=== PATIENT | female | born 1965 | race Caucasian/White ===

== ENCOUNTER 2023-06-13 10:19 | Emergency (ER) | payer OTHER, SELFPAY ==
--- NOTE | ~2023-06-13 | XR_ITS ---
EXAMINATION: XR wrist RT min 3V, XR forearm RT 2V DATE: 06/13/2023 12:06 INDICATION: Right wrist and forearm pain post fall TECHNIQUE: 1. Posteroanterior, ulnar deviation, oblique, and lateral views of the affected wrist were obtained. 2. AP and lateral views of the right forearm were obtained. COMPARISON: none FINDINGS: Dorsally impacted comminuted intra-articular fracture of the distal right radius. There is up to 1 mm lucent fracture gap and 1.5 mm step-off along the articular cortex. 8 degree dorsal tilt of the dist al articular surface. There is an additional nondisplaced fracture extending across the ulnar styloid process. There is increased scapholunate angle which suggests possibility of scapholunate ligament t ear/insufficiency. Polyarticular osteoarthritis, moderate severity at the first and second metacarpop halangeal joints and mild at the elbow and many of the remaining joints at the right hand and wrist. Small enthesopathic ossicle along the distal humeral lateral epicondyle. Soft tissue swelling about t he distal forearm. No elbow joint effusion. IMPRESSION: 1. Dorsally impacted comminuted intra-articular fracture of the distal right radius. 2. Nondisplaced ulnar styloid avulsion fracture. 3. Increased scapholunate angle which suggests possibility of scapholunate ligament tear/insufficienc y. 4. Polyarticular osteoarthritis, moderate at the right first and second metacarpophalangeal joints an d mild at many of the remaining joints at the right elbow, wrist and hand. Reviewed, dictated and finalized at location A. ICAL SUPPLY ASSISTANT IMPRESSION: 1. Dorsally impacted comminuted intra-articular fracture of the distal right ra dius. 2. Nondisplaced ulnar styloid avulsion fracture. 3. Increased scapholunate angle which suggests possibility of scapholunate liga ment tear/insufficiency. 4. Polyarticular osteoarthritis, moderate at the right first and second metacar pophalangeal joints and mild at many of the remaining joints at the right elbow , wrist and hand.
[2023-06-13 11:00] VITALS: BP 156/84; PULSE 88; RESP 18; TEMP 37.1; O2SAT 95
--- NOTE | 2023-06-13 11:03 | ED.UPPEXIN ---
HPI - Extremity Injury (Upper) General Chief Complaint: Extremity Injury, Upper Stated Complaint: injury Time Seen by Provider: 06/13/23 10:22 Source: patient Mode of arrival: ambulatory Limitations: no limitations History of Present Illness HPI narrative: Brenda is a 57-year-old female patient presenting to the clinic today for complaints of falling on the ice yesterday and injuring her right wrist and forearm. States most pain is to the forearm but yesterday was unable to move the wrist as well. Has swelling to the volar aspect of the radial wrist and to the distal forearm. Related Data Allergies Allergy/AdvReac Type Severity Reaction Status Date / Time No Known Allergies Allergy Unverified 10/31/11 09:29 Review of Systems Review of Systems: Pertinent positives per HPI. Patient denies any fever, chills, rash, headache, visual changes, dizziness, cough, shortness of breath, chest pain, palpitations, nausea, vomiting, diarrhea, constipation, abdominal pain, or any urinary issues. PMFSH Comments At the time of my signature, I reviewed and agree with the nursing past medical, surgical, social, and family history. There is no relevant family history pertinent to the patient complaint. Exam Narrative: General: Well-developed, well nourished, in no apparent distress Head: Normocephalic, atraumatic. Cardio: Regular rate and rhythm, s1 and s2 normal, no murmur appreciated. Resp: Clear to auscultation bilaterally, no rhonchi, rales, wheezing or rubs. Musculoskeletal: No obvious deformity, swelling and redness noted to the right distal forearm and the volar aspect of the right radial wrist, tender to palpation over these areas, limited range of motion due to pain, pain with supination and pronation to the distal volar volar forearm, muscle strength strong and equal, peripheral pulse strong, cap refill less than 3 seconds, no cyanosis, normal gait and station Course Course Emergency Course: Portions of this record may have been created with voice recognition software. Level of Care: Express Care Visit Vital Signs Vital signs: Vital Signs Temperature 37.1 C 06/13/23 11:00 Pulse Rate 88 06/13/23 11:00 Respiratory Rate 18 06/13/23 11:00 Blood Pressure 156/84 H 06/13/23 11:00 Pulse Oximetry 95 06/13/23 11:00 Oxygen Delivery Room Air 06/13/23 11:00 Temperature 37.1 C 06/13/23 11:00 Pulse Rate 88 06/13/23 11:00 Respiratory Rate 18 06/13/23 11:00 Blood Pressure 156/84 H 06/13/23 11:00 Pulse Oximetry 95 06/13/23 11:00 Oxygen Delivery Room Air 06/13/23 11:00 Vital signs reviewed MDM - Extremity Injury (Upper) MDM Narrative Medical decision making narrative: At the time of visit patient is resting comfortably on the exam table. Patient appears to be nontoxic. Diagnostics: X-ray of the right forearm and wrist were performed-1. Dorsally impacted comminuted intra-articular fracture of the distal right radius. 2. Nondisplaced ulnar styloid avulsion fracture. 3. Increased scapholunate angle which suggests possibility of scapholunate ligament tear/insufficiency. 4. 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 Plan: Posterior short-arm OCL was applied and arm sling was given. Ortho referral to Dr. Ewing was given to the patient. CSM within normal limits prior to discharge with ortho glass splint. Work note was given to the patient. Supportive measures were discussed with the patient and they voiced understanding discharge instructions and agrees to treatment plan. Return precautions reviewed Differential Diagnosis Differential diagnosis: Likely sprain and strain of wrist, fracture of wrist and other (Radius, ulna fracture, contusion, soft tissue swelling) Imaging Data Radiologist's impression: ITS Impressions Forearm X-Ray 06/13/23 12:09 I
== END 2023-06-13 12:54 | disposition home or self-care (01) ==
PROVIDERS: Emergency Provider Nurse Practitioner Family
DX: S52.591A Other fractures of lower end of right radius, initial encounter for closed fracture (principal); S52.614A Nondisplaced fracture of right ulna styloid process, initial encounter for closed fracture; W00.9XXA Unspecified fall due to ice and snow, initial encounter
CPT/HCPCS: 29125; 73090; 73110; 99214; A4565; G0463

== ENCOUNTER 2023-11-06 13:56 | Outpatient (CLI) | payer OTHER, SELFPAY ==
--- NOTE | ~2023-11-06 | US_ITS ---
EXAMINATION: US arterial ankle brachial ind DATE: 11/06/2023 16:20 INDICATION: Right foot pain TECHNIQUE: Segmental pressures and plethysmographic and Doppler waveforms of the brachial and lower e xtremity arteries were obtained. COMPARISON: None. FINDINGS: Right and left brachial artery pressures of 197 mm Hg and 188 mm Hg, respectively, are concordant (no rmal difference <= 30 mmHg). The right ankle-brachial index (BAKARI) is 0.28 (normal >= 0.9-1.0). The right great toe-brachial index (TBI) is 0.09 (normal >= 0.65). Arterial Doppler waveforms demonstrate parvus and tardus waveforms wi th widened monophasic systolic peaks with delayed upstrokes. The left BAKARI is 0.58. The left TBI is 0.37. Arterial Doppler waveforms are monophasic but with brisk systolic upstrokes at both the left posterior tibial and dorsalis pedis arteries. IMPRESSION: 1. Bilateral arterial occlusive disease with severely decreased right BAKARI and TBI and moderately decr eased left BAKARI and TBI. Reviewed, dictated and finalized at location A. IMPRESSION: 1. Bilateral arterial occlusive disease with severely decreased right BAKARI and T BI and moderately decreased left BAKARI and TBI.
--- NOTE | ~2023-11-06 | US_ITS ---
EXAMINATION: US venous doppler LE RT DATE: 11/06/2023 16:20 INDICATION: RIGHT LEG PAIN AND SWELLING . TECHNIQUE: Grayscale images without and with compression and Doppler images of the right lower extrem ity veins were obtained. COMPARISON: None FINDINGS: The right common femoral vein, profunda (deep) femoral vein, femoral vein, popliteal vein, peroneal v ein, posterior tibial veins, gastrocnemius vein, and greater saphenous vein are patent. IMPRESSION: Patent right lower extremity veins. No evidence of deep venous thrombosis. Reviewed, dictated and finalized at location K.
== END 2023-11-06 13:57 | disposition home or self-care (01) ==
PROVIDERS: Visit Provider Podiatrist Foot & Ankle Surgery
DX: R60.0 Localized edema (principal); M79.89 Other specified soft tissue disorders
CPT/HCPCS: 93922; 93971

== ENCOUNTER 2025-04-17 20:49 | Inpatient (IN) | payer OTHER, SELFPAY ==
--- NOTE | ~2025-04-17 | CT_ITS ---
CT HEAD NON-CONTRAST Clinical History: If stable Comparison: None Technique: Unenhanced axial images skull base to vertex Coronal, sagittal reformats CT images acquired with automatic exposure control for dose reduction DLP: 681 mGy-cm Findings: Sulci, ventricles: Unremarkable. No intracerebral hemorrhage. No evidence acute territorial infarct. No mass effect, midline shift. Bony calvarium intact. Visualized paranasal sinuses: Clear. Mastoid air cells: Clear. IMPRESSION: 1. No acute intracranial findings. Reviewed, dictated and finalized at location R. MENTAL IRON WORKER HELPER
--- NOTE | ~2025-04-17 | XR_ITS ---
Examination: XR chest 1V portable Clinical History: Respiratory failure, CHF Comparison: 04/19/2025 Technique: Portable AP Findings: ET tube, NG tube, right neck central line. Heart size normal. Worsening diffuse interstitial markings. Small left effusion not excluded. No acute bony abnormality. IMPRESSION: 1. Worsening interstitial pulmonary edema and/or pneumonitis. 2. Suspect left effusion. Reviewed, dictated and finalized at location R. RVISING FLOORPERSON
--- NOTE | ~2025-04-17 | XR_ITS ---
Examination: XR chest 1V portable Clinical History: CP Comparison: None Technique: Portable AP Findings: Heart size upper limit of normal. Mildly increased interstitial markings. No acute bony abnormality. Right axillary femoral bypass graft. IMPRESSION: 1. Emphysema. Reviewed, dictated and finalized at location R. INE ROUGH ROUNDER IMPRESSION: 1. Emphysema.
--- NOTE | ~2025-04-17 | XR_ITS ---
EXAMINATION: XR chest 1V portable COMPARISON: No comparisons available. HISTORY: Resp Failure FINDINGS: Moderate pulmonary venous congestion. Small basilar infiltrates. No pneumothorax. Moderate cardiomegaly. Mediastinal and hilar contours are within normal limits. Post sternotomy. Miscellaneous: Right central line in the SVC. Impression: CHF. Superimposed probable pneumonia. The findings appear slightly progressed compared to the previous study Reviewed, dictated and finalized at location P. Y LEVEL AUTOMOTIVE TECHNICIAN Impression: CHF. Superimposed probable pneumonia. The findings appear slightly progressed c ompared to the previous study
--- NOTE | ~2025-04-17 | XR_ITS ---
XR abdomen gastric tube insert INDICATION: Evaluate OG tube position. TECHNIQUE: Limited KUB perform for evaluating OG tube . COMPARISON: No prior studies for comparison. FINDINGS: OG tube tip in the stomach. Visualized bowel gas pattern is unremarkable.Partially visualized central line tip in the SVC. Status post median sternotomy for CABG. There is residual contrast in nondilated renal collecting systems. IMPRESSION: 1: OG tube tip in the stomach. Reviewed, dictated and finalized at location I. L CLEANER HAND
--- NOTE | ~2025-04-17 | XR_ITS ---
Examination: XR chest 1V portable Clinical History: Acute respiratory failure Comparison: 1 day prior Technique: 1 day prior Findings: ET tube, NG tube, right neck central line. Heart size normal. Improving interstitial markings. Left basilar hazy opacity. No acute bony abnormality. IMPRESSION: 1. Improving interstitial pulmonary edema. 2. Persistent left basilar atelectasis and/or pleural effusion. Reviewed, dictated and finalized at location R. UREMENT SERVICES MANAGER
--- NOTE | ~2025-04-17 | CT_ITS ---
EXAMINATION: CTA abdomen pelvis, 04/17/2025 21:50 DISTRIBUTOR OPERATOR HISTORY: GIB COMPARISON: No comparisons available. TECHNIQUE: CTA with 3-D reconstructions of the abdomen and pelvis was performed with contrast. Isovue 300, 92cc injected IV. One or more of the following dose reduction techniques were used: automated exposure control, adjustment of the mA and/or kV according to patient size, use of iterative reconstruction technique. Unless otherwise stated, incidental findings do not require dedicated follow up imaging FINDINGS: CT abdomen: LUNG BASES: The lung bases are clear. The visualized portions of the heart and pericardium are unremarkable. LIVER: Unremarkable, liver contours intact, no lesions. SPLEEN: Unremarkable, no splenomegaly. KIDNEYS: Right Kidney: Unremarkable. No calculi. No hydronephrosis. Left Kidney: Unremarkable. No calculi. No hydronephrosis ADRENAL GLANDS: Unremarkable. PANCREAS: Unremarkable. GALLBLADDER/BILIARY: Unremarkable. No biliary dilatation. STOMACH AND ESOPHAGUS: Visualized stomach and esophagus within normal limits. BOWEL/MESENTERY: Moderate fecal content, no colitis or diverticulitis. Appendix normal. Mesentery normal. No thickened or dilated loops of small bowel. ADENOPATHY/RETROPERITONEUM: No lymphadenopathy. AORTA/VASCULATURE: Normal caliber aorta. There are atherosclerotic changes of the aorta without gross dissection or aneurysm, there are severe atherosclerotic changes of the aortic tributaries which remain however grossly patent. There are severe atherosclerotic changes of the common, external and internal iliac pelvic vessels with occlusion of the right common, external and internal iliac vessels with reconstitution noted in the right internal iliac vessels, there is a partially imaged right-sided probable axillary femoral bypass graft with femorofemoral graft which appears grossly patent, surrounding the aorta femoral graft there is a 2.7 x 2.4 x 8.3 cm fluid collection indeterminate possible se philipp,less likely hematoma or abscess. FREE FLUID OR FREE AIR: None. CT pelvis: SOLID ORGANS/REPRODUCTIVE: Unremarkable. BLADDER: Within normal limits. OSSEOUS STRUCTURES: No acute osseous abnormality.No suspicious lesions. OVERLYING SOFT TISSUES: Unremarkable. IMPRESSION: 1. No aneurysm or dissection identified. 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 There is a right-sided graft detailed above with probable seroma. Clinical correlation is required. Follow-up suggested to assess. Reviewed, dictated and finalized at location P. RIBUTOR OPERATOR IMPRESSION: 1. No aneurysm or dissection identified. Occlusion of the right external, inter nal and external iliac vessels with reconstitution of the internal iliac vessel s. There is a right-sided graft detailed above with probable seroma. Clinical c orrelation is required. Follow-up suggested to assess.
--- NOTE | ~2025-04-17 | XR_ITS ---
MODIFIED ESOPHAGRAM HISTORY: Dysphagia. TECHNIQUE: Modified barium esophagram was performed on 04/23/2025. I administered fluoroscopy and performed the exam with speech pathologist. Patient was seated for lateral fluoroscopic imaging for ingestion of thin liquids, pudding, solids and quantified amounts, followed by thin liquids in uncontrolled amounts. This was recorded on tape. A single fluoroscopic spot image was also recorded. The DAP for this procedure was 1.155 Gycm2. The amount of fluoroscopy time used during this procedure was 2.2 minutes. FINDINGS: Oral stage: Adequate function. Pharyngeal stage: Reduced tongue base retraction with vallecular residue with pudding and solid consistencies.. No laryngeal penetration or aspiration. Cervical/esophageal stage: Adequate function. IMPRESSION: Mild pharyngeal dysphagia without laryngeal penetration or aspiration. Please correlate with speech pathologist findings and specific feeding recommendations. Reviewed, dictated and finalized at location A. ARY AIDE IMPRESSION: Mild pharyngeal dysphagia without laryngeal penetration or aspirati on. Please correlate with speech pathologist findings and specific feeding rec ommendations.
--- NOTE | ~2025-04-17 | US_ITS ---
ULTRASOUND ABDOMEN LIMITED (RIGHT UPPER QUADRANT) Clinical History: Elevated LFTs Comparison: CTA abdomen and pelvis 04/17/2025 Technique: Right upper quadrant sonography Findings: Liver: Enlarged. Echogenic. No intrahepatic biliary ductal dilatation. Micronodular contour. Common Duct: Normal caliber. 5 mm. Gallbladder: No stones. Wall thickening. Small pericholecystic fluid. Sonographic Tracy's sign could not be assessed given premedication. Pancreas: Obscured by bowel gas. Right kidney: Unremarkable. Retrohepatic IVC: Unremarkable. IMPRESSION: 1. Nonspecific gallbladder wall thickening and pericholecystic fluid. If concern for acute cholecystitis, can consider HIDA scan. 2. Hepatomegaly, with steatosis and probable cirrhosis. Reviewed, dictated and finalized at location R. GENCY COMMUNICATIONS DISPATCHER IMPRESSION: 1. Nonspecific gallbladder wall thickening and pericholecystic fluid. If jorden rn for acute cholecystitis, can consider HIDA scan. 2. Hepatomegaly, with steatosis and probable cirrhosis.
--- NOTE | ~2025-04-17 | XR_ITS ---
MODIFIED ESOPHAGRAM HISTORY: Failed bedside swallow evaluation TECHNIQUE: Modified barium esophagram was performed on 04/21/2025. I administered fluoroscopy and performed the exam with speech pathologist. Patient was seated for lateral fluoroscopic imaging for ingestion of thin liquids, pudding, solids and quantified amounts, followed by thin liquids in uncontrolled amounts. This was recorded on tape. A single fluoroscopic spot image was also recorded. The DAP for this procedure was 1.2 Gycm2. The amount of fluoroscopy time used during this procedure was 1.8 minutes. FINDINGS: Oral stage: Adequate function. Pharyngeal stage: Reduced laryngeal elevation and adduction. Reduced tongue base retraction. Severe vallecular residue with all consistencies. Laryngeal penetration and aspiration with thin liquids from a cup. Cervical/esophageal stage: Adequate function. IMPRESSION: Pharyngeal dysphagia with laryngeal penetration and aspiration with thin liquids from a cup. Please correlate with speech pathologist findings and specific feeding recommendations. Reviewed, dictated and finalized at location A. TAIL SERVER IMPRESSION: Pharyngeal dysphagia with laryngeal penetration and aspiration with thin liquids from a cup. Please correlate with speech pathologist findings an d specific feeding recommendations.
--- NOTE | ~2025-04-17 | XR_ITS ---
XR chest ET placement 04/18/2025 07:45 Indication: Respiratory distress Procedure: AP portable chest Comparison: 04/17/2025 Findings: Status post median sternotomy for CABG. NG tube in the stomach. Endotracheal tube tip 3.7 cm above the lianet. Right IJ central line tip in the SVC. Diffuse bilateral airspace disease is developed, most likely edema. Pneumonia less favored. No significant effusion or pneumothorax. Impression: 1: Interval development of diffuse bilateral airspace disease, most likely edema. Pneumonia less favored. Reviewed, dictated and finalized at location I. LINE CREW MEMBER Impression: 1: Interval development of diffuse bilateral airspace disease, most likely mandy a. Pneumonia less favored.
--- NOTE | 2025-04-17 20:51 | ECG_ITS ---
Test Date: 2025-04-17 20:56:08 Measurements Intervals [place] Rate: 126 P: 269 WI: 209 QRS: 29 QRSD: 79 T: 260 QT: 215 QTc: 312 Interpretive Statements SINUS TACHYCARDIA ST AND T-WAVE ABNORMALITY COMPATIBLE WITH ISCHEMIA ABNORMAL ECG No previous ECG available for comparison Electronically Signed On 04-18-2025 13:12:26 QA LEAD by Yazan Voss M.D.
[2025-04-17 20:53] VITALS: BP 118/74; PULSE 128; RESP 16; TEMP 37.1; O2SAT 100
--- NOTE | 2025-04-17 21:09 | ED.CHESTPAIN ---
HPI - Chest Pain General Chief Complaint: Chest Pain Stated Complaint: WEAK, CP, HEART HISTORY Time Seen by Provider: 04/17/25 20:51 History of Present Illness HPI narrative: 59-year-old female with a history of coronary artery disease status post triple bypass over a year ago at outside hospital. Today patient presents via EMS for chest pressure that it started when she was exerting herself getting around the house. States the pain felt better when she started to rest and pain subsided. States it recurred when she got up and ambulance arrived. She was having some nausea with occasional shortness of breath. Describes the pain as a pressure in her chest. Does not radiate anywhere. No fever, chills, back pain, abdominal pain. No traumatic injuries. Was otherwise in her normal state of health. Is on Xarelto, aspirin, metoprolol. Related Data Home Medications ?Medication ?Instructions ?Recorded ?Confirmed ?Last Taken ?Type No Home Medications 06/14/23 07/26/23 Unknown History Allergies Allergy/AdvReac Type Severity Reaction Status Date / Time No Known Allergies Allergy Unverified 07/26/23 09:27 Review of Systems Review of Systems: As reviewed above in HPI All systems reviewed & are unremarkable except as noted in HPI and below PMFSH Social History Social History Social History: caffeine use Smoking status: Former smoker Alcohol intake: current Drinks per week: 15 Substance use: never Occupation/Education: occupation Additional occupation/education comments: technical aide- [employer] Exam Narrative: GENERAL: Ill-appearing, tachycardic, dyspneic appearing but conversing HEAD: Normocephalic, atraumatic EYES: PERRLA, extraocular movements are intact ENT: Nares clear, no rhinorrhea or epistaxis. Mucous membranes moist. NECK: Supple. CHEST: Clear to auscultation, tachypneic. Appearing dyspneic HEART: Tachycardic rate, regular rhythm, warm extremities, symmetric pulses ABDOMEN: Soft, nontender, nondistended EXTREMITIES: Normal range of motion. No extremity edema SKIN: Warm, dry, no rash. NEURO: [No focal deficits]. Alert and oriented [x3.] PSYCH: [Normal mood and affect.] Course Vital Signs Vital signs: Vital Signs Temperature 37.1 C 04/17/25 20:53 Pulse Rate 128 H 04/17/25 20:53 Respiratory Rate 16 04/17/25 20:53 Blood Pressure 118/74 04/17/25 20:53 Pulse Oximetry 100 04/17/25 20:53 Oxygen Delivery Nasal Cannula 04/17/25 20:53 Oxygen Flow Rate 5 04/17/25 20:53 Temperature 36.7 C 04/18/25 01:06 Pulse Rate 91 04/18/25 04:00 Respiratory Rate 16 04/18/25 04:00 Blood Pressure 124/62 04/18/25 02:02 Pulse Oximetry 100 04/18/25 04:00 Oxygen Delivery Nasal Cannula 04/17/25 20:53 Oxygen Flow Rate 5 04/17/25 20:53 MDM - Chest Pain MDM Narrative Medical decision making narrative: 59-year-old female with a history of coronary artery disease status post triple bypass over a year ago at outside hospital. Today patient presents via EMS for chest pressure that it started when she was exerting herself getting around the house. States the pain felt better when she started to rest and pain subsided. States it recurred when she got up and ambulance arrived. She was having some nausea with occasional shortness of breath. Describes the pain as a pressure in her chest. Does not radiate anywhere. No fever, chills, back pain, abdominal pain. No traumatic injuries. Was otherwise in her normal state of health. Is on Xarelto, aspirin, metoprolol. Patient is ill-appearing, tachycardic and tachypneic. She is on supplemental oxygen for comfort at this time. Pressure resolved with rest but she still appears dyspneic and uncomfortable. EKG obtained shows inferior lateral ST depressions with slight elevation in AVR. Sinus tachycardia. Normal QTC. Given concerns for ACS at this time called and spoke to Interventional Cardiology Dr. Martin who recommended empiric heparinization and heparin drip and monitoring for any symptom worsening. Recommended metoprolol for heart rate and repeat evaluations. No emergent need for catheterization but will plan for cardiac catheterization tomorrow unless worsening or deterioration in symptoms/clinical status. Laboratory studies and workup pending Patient received a heparin bolus and a dose of metoprolol after discussion with Cardiology. Heart rate did come down and symptoms improved. Her hemoglobin came back critically low at 3.4. Heparin was put on hold at this time and we re-interviewed the patient who denied any dark tarry stools, any vomiting blood, any belly pain or back pain. She states she has had occasional nosebleeds but not that severe. She is on Xarelto and aspirin so does have higher propensity for GI bleeding and will have to evaluate this as her profound anemia could be causing demand ischemia on her underlying CAD. Cardiology was updated and anticoagulation on hold until we can further elucidate GI bleed. Patient was ordered 3 units of packed red blood cells for her anemia and tachycardia. CT angiography of the abdomen and pelvis ordered for further evaluation. Patient is holding normal blood pressure at this time and symptom controlled. Family and patient updated on plan. Patient CT scan independently reviewed and she has severe aortoiliac and occlusive disease. I would back in the room and reviewed her vascular surgery notes from her previous encounters in 2023. She was at [facility] under the care of Dr. Sparks and at that time performed a right axillary to bifemoral aortoiliac bypass graft with good success. The month prior she underwent coronary artery bypass grafting triple-vessel to ensure success of this new procedure that she was getting for claudication and peripheral vascular disease. States she has been stable from this and has follow-up visits every 6 months with an upcoming vascular ultrasound next week. Patient's vital signs improved with fluid resuscitation and blood products. Currently heart rate 90, blood pressure stable. 100% on room air. Her symptoms are improving. I looked at the CT angiography and there appears to be some aneurysmal dilation around the bypass grafting site but I do not appreciate any active bleeding. Awaiting radiology read and will discuss options with Vascular at [facility]. Spoke to patient's personal vascular surgeon Dr. Sparks through the access line for [facility]. We went over patient's imaging together and the graft/aneurysmal dilation is unrelated to her presentation today and not actively bleeding. Recommends further investigation for GI bleeding and catheterization is warranted for her ACS symptoms but no indications for vascular interventions at this time or need for transfer and will see her in clinic outpatient to discuss the graft next week after hospitalization for this acute process. CTA finally read by overnight radiology. No aortic aneurysm or dissection, chronic vascular disease with patent bypass graft, bypass graft with a small fluid collection overlying correlating to the discussion I had with vascular surgery earlier shown to be seroma less likely hematoma or abscess. No bowel obstruction. Normal appendix. Questionable pulmonary edema and underlying emphysema. Patient's vital signs have all normalized after blood product resuscitation and her hemoglobin improved 8 after 3 units of blood. Her tachycardia resolved. Her EKGs have improved without any further strain pattern or ischemia pattern. Her troponins keep rising however likely secondary to demand ischemia. I did update Interventional Cardiology as well as spoke to Gastroenterology Dr. Mann informing them of patient's presentation and GI bleed and NSTEMI. Patient will be admitted to the hospital for further intervention with both consulting groups. She is currently hemodynamically stable and symptoms resolved. Will likely undergo catheterization versus endoscopy versus both. Woke to the hospitalist who accepted the patient to the IMU at this time. After our discussiosn will hold off on anticoagulation given more suspicion to GI bleed being the primary courtesy driver of symptoms. Medical Records Data Attestation: I reviewed the patient's medical records. Lab Data Attestation: I reviewed the patient's lab results. 04/18/25 03:48 04/17/25 21:15 Labs: Lab Results 04/17/25 04/17/25 04/18/25 Range/Units 21:15 21:46 00:20 WBC 9.2 (4.5-10.0) K/mm3 RBC 2.09 L (4.2-5.4) M/mm3 Hgb 3.4 L* 6.8 L* D (12.0-15.0) g/dL Hct 14.0 L* 24.0 L (37.0-47.0) % MCV 67.0 L (80-100) fl MCH 16.3 L (26-34) pg MCHC 24.3 L (32-36) g/dl RDW 21.3 H (11.5-14.5) % Plt Count 333 (150-375) k/mm3 MPV 11.6 H (7.4-10.4) fl Immature Gran % (Auto) 0.5 (0-0.5) % Neut % (Auto) 69.0 (45.5-73.1) % Lymph % (Auto) 17.5 L (18.3-44.2) % [place] % (Auto) 11.0 H (2.6-8.5) % Eos % (Auto) 1.2 (0-4.4) % Baso % (Auto) 0.8 (0.2-1.2) % Lymph # (Auto) 1.61 (0.9-3.2) K/mm3 [place] # (Auto) 1.0 H (0.1-0.6) K/mm3 Eos # (Auto) 0.1 (0-0.3) K/mm3 Baso # (Auto) 0.1 (0.0-0.1) K/mm3 Abs Immat Gran (auto) 0.05 H (0.00-0.031) K/mm3 Absolute Neuts (auto) 6.3 (1.3-6.7) K/mm3 Absolute Nucleated RBC 0.030 H (0.0-0.012) K/mm3 Band Neutrophils % Not Reportable Nucleated RBC % 0.3 H (0.0-0.2) % Platelet Estimate Adequate (Adequate) % Immature Plt Fraction 6.9 (0.9-11.2) % Hypochromasia 3+ Anisocytosis 2+ Microcytosis 2+ (NORMAL) Target Cells Occasional Schistocytes Rare PT 17.7 H (11.1-14.7) Seconds INR 1.5 APTT 34.0 (22.3-36.8) Seconds Sodium 137 (137-145) mmol/L Potassium 2.5 L* (3.4-5.0) mmol/L Chloride 110 H (98-107) mmol/L Carbon Dioxide 19 L (22-30) mmol/L Anion Gap 8 (4-12) mmol/L BUN 6 L (7-17) mg/dL Creatinine 0.40 L (0.7-1.0) mg/dL Estim Creat Clear Calc 107 ml/min Estimated GFR > 60 (59 - ) Glucose 127 H (65-110) mg/dL Calcium 6.8 L (8.4-10.2) mg/dL Total Bilirubin 0.9 (0.2-1.3) mg/dL AST 91 H (14-36) U/L ALT 135 H (6-35) U/L Alkaline Phosphatase 79 (38-126) U/L Troponin I 0.026 0.240 H* D (0.000-0.034) ng/mL Total Protein 5.2 L (6.3-8.2) g/dL Albumin 2.8 L (3.5-5.1) g/dL Lipase 130 (23-300) U/L Blood Type O Negative Antibody Screen Negative Crossmatch See Detail 04/18/25 04/18/25 Range/Units 02:46 03:48 WBC (4.5-10.0) K/mm3 RBC (4.2-5.4) M/mm3 Hgb 8.0 L (12.0-15.0) g/dL Hct 27.0 L (37.0-47.0) % MCV (80-100) fl MCH (26-34) pg MCHC (32-36) g/dl RDW (11.5-14.5) % Plt Count (150-375) k/mm3 MPV (7.4-10.4) fl Immature Gran % (Auto) (0-0.5) % Neut % (Auto) (45.5-73.1) % Lymph % (Auto) (18.3-44.2) % [place] % (Auto) (2.6-8.5) % Eos % (Auto) (0-4.4) % Baso % (Auto) (0.2-1.2) % Lymph # (Auto) (0.9-3.2) K/mm3 [place] # (Auto) (0.1-0.6) K/mm3 Eos # (Auto) (0-0.3) K/mm3 Baso # (Auto) (0.0-0.1) K/mm3 Abs Immat Gran (auto) (0.00-0.031) K/mm3 Absolute Neuts (auto) (1.3-6.7) K/mm3 Absolute Nucleated RBC (0.0-0.012) K/mm3 Band Neutrophils % Nucleated RBC % (0.0-0.2) % Platelet Estimate (Adequate) % Immature Plt Fraction (0.9-11.2) % Hypochromasia Anisocytosis Microcytosis (NORMAL) Target Cells Schistocytes PT (11.1-14.7) Seconds INR APTT (22.3-36.8) Seconds Sodium (137-145) mmol/L Potassium (3.4-5.0) mmol/L Chloride (98-107) mmol/L Carbon Dioxide (22-30) mmol/L Anion Gap (4-12) mmol/L BUN (7-17) mg/dL Creatinine (0.7-1.0) mg/dL Estim Creat Clear Calc ml/min Estimated GFR (59 - ) Glucose (65-110) mg/dL Calcium (8.4-10.2) mg/dL Total Bilirubin (0.2-1.3) mg/dL AST (14-36) U/L ALT (6-35) U/L Alkaline Phosphatase (38-126) U/L Troponin I 0.469 H* D (0.000-0.034) ng/mL Total Protein (6.3-8.2) g/dL Albumin (3.5-5.1) g/dL Lipase (23-300) U/L Blood Type Antibody Screen Crossmatch Imaging Data Attestation: I personally reviewed and interpreted this imaging study as follows: My impression: Patent aortofemoral bypass, seroma without any active bleeding no dissection or aneurysm, chronic peripheral vascular disease with bypass graft in place. Critical Care Time Critical Care Time Critical Care Time: Yes Total Critical Care Time: 105 Discharge Plan Discharge Clinical Impression: Non-ST elevation SC (NSTEMI), Chest pain, GI (gastrointestinal bleed), Demand ischemia, Severe anemia, Anemia requiring transfusions Patient Disposition: Still a Patient Condition: Guarded Prognosis Patient Language: Chinese Prescriptions: No Action No Home Medications Follow-up/Referrals: PHYSICIAN,NATIONAL SALES EXECUTIVE [Primary Care Provider, Internal Medicine] Time of Disposition: 04:22
[2025-04-17 21:20] VITALS: PULSE 129
[2025-04-17] MEDS: METOPROLOL TARTRATE INJ 5 MG/5 ML VIAL IV PUSH (21:20)
--- OUTSIDE RECORDS SUMMARY | 2025-04-17 21:21 | XMS_ITS | Patient Health Record ---
Author Organization [facility] Address [address] [place], [place] [id number] Care Team Providers Care Industrial Coffee Grinder Name Role Phone RAF PINTO Unavailable [phone] Answer, Declined Unavailable Unavailable Allergies No Known Allergies Reason For Referral No Information Medications Medication SIG (Take, Route, Frequency, Duration) Notes Start Date End Date Status Lidocaine 4 % Patch 1 patch as needed Externally Once a day; Duration: 30 days 11/02/2023 Active Medrol 4 MG Tablet Therapy Pack as directed Orally 10/13/2023 Active Social History Tobacco Use: Social History Observation Description Date Details (start date - stop date) Current Smoker NA - NA Social History Tobacco Use: Social Info Question Answer Notes Tobacco Use/Smoking Tobacco use: current smoker Additional Details Category Social Info Options Details Drugs/Alcohol: Do you drink alcohol? Yes Plan Of Treatment No Information Insurance Providers Payer Name Payer Address Payer Phone Subscriber Number Group Number Insured Name Patient Relationship to Insured Coverage Start Date Coverage End Date [employer] PPO [address] [place], [place] [id number] Brenda Villa nd Self - patient is the insured
--- OUTSIDE RECORDS SUMMARY | 2025-04-17 21:21 | XMS_ITS | Clinical Summary ---
Author Organization [facility] Address [address] [place] [id number] Care Team Providers Care Sheet Manufacturing Supervisor Name Role Phone Kapil Sparks MD Unavailable Ephraim Huntley MD Unavailable Anna Shannon NP Primary Care Provider [phone] Allergies No known active allergies Medications acetaminophen (TYLENOL) 500 mg tabletIndicat ions:Fever,Pa in Take 1 tablet (500 mg total) by mouth every 6 (six) hours as needed for pain Active aspirin 81 mg enteric coated tabletIndicat ions:heart attack/stroke prevention Take 1 tablet (81 mg total) by mouth daily 90 tablet 01/10/20 24 Active oxygenIndicat ions:Dyspnea Inhale 2 L/min continuously wear 4L BNC continuous for SOB (portable tank at 4L continuous will last 2 hours) Active metoprolol tartrate (LOPRESSOR) 25 mg immediate release tablet TAKE 1 TABLET(25 MG) BY MOUTH TWICE DAILY 180 tablet 1 10/10/19 25 Active albuterol HFA (PROVENTIL HFA,VENTOLIN HFA,PROAIR HFA) 90 mcg/actuation inhaler INHALE 2 PUFFS BY MOUTH EVERY 6 HOURS NEEDED FOR WHEEZING OR SHORTNESS OF BREATH 8.5 g 3 01/07/20 25 Active Xarelto 20 mg tablet TAKE 1 TABLET(20 MG) BY MOUTH DAILY WITH BREAKFAST 30 tablet 2 01/17/20 25 Active escitalopram (LEXAPRO) 10 mg tabletIndicat ions:Recurren t major depressive disorder, in full remission TAKE 1 TABLET(10 MG) BY MOUTH DAILY 90 tablet 1 01/17/20 25 Active losartan (COZAAR) 25 mg tablet Take 1 tablet (25 mg total) by mouth daily 90 tablet 2 03/20/20 25 025 Active clopidogreL (PLAVIX) 75 mg tabletIndicat ions:heart Take 1 tablet (75 mg total) by mouth daily 90 tablet 2 03/20/20 25 026 Active fluticasone-u meclidin-mumtaz nter (Trelegy Ellipta) 100-62.5-25 mcg inhaler INHALE 1 PUFF BY MOUTH DAILY 60 each 1 03/31/20 25 Active atorvastatin (LIPITOR) 80 mg tablet TAKE 1 TABLET(80 MG) BY MOUTH EVERY NIGHT 90 tablet 1 04/14/20 25 Active atorvastatin (LIPITOR) 80 mg tablet TAKE 1 TABLET(80 MG) BY MOUTH EVERY NIGHT 90 tablet 1 10/10/19 25 025 Discontinued Trelegy Ellipta 100-62.5-25 mcg inhaler INHALE 1 PUFF BY MOUTH DAILY 60 each 3 11/21/19 25 025 Discontinued clopidogreL (PLAVIX) 75 mg tabletIndicat ions:heart Take 1 tablet (75 mg total) by mouth daily 30 tablet 02/19/20 25 025 Discontinued(R eorder) losartan (COZAAR) 25 mg tablet Take 1 tablet (25 mg total) by mouth daily 30 tablet 02/19/20 25 025 Discontinued(R eorder) Active Problems Problem Noted Date Diagnosed Date Annual physical exam 07/01/2024 Assessment & Plan (07/01/2024 9:53 AM RN ENDOCRINOLOGY): -Recommended: Healthy diet. Avoiding junk food/fast food. -30 minutes of exercise most days of the week. Increase to 45 minutes for weight loss. Health Maintenance reviewed - recommend pneumococcal vaccine Colonoscopy refused today Will consider pap at future visit. -Influenza vaccine every year Recommend: - Topic Date Due Pneumococcal vaccine <65 (1 of 2 - PCV) Never done DTaP/Tdap/Td Vaccine (1 - Tdap) Never done -F/u in 1 year for Annual PE or sooner if needed Colonoscopy refused 07/01/2024 Refused Streptococcus pneumoniae vaccination 02/2025 Thrombosis 05/03/2024 Assessment & Plan (05/03/2024 9:48 PM RN ENDOCRINOLOGY): Nonocclusive left lower extremity- continue Xarelto Recurrent major depression 04/30/2024 Assessment & Plan (07/01/2024 8:15 AM RN ENDOCRINOLOGY): Mood stable. Continue lexapro Assessment & Plan (05/03/2024 9:42 PM RN ENDOCRINOLOGY): Discussed starting a medication and pt is agreeable. Will start Lexapro . Discussed starting dose and titration to full dose, possible SE and time frame for expected results. Call if any suicidal thoughts or questions concerning SE. Do not abruptly stop medication without calling office. Follow up in 3-4 weeks for recheck and continuation of medications. Aortoiliac occlusive disease 04/04/2024 Assessment & Plan (11/01/2024 11:15 AM CDT): Status post right ax bifem 03/19/2024. Continues to do well denying any symptoms of claudication or rest pain. Per current duplex the axillary bifemoral bypass is patent. Chronic right groin fluid collection noted as well Continue aspirin Plavix statin therapy follow-up in 6 months for routine surveillance with aortoiliac duplex and right upper extremity duplex. Assessment & Plan (04/04/2024 3:00 PM RN ENDOCRINOLOGY): Impression: Patient is status post right axillary to bifemoral bypass graft with bilateral common femoral profunda femoral and superficial femoral artery endarterectomy. She continues to recover well. Patient does report numbness to her right lower extremity however this has been present since her surgical procedure. Bypass graft is patent with audible signals. Bilateral lower extremities are warm, well perfused with audible signals throughout bilateral lower extremities. Ulceration to the right lateral 5th toe is healing, small in size. No concern for infection. Plan: Continue ongoing risk factor modifications. -Naa removed at bedside. -Patient to follow-up in 4 weeks with new baseline lower extremity arterial duplex. Chronic respiratory failure with hypoxia and hyp ercapnia 03/19/2024 Assessment & Plan (03/11/2025 3:31 PM CDT): Assessment & Plan (07/01/2024 9:47 AM RN ENDOCRINOLOGY): On 2 liters continuous oxygen per N/C. Stable. COPD (chronic obstructive pulmonary disease) Assessment & Plan (07/01/2024 9:18 AM RN ENDOCRINOLOGY): COPD well controlled on 2L of O2. Continue albuterol HFA, trelegy ellipta, Managed by pulmonology Leukocytosis 03/19/2024 Atherosclerotic PVD with intermittent claudicati on 03/08/2024 Assessment & Plan (03/11/2025 3:31 PM CDT): S/P CABG (coronary artery bypass graft) 01/02/20 Assessment & Plan (03/11/2025 3:31 PM CDT): Status post bypass surgery with a OTERO to the LAD, BRONSON to the distal right, vein graft to the marginal branch, 01/02/2024 Quit smoking within past year 01/01/2024 Assessment & Plan (03/11/2025 3:31 PM CDT): Heavy tobacco use with severe COPD, O2 dependent 12/12 Coronary artery disease 12/21/2023 Assessment & Plan (03/11/2025 3:31 PM CDT): Orders: ECG 12 lead Assessment & Plan (07/01/2024 8:19 AM RN ENDOCRINOLOGY): Followed by cardiology. Echo from 01/12: Ventricles: Left ventricle: Cavity size: normal Global function: normal LVEF%: 50-60 Right ventricle: Cavity size: normal Global function: normal RVEF%: 50-60 Valves: Aortic Valve: Annulus: normal Regurgitation: none Mitral valve: Annulus: normal Regurgitation: mild Aortic atherosclerosis 12/07/2023 Mixed hyperlipidemia 12/07/2023 Assessment & Plan (03/11/2025 3:31 PM CDT): Atorvastatin 80 mg daily with recent cholesterol 148, triglycerides 49, HDL 88, LDL 49 Orders: ECG 12 lead Assessment & Plan (07/01/2024 8:13 AM RN ENDOCRINOLOGY): Last LDL 49 at goal. Continue atorvastatin Assessment & Plan (05/03/2024 9:41 PM RN ENDOCRINOLOGY): Lipid abnormalities are stable, reviewed previous lipid levels in [facility]. Continue statin therapy. Lipitor (atorvastatin) Order for lipid panel was given today to be obtained. Pt voiced understanding of lab drawn and continuation of current medication regimen. Assessment & Plan (03/06/2024 9:42 AM CDT): Still continue Lipitor Assessment & Plan (02/02/2024 9:15 AM CDT): Stable continue Lipitor Assessment & Plan (12/07/2023 12:19 PM CDT): Stable continue Lipitor Hypertension 11/17/2023 Assessment & Plan (03/11/2025 3:31 PM CDT): 120/70 Orders: ECG 12 lead Assessment & Plan (07/01/2024 8:12 AM RN ENDOCRINOLOGY): BP stable today. Continue losartan, metoprolol tartrate Assessment & Plan (05/03/2024 9:41 PM RN ENDOCRINOLOGY): Stable/ Improved. Blood pressure is adequately controlled on Losartan . We will not make any medication changes today. Will have her follow-up in 6 months for continued monitoring and management Assessment & Plan (03/06/2024 9:41 AM CDT): Stable continue losartan Assessment & Plan (02/02/2024 9:15 AM CDT): Stable continue metoprolol Assessment & Plan (12/07/2023 12:19 PM CDT): Stable continue Zestoretic Assessment & Plan (11/17/2023 12:21 PM CDT): Stable continue Zestoretic Resolved Problems Problem Noted Date Diagnosed Date Resolved Date Cigarette nicotine dependence in remission 06/11/2024 07/01/2024 PVD (peripheral vascular disease) 03/19/2024 04/04/2024 Alcohol abuse, daily use 03/19/202402/2024 Hypoxemia 02/19/2024 07/01/2024 Assessment & Plan (05/03/2024 9:43 PM RN ENDOCRINOLOGY): Continues on home O2. She is trying to wean herself off of it. Managed by pulmonology. Currently on 2 L by nasal cannula. With pulse ox 99% Pulmonary air trapping 01/01/202407/01 Mucopurulent chronic bronchitis 01/01/2024 05/03/2024 Pre-op evaluation 01/01/2024 05/03/2024 Abnormal nuclear stress test 12/19/2023 07/01/2024 Preop cardiovascular exam 12/07/2023 Abnormal EKG 12/07/2023 07/01/2024 PVD (peripheral vascular dis ease) with claudication 11/15/2023 04/04/2024 Assessment & Plan (03/06/2024 9:41 AM CDT): Severe aortoiliac occlusive disease with the need for revascularization, she is still recovering from her CABG and still requiring 2-4 L of oxygen, has seen pulmonology and has severe COPD stage III, I had a long discussion with the patient and her spouse, originally we were discussing an aortobifemoral artery bypass, given her risk for postop pulmonary complications I have now recommended a right axillary artery to bifemoral artery bypass, risks benefits and alternatives were discussed, risks including bleeding, infection, nerve injury, and need for further surgery. She wished proceed. We did discuss overall the long-term patency rate of an axillary bifemoral bypass is much less then an aortobifemoral bypass however given her underlying pulmonary status currently I think the ax bifem bypass is more appropriate. Assessment & Plan (02/02/2024 9:15 AM CDT): Stable right lower extremity wound with ischemic rest pain. In her cardiac workup for an aortobifemoral bypass she required a three-vessel CABG, she is recovering from that now however is still on supplemental oxygen. Discussed continuing cardiac rehab as well as pulmonary evaluation prior to proceeding with aortobifemoral artery bypass later this fall, ideally I would like to delay this another 6-8 weeks to give her time to heal. We will plan for repeat evaluation later in February or early March unless her wound worsens. Assessment & Plan (12/07/2023 12:19 PM CDT): Severe multilevel occlusive disease in particular aortic and iliac disease with ischemic ulceration of the right foot. Risks benefits alternatives to aorto bifemoral artery bypass discussed, risks including bleeding, infection, mesenteric ischemia, renal failure requiring dialysis, ischemia to the pelvis or lower extremities, limb loss, injury to intra-abdominal organs CO stroke and . She wished proceed. Continue a 81 mg ASA and statin therapy. I strongly encouraged her to quit smoking. Assessment & Plan (11/17/2023 12:23 PM CDT): Severe multilevel occlusive disease with life-limiting claudication and cyanosis to the toe. Risks benefits alternatives to lower extremity angiography with possible intervention discussed, risks including bleeding, infection, perforation, contrast induced nephropathy, dissection, thrombosis, distal embolization need for further surgery. She wished proceed. I strongly encouraged her to quit smoking. Continue ASA. Recommend statin therapy Arthralgia of wrist 12/02/2010 07/01/19 25 Encounters Date Type Department Care Team Description 03/20/2025 Telephone [facility] Medical [facility] Cardiology [address] [place] [address] Juan Cuevas MD PhD Med Refill 03/11/2025 3:00 PM CDT Office Visit [facility] Cardiology [address] [place] [address] Juan Cuevas MD PhD Primary hypertension (Primary Dx); S/P CABG x 3; PVD (peripheral vascular disease) with claudication; Coronary artery disease involving [place] coronary artery of [place] heart without angina pectoris; Mixed hyperlipidemia; Quit smoking within past year; S/P CABG (coronary artery bypass graft); Atherosclerotic PVD with intermittent claudication; Chronic respiratory failure with hypoxia and hypercapnia (HCC); Bilateral carotid bruits from Last 3 Months Immunizations Immunization Administration Dates Next Due Influenza, Trivalent, IM (MDV) 03/06/2017,2013,03/06/2013 Influenza, Trivalent, Preser vative Free, Intramuscular 03/21/2024,02/23/2016,02/26/2015 Surgical History Surgery Date Site/Laterality Comments ARM SURGERY 05/22/2010 - 05/21/2011 Left R/T Juvenile Osteochondrosis TUBAL LIGATION 05/22/1993 - 05/21/1994 CORONARY ARTERY BYPASS GRAFT 12/21/2023 - 01/20/2024 AXILLARY ARTERY - FEMORAL ARTERY BYPASS GRAFT 03/19/2024 CARDIAC SURGERY 01/02/2024 Open Heart Surgery Medical History Medical History Date Comments Hypertension PVD (peripheral vascular disease) Claudication COPD (chronic obstructive pu lmonary disease) uses inhaler, on supplementa l oxygen Last menstrual period (LMP) > 10 days ago 2013 History of TIA (transient is chemic attack) 2008 No residuals. Juvenile osteochondrosis of bone of forearm, left Mixed hyperlipidemia CAD (coronary artery disease) Wears glasses Wears dentures full Post-operative complication 01/09 24 pt went into Vfib needed defibrillation after CABG Dependence on continuous sup plemental oxygen SOB (shortness of breath) on exertion 02/2024 On supplemental oxygen by nasal cannula Family History Medical History Relation Name Comments Heart disease Mother Breast cancer Mother's Sister Relation Name Status Comments Mother Mother's Sister Social History Tobacco Use Types Packs/Day Years Used Date Smoking Tobacco: Every Day Cigarettes 1 40 Last attempted to quit: 01/02/2024 Tobacco Cessation:Ready to Q uit: Not Asked; Counseling Given: Not Answered Comments:Last smoked 12/31 OASIS D0700: Social Isolation Answer Da te Recorded Frequency of experiencing loneliness or isolatio n Never 01/12/2024 [facility] Utilities Answer Date Recorded In the past 12 months has th e [employer], gas, oil, or water company threatened to shut off services in your home? No 03/20/2024 Social Connection and Isolation Panel Answer Date Recorded In a typical week, how many times do you talk on the phone with family, friends, or neighbors? More than three times a week 03/20/2024 How often do you get togethe r with friends or relatives? More than three times a week 03/20/2024 How often do you attend chur ch or hindu services? Never 03/20/2024 Do you belong to any clubs o r organizations such as roman catholic groups, unions, fraternal or athletic groups, or school groups? No 03/20/2024 How often do you attend meet ings of the clubs or organizations you belong to? Never 03/20/2024 Are you , , di vorced, , never , or living with a partner? 03/20/2024 AUDIT-C Answer Date Recorded Q1: How often do you have a drink containing alc ohol? Monthly or less 03/19/2024 Q2: How many drinks containi ng alcohol do you have on a typical day when you are drinking? 1 or 2 03/19/2024 Q3: How often do you have si x or more drinks on one occasion? Never 03/19/2024 Overall Financial Resource Strain (CARDIA) Answe r Date Recorded How hard is it for you to pa y for the very basics like food, housing, medical care, and heating? Not very hard 03/20/2024 PHQ-2 Answer Date Recorded PHQ-2 Total Score (If total score is 3 or more points, staff should administer the PHQ-9) 4 04/30/2024 Hunger Vital Sign Answer Date Recorded Within the past 12 months, y ou worried that your food would run out before you got the money to buy more. Never true 03/20/20 24 Within the past 12 months, t he food you bought just didn't last and you didn't have money to get more. Never true 03/20/2024 PRAPARE - Transportation Answer Date Re corded In the past 12 months, has l ack of transportation kept you from medical appointments or from getting medications? No 02/21 In the past 12 months, has l ack of transportation kept you from meetings, work, or from getting things needed for daily living? No 03/20/2024 PHQ-9 Answer Date Recorded PHQ-9 Total Score 8 04/30/2024 Housing Stability Vital Sign Answer Brian e Recorded In the last 12 months, was t here a time when you were not able to pay the mortgage or rent on time? No 03/20/2024 In the past 12 months, how m any times have you moved where you were living? 0 03/20/2024 At any time in the past [facility], were you homeless or living in a [place] [facility] care facility (including now)? No 03/20/2024 Personal Safety Answer Date Recorded Have you ever been in or are you currently in a harmful physical or emotional relationship or is someone making you feel afraid or unsafe? Denies 03/19/2024 Comments No Sex and Gender Information Value Date Recorded Sex Assigned at Not on file Legal Sex Female 3:24 AM RN ENDOCRINOLOGY Gender Identity Not on file Sexual Orientation Not on file Obstetrics History Para Term AB IAB SAB Ectopic Multiple Livin g Live Births 3 2 2 Date Outcome GA Total Labor Labor/2nd/3rd Weight Sex Type Anes PTL Shirley A1 A5 Name Clin Term Term Last Filed Vital Signs Vital Sign Reading Time Taken Comments Blood Pressure 120/70 03/11/2025 2:50 PM CDT Pulse 72 03/11/2025 2:50 PM CDT Temperature 36.4 C (97.6 F) 07/01/2024 9:02 AM RN ENDOCRINOLOGY Respiratory Rate 16 03/11/2025 2:50 PM CDT Oxygen Saturation 99% 03/11/2025 2:50 PM CDT Inhaled Oxygen Concentration - - Weight 66.7 kg (147 lb) 03/11/2025 2:50 PM CDT Height 162.6 cm (5' 4) 03/11/2025 2:50 PM CDT Body Mass Index 25.23 03/11/2025 2:50 PM CDT Plan of Treatment Health Maintenance Due Date Last Done Comments Cervical Cancer Screening 1966 Colon Cancer Screening-Colonoscopy 1966 DTaP/Tdap/Td Vaccine (1 - Tdap) 1977 Pneumococcal vaccine <65 (1 of 2 - PCV) 1985 Lung Cancer Screening 2016 Zoster Vaccine (1 of 2) 2016 Covid-19 Vaccine (4 - 2024-2 6 season) 2025 07/13/2021, 07/12/2020, 06/21/2020 Influenza Vaccine (#1) 2025 4, 03/06/2017, 02/23/2016, Additional history exists Depression Screening 04/30/2025 04/30/2024, 04/30/20 Breast Cancer Screening-Mammogram 06/25/2025 025 Regular Well Visit/Exam 18-64 07/01/2025 07/01/2024 Hepatitis B Screening Completed 04/30/2024 Hepatitis C Screening Completed 04/30/2024 Medical Devices Implanted Type Area Manager Of Purchasing Device Identifier Shelf Expiration Date Model / Serial / Lot [employer] Graft Vascular Heparin Coated Standard [id number] Propaten [id number] - [id number] - [id number] Implanted:Qty: 1 on 03/19/2024 by Kapil Sparks MD at [facility] Graft N/A: Femoral [employer] [id number] 08/05/2026 [id number] / [id number] / Description:Ax-fem-fem bypas s Wire Wire Sternum [employer] Device Closure Fibertape Sternal Cerclage Cutting Needle [id number] - [id number] Implanted:Qty: 3 on 01/02/2024 by Dontrell Jha MD at [facility] N/A: Sternum [employer] [id number] 10/19/2028 [id number] / / [id number] [place] Implanted:Qty: 1 on 01/02/2024 by Dontrell Jha MD at [facility] N/A: Heart [place] [employer] 06/22/2026 AMD / / [id number] Procedures Procedure Name Priority Date/Time Associated Diagnosis Comments ECG 12-LEAD Routine 03/11/2025 2:53 PM CDT Primary hypertension S/P CABG x 3 PVD (peripheral vascular disease) with claudication Coronary artery disease involving [place] coronary artery of [place] heart without angina pectoris Mixed hyperlipidemia SCREENING MAMMOGRAM BILATERAL W KAYLEE Schedule Routine, Read Routine (OP Routine) 06/25/2024 9:26 AM RN ENDOCRINOLOGY Visit for screening mammogram HEPATITIS C ANTIBODY Routine 04/30/2024 2:00 PM RN ENDOCRINOLOGY Need for hepatitis C screening test Encounter for hepatitis C screening test for low risk patient from Last 3 Months or Most Recently Relevant to Health Maintenance Results * ECG 12 lead (03/11/2025 2:53 PM CDT) Juan Cuevas MD PhD ECG ORDERABLES Final Result * Screening Mammogram Bilateral W Kaylee (06/25/2024 9:26 AM RN ENDOCRINOLOGY) Anatomical Region Laterality Modality Breast Bilateral Mammography Impressions 06/25/2024 9:35 AM RN ENDOCRINOLOGY BI-RADS ATLAS category (overall): 2 - Benign There is no mammographic evidence of malignancy. A 1 year screening mammogram is recommended. The patient has been or will be contacted. We recommend annual screening mammography for women at average risk of breast cancer beginning at age 40, based on guidelines of the [employer] (ACR Practice Parameter for the Performance of Screening and Diagnostic Mammography) and [employer]. For women with and elevated risk of breast cancer, please refer to the ACR Practice Parameter for specific screening recommendations. The patient will be entered into a reminder system with a target due date of 1 year for her next screening exam. Narrative 06/25/2024 9:35 AM RN ENDOCRINOLOGY Screening Mammogram Bilateral W Kaylee: 06/25/24 The study was acquired using full field digital technology and interpreted from soft copy. 2D digital mammographic views, as well as 3D digital tomosynthesis were performed in the CC and MLO projections. This study was resulted using Computer-Aided Detection (CAD). CLINICAL: Visit for screening mammogram. No relevant medical history has been documented for this patient. History of breast cancer in Mother's Sister. No comparisons were made when reading this study. BREAST TISSUE: The breasts are heterogeneously dense, which may obscure small masses. FINDINGS: There are benign calcifications in both breasts.No suspicious masses, suspicious calcifications, or other suspicious findings are seen within either breast. There has been no suspicious change. Anna Shannon PRESCHOOL TEACHER IMG MAMMO PROCEDURES Final Re sult * Hepatitis C antibody Blood (04/30/2024 2:00 PM RN ENDOCRINOLOGY) Hep C Ab Nonreactive Nonreactive Comment: Interpretive Data Nonreactive: Antibodies to HCV not detected. Does NOT exclude the possibility of recent exposure to HCV. Equivocal: Equivocal for HCV antibodies. Supplemental molecular testing will be automatically performed to determine infection status in accordance with current CDC screening recommendations. Reactive: Positive for HCV antibodies. This may represent current or past HCV infection. Supplemental molecular testing will be automatically performed to determine current infection status in accordance with current CDC screening recommendations. Interpretive data was last revised on 2019. Blood 04/30/2024 2:00 PM RN ENDOCRINOLOGY 04/30/2024 8:17 PM RN ENDOCRINOLOGY Anna Shannon NP LAB MICROBIOLOGY - GENERAL OR DERABLES Final Result [id number] Department of Laboratories [place], [place] [id number] from Last 3 Months or Most Recently Relevant to Health Maintenance Insurance Who@ [email or web address] Directives For more information, please contact: [phone] * Full Code (Latest Code Status on File) Date Activated Date Inactivated Comments 03/19/2024 12:17 PM 03/21/2024 6:57 PM * Full Code Date Activated Date Inactivated Comments 01/02/2024 5:19 PM 01/09/2024 8:37 PM Care Teams Sheet Manufacturing Supervisor Relationship Specialty Start Date End Date Anna Shannon NP [address] [place] [address] PCP - General Family Medicine 10/31/24 Kapil Sparks MD [address] [place] [id number] Consulting Physician Vascular Surgery 12/21/23 Ephraim Huntley MD [address] [place] [id number] Consulting Physician Cardiology 12/21/23
[2025-04-17 21:23] LABS: Immature Granulocyte Percent A 0.5 % (0-0.5); Immature Platelet Fraction Pct 6.9 % (0.9-11.2); Lymphocytes Absolute Auto 1.61 K/mm3 (0.9-3.2); Mean Corpuscular HGB Conc 24.3 g/dl (32-36); Mean Corpuscular Hemoglobin 16.3 pg (26-34); Mean Corpuscular Volume 67.0 fl (80-100); Nucleated Red Blood Cells Absolute Auto 0.030 K/mm3 (0.0-0.012); Nucleated Red Blood Cells Perc 0.3 % (0.0-0.2); Platelet Count Result 333 k/mm3 (150-375); Red Blood Count 2.09 M/mm3 (4.2-5.4); White Blood Count 9.2 K/mm3 (4.5-10.0)
[2025-04-17] MEDS: HEPARIN SOD/D5W 100 UNITS/ML 25,000 UNITS/250 ML BAG 7 UNITS IV CONT (21:28)
[2025-04-17 21:30] LABS: Hemoglobin 3.4 g/dL (12.0-15.0)
[2025-04-17 21:32] LABS: Hematocrit 14.0 % (37.0-47.0)
[2025-04-17 21:35] LABS: Alanine Aminotransferase 135 U/L (6-35); Albumin Level 2.8 g/dL (3.5-5.1); Alkaline Phosphatase 79 U/L (38-126); Anion Gap 8 mmol/L (4-12); Aspartate Amino Transferase 91 U/L (14-36); Bilirubin,Total 0.9 mg/dL (0.2-1.3); Blood Urea Nitrogen 6 mg/dL (7-17); Calcium 6.8 mg/dL (8.4-10.2); Carbon Dioxide 19 mmol/L (22-30); Chloride 110 mmol/L (98-107); Estimated CRCL calculation 107 ml/min; Estimated Glomerular Filt Rate > 60; Glucose 127 mg/dL (65-110); Lipase 130 U/L (23-300); Potassium 2.5 mmol/L (3.4-5.0); Sodium 137 mmol/L (137-145); Total Protein 5.2 g/dL (6.3-8.2)
[2025-04-17 21:40] LABS: INR 1.5; Partial Thromboplastin Time 34.0 Seconds (22.3-36.8); Prothrombin Time 17.7 Seconds (11.1-14.7)
[2025-04-17 21:44] LABS: Troponin I 0.026 ng/mL (0.000-0.034)
[2025-04-17 21:55] LABS: Anisocytosis 2+; Hypochromasia 3+; Microcytosis 2+ (NORMAL); Target Cells Occasional
[2025-04-17 21:57] LABS: Schistocytes Rare
[2025-04-17] MEDS: POTASSIUM CHLORIDE INJ 40 MEQ in SODIUM CHLORIDE 0.9% IV 500 ML 130 MEQ IVPB (22:28)
[2025-04-17] MEDS: SODIUM CHLORIDE 0.9% IV 1,000 ML 999 ML IV CONT (22:28)
[2025-04-17 23:00] VITALS: BP 120/61; PULSE 85; RESP 17; TEMP 36.7; O2SAT 100
[2025-04-17 23:17] VITALS: BP 123/62; PULSE 86; RESP 17; TEMP 36.8; O2SAT 97
--- NOTE | 2025-04-17 23:27 | ECG_ITS ---
Test Date: 2025-04-18 05:06:23 Measurements Intervals [place] Rate: 109 P: 79 [place]: 179 QRS: 49 QRSD: 78 T: 109 QT: 299 QTc: 404 Interpretive Statements SINUS TACHYCARDIA POSSIBLE LEFT ATRIAL ENLARGEMENT [-0.1mV P-WAVE IN V1/V2] ST DEVIATION AND MODERATE T-WAVE ABNORMALITY, CONSIDER LATERAL ISCHEMIA [-0.1+ mV T-WAVE IN I/aVL/V5/V6] ABNORMAL ECG Compared to ECG 04/18/2025 02:48:59 NO SIGNIFICANT CHANGE Electronically Signed On 04-18-2025 13:19:40 SECURITY CONTROL CENTER OPERATOR by Yazan Voss M.D.
[2025-04-17 23:52] VITALS: BP 124/65; PULSE 85; RESP 19; TEMP 36.6; O2SAT 100
[2025-04-18] VITALS (70 sets, daily range): BP systolic 72–151; BP diastolic 55–92; PULSE 79–126; RESP 10–24; TEMP 36.5–37.5; O2SAT 80–100; BMI 25.1
--- NOTE | 2025-04-18 | ECHO_ITS ---
Patient Info Name: Brenda Ibarra Age: 59 years : 1965 Gender: Female Ht: 64 in Wt: 146 lbs BSA: 1.74 m2 HR: 94 bpm BP: 151 / 92 mmHg Technical Quality: Good Exam Date: 04/18/2025 10:05 AM Patient Status: I Admit Date: 04/18/2025 Exam Type: CA echo dop color flow w con Complete two-dimensional, color flow and Doppler transthoracic echocardiogram is performed with contrast to opacify the left ventricle and to improve the deliniation of the left ventricle endocardial borders. Staff Referring Physician: Marilee Bashir NP Survey Technician: Katya Torres Attending Provider: aMrk Romo Contrast/Agitated Saline Contrast/Ag. Saline: Definity Amount: 2.00 ml Summary 1. Definity contrast administered improved wall motion interpretation. 2. Left ventricular chamber dimension is severely enlarged. 3. Left ventricular systolic function is severely globally reduced, estimated at 20-25. 4. The very basal segments have normal contractility suggestive of Takotsubo cardiomyopathy. 5. The left ventricular diastolic function is grade I diastolic dysfunction. 6. E/e' 9 is minimally elevated. 7. Right ventricular chamber dimension is severely enlarged. 8. Right ventricular systolic function is severely reduced and with abnormal TAPSE 1.3 cm. 9. Left atrial chamber dimension is moderately enlarged. 10. Right atrial chamber dimension is moderately enlarged. 11. There is mild aortic valve sclerosis. 12. There is moderate to severe mitral valve regurgitation. 13. There is severe tricuspid valve regurgitation. 14. Mild pulmonary hypertension, estimated pulmonary arterial systolic pressure is 49 mmHg. 15. There is mild pulmonic regurgitation. Left Ventricle E/e' 9 is minimally elevated. Left ventricular chamber dimension is severely enlarged. Left ventricular systolic function is severely globally reduced, estimated at 20-25. The left ventricular diastolic function is grade I diastolic dysfunction. The very basal segments have normal contractility suggestive of Takotsubo cardiomyopathy. Definity contrast administered improved wall motion interpretation. Right Ventricle Right ventricular chamber dimension is severely enlarged. Right ventricular systolic function is severely reduced and with abnormal TAPSE 1.3 cm. Left Atria Left atrial chamber dimension is moderately enlarged. Right Atria Right atrial chamber dimension is moderately enlarged. Aortic Valve The aortic valve is trileaflet. There is mild aortic valve sclerosis. There is no aortic valve stenosis. There is no aortic valve regurgitation. Pulmonic Valve There is mild pulmonic regurgitation. Mitral Valve There is no mitral valve stenosis. There is moderate to severe mitral valve regurgitation. Tricuspid Valve There is severe tricuspid valve regurgitation. Mild pulmonary hypertension, estimated pulmonary arterial systolic pressure is 49 mmHg. Pericardium/Pleural There is no pericardial effusion. Inferior Vena Cava Normal inferior vena cava with >50% collapse upon inspiration consistent with normal right atrial pressure, 5 mmHg. Aorta The aortic root size at the sinus of Valsalva is normal. Left Ventricular Outflow Tract Name Value Normal LVOT 2D LVOT Diameter 2.0 cm LVOT Doppler LVOT Peak Velocity 107 cm/s LVOT Peak Gradient 5 mmHg LVOT Mean Gradient 2 mmHg LVOT VTI 14 cm LVOT Stroke Volume 44 ml LVOT CO 4.1 l/min LVOT CI 2.4 l/min/m2 Pulmonic Valve Name Value Normal RVOT Doppler RVOT Peak Velocity 66 cm/s RVOT Peak Gradient 2 mmHg PV Doppler PV Peak Velocity 88 cm/s PV Peak Gradient 3 mmHg Mitral Valve Name Value Normal MV Diastolic Function MV E Peak Velocity 64 cm/s MV A Peak Velocity 83 cm/s MV E/A 0.8 MV Decel Time (PW) 190 ms MV Annular TDI MV E/e' (Septal) 10.2 MV E/e' (Lateral) 8.1 MV E/e' (Average) 9.1 Tricuspid Valve Name Value Normal TV Regurgitation Doppler TR Peak Velocity 331 cm/s TR Peak Gradient 44 mmHg Estimated PAP/RSVP RA Pressure 5 mmHg <=5 PA Systolic Pressure 49 mmHg <36 RV Systolic Pressure 49 mmHg <36 Aortic Valve Name Value Normal AV Doppler AV Peak Velocity 118 cm/s AV Peak Gradient 6 mmHg AV Area (Cont Eq Chkaa) 2.8 cm2 AV DI (Chaka) 0.90 AV Regurgitation 2D LVOT Area 3.1 cm2 Ventricles Name Value Normal LV Dimensions 2D/MM IVS Diastolic Thickness (2D) 0.7 cm 0.6-1.0 LVID Diastole (2D) 5.1 cm 3.8-5.2 LVIW Diastolic Thickness (2D) 0.7 cm 0.6-0.9 LVID Systole (2D) 4.5 cm 2.2-3.5 LVOT Diameter 2.0 cm LV Mass (2D Cubed) 116.76 g 67.00-162.00 LV Mass Index (2D Cubed) 67 g/m2 43-95 Relative Wall Thickness (2D) 0.26 <=0.42 LV Fractional Shortening/Ejection Fraction 2D/MM LV Fractional Shortening (2D) 11 % 27-45 LV EF (2D Teichholz) 23 % LV Diastolic Volume (4C MOD) 145 ml LV EF (4C MOD) 26 % LV Diastolic Volume (2C MOD) 155 ml LV EF (2C MOD) 19 % LV Diastolic Volume (BP MOD) 151 ml 46-106 LV Diastolic Volume Index (BP MOD) 87 ml/m2 29-61 LV Systolic Volume (BP MOD) 118 ml 14-42 LV Systolic Volume Index (BP MOD) 68 ml/m2 8-24 LV EF (BP MOD) 22 % 54-74 LV Diastolic Length (4C) 8.4 cm LV Systolic Length (4C) 7.4 cm LV Stroke Volume (4C MOD) 38 ml Atria Name Value Normal LA Dimensions LA Volume (4C A-L) 35 ml LA Volume (BP A-L) 50 ml RA Dimensions RA Systolic Major [place] Length (4C) 5.4 cm 2.2-2.8 RA Area (4C) 19.3 cm2 <=18.0 Report Signatures Amended by Jacinto Villanueva DO on 04/18/2025 08:07 PM
[2025-04-18 00:24] LABS: Hematocrit 24.0 % (37.0-47.0)
[2025-04-18 00:25] LABS: Hemoglobin 6.8 g/dL (12.0-15.0)
[2025-04-18] MEDS: PANTOPRAZOLE SODIUM IV 40 MG VIAL IV PUSH ×3 (00:30→20:10)
[2025-04-18] MEDS: TUBING, BLOOD SET 1 EACH XX ×3 (00:34→00:52)
[2025-04-18 00:49] LABS: Troponin I 0.240 ng/mL (0.000-0.034)
--- NOTE | 2025-04-18 02:40 | ECG_ITS ---
Test Date: 2025-04-18 00:19:21 Measurements Intervals [place] Rate: 84 P: 69 [place]: 201 QRS: 68 QRSD: 76 T: 96 QT: 341 QTc: 405 Interpretive Statements SINUS RHYTHM ST AND T-WAVE ABNORMALITY BE COMPATIBLE WITH ISCHEMIA ABNORMAL ECG Compared to ECG 04/17/2025 20:56:08 ST SEGMENT DEPRESSION MILDLY IMPROVED Electronically Signed On 04-18-2025 13:16:37 BLOCK MASON by Yazan Voss M.D.
[2025-04-18 03:17] LABS: Troponin I 0.469 ng/mL (0.000-0.034)
[2025-04-18] MEDS: ACETAMINOPHEN 500 MG TABLET 1000 MG PO (03:52)
[2025-04-18 03:53] LABS: Hematocrit 27.0 % (37.0-47.0); Hemoglobin 8.0 g/dL (12.0-15.0)
--- NOTE | 2025-04-18 04:21 | PM.IMHP ---
H&P: HPI History of Present Illness Date/Time: 04/18/25 04:21 Chief Complaint: Chest pain Narrative: This is a 59-year-old female patient who has a history of coronary artery disease status post 3 vessel CAB H ovary year ago at another hospital. The patient activated EMS tonight as she was having chest pressure that started after she was exerting herself around the house. She also has a history of COPD and is chronically on oxygen at 2.5 L. she felt better when she rested but with any activity she would have chest pressure again. She was also having some nausea with this as well. She was ill appearing, tachycardic, and tachypneic in the emergency room. Her EKG did show some inferior lateral ST depressions and slight elevation in AVR. The ER physician did talk to Interventional Cardiology who recommend that the patient be heparinized and heparin drip was started. Metoprolol was also recommended for the heart rate. However her hemoglobin came back critically low at 3.4. She is chronically on Xarelto an aspirin and was found to be guaiac-positive in the emergency room. Patient was ordered 3 units of packed red blood cells. She also has history of severe aortoiliac occlusive disease. She is under the care of Dr. Sparks at [facility]. Therefore the ER physician notify Dr. Sparks at [facility]. It was noted that her CT scan reveals chronic changes. Cardiology and GI have both been consulted. Patient's EKGs did improve with the blood transfusion. Repeat H&H was 8.0 in 27.0. CTA abdomen pelvis preliminary report was read as mild interseptal thickening is question pulmonary edema. There is underlying emphysema. Her heparin drip was then stopped. The patient was given IV Protonix. Her potassium was noted to be 2.5 which was replaced with 40 mEq potassium chloride IV. The patient is being placed in observation status and IMU on the date of service of 04/18/2025.. Review of Systems Constitutional: Constitutional: Reports as per HPI and Reports no additional constitutional complaints Eyes: Eyes: Reports as per HPI and Reports no additional eye complaints ENT: Reports no additional ear, nose, mouth, and throat complaints and Reports Normal hearing present Cardiovascular: Cardiovascular: Reports no additional cardiovascular complaints Respiratory: Respiratory: Reports as per HPI and Reports no additional respiratory complaints Gastrointestinal: Gastrointestinal: Reports as per HPI and Reports no additional gastrointestinal complaints Genitourinary: Genitourinary: Reports no additional female genitourinary complaints Musculoskeletal: Musculoskeletal: Reports no additional musculoskeletal complaints Integumentary/Breasts: Skin/Breast: Reports system reviewed and no additional complaints, except as docu Neurologic: Reports no additional neurologic complaints and Reports Normal hearing present Psychiatric: Psychiatric: Reports no additional psychiatric complaints and Reports as per HPI Hematologic/Lymphatic: Hematologic/Lymphatic: Reports no additional hematologic/lymphatic complaints Allergic/Immunologic: Allergic/Immunologic: Reports no additional allergic/immunologic complaints [facility] Past Medical History Medical History (Updated 04/18/25 @ 11:38 by Gloria Ochoa MD) PVD (peripheral vascular disease) Aortic atherosclerosis Depression with anxiety Hypertension Hyperlipemia, mixed FH: chronic lung disease requiring oxygen COPD (chronic obstructive pulmonary disease) CAD (coronary artery disease) Surgical History Surgical History (Updated 04/18/25 @ 04:29 by Marilee Bashir APRN) H/O hand surgery H/O hglxa-wpmtm-mrmyxus bypass S/P CABG x 3 Family History Family History Mother Heart disease Social History Social History (Updated 04/18/25 @ 06:21 by Marilee Bashir APRN) Social History: caffeine use. She lives with her . She has 2 children . She is disabled Code status: Full code Smoking packs per day: 2 Smoking cigarettes per day: 40.0 Years smoked: 30 Smoking pack-years: 60.00 Smoking status: Former smoker Tobacco type: cigarettes Second hand tobacco smoke exposure: No Alcohol intake: current Drinks per week: 15 Substance use: never Substance use type: does not use Occupation/Education: occupation Additional occupation/education comments: [employer] concerns: No Meds Home Medications and Allergies Home Medications ?Medication ?Instructions ?Recorded ?Confirmed ?Type albuterol sulfate 90 mcg/actuation 2 puff inhalation Q6H PRN 04/18/25 04/18/25 History aerosol inhaler shortness of breath or wheezing atorvastatin 80 mg tablet 80 mg PO QPM 04/18/25 04/18/25 History clopidogrel 75 mg tablet 75 mg PO DAILY 04/18/25 04/18/25 History escitalopram oxalate 10 mg tablet 10 mg PO DAILY 04/18/25 04/18/25 History fluticasone fur. 100 mcg-umeclid 1 inh inhalation DAILY 04/18/25 04/18/25 History 62.5 mcg-vilant 25 mcg inhalat.powder (Trelegy Ellipta) losartan 25 mg tablet 25 mg PO DAILY 04/18/25 04/18/25 History metoprolol tartrate 25 mg tablet 25 mg PO Q12H 04/18/25 04/18/25 History rivaroxaban 20 mg tablet (Xarelto) 20 mg PO QPM 04/18/25 04/18/25 History Allergies Allergy/AdvReac Type Severity Reaction Status Date / Time No Known Allergies Allergy Verified 04/18/25 05:35 Vital Signs Vital Signs - 24 hr 04/17/25 20:53 04/17/25 20:53 04/17/25 21:20 Temperature 98.7 F Pulse Rate 128 H 129 H Respiratory Rate 16 Blood Pressure 118/74 Pulse Oximetry 100 100 Oxygen Delivery Nasal Cannula Nasal Cannula Oxygen Flow Rate 5 5 04/17/25 23:00 04/17/25 23:17 04/17/25 23:52 Temperature 98.1 F 98.2 F 98 F Pulse Rate 85 86 85 Respiratory Rate 17 17 19 Blood Pressure 120/61 123/62 124/65 Pulse Oximetry 100 97 100 Oxygen Delivery Oxygen Flow Rate 04/18/25 00:07 04/18/25 00:34 04/18/25 00:45 Temperature 98.2 F Pulse Rate 85 82 84 Respiratory Rate 15 14 15 Blood Pressure 121/67 Pulse Oximetry 100 100 100 Oxygen Delivery Oxygen Flow Rate 04/18/25 00:46 04/18/25 00:50 04/18/25 01:00 Temperature 98.2 F Pulse Rate 83 83 81 Respiratory Rate 14 14 15 Blood Pressure 125/67 125/67 Pulse Oximetry 100 Oxygen Delivery Oxygen Flow Rate 04/18/25 01:01 04/18/25 01:06 04/18/25 01:15 Temperature 98.1 F Pulse Rate 83 84 82 Respiratory Rate 14 13 16 Blood Pressure 123/73 123/73 Pulse Oximetry 100 Oxygen Delivery Oxygen Flow Rate 04/18/25 01:16 04/18/25 01:30 04/18/25 01:32 Temperature Pulse Rate 82 83 80 Respiratory Rate 16 15 15 Blood Pressure 150/78 H 142/76 H Pulse Oximetry 100 100 Oxygen Delivery Oxygen Flow Rate 04/18/25 01:50 04/18/25 01:51 04/18/25 02:00 Temperature Pulse Rate 103 H 101 H 83 Respiratory Rate 18 20 19 Blood Pressure 143/57 H Pulse Oximetry 100 Oxygen Delivery Oxygen Flow Rate 04/18/25 02:02 04/18/25 02:25 04/18/25 02:43 Temperature Pulse Rate 84 83 89 Respiratory Rate 19 15 17 Blood Pressure 124/62 Pulse Oximetry 100 100 Oxygen Delivery Oxygen Flow Rate 04/18/25 02:45 04/18/25 03:00 04/18/25 03:32 Temperature Pulse Rate 88 91 90 Respiratory Rate 19 17 15 Blood Pressure Pulse Oximetry 100 100 Oxygen Delivery Oxygen Flow Rate 04/18/25 03:56 04/18/25 04:00 Temperature Pulse Rate 95 91 Respiratory Rate 18 16 Blood Pressure Pulse Oximetry 100 100 Oxygen Delivery Oxygen Flow Rate Exam Const: General: comfortable, no acute distress, well developed, awake, Physically active, ill appearing, average body habitus and well nourished Nutritional Appearance: average body habitus and well nourished Orientation/consciousness: oriented to person, oriented to place, oriented to time and patient oriented x3 HENMT: Head: normal to inspection and No palpable skull fracture present Eyes: General: appearance normal, both eyes and all related structures Alignment and Position: alignment normal Periorbital: periorbital findings normal Eyelids: eyelids normal Conjunctivae: conjunctivae normal Sclera: sclerae normal Cornea: corneas normal Pupils: Equal, round and reactive pupils present and Pupil accommodation reflex normal EOM: EOMs intact bilaterally Other: Pupils are sluggish reactive. Neck: Neck: normal visual inspection, full ROM, no lymphadenopathy, trachea midline and supple Chest: Chest palpation & inspection: normal inspection of the chest Resp: Effort & Inspection: normal respiratory effort Auscultation: clear to auscultation bilaterally Percussion: percussion normal Cardio: Palpation: normal PMI Rate: regular rate Rhythm: regular rhythm Heart sounds: S1 normal heart sound present and S2 normal heart sound present Peripheral pulses: Peripheral pulses 2+ throughout GI: Inspection: normal to inspection Percussion: Yes normal to percussion Auscultation: normal bowel sounds Rectal Exam: deferred : General: Yes no CVA tenderness Skin: General skin exam: normal color Lesions: no lesions Rashes: no rashes Trauma: no lacerations or abrasions Wounds: no wounds Hair: normal Nails: normal Other: Cool and clammy Neuro: General: oriented to person, oriented to place, oriented to time and patient oriented x3 Cranial nerves: Yes Equal, round and reactive pupils present and Yes Normal hearing present Cognition (Neuro): normal cognition Speech: normal speech Motor exam (neuro): 5/5 motor strength present throughout Sensory Exam: normal sensation Other: Initially the patient was alert orientated x3. A rapid response was called and then she was unresponsive. Extrem: General: normal to inspection Right upper extremity: normal to inspection and shoulder/upper arm Left upper extremity: normal to inspection and shoulder/upper arm Right lower extremity: normal to inspection Left lower extremity: normal to inspection Psych: Appearance: grossly normal Mental Status: mental status grossly normal Speech and movement: Normal speech and movement present Affect: normal affect Attitude: cooperative Thought process: Normal thought process present Thought content: Yes Normal thought content present H&P: Results Labs Labs: Short CBC 04/17/25 04/18/25 04/18/25 Range/Units 21:15 00:20 03:48 WBC 9.2 (4.5-10.0) K/mm3 Hgb 3.4 L* 6.8 L* D 8.0 L (12.0-15.0) g/dL Hct 14.0 L* 24.0 L 27.0 L (37.0-47.0) % Plt Count 333 (150-375) k/mm3 BMP 04/17/25 21:15 Sodium 137 Potassium 2.5 L* Chloride 110 H Carbon Dioxide 19 L BUN 6 L Creatinine 0.40 L Glucose 127 H Calcium 6.8 L Cardiac Enzymes 04/17/25 04/18/25 04/18/25 Range/Units 21:15 00:20 02:46 Troponin I 0.026 0.240 H* D 0.469 H* D (0.000-0.034) ng/mL Liver Function 04/17/25 Range/Units 21:15 Total Bilirubin 0.9 (0.2-1.3) mg/dL AST 91 H (14-36) U/L ALT 135 H (6-35) U/L Alkaline Phosphatase 79 (38-126) U/L Albumin 2.8 L (3.5-5.1) g/dL ECG Interpretation: SINUS RHYTHM POSSIBLE LEFT ATRIAL ENLARGEMENT [-0.1mV P-WAVE IN V1/V2] NONSPECIFIC ST & T-WAVE ABNORMALITY Compared to ECG 04/18/2025 00:19:21 No significant changes Imaging CT scan - chest: Radiologist's impression: Impressions Chest X-Ray 04/18/25 06:20 IMPRESSION: 1. Emphysema. Assessment and Plan Assessment and plan (1) Respiratory distress: Code(s): R06.03 - Acute respiratory distress Status: Acute Assessment and Plan: -the patient has a history of COPD -the patient chronically wears oxygen at 2 nap L. -once the patient was brought to IMU she went into respiratory distress and a rapid response was initiated. -the electronic repair troubleshooter came to ICU to intubate the patient. -chest x-ray shows emphysema. (2) Severe anemia: Code(s): D64.9 - Anemia, unspecified Status: Acute Assessment and Plan: -H&H 3.4 and 14.0, 6.8 and 24.0. Respectively. After 3 units of blood her H&H came up to 8.0 in 27.0. -anemia panel has been ordered. -GI consult was placed. -may consider Hematology consult. (3) COPD (chronic obstructive pulmonary disease): Code(s): J44.9 - Chronic obstructive pulmonary disease, unspecified Status: Acute Assessment and Plan: -patient is chronically on oxygen at 2.5 L per nasal cannula continuously at home. -patient became to tachypneic and had agonal breathing. The electronic repair troubleshooter was notified for possible intubation. (4) Non-ST elevation SD (NSTEMI): Code(s): I21.4 - Non-ST elevation (NSTEMI) myocardial infarction Status: Acute Assessment and Plan: -the patient has a history of a three-vessel CABG. -the ED provider did consult her slip maker at [facility]. -the patient may possibly have demand ischemia due to her severe anemia. -serial troponins. troponin 0.026, 0.240, 0.469. (5) Hypertension: Code(s): I10 - Essential (primary) hypertension Status: Acute Assessment and Plan: -blood pressure 151/92. Rate did drop down to 80/50. -the patient may need to be supported with a central line and vasopressors. (6) Depression with anxiety: Code(s): F41.8 - Other specified anxiety disorders Status: Acute Assessment and Plan: -the patient is now NPO Once the rapid response was called. Quality VTE Prophylaxis VTE prophylaxis: mechanical ordered
--- NOTE | 2025-04-18 04:55 | WPCEDHO ---
ED Hand Off Checklist All vitals saved:yes IV Site documented:yes All med administrations documented:yes Triage Note Triage Note Pt to the Ed with C/O chest 04/17/25 20:53 pressure that started early today and pain gets worse with exertion. Pt states if she sits still the pain subsides. Pt states also some nausea and vomiting with the pain and shortness of breath. Pt has a Hx of a triple bypass. Allergies No Known Allergies Allergy (Unverified 07/26/23 09:27) Family History (Last Updated 04/18/25 @ 04:29 by Marilee Bashir, POSSUM TRAPPER) Mother Heart disease Active Medications including assessments/comments Heparin Sodium/Dextrose (Heparin Sodium/D5w 100 Units/Ml) 25,000 units in 250 mls @ 0 mls/hr IV CONT .Q0M JUAN C; Protocol Last Titration: 04/17/25 21:35 Dose: 0 units/hr, 0 mls/hr Documented By: MIMI Infusion/Titration Document 04/17/25 21:35 LLG (Rec: 04/17/25 21:35 LLG [id number]) Intake Intake 0.8 Cumulative Intake ( 0.8 bag) Cumulative Intake ( 0.8 Rx) Container Volume 249.2 Waste Amount 0 Dosing Dose Rate 0 Infusion Rate 0 Cumulative Dose 80 Increase/Decrease Paused Elapsed Time Elapsed Time ( 7m minutes) Heparin Infusion Assessment Document 04/17/25 21:35 LLG (Rec: 04/17/25 21:35 LLG [id number]) Heparin Infusion Assessment Heparin Infusion On Hold Action Admin: 04/17/25 21:28 Dose: 700 units/hr, 7 mls/hr Documented By: MIMI Co-signed By: ACS Infusion/Titration Document 04/17/25 21:28 LLG (Rec: 04/17/25 21:29 LLG [id number]) Co-signed By Natty Chris RN Intake IV Site Peripheral Access Left Antecubital Container Volume 250 Waste Amount 0 Dosing Dose Rate 700 Infusion Rate 7 Increase/Decrease Started Elapsed Time Elapsed Time ( 0m minutes) Heparin Infusion Assessment Document 04/17/25 21:28 GERALDINEG (Rec: 04/17/25 21:29 LLG [id number]) Co-signed By Natty Chris RN Heparin Infusion Assessment Heparin Infusion Initiated Action Sodium Chloride (Normal Saline Iv) 250 mls @ 30 mls/hr IV CONT .Q8H20M STA Stop: 04/18/25 05:51 Last Admin: 04/18/25 00:51 Dose: Not Given Documented By: MIMI Non-Admin Reason: Flushed blood tubing Administered/Completed Medications Discontinued Medications Acetaminophen (Acetaminophen 500 Mg Tablet) 1,000 mg PO ONCE STA Stop: 04/18/25 03:44 Last Admin: 04/18/25 03:52 Dose: 1,000 mg Documented By: MIMI Heparin Sodium (Porcine) (Heparin Sodium 5,000 Units/Ml Vial) 3,500 units IV PUSH ONCE ONE Stop: 04/17/25 21:11 Last Admin: 04/17/25 21:28 Dose: 3,500 units Documented By: MIMI Co-signed By: SUDHIR Lactated Ringer's (Lr - Lactated Ringers Iv) 1,000 mls @ 999 mls/hr IV CONT .Q1H1M STA Stop: 04/17/25 22:45 Last Admin: 04/17/25 22:17 Dose: Not Given Documented By: MIMI Non-Admin Reason: Change in fluid Potassium Chloride 40 meq/ (Sodium Chloride) 520 mls @ 130 mls/hr IVPB ONCE STA Stop: 04/18/25 01:44 Last Infusion: 04/18/25 02:33 Dose: Infused Documented By: Admin: 04/17/25 22:28 Dose: 130 mls/hr Documented By: MIMI Sodium Chloride (Normal Saline Iv) 1,000 mls @ 999 mls/hr IV CONT .Q1H1M STA Stop: 04/17/25 23:17 Last Infusion: 04/18/25 00:51 Dose: Infused Documented By: Admin: 04/17/25 22:28 Dose: 999 mls/hr Documented By: MIMI IV Miscellaneous Supplies (Tubing, Blood Set) Confirm Administered Dose 1 each XX .STK-MED ONE Stop: 04/17/25 22:58 Last Admin: 04/18/25 00:34 Dose: 1 each Documented By: MERCEDES IV Miscellaneous Supplies (Tubing, Blood Set) Confirm Administered Dose 1 each XX .STK-MED ONE Stop: 04/17/25 23:47 Last Admin: 04/18/25 00:34 Dose: 1 each Documented By: MERCEDES IV Miscellaneous Supplies (Tubing, Blood Set) Confirm Administered Dose 1 each XX .STK-MED ONE Stop: 04/18/25 00:47 Last Admin: 04/18/25 00:52 Dose: 1 each Documented By: MERCEDES Metoprolol Tartrate (Metoprolol Tartrate Inj 5 Mg/5 Ml Vial) 5 mg IV PUSH ONCE STA Stop: 04/17/25 21:06 Last Admin: 04/17/25 21:20 Dose: 5 mg Documented By: MIMI Pantoprazole Sodium (Pantoprazole Sodium Iv 40 Mg Vial) 40 mg IV PUSH ONCE STA Stop: 04/17/25 23:28 Last Admin: 04/18/25 00:30 Dose: 40 mg Documented By: MERCEDES Interventions/Assessments IV / Saline Lock, Insert Start: 04/17/25 20:51 Freq: STAT Status: Active Protocol: Document 04/17/25 22:14 LLG (Rec: 04/17/25 22:14 LLG [id number]) IV Assessment Peripheral Access Right Antecubital IV Catheter Access Initiated IV Insertion Date 04/17/25 IV Insertion Time 22:14 Catheter Gauge 20 IV Insertion 1 Attempts IV Site Assessment WNL IV Care and WNL Maintenance PA: Cardiovascular Assessment Start: 04/17/25 20:44 Freq: Status: Active Protocol: Document 04/17/25 20:53 LLG (Rec: 04/17/25 21:07 LLG [id number]) Cardiovascular Assessment Cardiovascular Chest Pressure,Nausea,Vomiting Symptoms Skin Description Normal Color Heart Sounds Normal Jugular Vein None Distention PA: Respiratory Assessment Start: 04/17/25 20:44 Freq: Status: Active Protocol: Document 04/17/25 20:53 LLG (Rec: 04/17/25 21:07 LLG [id number]) Respiratory Assessment Symptoms Shortness of Breath With Exertion Effort Normal Pattern Regular Depth Normal Chest Expansion Symmetrical Cough Description None Sputum Amount None Oxygen Delivery Oxygen Delivery Nasal Cannula Oxygen Flow Rate 5 Pulse Oximetry (90- 100 100) Last Vital Signs Temperature 98.1 F 04/18/25 01:06 Pulse Rate 102 H 04/18/25 04:45 Respiratory Rate 18 04/18/25 04:45 Pulse Oximetry 100 04/18/25 04:45 Blood Pressure 124/62 04/18/25 02:02 Blood Pressure Mean 80 04/18/25 02:02 Oxygen Delivery Nasal Cannula 11/27/25 20:53 Oxygen Flow Rate 5 04/17/25 20:53 Weight 66.4 kg 04/17/25 20:53 Last Result - Abnormals Only RBC 2.09 M/mm3 (4.2-5.4) L 04/17/25 21:15 Hgb 8.0 g/dL (12.0-15.0) L 04/18/25 03:48 Hct 27.0 % (37.0-47.0) L 04/18/25 03:48 MCV 67.0 fl (80-100) L 04/17/25 21:15 MCH 16.3 pg (26-34) L 04/17/25 21:15 MCHC 24.3 g/dl (32-36) L 04/17/25 21:15 RDW 21.3 % (11.5-14.5) H 04/17/25 21:15 MPV 11.6 fl (7.4-10.4) H 04/17/25 21:15 Lymph % (Auto) 17.5 % (18.3-44.2) L 04/17/25 21:15 Steele % (Auto) 11.0 % (2.6-8.5) H 04/17/25 21:15 Steele # (Auto) 1.0 K/mm3 (0.1-0.6) H 04/17/25 21:15 Abs Immat Gran (auto) 0.05 K/mm3 (0.00-0.031) H 04/17/25 21:15 Absolute Nucleated RBC 0.030 K/mm3 (0.0-0.012) H 04/17/25 21:15 Nucleated RBC % 0.3 % (0.0-0.2) H 04/17/25 21:15 PT 17.7 Seconds (11.1-14.7) H 04/17/25 21:15 Potassium 2.5 mmol/L (3.4-5.0) L* 04/17/25 21:15 Chloride 110 mmol/L (98-107) H 04/17/25 21:15 Carbon Dioxide 19 mmol/L (22-30) L 04/17/25 21:15 BUN 6 mg/dL (7-17) L 04/17/25 21:15 Creatinine 0.40 mg/dL (0.7-1.0) L 04/17/25 21:15 Glucose 127 mg/dL (65-110) H 04/17/25 21:15 Calcium 6.8 mg/dL (8.4-10.2) L 04/17/25 21:15 AST 91 U/L (14-36) H 04/17/25 21:15 ALT 135 U/L (6-35) H 04/17/25 21:15 Troponin I 0.469 ng/mL (0.000-0.034) H* D 04/18/25 02:46 Total Protein 5.2 g/dL (6.3-8.2) L 04/17/25 21:15 Albumin 2.8 g/dL (3.5-5.1) L 04/17/25 21:15 Crossmatch See Detail 04/17/25 21:46 Most Recent Suicide Severity Rating Suicide Severity Rating NO RISK INDICATED 04/17/25 20:53
--- NOTE | 2025-04-18 05:01 | ECG_ITS ---
Test Date: 2025-04-18 02:48:59 Measurements Intervals Tye Rate: 86 P: 83 OH: 203 QRS: 18 QRSD: 82 T: 113 QT: 355 QTc: 427 Interpretive Statements SINUS RHYTHM WITH PVC POSSIBLE LEFT ATRIAL ENLARGEMENT [-0.1mV P-WAVE IN V1/V2] NONSPECIFIC ST SEGMENT ABNORMALITY ABNORMAL ECG Compared to ECG 04/18/2025 00:19:21 ST SEGMENT ABNORMALITY CONTINUES TO IMPROVE Electronically Signed On 04-18-2025 13:18:14 [employer] by Yazan Voss M.D.
--- NOTE | 2025-04-18 05:27 | ADMGEN ---
This patient, Brenda Ibarra, was admitted to IMU Room 203-01. Patient/family oriented to hospital policies and general routines including ID bracelet, bed and alarms, visiting hours, pain management, procedures, bathroom and other care routines, personal items, smoking policy, room service/diet, and visiting hours. Information on how to activate the Rapid Response Team has been discussed. Patient/Family are encouraged to report perceived risks to care and to ask questions if they do not understand what they are told or what they should do.
[2025-04-18 06:36] LABS: Hematocrit 34.8 % (37.0-47.0); Hemoglobin 9.7 g/dL (12.0-15.0); Immature Granulocyte Percent A 1.1 % (0-0.5); Lymphocytes Absolute Auto 5.51 K/mm3 (0.9-3.2); Mean Corpuscular HGB Conc 27.9 g/dl (32-36); Mean Corpuscular Hemoglobin 22.9 pg (26-34); Mean Corpuscular Volume 82.1 fl (80-100); Nucleated Red Blood Cells Absolute Auto 0.360 K/mm3 (0.0-0.012); Nucleated Red Blood Cells Perc 1.9 % (0.0-0.2); Platelet Count Result 413 k/mm3 (150-375); Red Blood Count 4.24 M/mm3 (4.2-5.4); White Blood Count 18.5 K/mm3 (4.5-10.0)
[2025-04-18] MEDS: PHENYLEPHRINE 1,000 MCG/10 ML SYRINGE 100 MCG IV PUSH (07:05)
[2025-04-18 07:06] LABS: Band Neutrophils Percent 1 % (0-6); Lymphocytes Absolute Manual 4.62 K/mm3 (1.1-4.5); Lymphocytes Percent Manual 25 % (18-44); Neutrophils Absolute Manual 13.32 K/mm3 (1.3-6.7); Neutrophils Percent Manual 71 % (46-73); Total Cells Counted 100
[2025-04-18] MEDS: ETOMIDATE 20 MG/10 ML AMPUL IV PUSH (07:06)
[2025-04-18] MEDS: ROCURONIUM BROMIDE 50 MG/5 ML VIAL 40 MG IV PUSH (07:06)
[2025-04-18 07:07] LABS: Metamyelocytes Percent 1 %; Monocytes Absolute Manual 0.37 K/mm3 (0.1-0.90); Monocytes Percent Manual 2 % (3-9)
[2025-04-18 07:08] LABS: Anisocytosis 1+; Hypochromasia 1+; Polychromasia 2+
--- NOTE | 2025-04-18 07:08 | PM.CCN ---
Critical Care Event Note Summary Code activated: No Narrative: This case had a high probability of a clinically significant, sudden, or life threatening deterioration of this patient's condition which required my full and direct attention, intervention and personal management. A rapid response was called at 6:22 a.m. this morning due to agonal breathing. Her pupils were equal but very sluggish to react. Patient was unresponsive. Patient's upper extremities were contracted and stiff. Patient would not respond to a sternal rub. ABGs and labs were ordered. The patient was taken to ICU for intubation. I discussed the case with her . (The patient was awake in orientated x4 in the emergency room). The patient suddenly declined when she was admitted to IMU. The patient is a full code. Patient was agonal breathing and was assisted with Ambu bag. She continue to have a heart rate in the 100s. Her blood pressure was 80/60. IV fluid bolus was ordered. Initially a BiPAP was placed on the patient in IMU but she was too lethargic be able to maintain her airway. The womens health nurse practitioner came to the ICU at change of shift and intubated the patient and place a central line. Critical care time: less than 30 mins
[2025-04-18 07:09] LABS: Acanthocytes 1+; Burr Cells 2+; Schistocytes 1+
[2025-04-18] MEDS: MIDAZOLAM 100MG/NS 100ML(*CRX) 100 MG/100 ML BAG IV CONT (08:00)
[2025-04-18] MEDS: FENTANYL 2,500MCG/NS250ML(*CRX 2,500 MCG/250 ML BAG IV CONT (08:00)
[2025-04-18] MEDS: IPRATROPIUM 0.5 MG/ALBUTEROL SULFATE 2.5 MG (BASE) AMPUL.NEB 3 ML INHALATION ×3 (08:03→21:01)
[2025-04-18 08:26] LABS: Alveolar/Arterial O2 Gradient 326.5 mmHg; Carboxyhemoglobin 0.9 % THb (0-2.0); Fractional Inspired Oxygen 100 %; HCO3 ABG 21.1 mEq/l (22.0-26.0); Methemoglobin ABG 0.2 %THb (0-1.5); Oxygen Content ABG 15.0 %vol (16.0-22.0); Oxygen Saturation ABG 99.5 % (95.0-100.0); PO2 ABG 317.3 mmHg (80.0-100.0); PO2 FiO2 Ratio Arterial Blood 3.17 %; Reduced Hemoglobin 0.4 %THb (0-5.0)
[2025-04-18 08:36] LABS: PCO2 ABG 69.2 mmHg (35.0-45.0)
[2025-04-18 08:37] LABS: Arterial Blood Gas Ventilator rate 20 /MIN; Modified Allen's Test Pass; Site Drawn RIGHT RADIAL
[2025-04-18 08:38] LABS: Arterial Blood Gas Tidal Volume 350 ml
[2025-04-18 08:46] LABS: Hematocrit 30.1 % (37.0-47.0); Hemoglobin 8.9 g/dL (12.0-15.0); Mean Corpuscular HGB Conc 29.6 g/dl (32-36); Mean Corpuscular Hemoglobin 22.9 pg (26-34); Mean Corpuscular Volume 77.6 fl (80-100); Platelet Count Result 411 k/mm3 (150-375); Red Blood Count 3.88 M/mm3 (4.2-5.4); White Blood Count 25.2 K/mm3 (4.5-10.0)
[2025-04-18 08:48] LABS: Immature Reticulocyte Fraction 6.0 % (3.0-15.9); Reticulocyte Hemoglobin Conten 15.9 pg (28.2-36.6); Reticulocytes Absolute 0.09 10^6/uL (0.02-0.10)
[2025-04-18 08:54] LABS: Ammonia 26 umol/L (9-30)
[2025-04-18 08:56] LABS: INR 1.4; Prothrombin Time 17.2 Seconds (11.1-14.7)
[2025-04-18 08:57] LABS: Partial Thromboplastin Time 27.9 Seconds (22.3-36.8)
[2025-04-18 09:04] LABS: Alanine Aminotransferase 182 U/L (6-35); Albumin Level 3.9 g/dL (3.5-5.1); Alkaline Phosphatase 93 U/L (38-126); Anion Gap 9 mmol/L (4-12); Aspartate Amino Transferase 135 U/L (14-36); Bilirubin,Total 3.8 mg/dL (0.2-1.3); Blood Urea Nitrogen 13 mg/dL (7-17); CRP 2.7 mg/dL (<1.0); Calcium 8.5 mg/dL (8.4-10.2); Carbon Dioxide 22 mmol/L (22-30); Chloride 106 mmol/L (98-107); Creatine Kinase 144 U/L (30-135); Estimated CRCL calculation 49 ml/min; Estimated Glomerular Filt Rate 60; Glucose 196 mg/dL (65-110); Magnesium 2.1 mg/dL (1.6-2.3); Potassium 4.2 mmol/L (3.4-5.0); Sodium 137 mmol/L (137-145); Total Protein 6.7 g/dL (6.3-8.2)
[2025-04-18 09:09] LABS: Bilirubin,Total 3.8 mg/dL (0.2-1.3)
[2025-04-18] MEDS: NOREPINEPHRINE 8 MG/D5W 250 ML 8 MG/250 ML BAG 9.38 MG IV CONT (09:10)
[2025-04-18 09:12] LABS: Band Neutrophils Percent 4 % (0-6); Lymphocytes Absolute Manual 2.01 K/mm3 (1.1-4.5); Lymphocytes Percent Manual 8 % (18-44); Monocytes Absolute Manual 1.26 K/mm3 (0.1-0.90); Monocytes Percent Manual 5 % (3-9); Neutrophils Absolute Manual 21.92 K/mm3 (1.3-6.7); Neutrophils Percent Manual 83 % (46-73); Total Cells Counted 100
[2025-04-18 09:12] LABS: Troponin I 1.620 ng/mL (0.000-0.034)
[2025-04-18 09:13] LABS: Anisocytosis 2+; Hypochromasia 1+; Ovalocytes 1+; Polychromasia 1+; Target Cells Occasional
[2025-04-18 09:14] LABS: Schistocytes 1+
--- NOTE | 2025-04-18 09:32 | WPDPROCEDUR ---
Procedures Intubation Intubation Date: 04/18/25 Intubation Time: 07:08 Consent: Consent was obtained from by hospitalist ROBERTH Ledesma pre-procedural Time-Out was completed immediately before starting the procedure and confirmed: Patient Identification, Site, Procedure, Patient Position and the Availability of Requisite Equipment: Yes Sedative: etomidate Paralytic: rocuronium Laryngoscope: fiber optic video scope Assist device used: fiber optic device ET tube size: 7.5 Tube secured depth (cm): 23 Tube secured location: lips Tube placement confirmation: visualized tube passing through cords, equal breath sounds bilaterally, no breath sounds over epigastrium and confirmation by capnometry Patient tolerated procedure: well and no complications Intubation complications: none
--- NOTE | 2025-04-18 09:33 | P.PCNBED_ITS ---
Procedures Central Line Placement Right IJ: Central Line Date: 04/18/25 Central Line Time: 07:15 Discussed w/ the patient/family/POA,the placement of a central venous catheter, including its clinical necessity/indication & associated potential risks, benifits and alternatives.: Yes The patient/family/POA understand(s) and acknowledge(s) the need to proceed with central venous catheter insertion as an important element of the patient's clinical management.: Yes Consent: I have discussed with the patient and/or surrogate, the non-emergent placement of a central venous catheter, including its clinical necessity/indication and associated potential risks and complications. The patient and/or surrogate understand(s) and acknowledge(s) the need to proceed with central venous catheter insertion as an important element of the patient's clinical management. Time Out Performed: Yes Patient Position: supine Patient placed on monitor/pulse ox: Yes Provider Prep: mask, sterile gown, sterile gloves, Max. sterile barrier precautions, cap and hand hygiene with conventional soap/water or alcohol based hand rub Central line prep: 2% Chlorhexidine scrub Local anesthesia used: lidocaine 1% Amount of anesthesia used (ml): 3 Sterile US Technique with sterile gel/sterile probe covers: Yes Central line lumen inserted: triple Upper Sorbian: 7 Length (cm): 16 Depth of Insertion (cm): 16 Post Procedure: sutured in place, good blood return, all ports aspirated, flushed, capped, transparent dressing, hemostatic product, antimicrobial product, securement product and aseptic technique maintained throughout procedure Post procedure x-ray: tip of catheter in good position and no pneumothorax seen Patient tolerated procedure: well and no complications Complications: none
--- NOTE | 2025-04-18 09:35 | WPDCNINT ---
Assessment and Plan Assessment and plan (1) Acute respiratory failure: Code(s): J96.00 - Acute respiratory failure, unspecified whether with hypoxia or hypercapnia Status: Acute Assessment and Plan: 04/18: Patient was transferred from intermediate Unit with agonal breathing, unresponsiveness 04/18: Intubated in the ICU, respiratory failure could be related to TRALI as patient has pulmonary vascular congestion, NSTEMI, CHF, aspiration -remains on CMV mode of ventilation, peep of 5, 50% FiO2 -ABGs and chest x-ray reviewed, ventilator adjusted -continue bronchodilators -sedated with fentanyl and Versed infusion, maintain RASS of 0 to -2 -daily sedation vacation and SBT (2) Shock: Code(s): R57.9 - Shock, unspecified Status: Acute Assessment and Plan: Shock could be related to sepsis, cardiogenic given patient with NSTEMI, TRALI -leukocytosis, lactic acidosis with initial lactic of 3.6, post intubation with adequate oxygen her lactate is down to 2.4 -patient received adequate IV fluids and 3 units of packed RBCs -chest x-ray showed pulmonary vascular congestion, -will be cautious with IV fluids -patient started on Levophed, maintain MAP > 65 mmHg or SBP > 100 mmHg -started patient on vancomycin and cefepime (04/18) -04/18: Blood cultures obtained -04/18: Urine cultures obtained -continue to trend lactic acid (3) Non-ST elevation VA (NSTEMI): Code(s): I21.4 - Non-ST elevation (NSTEMI) myocardial infarction Status: Acute Assessment and Plan: Patient presented with chest pressure/pain, EKG showed inferior lateral ST depression the slight elevation in AVR, sinus tachycardia, normal QTC - Given concerns for ACS, interventional Cardiology was called by the ED physician, recommendations were to start heparin infusion and metoprolol. Heparin bolus was given, but her hemoglobin came back at 3.4 in the ER so heparin was discontinued. -cardiology has been consulted -unable to give heparin infusion are aspirin due to severe anemia, no beta-blockers due to septic shock and hypotension (4) Anemia requiring transfusions: Code(s): D64.9 - Anemia, unspecified Status: Acute Assessment and Plan: 04/18: Severe anemia, hemoglobin 3.4 on admission, received 3 units of packed RBC, -hemoglobin this morning is 8.9 -will continue to trend q.6 hours for now -appreciate GI evaluation and recommendation, likely upper and lower endoscopy once patient is stable and extubated -given NSTEMI, will maintain hemoglobin > 8.0 -Protonix IV q.12 hours -iron panel pending (5) COPD (chronic obstructive pulmonary disease): Code(s): J44.9 - Chronic obstructive pulmonary disease, unspecified Status: Acute Assessment and Plan: History of COPD, on 2 L nasal cannula at home -continue bronchodilators -will start home Trelegy (6) PVD (peripheral vascular disease): Code(s): I73.9 - Peripheral vascular disease, unspecified Status: Acute Assessment and Plan: History of peripheral vascular disease with previous Aorto-ilio- femoral bypass -patient on clopidogrel, and Xarelto at home, currently on hold due to severe anemia (7) Hypertension: Code(s): I10 - Essential (primary) hypertension Status: Acute Assessment and Plan: Will hold all antihypertensives as patient is hypotensive/shock on pressors (8) Hyperlipemia, mixed: Code(s): E78.2 - Mixed hyperlipidemia Status: Acute Assessment and Plan: On atorvastatin at home, will continue continue Plan DVT prophylaxis: SCDs Stress ulcer prophylaxis: Protonix IV q.12 hours Nutrition: NPO for now Code Status: Full code Critical Care Time Spent: 79 minutes Discussed with son and daughter in rounds updated them with patient's condition and plan of care. They are aware that patient had severe anemia requiring blood transfusion, NSTEMI, Cardiology PE following the patient, unable to give any blood thinners. Patient in was intubated due to pulmonary vascular congestion which could be related to transfusion reaction. I answered all the questions Due to a high probability of clinically significant, life threatening deterioration, the patient required my highest level of preparedness to intervene emergently and I personally spent this critical care time directly and personally managing the patient. This critical care time included obtaining a history; examining the patient; pulse oximetry; ordering and review of studies; arranging urgent treatment with development of a management plan; evaluation of patient's response to treatment; frequent reassessment; and discussions with other providers. It was exclusive of separately billable procedures and treating other patients and teaching time. Please see Assessment and Plan section and the rest of the note for further information on patient assessment and treatment This dictation may have been done utilizing a voice recognition system. Attempts have been made to correct errors. However, there may be uncorrected grammatical, spelling, and recognitions errors present. Fishing Vessel Operator Consult Note Consult date: 04/18/25 Reason for consult: Acute respiratory failure, shock, severe anemia, NSTEMI, possible GI bleed HPI: Brenda Ibarra is a 59 year old female with past medical history of COPD on 2 L nasal cannula at home, peripheral vascular disease status post Kkngv-byxuf-rpijtvz bypass, CAD, status post CABG x3 in 2023, hyperlipidemia, essential hypertension, depression and anxiety presented the ED on 04/17/2025 with complains of chest pain/pressure with started on the same day while she was exerting herself getting around the house. The pain subsides with rest but we occurred which she moved. She also had some nausea and vomiting, EMS was called, patient continued to have chest pain when the ambulance arrived. Chest pain was described as a pressure, nonradiating. Denies any fevers, chills, back pain or abdominal pain. Patient does take Xarelto, aspirin and metoprolol at home. EKG in the ER showed inferior lateral ST depression the slight elevation in AVR, sinus tachycardia, normal QTC. Given concerns for ACS, interventional Cardiology was called by the ED physician, recommendations were to start heparin infusion and metoprolol Heparin bolus was given, but her hemoglobin came back at 3.4 in the ER so heparin was discontinued. Patient denies any dark tardy stools, any hematemesis, abdominal pain or back pain. 04/17: CTA abdomen and pelvis: showed no aneurysm or dissection, occlusion of the right external, internal and external iliac vessels with reconstitution of the internal iliac with cells. There is a right-sided graft detailed above with probable seroma. The ER physician spoke to the vascular surgeon at [facility], Dr. Sparks start that the graft seroma is not related to her NSTEMI and GI bleed/anemia, recommended for the investigation for GI bleeding, possible catheterization for ACS symptoms. Does not need to be transferred for to the facility. Patient received 3 units of packed RBCs. Blood pressures improved, GI notified, intervention Cardiology was notified by the ER physician regarding the changes. Patient was transferred to the intermediate unit 03/18/2025: Upon arrival to the ICU at 6:50 a.m. patient was in ICU room 9 high, getting ready to be intubated as there was a rapid response and patient was found to have agonal breathing with sluggish pupils and unresponsiveness. Intubation was uneventful, central line was placed as patient dropped her blood pressure and was given a push of IV phenylephrine and started on Levophed in few was central line was inserted. Chest x-ray showed pulmonary vascular congestion. Once patient was on the ventilator, she opened her eyes, follows simple commands and nodding to questions appropriately Review of Systems Review of Systems: ROS unobtainable: Yes unobtainable due to endotracheal tube, unobtainable due to medical condition and unobtainable due to mental status PMFSH Past Medical History Medical History (Updated 04/18/25 @ 11:38 by Gloria Ochoa MD) PVD (peripheral vascular disease) Aortic atherosclerosis Depression with anxiety Hypertension Hyperlipemia, mixed FH: chronic lung disease requiring oxygen COPD (chronic obstructive pulmonary disease) CAD (coronary artery disease) Surgical History Surgical History (Updated 04/18/25 @ 04:29 by Marilee Bashir APRN) H/O hand surgery H/O rinmq-yfroy-clxvciy bypass S/P CABG x 3 Family History Family History Mother Heart disease Social History Social History (Updated 04/18/25 @ 06:21 by Marilee Bashir APRN) Social History: caffeine use. She lives with her . She has 2 children . She is disabled Code status: Full code Smoking packs per day: 2 Smoking cigarettes per day: 40.0 Years smoked: 30 Smoking pack-years: 60.00 Smoking status: Former smoker Tobacco type: cigarettes Second hand tobacco smoke exposure: No Alcohol intake: current Drinks per week: 15 Substance use: never Substance use type: does not use Occupation/Education: occupation Additional occupation/education comments: food preparation [employer] care concerns: No Meds Home Medications and Allergies Home Medications ?Medication ?Instructions ?Recorded ?Confirmed ?Type albuterol sulfate 90 mcg/actuation 2 puff inhalation Q6H PRN 04/18/25 04/18/25 History aerosol inhaler shortness of breath or wheezing atorvastatin 80 mg tablet 80 mg PO QPM 04/18/25 04/18/25 History clopidogrel 75 mg tablet 75 mg PO DAILY 04/18/25 04/18/25 History escitalopram oxalate 10 mg tablet 10 mg PO DAILY 04/18/25 04/18/25 History fluticasone fur. 100 mcg-umeclid 1 inh inhalation DAILY 04/18/25 04/18/25 History 62.5 mcg-vilant 25 mcg inhalat.powder (Trelegy Ellipta) losartan 25 mg tablet 25 mg PO DAILY 04/18/25 04/18/25 History metoprolol tartrate 25 mg tablet 25 mg PO Q12H 04/18/25 04/18/25 History rivaroxaban 20 mg tablet (Xarelto) 20 mg PO QPM 04/18/25 04/18/25 History Allergies Allergy/AdvReac Type Severity Reaction Status Date / Time No Known Allergies Allergy Verified 04/18/25 05:35 Vital Signs Vital Signs - 24 hr 04/17/25 20:53 04/17/25 20:53 04/17/25 21:20 Temperature 98.7 F Pulse Rate 128 H 129 H Respiratory Rate 16 Blood Pressure 118/74 Pulse Oximetry 100 100 Oxygen Delivery Nasal Cannula Nasal Cannula Oxygen Flow Rate 5 5 Fraction of Inspired Oxygen 04/17/25 23:00 04/17/25 23:17 04/17/25 23:52 Temperature 98.1 F 98.2 F 98 F Pulse Rate 85 86 85 Respiratory Rate 17 17 19 Blood Pressure 120/61 123/62 124/65 Pulse Oximetry 100 97 100 Oxygen Delivery Oxygen Flow Rate Fraction of Inspired Oxygen 04/18/25 00:07 04/18/25 00:34 04/18/25 00:45 Temperature 98.2 F Pulse Rate 85 82 84 Respiratory Rate 15 14 15 Blood Pressure 121/67 Pulse Oximetry 100 100 100 Oxygen Delivery Oxygen Flow Rate Fraction of Inspired Oxygen 04/18/25 00:46 04/18/25 00:50 04/18/25 01:00 Temperature 98.2 F Pulse Rate 83 83 81 Respiratory Rate 14 14 15 Blood Pressure 125/67 125/67 Pulse Oximetry 100 Oxygen Delivery Oxygen Flow Rate Fraction of Inspired Oxygen 04/18/25 01:01 04/18/25 01:06 04/18/25 01:15 Temperature 98.1 F Pulse Rate 83 84 82 Respiratory Rate 14 13 16 Blood Pressure 123/73 123/73 Pulse Oximetry 100 Oxygen Delivery Oxygen Flow Rate Fraction of Inspired Oxygen 04/18/25 01:16 04/18/25 01:30 04/18/25 01:32 Temperature Pulse Rate 82 83 80 Respiratory Rate 16 15 15 Blood Pressure 150/78 H 142/76 H Pulse Oximetry 100 100 Oxygen Delivery Oxygen Flow Rate Fraction of Inspired Oxygen 04/18/25 01:50 04/18/25 01:51 04/18/25 02:00 Temperature Pulse Rate 103 H 101 H 83 Respiratory Rate 18 20 19 Blood Pressure 143/57 H Pulse Oximetry 100 Oxygen Delivery Oxygen Flow Rate Fraction of Inspired Oxygen 04/18/25 02:02 04/18/25 02:25 04/18/25 02:43 Temperature Pulse Rate 84 83 89 Respiratory Rate 19 15 17 Blood Pressure 124/62 Pulse Oximetry 100 100 Oxygen Delivery Oxygen Flow Rate Fraction of Inspired Oxygen 04/18/25 02:45 04/18/25 03:00 04/18/25 03:32 Temperature Pulse Rate 88 91 90 Respiratory Rate 19 17 15 Blood Pressure Pulse Oximetry 100 100 Oxygen Delivery Oxygen Flow Rate Fraction of Inspired Oxygen 04/18/25 03:56 04/18/25 04:00 04/18/25 04:20 Temperature Pulse Rate 95 91 94 Respiratory Rate 18 16 19 Blood Pressure Pulse Oximetry 100 100 Oxygen Delivery Oxygen Flow Rate Fraction of Inspired Oxygen 04/18/25 04:30 04/18/25 04:45 04/18/25 05:29 Temperature 98.7 F Pulse Rate 104 H 102 H 92 Respiratory Rate 19 18 18 Blood Pressure 151/92 H Pulse Oximetry 100 100 100 Oxygen Delivery Oxygen Flow Rate Fraction of Inspired Oxygen 04/18/25 06:22 04/18/25 07:00 04/18/25 07:00 Temperature Pulse Rate 102 H 115 H 115 H Respiratory Rate 10 L 20 Blood Pressure 97/78 L Pulse Oximetry 80 L 100 100 Oxygen Delivery Nasal Cannula Mechanical Ventilation Mechanical Ventilation Oxygen Flow Rate 5 Fraction of Inspired Oxygen 100 100 04/18/25 08:00 04/18/25 08:00 04/18/25 08:00 Temperature Pulse Rate 122 H 122 H 126 H Respiratory Rate 22 H 22 H 20 Blood Pressure 124/83 Pulse Oximetry 100 Oxygen Delivery Oxygen Flow Rate Fraction of Inspired Oxygen 04/18/25 08:12 04/18/25 08:12 04/18/25 09:00 Temperature Pulse Rate 122 H 122 H 120 H Respiratory Rate 22 H 22 H 22 H Blood Pressure Pulse Oximetry Oxygen Delivery Oxygen Flow Rate Fraction of Inspired Oxygen 04/18/25 09:00 04/18/25 09:10 Temperature Pulse Rate 122 H 100 Respiratory Rate 22 H Blood Pressure 72/57 L Pulse Oximetry Oxygen Delivery Oxygen Flow Rate Fraction of Inspired Oxygen Exam Narrative: General: Intubated and sedated, in no acute distress HEENT:? Pupils equal and reactive, sclera is clear, ETT in place Neck:? Supple, right IJ central line in place Respiratory:? Coarse breath sounds bilaterally, occasional wheezing, decreased air entry at bases Cardiac:? S1-S2 normal, regular rate and rhythm Abdomen:? Soft, nontender, nondistended, hypoactive bowel sounds Extremities:? Bilateral trace edema in her lower extremities Neuro:? Patient intubated, sedated, opens her eyes, follows simple commands and nods to questions Skin:? Warm and dry Psych:? Unable to assess Results Labs 04/18/25 08:28 04/18/25 08:27 Labs: Short CBC 04/17/25 04/18/25 04/18/25 Range/Units 21:15 00:20 03:48 WBC 9.2 (4.5-10.0) K/mm3 Hgb 3.4 L* 6.8 L* D 8.0 L (12.0-15.0) g/dL Hct 14.0 L* 24.0 L 27.0 L (37.0-47.0) % Plt Count 333 (150-375) k/mm3 04/18/25 04/18/25 Range/Units 06:18 08:28 WBC 18.5 H 25.2 H (4.5-10.0) K/mm3 Hgb 9.7 L 8.9 L (12.0-15.0) g/dL Hct 34.8 L 30.1 L (37.0-47.0) % Plt Count 413 H 411 H (150-375) k/mm3 BMP 04/17/25 04/18/25 21:15 08:27 Sodium 137 137 Potassium 2.5 L* 4.2 Chloride 110 H 106 Carbon Dioxide 19 L 22 BUN 6 L 13 D Creatinine 0.40 L 0.96 Glucose 127 H 196 H Calcium 6.8 L 8.5 Cardiac Enzymes 11/04/18/25 04/18/25 Range/Units 21:15 00:20 02:46 Total Creatine Kinase (30-135) U/L Troponin I 0.026 0.240 H* D 0.469 H* D (0.000-0.034) ng/mL 04/18/25 04/18/25 Range/Units 08:27 08:27 Total Creatine Kinase 144 H (30-135) U/L Troponin I Cancelled 1.620 H* D (0.000-0.034) ng/mL Liver Function 04/17/25 04/18/25 04/18/25 Range/Units 21:15 08:27 08:27 Total Bilirubin 0.9 3.8 H 3.8 H (0.2-1.3) mg/dL Direct Bilirubin 0.0 (0-0.3) mg/dL AST 91 H 135 H (14-36) U/L ALT 135 H 182 H (6-35) U/L Alkaline Phosphatase 79 93 (38-126) U/L Albumin 2.8 L 3.9 (3.5-5.1) g/dL Quality VTE Prophylaxis VTE prophylaxis: mechanical ordered If No VTE Prophylaxis Answer both mechanical and pharmacologic: Reason no pharmacologic proph: medical contraindication (Severe anemia on admission) Hospitalist MIPS Advance Care Plan I have confirmed that the patient's Advanced Care Plan is present, code status is documented, or surrogate decision maker is listed in patient medical record.: Yes Medication Reconciliation I have utilized all available resources to obtain, update and review the patients current medications (includes all prescriptions, OTC, herbals, cannabis, and nutritional supplements).: Yes
[2025-04-18 09:41] LABS: Hepatitis B Surface Antigen Negative (Negative)
[2025-04-18 09:43] LABS: Thyroid Stimulating Hormone Reflex 3.280 uIU/mL (0.465-4.68)
[2025-04-18] MEDS: FUROSEMIDE INJ 40 MG/4 ML VIAL IV PUSH (09:43)
[2025-04-18] MEDS: MINERAL OIL/WHITE PETROLATUM OINTMENT 1 APPLIC EACH EYE ×2 (09:43→20:10)
[2025-04-18 09:47] LABS: HAV RESULT Negative (Negative); Hepatitis B Core IgM Result Negative (Negative)
[2025-04-18 09:54] LABS: MRSA (PCR) NOT DETECTED (NOT DETECTE)
--- NOTE | 2025-04-18 10:41 | P.PNIM_ITS ---
Progress Note: A&P Assessment and Plan (1) Respiratory distress: Code(s): R06.03 - Acute respiratory distress Status: Acute Assessment and Plan: -the patient has a history of COPD -the patient chronically wears oxygen at 2 nap L. -once the patient was brought to IMU she went into respiratory distress and a rapid response was called patient was intubated. Plan is to continue with intubation and mechanical ventilation. (2) Severe anemia: Code(s): D64.9 - Anemia, unspecified Status: Acute Assessment and Plan: -H&H 3.4 and 14.0, 6.8 and 24.0. Respectively. After 3 units of blood her H&H came up to 8.0 in 27.0. -anemia panel has been ordered. -GI consult was placed. (3) COPD (chronic obstructive pulmonary disease): Code(s): J44.9 - Chronic obstructive pulmonary disease, unspecified Status: Acute Assessment and Plan: -patient is chronically on oxygen at 2.5 L per nasal cannula continuously at toney e. Will continue with antibiotics and ventilation support (4) Non-ST elevation [place] (NSTEMI): Code(s): I21.4 - Non-ST elevation (NSTEMI) myocardial infarction Status: Acute Assessment and Plan: -the patient has a history of a three-vessel CABG. -the ED provider did consult her automotive sales professional at [facility]. -the patient may possibly have demand ischemia due to her severe anemia. -serial troponins. troponin 0.026, 0.240, 0.469. (5) Hypertension: Code(s): I10 - Essential (primary) hypertension Status: Acute Assessment and Plan: Blood pressure is stable now. Continue current treatment monitor closely. (6) Depression with anxiety: Code(s): F41.8 - Other specified anxiety disorders Status: Acute Assessment and Plan: -the patient is now NPO Will start medication, once patient is stable. Plan Plan is to continue with ventilation support and current treatment. Broad-spectrum antibiotic. Cultures pending. Monitor hemoglobin. Consult is ordered. Patient is full code. DVT prophylaxis mechanical order. Subjective Date/time seen: 04/18/25 10:41 Interval history: Patient was seen during the morning rounds today. Patient is intubated. Respond to verbal commands. Review of Systems Review of Systems: ROS unobtainable: Yes unobtainable due to endotracheal tube, unobtainable due to medical condition and unobtainable due to mental status Constitutional: Constitutional: Reports as per HPI and Reports no additional constitutional complaints Eyes: Eyes: Reports as per HPI and Reports no additional eye complaints ENT: Reports system reviewed and no additional complaints, except as documented and Reports Normal hearing present Cardiovascular: Cardiovascular: Reports no additional cardiovascular complaints Respiratory: Respiratory: Reports as per HPI and Reports no additional respiratory complaints Gastrointestinal: Gastrointestinal: Reports as per HPI and Reports no additional gastrointestinal complaints Genitourinary: Genitourinary: Reports no additional female genitourinary complaints Musculoskeletal: Musculoskeletal: Reports no additional musculoskeletal complaints Integumentary/Breasts: Skin/Breast: Reports system reviewed and no additional complaints, except as docu Neurologic: Reports system reviewed and no additional complaints, except as documented and Reports Normal hearing present Psychiatric: Psychiatric: Reports no additional psychiatric complaints and Reports as per HPI Hematologic/Lymphatic: Hematologic/Lymphatic: Reports no additional hematologic/lymphatic complaints Allergic/Immunologic: Allergic/Immunologic: Reports no additional allergic/immunologic complaints Exam Narrative: General: Intubated and sedated, in no acute distress HEENT:? Pupils equal and reactive, sclera is clear, ETT in place Neck:? Supple, right IJ central line in place Respiratory:? Coarse breath sounds bilaterally, occasional wheezing, decreased air entry at bases Cardiac:? S1-S2 normal, regular rate and rhythm Abdomen:? Soft, nontender, nondistended, hypoactive bowel sounds Extremities:? Bilateral trace edema in her lower extremities Neuro:? Patient intubated, sedated, opens her eyes, follows simple commands and nods to questions Skin:? Warm and dry Psych:? Unable to assess Const: General: comfortable, no acute distress, well developed, awake, Physically active, ill appearing, average body habitus and well nourished Nutritional Appearance: average body habitus and well nourished Esau entation/consciousness: oriented to person, oriented to place, oriented to time and patient oriented x3 HENMT: Head: normal to inspection and No palpable skull fracture present Eyes: General: appearance normal, both eyes and all related structures Alignment and Position: alignment normal Periorbital: periorbital findings normal Eyelids: eyelids normal Conjunctivae: conjunctivae normal Sclera: sclerae normal Cornea: corneas normal Pupils: Equal, round and reactive pupils present and Pupil accommodation reflex normal EOM: EOMs intact bilaterally Other: Pupils are sluggish reactive. Neck: Neck: normal visual inspection, full ROM, no lymphadenopathy, trachea midline and supple Chest: Chest palpation & inspection: normal inspection of the chest Resp: Effort & Inspection: normal respiratory effort Auscultation: clear to auscultation bilaterally Percussion: percussion normal Cardio: Palpation: normal PMI Rate: regular rate Rhythm: regular rhythm Heart sounds: S1 normal heart sound present and S2 normal heart sound present Peripheral pulses: Peripheral pulses 2+ throughout GI: Inspection: normal to inspection Auscultation: normal bowel sounds Rectal Exam: deferred : General: Yes no CVA tenderness Back/Spine/Pelvis: Back: no CVA tenderness Skin: General skin exam: normal color Lesions: no lesions Rashes: no rashes Trauma: no lacerations or abrasions Wounds: no wounds Hair: normal Nails: normal Other: Cool and clammy Neuro: General: oriented to person, oriented to place, oriented to time and patient oriented x3 Cranial nerves: Yes Equal, round and reactive pupils present and Yes Normal hearing present Cognition (Neuro): normal cognition Speech: normal speech Motor exam (neuro): 5/5 motor strength present throughout Sensory Exam: normal sensation Other: Initially the patient was alert orientated x3. A rapid response was called and then she was unresponsive. Extrem: General: normal to inspection Right upper extremity: normal to inspection and shoulder/upper arm Left upper extremity: normal to inspection and shoulder/upper arm Right lower extremity: normal to inspection Left lower extremity: normal to inspection Psych: Appearance: grossly normal Mental Status: mental status grossly normal Speech and movement: Normal speech and movement present Affect: normal affect Attitude: cooperative Thought process: Normal thought process present Objective Data Vital Signs Vital Signs: Vital Signs - 24 hr 04/17/25 20:53 04/17/25 20:53 04/17/25 21:20 Temperature 37.1 C Pulse Rate 128 H 129 H Respiratory Rate 16 Blood Pressure 118/74 Pulse Oximetry 100 100 Oxygen Delivery Nasal Cannula Nasal Cannula Oxygen Flow Rate 5 5 Fraction of Inspired Oxygen 04/17/25 23:00 04/17/25 23:17 04/17/25 23:52 Temperature 36.7 C 36.8 C 36.6 C Pulse Rate 85 86 85 Respiratory Rate 17 17 19 Blood Pressure 120/61 123/62 124/65 Pulse Oximetry 100 97 100 Oxygen Delivery Oxygen Flow Rate Fraction of Inspired Oxygen 04/18/25 00:07 04/18/25 00:34 04/18/25 00:45 Temperature 36.8 C Pulse Rate 85 82 84 Respiratory Rate 15 14 15 Blood Pressure 121/67 Pulse Oximetry 100 100 100 Oxygen Delivery Oxygen Flow Rate Fraction of Inspired Oxygen 04/18/25 00:46 04/18/25 00:50 04/18/25 01:00 Temperature 36.8 C Pulse Rate 83 83 81 Respiratory Rate 14 14 15 Blood Pressure 125/67 125/67 Pulse Oximetry 100 Oxygen Delivery Oxygen Flow Rate Fraction of Inspired Oxygen 04/18/25 01:01 04/18/25 01:06 04/18/25 01:15 Temperature 36.7 C Pulse Rate 83 84 82 Respiratory Rate 14 13 16 Blood Pressure 123/73 123/73 Pulse Oximetry 100 Oxygen Delivery Oxygen Flow Rate Fraction of Inspired Oxygen 04/18/25 01:16 04/18/25 01:30 04/18/25 01:32 Temperature Pulse Rate 82 83 80 Respiratory Rate 16 15 15 Blood Pressure 150/78 H 142/76 H Pulse Oximetry 100 100 Oxygen Delivery Oxygen Flow Rate Fraction of Inspired Oxygen 04/18/25 01:50 04/18/25 01:51 04/18/25 02:00 Temperature Pulse Rate 103 H 101 H 83 Respiratory Rate 18 20 19 Blood Pressure 143/57 H Pulse Oximetry 100 Oxygen Delivery Oxygen Flow Rate Fraction of Inspired Oxygen 04/18/25 02:02 04/18/25 02:25 04/18/25 02:43 Temperature Pulse Rate 84 83 89 Respiratory Rate 19 15 17 Blood Pressure 124/62 Pulse Oximetry 100 100 Oxygen Delivery Oxygen Flow Rate Fraction of Inspired Oxygen 04/18/25 02:45 04/18/25 03:00 04/18/25 03:32 Temperature Pulse Rate 88 91 90 Respiratory Rate 19 17 15 Blood Pressure Pulse Oximetry 100 100 Oxygen Delivery Oxygen Flow Rate Fraction of Inspired Oxygen 04/18/25 03:56 04/18/25 04:00 04/18/25 04:20 Temperature Pulse Rate 95 91 94 Respiratory Rate 18 16 19 Blood Pressure Pulse Oximetry 100 100 Oxygen Delivery Oxygen Flow Rate Fraction of Inspired Oxygen 04/18/25 04:30 04/18/25 04:45 04/18/25 05:29 Temperature 37.1 C Pulse Rate 104 H 102 H 92 Respiratory Rate 19 18 18 Blood Pressure 151/92 H Pulse Oximetry 100 100 100 Oxygen Delivery Oxygen Flow Rate Fraction of Inspired Oxygen 04/18/25 06:22 04/18/25 06:45 04/18/25 07:00 Temperature Pulse Rate 102 H 102 H 115 H Respiratory Rate 10 L Blood Pressure 97/78 L Pulse Oximetry 80 L 100 100 Oxygen Delivery Nasal Cannula BiPAP Mechanical Ventilation Oxygen Flow Rate 5 Fraction of Inspired Oxygen 100 100 04/18/25 07:00 04/18/25 07:10 04/18/25 07:10 Temperature Pulse Rate 115 H Respiratory Rate 20 Blood Pressure Pulse Oximetry 100 100 Oxygen Delivery Mechanical Ventilation Mechanical Ventilation Oxygen Flow Rate Fraction of Inspired Oxygen 100 100 100 04/18/25 08:00 04/18/25 08:00 04/18/25 08:00 Temperature Pulse Rate 122 H 122 H 126 H Respiratory Rate 22 H 22 H 20 Blood Pressure 124/83 Pulse Oximetry 100 Oxygen Delivery Oxygen Flow Rate Fraction of Inspired Oxygen 04/18/25 08:12 04/18/25 08:12 04/18/25 09:00 Temperature Pulse Rate 122 H 122 H 120 H Respiratory Rate 22 H 22 H 22 H Blood Pressure Pulse Oximetry Oxygen Delivery Oxygen Flow Rate Fraction of Inspired Oxygen 04/18/25 09:00 04/18/25 09:00 04/18/25 09:10 Temperature 36.7 C Pulse Rate 122 H 98 100 Respiratory Rate 22 H 21 H Blood Pressure 93/69 L 72/57 L Pulse Oximetry 95 Oxygen Delivery Oxygen Flow Rate Fraction of Inspired Oxygen 04/18/25 09:48 04/18/25 10:00 Temperature 36.6 C Pulse Rate 96 95 Respiratory Rate 15 Blood Pressure 93/69 L 94/70 L Pulse Oximetry 95 Oxygen Delivery Oxygen Flow Rate Fraction of Inspired Oxygen Intake/Output Intake/Output: Intake & Output 04/15/25 04/16/25 04/17/25 04/18/25 23:59 23:59 23:59 23:59 Intake Total 700.8 2232.2 Balance 700.8 2232.2 Meds/Results Medications: Active Medications Generic Name Dose Route Start Last Admin Trade Name Freq PRN Reason Stop Dose Admin Acetaminophen 650 mg 04/18/25 04:12 Acetaminophen 325 Mg Tablet PO Q4H PRN Mild Pain (1-3) or Fever Albuterol/Ipratropium 3 ml 04/18/25 08:00 04/18/25 08:03 Ipratropium 0.5 Mg/Albuterol Sulfate 2.5 Mg (Base) Ampul.Neb 3 Ml INHALATION 3 ml Q6HRT JUAN C Administration Norepinephrine Bitartrate 8 mg in 250 mls @ 13.125 mls/hr 04/18/25 07:15 04/18/25 09:48 Levophed 8 Mg/D5w 250 Ml IV CONT 7 mcg/min .[id number] JUAN C 13.13 mls/hr Protocol Titration 7 MCG/MIN Fentanyl Citrate 2,500 mcg in 250 mls @ 7.5 mls/hr 04/18/25 07:55 04/18/25 09:00 Fentanyl 2,500 Mcg/Ns 250 Ml IV CONT 75 mcg/hr .[id number] JUAN C 7.5 mls/hr Protocol Titration 75 MCG/HR Midazolam HCl 100 mg in 100 mls @ 3 mls/hr 04/18/25 07:55 04/18/25 09:00 Versed 100 Mg/Ns 100 Ml IV CONT 3 mg/hr .[id number] JUAN C 3 mls/hr Protocol Titration 3 MG/HR Cefepime HCl 2 gm/ Sodium 50 mls @ 100 mls/hr 04/18/25 09:50 Chloride IVPB Q8H JUAN C Cefepime HCl 2 gm/ Sodium 50 mls @ 100 mls/hr 04/18/25 10:20 Chloride IVPB 04/18/25 10:49 ONCE ONE Vancomycin HCl 1,750 mg in 500 mls @ 250 mls/hr 04/18/25 11:00 Vancomycin 1,750 Mg/Ns 500 Ml IVPB 04/18/25 12:59 ONCE ONE Miscellaneous Information 1 each 04/18/25 00:01 May Pharmacy Renally Dose Cefepime To 2gm Q12hr For Ecrcl Of 48.6? XX 05/18/25 00:00 CLARIFY JUAN C Multi-Ingred Cream/Lotion/Oil/Oint 1 applic 04/18/25 09:00 04/18/25 09:43 Mineral Oil/White Petrolatum Ointment EACH EYE 1 applic Q12HR JUAN C Administration Ondansetron HCl 4 mg 04/18/25 04:12 Ondansetron Inj 4 Mg/2 Ml Vial IV PUSH Q4H PRN Nausea Pantoprazole Sodium 40 mg 04/18/25 09:00 04/18/25 09:43 Pantoprazole Sodium Iv 40 Mg Vial IV PUSH 40 mg Q12HR JUAN C Administration Perflutren Lipid Microsphere 0 ml 04/18/25 08:12 Perflutren Lipid Microspheres 1.5 Ml Vial Diluted To 10 Ml Total Volume IV PUSH 04/21/25 08:12 ONCE PRN adequate visualization Protocol Sodium Chloride 10 ml 04/18/25 14:00 Central Line Flush IV PUSH Q8HR [facility] Sodium Chloride 20 ml 04/18/25 08:31 Central Line Flush IV PUSH PRN PRN after blood draws Vancomycin HCl 1 each 04/18/25 09:50 1st Dose Sent To Icu IVPB PER PROTOCOL [facility] Radiology Results: ITS Impressions Abdomen X-Ray 04/18/25 07:47 IMPRESSION: 1: OG tube tip in the stomach. Chest X-Ray 04/18/25 07:48 Impression: 1: Interval development of diffuse bilateral airspace disease, most likely edema. Pneumonia less favored. Abdomen/Pelvis CTA 04/18/25 09:20 IMPRESSION: 1. No aneurysm or dissection identified. 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 There is a right-sided graft detailed above with probable seroma. Clinical correlation is required. Follow-up suggested to assess. Labs Labs: Laboratory Results - last 24 hr 04/17/25 04/17/25 04/18/25 21:15 21:46 00:20 WBC 9.2 RBC 2.09 L Hgb 3.4 L* 6.8 L* D Hct 14.0 L* 24.0 L MCV 67.0 L MCH 16.3 L MCHC 24.3 L RDW 21.3 H Plt Count 333 MPV 11.6 H Immature Gran % (Auto) 0.5 Neut % (Auto) 69.0 Lymph % (Auto) 17.5 L [place] % (Auto) 11.0 H Eos % (Auto) 1.2 Baso % (Auto) 0.8 Lymph # (Auto) 1.61 [place] # (Auto) 1.0 H Eos # (Auto) 0.1 Baso # (Auto) 0.1 Abs Immat Gran (auto) 0.05 H Absolute Neuts (auto) 6.3 Absolute Nucleated RBC 0.030 H Total Counted Neutrophils % (Manual) Band Neutrophils % Not Reportable Lymphocytes % (Manual) Monocytes % (Manual) Metamyelocytes % Nucleated RBC % 0.3 H Abs Neuts (Manual) Abs Lymphs (Manual) Abs Monocytes (Manual) Nucleated RBCs Platelet Estimate Adequate Large Platelets % Immature Plt Fraction 6.9 Polychromasia Hypochromasia 3+ Anisocytosis 2+ Microcytosis 2+ Target Cells Occasional Ovalocytes [place] Cells Acanthocytes (Spur) Schistocytes Rare Absolute Retic Percent Retic Immature Retic Fraction Retic Hgb Content PT 17.7 H INR 1.5 APTT 34.0 Puncture Site ABG pH ABG pCO2 ABG pO2 ABG PO2/FiO2 Ratio ABG HCO3 ABG O2 Saturation ABG O2 Content ABG Base Excess A-a Gradient Oxyhemoglobin Carboxyhemoglobin Methemoglobin Reduced Hemoglobin Total Hemoglobin O2 Delivery Device O2 Liters/Min Minute Volume Vent Rate Vent Mode FiO2 Tidal Volume PEEP Peak Inspir Pressure Pressure Support Sodium 137 Potassium 2.5 L* Chloride 110 H Carbon Dioxide 19 L Anion Gap 8 BUN 6 L Creatinine 0.40 L Estim Creat Clear Calc 107 Estimated GFR > 60 Glucose 127 H POC Capillary Glucose Lactic Acid Calcium 6.8 L Phosphorus Magnesium Total Bilirubin 0.9 Direct Bilirubin AST 91 H ALT 135 H Alkaline Phosphatase 79 Ammonia Total Creatine Kinase Troponin I 0.026 0.240 H* D C-Reactive Protein Total Protein 5.2 L Albumin 2.8 L Lipase 130 TSH (Reflex) Ur Random Creatinine U Random Total Protein Protein/Creatinin Ratio Urine Albumin U Vmzxf-9-[place]jkut[place] U Izjiq-8-Glaagwiu U Beta Globulin U Gamma Globulin U Abnormal Prot Band 1 U Abnormal Prot Band 2 U Abnormal Prot Band 3 Urine PEP Interpret Nasal MRSA (PCR) Hepatitis A IgM Ab Hep Bs Antigen Hep B Core IgM Ab Hepatitis C Ab Screen Blood Type O Negative Antibody Screen Negative JULIO, IgG Interpret JULIO, Poly Interpret JULIO, Complement Interp Indirect Antiglob Test Crossmatch See Detail 04/18/25 04/18/25 04/18/25 02:46 03:48 06:06 WBC RBC Hgb 8.0 L Hct 27.0 L MCV MCH MCHC RDW Plt Count MPV Immature Gran % (Auto) Neut % (Auto) Lymph % (Auto) [place] % (Auto) Eos % (Auto) Baso % (Auto) Lymph # (Auto) [place] # (Auto) Eos # (Auto) Baso # (Auto) Abs Immat Gran (auto) Absolute Neuts (auto) Absolute Nucleated RBC Total Counted Neutrophils % (Manual) Band Neutrophils % Lymphocytes % (Manual) Monocytes % (Manual) Metamyelocytes % Nucleated RBC % Abs Neuts (Manual) Abs Lymphs (Manual) Abs Monocytes (Manual) Nucleated RBCs Platelet Estimate Large Platelets % Immature Plt Fraction Polychromasia Hypochromasia Anisocytosis Microcytosis Target Cells Ovalocytes [place] Cells Acanthocytes (Spur) Schistocytes Absolute Retic Percent Retic Immature Retic Fraction Retic Hgb Content PT INR APTT Puncture Site ABG pH ABG pCO2 ABG pO2 ABG PO2/FiO2 Ratio ABG HCO3 ABG O2 Saturation ABG O2 Content ABG Base Excess A-a Gradient Oxyhemoglobin Carboxyhemoglobin Methemoglobin Reduced Hemoglobin Total Hemoglobin O2 Delivery Device O2 Liters/Min Minute Volume Vent Rate Vent Mode FiO2 Tidal Volume PEEP Peak Inspir Pressure Pressure Support Sodium Potassium Chloride Carbon Dioxide Anion Gap BUN Creatinine Estim Creat Clear Calc Estimated GFR Glucose POC Capillary Glucose Lactic Acid Calcium Phosphorus Magnesium Total Bilirubin Direct Bilirubin AST ALT Alkaline Phosphatase Ammonia Total Creatine Kinase Troponin I 0.469 H* D C-Reactive Protein Total Protein Albumin Lipase TSH (Reflex) Ur Random Creatinine U Random Total Protein Protein/Creatinin Ratio Urine Albumin U Ggdyq-2-Rkvkiqss U Cfzyf-0-Jycjkyuu U Beta Globulin U Gamma Globulin U Abnormal Prot Band 1 U Abnormal Prot Band 2 U Abnormal Prot Band 3 Urine PEP Interpret Nasal MRSA (PCR) Hepatitis A IgM Ab Hep Bs Antigen Hep B Core IgM Ab Hepatitis C Ab Screen Blood Type Antibody Screen JULIO, IgG Interpret Not Performed JULIO, Poly Interpret Negative JULIO, Complement Interp Not Performed Indirect Antiglob Test Negative Crossmatch 04/18/25 04/18/25 04/18/25 06:18 06:24 08:15 WBC 18.5 H RBC 4.24 Hgb 9.7 L Hct 34.8 L MCV 82.1 D MCH 22.9 L D MCHC 27.9 L RDW 22.2 H Plt Count 413 H MPV 11.1 H Immature Gran % (Auto) 1.1 H Neut % (Auto) 59.4 Lymph % (Auto) 29.8 [place] % (Auto) 7.9 Eos % (Auto) 0.7 Baso % (Auto) 1.1 Lymph # (Auto) 5.51 H [place] # (Auto) 1.5 H Eos # (Auto) 0.1 Baso # (Auto) 0.2 H Abs Immat Gran (auto) 0.20 H Absolute Neuts (auto) 11.0 H Absolute Nucleated RBC 0.360 H Total Counted 100 Neutrophils % (Manual) 71 Band Neutrophils % 1 Lymphocytes % (Manual) 25 Monocytes % (Manual) 2 L Metamyelocytes % 1 Nucleated RBC % 1.9 H Abs Neuts (Manual) 13.32 H Abs Lymphs (Manual) 4.62 H Abs Monocytes (Manual) 0.37 Nucleated RBCs 5 Platelet Estimate Increased Large Platelets % Immature Plt Fraction Polychromasia 2+ Hypochromasia 1+ Anisocytosis 1+ Microcytosis Target Cells Ovalocytes [place] Cells 2+ Acanthocytes (Spur) 1+ Schistocytes 1+ Absolute Retic Percent Retic Immature Retic Fraction Retic Hgb Content PT INR APTT Puncture Site Right radial ABG pH 7.103 L* ABG pCO2 69.2 H* ABG pO2 317.3 H ABG PO2/FiO2 Ratio 3.17 ABG HCO3 21.1 L ABG O2 Saturation 99.5 ABG O2 Content 15.0 L ABG Base Excess -8.8 A-a Gradient 326.5 Oxyhemoglobin 98.5 Carboxyhemoglobin 0.9 Methemoglobin 0.2 Reduced Hemoglobin 0.4 Total Hemoglobin 10.2 L O2 Delivery Device Ventilator O2 Liters/Min Not Reportable Minute Volume Not Reportable Vent Rate 20 Vent Mode Assist control FiO2 100 Tidal Volume 350 PEEP 5 Peak Inspir Pressure Not Reportable Pressure Support Not Reportable Sodium Potassium Chloride Carbon Dioxide Anion Gap BUN Creatinine Estim Creat Clear Calc Estimated GFR Glucose POC Capillary Glucose 222 H Lactic Acid Calcium Phosphorus Magnesium Total Bilirubin Direct Bilirubin AST ALT Alkaline Phosphatase Ammonia Total Creatine Kinase Troponin I C-Reactive Protein Total Protein Albumin Lipase TSH (Reflex) Ur Random Creatinine U Random Total Protein Protein/Creatinin Ratio Urine Albumin U Sdyvs-2-Rxovsqsu U Ugeqh-6-Obzjdsdh U Beta Globulin U Gamma Globulin U Abnormal Prot Band 1 U Abnormal Prot Band 2 U Abnormal Prot Band 3 Urine PEP Interpret Nasal MRSA (PCR) Hepatitis A IgM Ab Hep Bs Antigen Hep B Core IgM Ab Hepatitis C Ab Screen Blood Type Antibody Screen JULIO, IgG Interpret JULIO, Poly Interpret JULIO, Complement Interp Indirect Antiglob Test Crossmatch 04/18/25 04/18/25 04/18/25 08:27 08:27 08:27 WBC RBC Hgb Hct MCV MCH MCHC RDW Plt Count MPV Immature Gran % (Auto) Neut % (Auto) Lymph % (Auto) [place] % (Auto) Eos % (Auto) Baso % (Auto) Lymph # (Auto) [place] # (Auto) Eos # (Auto) Baso # (Auto) Abs Immat Gran (auto) Absolute Neuts (auto) Absolute Nucleated RBC Total Counted Neutrophils % (Manual) Band Neutrophils % Lymphocytes % (Manual) Monocytes % (Manual) Metamyelocytes % Nucleated RBC % Abs Neuts (Manual) Abs Lymphs (Manual) Abs Monocytes (Manual) Nucleated RBCs Platelet Estimate Large Platelets % Immature Plt Fraction Polychromasia Hypochromasia Anisocytosis Microcytosis Target Cells Ovalocytes [place] Cells Acanthocytes (Spur) Schistocytes Absolute Retic Percent Retic Immature Retic Fraction Retic Hgb Content PT 17.2 H INR 1.4 APTT 27.9 Puncture Site ABG pH ABG pCO2 ABG pO2 ABG PO2/FiO2 Ratio ABG HCO3 ABG O2 Saturation ABG O2 Content ABG Base Excess A-a Gradient Oxyhemoglobin Carboxyhemoglobin Methemoglobin Reduced Hemoglobin Total Hemoglobin O2 Delivery Device O2 Liters/Min Minute Volume Vent Rate Vent Mode FiO2 Tidal Volume PEEP Peak Inspir Pressure Pressure Support Sodium 137 Potassium 4.2 Chloride 106 Carbon Dioxide 22 Anion Gap 9 BUN 13 D Creatinine 0.96 Estim Creat Clear Calc 49 Estimated GFR 60 Glucose 196 H POC Capillary Glucose Lactic Acid Calcium 8.5 Phosphorus 5.4 H Magnesium 2.1 Total Bilirubin 3.8 H 3.8 H Direct Bilirubin 0.0 AST 135 H ALT 182 H Alkaline Phosphatase 93 Ammonia Total Creatine Kinase 144 H Troponin I Cancelled 1.620 H* D C-Reactive Protein 2.7 H Total Protein 6.7 Albumin 3.9 Lipase TSH (Reflex) Ur Random Creatinine U Random Total Protein Protein/Creatinin Ratio Urine Albumin U Oobhv-3-Bhuystnu U Imgsk-0-Vftnagyc U Beta Globulin U Gamma Globulin U Abnormal Prot Band 1 U Abnormal Prot Band 2 U Abnormal Prot Band 3 Urine PEP Interpret Nasal MRSA (PCR) Hepatitis A IgM Ab Hep Bs Antigen Hep B Core IgM Ab Hepatitis C Ab Screen Blood Type Antibody Screen JULIO, IgG Interpret JULIO, Poly Interpret JULIO, Complement Interp Indirect Antiglob Test Crossmatch 04/18/25 04/18/25 04/18/25 08:28 08:29 08:55 WBC 25.2 H RBC 3.88 L Hgb 8.9 L Hct 30.1 L MCV 77.6 L D MCH 22.9 L MCHC 29.6 L RDW 21.6 H Plt Count 411 H MPV 10.9 H Immature Gran % (Auto) Not Reportable Neut % (Auto) Not Reportable Lymph % (Auto) Not Reportable [place] % (Auto) Not Reportable Eos % (Auto) Not Reportable Baso % (Auto) Not Reportable Lymph # (Auto) Not Reportable [place] # (Auto) Not Reportable Eos # (Auto) Not Reportable Baso # (Auto) Not Reportable Abs Immat Gran (auto) Not Reportable Absolute Neuts (auto) Not Reportable Absolute Nucleated RBC Not Reportable Total Counted 100 Neutrophils % (Manual) 83 H Band Neutrophils % 4 Lymphocytes % (Manual) 8 L Monocytes % (Manual) 5 Metamyelocytes % Nucleated RBC % Not Reportable Abs Neuts (Manual) 21.92 H Abs Lymphs (Manual) 2.01 Abs Monocytes (Manual) 1.26 H Nucleated RBCs 2 Platelet Estimate Increased Large Platelets Present % Immature Plt Fraction Polychromasia 1+ Hypochromasia 1+ Anisocytosis 2+ Microcytosis Target Cells Occasional Ovalocytes 1+ [place] Cells Acanthocytes (Spur) Schistocytes 1+ Absolute Retic 0.09 Percent Retic 2.44 Immature Retic Fraction 6.0 Retic Hgb Content 15.9 L PT INR APTT Puncture Site ABG pH ABG pCO2 ABG pO2 ABG PO2/FiO2 Ratio ABG HCO3 ABG O2 Saturation ABG O2 Content ABG Base Excess A-a Gradient Oxyhemoglobin Carboxyhemoglobin Methemoglobin Reduced Hemoglobin Total Hemoglobin O2 Delivery Device O2 Liters/Min Minute Volume Vent Rate Vent Mode FiO2 Tidal Volume PEEP Peak Inspir Pressure Pressure Support Sodium Potassium Chloride Carbon Dioxide Anion Gap BUN Creatinine Estim Creat Clear Calc Estimated GFR Glucose POC Capillary Glucose Lactic Acid 3.6 H Calcium Phosphorus Magnesium Total Bilirubin Direct Bilirubin AST ALT Alkaline Phosphatase Ammonia 26 Total Creatine Kinase Troponin I C-Reactive Protein Total Protein Albumin Lipase TSH (Reflex) 3.280 Ur Random Creatinine Cancelled U Random Total Protein Cancelled Protein/Creatinin Ratio Cancelled Urine Albumin Cancelled U [id number] Cancelled U [id number] Cancelled U Beta Globulin Cancelled U Gamma Globulin Cancelled U Abnormal Prot Band 1 Cancelled U Abnormal Prot Band 2 Cancelled U Abnormal Prot Band 3 Cancelled Urine PEP Interpret Cancelled Nasal MRSA (PCR) Not detected Hepatitis A IgM Ab Negative Hep Bs Antigen Negative Hep B Core IgM Ab Negative Hepatitis C Ab Screen Negative Blood Type Antibody Screen JULIO, IgG Interpret JULIO, Poly Interpret JULIO, Complement Interp Indirect Antiglob Test Crossmatch Quality VTE Prophylaxis VTE prophylaxis: mechanical ordered
--- NOTE | 2025-04-18 11:24 | WPDGICN ---
Assessment and Plan Assessment and plan (1) Severe anemia: Code(s): D64.9 - Anemia, unspecified Status: Acute Assessment and Plan: The patient has severe, chronic microcytic hypochromic anemia, which is highly suggestive of iron deficiency. Although iron studies are not currently available and would be unreliable after recent transfusions, it remains critical to investigate potential sources of chronic GI blood loss to fully explain this severe iron deficiency, despite the reported history of almost daily epistaxis. Given that the patient is not currently having acute hemorrhage, urgent EGD is not indicated. Instead, the plan is to stabilize the patient's cardiovascular and hemodynamic status, after which EGD and colonoscopy will be scheduled for early next week to complete the diagnostic workup. IV PPI now indicated for Gi prophylaxis while intubated, but it can be discontinued after extubation since there is no evidence of acute upper GI bleeding. GI Consult Note Consult date/time: 04/18/25 11:24 Reason for consult: Severe anemia HPI: Brenda Ibarra is a 59 year old female with a history of CAD, status post CABG approximately one year ago, who was admitted for exertional chest pain and shortness of breath following several months of chronic fatigue and somnolence. The patient presented with acute ST changes on EKG and was initially started on a heparin drip, which was immediately discontinued when her hemoglobin was found to be 3.4. She subsequently received 3 units of packed red blood cells. During her ICU course, she developed sudden respiratory failure requiring immediate intubation, though she responded well to diuresis and vasopressor support. Her hemoglobin is now 8.9 following transfusion, but notable hematologic findings include microcytic indices with an MCV of 67, MCH of 16.3, and a platelet count of 411. The patient is currently on Xarelto, aspirin, and metoprolol, and while her denies any history of melena or hematemesis, she has been complaining of almost daily episodes of epistaxis since her surgery one year ago, with no prior EGD or colonoscopy. When asked about her prior lab values, the and children do not have any information. Review of Systems Review of Systems: All systems reviewed & are unremarkable except as noted in HPI and below PMFSH Past Medical History Medical History (Updated 04/18/25 @ 11:35 by Gloria Ochoa MD) PVD (peripheral vascular disease) Aortic atherosclerosis Depression with anxiety Hypertension Hyperlipemia, mixed FH: chronic lung disease requiring oxygen COPD (chronic obstructive pulmonary disease) CAD (coronary artery disease) Surgical History Surgical History (Updated 04/18/25 @ 04:29 by Marilee Bashir APRN) H/O hand surgery H/O [id number] bypass S/P CABG x 3 Family History Family History Mother Heart disease Social History Social History (Updated 04/18/25 @ 06:21 by Marilee Bashir APRN) Social History: caffeine use. She lives with her . She has 2 children . She is disabled Code status: Full code Smoking packs per day: 2 Smoking cigarettes per day: 40.0 Years smoked: 30 Smoking pack-years: 60.00 Smoking status: Former smoker Tobacco type: cigarettes Second hand tobacco smoke exposure: No Alcohol intake: current Drinks per week: 15 Substance use: never Substance use type: does not use Occupation/Education: occupation Additional occupation/education comments: [employer] concerns: No Meds Home Medications and Allergies Home Medications ?Medication ?Instructions ?Recorded ?Confirmed ?Type albuterol sulfate 90 mcg/actuation 2 puff inhalation Q6H PRN 04/18/25 04/18/25 History aerosol inhaler shortness of breath or wheezing atorvastatin 80 mg tablet 80 mg PO QPM 04/18/25 04/18/25 History clopidogrel 75 mg tablet 75 mg PO DAILY 04/18/25 04/18/25 History escitalopram oxalate 10 mg tablet 10 mg PO DAILY 04/18/25 04/18/25 History fluticasone fur. 100 mcg-umeclid 1 inh inhalation DAILY 04/18/25 04/18/25 History 62.5 mcg-vilant 25 mcg inhalat.powder (Trelegy Ellipta) losartan 25 mg tablet 25 mg PO DAILY 04/18/25 04/18/25 History metoprolol tartrate 25 mg tablet 25 mg PO Q12H 04/18/25 04/18/25 History rivaroxaban 20 mg tablet (Xarelto) 20 mg PO QPM 04/18/25 04/18/25 History Allergies Allergy/AdvReac Type Severity Reaction Status Date / Time No Known Allergies Allergy Verified 04/18/25 05:35 Vital Signs Vital Signs - 24 hr 04/17/25 20:53 04/17/25 20:53 04/17/25 21:20 Temperature 98.7 F Pulse Rate 128 H 129 H Respiratory Rate 16 Blood Pressure 118/74 Pulse Oximetry 100 100 Oxygen Delivery Nasal Cannula Nasal Cannula Oxygen Flow Rate 5 5 Fraction of Inspired Oxygen 04/17/25 23:00 04/17/25 23:17 04/17/25 23:52 Temperature 98.1 F 98.2 F 98 F Pulse Rate 85 86 85 Respiratory Rate 17 17 19 Blood Pressure 120/61 123/62 124/65 Pulse Oximetry 100 97 100 Oxygen Delivery Oxygen Flow Rate Fraction of Inspired Oxygen 04/18/25 00:07 04/18/25 00:34 04/18/25 00:45 Temperature 98.2 F Pulse Rate 85 82 84 Respiratory Rate 15 14 15 Blood Pressure 121/67 Pulse Oximetry 100 100 100 Oxygen Delivery Oxygen Flow Rate Fraction of Inspired Oxygen 04/18/25 00:46 04/18/25 00:50 04/18/25 01:00 Temperature 98.2 F Pulse Rate 83 83 81 Respiratory Rate 14 14 15 Blood Pressure 125/67 125/67 Pulse Oximetry 100 Oxygen Delivery Oxygen Flow Rate Fraction of Inspired Oxygen 04/18/25 01:01 04/18/25 01:06 04/18/25 01:15 Temperature 98.1 F Pulse Rate 83 84 82 Respiratory Rate 14 13 16 Blood Pressure 123/73 123/73 Pulse Oximetry 100 Oxygen Delivery Oxygen Flow Rate Fraction of Inspired Oxygen 04/18/25 01:16 04/18/25 01:30 04/18/25 01:32 Temperature Pulse Rate 82 83 80 Respiratory Rate 16 15 15 Blood Pressure 150/78 H 142/76 H Pulse Oximetry 100 100 Oxygen Delivery Oxygen Flow Rate Fraction of Inspired Oxygen 04/18/25 01:50 04/18/25 01:51 04/18/25 02:00 Temperature Pulse Rate 103 H 101 H 83 Respiratory Rate 18 20 19 Blood Pressure 143/57 H Pulse Oximetry 100 Oxygen Delivery Oxygen Flow Rate Fraction of Inspired Oxygen 04/18/25 02:02 04/18/25 02:25 04/18/25 02:43 Temperature Pulse Rate 84 83 89 Respiratory Rate 19 15 17 Blood Pressure 124/62 Pulse Oximetry 100 100 Oxygen Delivery Oxygen Flow Rate Fraction of Inspired Oxygen 04/18/25 02:45 04/18/25 03:00 04/18/25 03:32 Temperature Pulse Rate 88 91 90 Respiratory Rate 19 17 15 Blood Pressure Pulse Oximetry 100 100 Oxygen Delivery Oxygen Flow Rate Fraction of Inspired Oxygen 04/18/25 03:56 04/18/25 04:00 04/18/25 04:20 Temperature Pulse Rate 95 91 94 Respiratory Rate 18 16 19 Blood Pressure Pulse Oximetry 100 100 Oxygen Delivery Oxygen Flow Rate Fraction of Inspired Oxygen 04/18/25 04:30 04/18/25 04:45 04/18/25 05:29 Temperature 98.7 F Pulse Rate 104 H 102 H 92 Respiratory Rate 19 18 18 Blood Pressure 151/92 H Pulse Oximetry 100 100 100 Oxygen Delivery Oxygen Flow Rate Fraction of Inspired Oxygen 04/18/25 06:22 04/18/25 06:45 04/18/25 07:00 Temperature Pulse Rate 102 H 102 H 115 H Respiratory Rate 10 L Blood Pressure 97/78 L Pulse Oximetry 80 L 100 100 Oxygen Delivery Nasal Cannula BiPAP Mechanical Ventilation Oxygen Flow Rate 5 Fraction of Inspired Oxygen 100 100 04/18/25 07:00 04/18/25 07:10 04/18/25 07:10 Temperature Pulse Rate 115 H Respiratory Rate 20 Blood Pressure Pulse Oximetry 100 100 Oxygen Delivery Mechanical Ventilation Mechanical Ventilation Oxygen Flow Rate Fraction of Inspired Oxygen 100 100 100 04/18/25 08:00 04/18/25 08:00 04/18/25 08:00 Temperature Pulse Rate 122 H 122 H 126 H Respiratory Rate 22 H 22 H 20 Blood Pressure 124/83 Pulse Oximetry 100 Oxygen Delivery Oxygen Flow Rate Fraction of Inspired Oxygen 04/18/25 08:00 04/18/25 08:12 04/18/25 08:12 Temperature Pulse Rate 125 H 122 H 122 H Respiratory Rate 22 H 22 H Blood Pressure Pulse Oximetry Oxygen Delivery Oxygen Flow Rate Fraction of Inspired Oxygen 04/18/25 08:30 04/18/25 09:00 04/18/25 09:00 Temperature Pulse Rate 120 H 122 H Respiratory Rate 22 H 22 H Blood Pressure Pulse Oximetry Oxygen Delivery Oxygen Flow Rate Fraction of Inspired Oxygen 50 04/18/25 09:00 04/18/25 09:10 04/18/25 09:48 Temperature 98.1 F Pulse Rate 98 100 96 Respiratory Rate 21 H Blood Pressure 93/69 L 72/57 L 93/69 L Pulse Oximetry 95 Oxygen Delivery Oxygen Flow Rate Fraction of Inspired Oxygen 04/18/25 10:00 04/18/25 10:00 04/18/25 10:00 Temperature 97.8 F Pulse Rate 95 95 95 Respiratory Rate 15 24 H 24 H Blood Pressure 94/70 L Pulse Oximetry 95 Oxygen Delivery Oxygen Flow Rate Fraction of Inspired Oxygen 04/18/25 10:00 04/18/25 10:00 04/18/25 11:00 Temperature 97.7 F Pulse Rate 95 95 94 Respiratory Rate 21 H Blood Pressure 98/73 L 91/71 L Pulse Oximetry 99 Oxygen Delivery Oxygen Flow Rate Fraction of Inspired Oxygen Exam Narrative: General: Intubated and sedated, in no acute distress HEENT:? Pupils equal and reactive, sclera is clear, ETT in place Neck:? Supple, right IJ central line in place Respiratory:? Coarse breath sounds bilaterally, occasional wheezing, decreased air entry at bases Cardiac:? S1-S2 normal, regular rate and rhythm Abdomen:? Soft, nontender, nondistended, hypoactive bowel sounds Extremities:? Bilateral trace edema in her lower extremities Neuro:? Patient intubated, sedated, opens her eyes, follows simple commands and nods to questions Skin:? Warm and dry Psych:? Unable to assess Const: General: comfortable, no acute distress, well developed, awake, Physically active, ill appearing, average body habitus and well nourished Nutritional Appearance: average body habitus and well nourished Orientation/consciousness: oriented to person, oriented to place, oriented to time and patient oriented x3 HENMT: Head: normal to inspection and No palpable skull fracture present Eyes: General: appearance normal, both eyes and all related structures Alignment and Position: alignment normal Periorbital: periorbital findings normal Eyelids: eyelids normal Conjunctivae: conjunctivae normal Sclera: sclerae normal Cornea: corneas normal Pupils: Equal, round and reactive pupils present and Pupil accommodation reflex normal EOM: EOMs intact bilaterally Other: Pupils are sluggish reactive. Neck: Neck: normal visual inspection, full ROM, no lymphadenopathy, trachea midline and supple Chest: Chest palpation & inspection: normal inspection of the chest Resp: Effort & Inspection: normal respiratory effort Auscultation: clear to auscultation bilaterally Percussion: percussion normal Cardio: Palpation: normal PMI Rate: regular rate Rhythm: regular rhythm Heart sounds: S1 normal heart sound present and S2 normal heart sound present Peripheral pulses: Peripheral pulses 2+ throughout GI: Inspection: normal to inspection Auscultation: normal bowel sounds Rectal Exam: deferred : General: Yes no CVA tenderness Back/Spine/Pelvis: Back: no CVA tenderness Skin: General skin exam: normal color Lesions: no lesions Rashes: no rashes Trauma: no lacerations or abrasions Wounds: no wounds Hair: normal Nails: normal Other: Cool and clammy Neuro: General: oriented to person, oriented to place, oriented to time and patient oriented x3 Cranial nerves: Yes Equal, round and reactive pupils present and Yes Normal hearing present Cognition (Neuro): normal cognition Speech: normal speech Motor exam (neuro): 5/5 motor strength present throughout Sensory Exam: normal sensation Other: Initially the patient was alert orientated x3. A rapid response was called and then she was unresponsive. Extrem: General: normal to inspection Right upper extremity: normal to inspection and shoulder/upper arm Left upper extremity: normal to inspection and shoulder/upper arm Right lower extremity: normal to inspection Left lower extremity: normal to inspection Psych: Appearance: grossly normal Mental Status: mental status grossly normal Speech and movement: Normal speech and movement present Affect: normal affect Attitude: cooperative Thought process: Normal thought process present Results Labs 04/18/25 08:28 04/18/25 08:27 Labs: Short CBC 04/17/25 04/18/25 04/18/25 Range/Units 21:15 00:20 03:48 WBC 9.2 (4.5-10.0) K/mm3 Hgb 3.4 L* 6.8 L* D 8.0 L (12.0-15.0) g/dL Hct 14.0 L* 24.0 L 27.0 L (37.0-47.0) % Plt Count 333 (150-375) k/mm3 04/18/25 04/18/25 Range/Units 06:18 08:28 WBC 18.5 H 25.2 H (4.5-10.0) K/mm3 Hgb 9.7 L 8.9 L (12.0-15.0) g/dL Hct 34.8 L 30.1 L (37.0-47.0) % Plt Count 413 H 411 H (150-375) k/mm3 BMP 04/17/25 04/18/25 21:15 08:27 Sodium 137 137 Potassium 2.5 L* 4.2 Chloride 110 H 106 Carbon Dioxide 19 L 22 BUN 6 L 13 D Creatinine 0.40 L 0.96 Glucose 127 H 196 H Calcium 6.8 L 8.5 Cardiac Enzymes 04/17/25 04/18/25 04/18/25 Range/Units 21:15 00:20 02:46 Total Creatine Kinase (30-135) U/L Troponin I 0.026 0.240 H* D 0.469 H* D (0.000-0.034) ng/mL 04/18/25 04/18/25 Range/Units 08:27 08:27 Total Creatine Kinase 144 H (30-135) U/L Troponin I Cancelled 1.620 H* D (0.000-0.034) ng/mL Liver Function 04/17/25 04/18/25 04/18/25 Range/Units 21:15 08:27 08:27 Total Bilirubin 0.9 3.8 H 3.8 H (0.2-1.3) mg/dL Direct Bilirubin 0.0 (0-0.3) mg/dL AST 91 H 135 H (14-36) U/L ALT 135 H 182 H (6-35) U/L Alkaline Phosphatase 79 93 (38-126) U/L Albumin 2.8 L 3.9 (3.5-5.1) g/dL
[2025-04-18 11:57] LABS: Iron 91 ug/dL (37-170)
[2025-04-18] MEDS: PERFLUTREN LIPID MICROSPHERES 1.5 ML VIAL DILUTED TO 10 ML TOTAL VOLUME IV PUSH (12:09)
--- NOTE | 2025-04-18 12:09 | IVDEFINITY ---
Prior to administration of IV Definity the patient was educated on the risks and benefits of the imaging enhancing agent including potential adverse side effects. The patient verbalized understanding. Allergies were verified. No exclusion criteria were identified and at least one of the following inclusion criteria were met: 1) physician request, 2) patient technically difficult to image (per the [place] [employer] guidelines of two or more segments not discernable within the apical view), or 3) questionable left ventricular function. ?
[2025-04-18 12:14] LABS: Hematocrit 28.4 % (37.0-47.0); Hemoglobin 8.5 g/dL (12.0-15.0)
[2025-04-18 12:17] LABS: Add Urine Microscopic? NO; Appearance Urine Clear (Clear); Glucose Urine UA Negative (Negative); Leukocyte Esterase Ur Negative LEU/UL (Negative); Nitrate Urine Negative (Negative); Specific Grav Ur 1.012 (1.001-1.035)
[2025-04-18 12:17] LABS: Alveolar/Arterial O2 Gradient 213.4 mmHg; Fractional Inspired Oxygen 50 %; HCO3 ABG 21.0 mEq/l (22.0-26.0); Oxygen Content ABG 12.8 %vol (16.0-22.0); Oxygen Saturation ABG 97.8 % (95.0-100.0); PCO2 ABG 34.7 mmHg (35.0-45.0); PO2 ABG 104.1 mmHg (80.0-100.0); PO2 FiO2 Ratio Arterial Blood 2.08 %
[2025-04-18] MEDS: CEFEPIME 2 GM in SODIUM CHLORIDE 0.9% IV 50 ML 100 ML IVPB ×2 (12:21→23:40)
[2025-04-18 12:40] LABS: Ferritin 7.67 ng/mL (11.1-264)
[2025-04-18 12:46] LABS: Percent Iron Saturation 22 % (20-50)
[2025-04-18 12:47] LABS: Modified Allen's Test Pass; Site Drawn LEFT RADIAL
[2025-04-18 12:48] LABS: Arterial Blood Gas Ventilator rate 24 /MIN
[2025-04-18 12:49] LABS: Arterial Blood Gas Tidal Volume 400 ml
--- NOTE | 2025-04-18 12:49 | PCRCNOTE ---
ABG was scheduled for 11:00am, attempt 6 different times this therapist and another therapist was not able to obtain specimen. Dr. Ochoa assisted with using ultrasound and obtained the specimen.
[2025-04-18 13:17] LABS: Transferrin 311 mg/dL (206-381)
[2025-04-18 13:38] LABS: Vitamin B12 827.0 pg/mL (239-931)
[2025-04-18] MEDS: VANCOMYCIN 1,750 MG/NS 500 ML 1,750 MG/500 ML BAG 250 MG IVPB (13:38)
[2025-04-18] MEDS: CENTRAL LINE FLUSH 10 ML IV PUSH ×2 (13:39→20:10)
[2025-04-18] MEDS: ESCITALOPRAM OXALATE 10 MG TABLET PO (13:39)
[2025-04-18] MEDS: BUDESONIDE RESPULE NEB 0.5 MG/2 ML AMP INHALATION ×2 (14:55→21:01)
[2025-04-18 19:08] LABS: Hematocrit 26.1 % (37.0-47.0); Hemoglobin 7.9 g/dL (12.0-15.0)
[2025-04-18] MEDS: ATORVASTATIN 40 MG TABLET 80 MG PO (20:10)
[2025-04-18] MEDS: NOREPINEPHRINE 8 MG/D5W 250 ML 8 MG/250 ML BAG 18.75 MG IV CONT (22:45)
[2025-04-18 23:53] LABS: Hematocrit 25.4 % (37.0-47.0); Hemoglobin 7.7 g/dL (12.0-15.0)
[2025-04-19] VITALS (55 sets, daily range): BP systolic 93–124; BP diastolic 51–67; PULSE 73–103; RESP 2–20; TEMP 37.4–38.1; O2SAT 91–96
[2025-04-19] MEDS: ACETAMINOPHEN ELIXIR 325 MG/10.15 ML UDC 650 MG FEED TUBE (02:24)
[2025-04-19] MEDS: IPRATROPIUM 0.5 MG/ALBUTEROL SULFATE 2.5 MG (BASE) AMPUL.NEB 3 ML INHALATION ×4 (02:42→20:02)
[2025-04-19 05:15] LABS: HCO3 ABG 26.0 mEq/l (22.0-26.0); Oxygen Saturation ABG 93.4 % (95.0-100.0); PCO2 ABG 43.2 mmHg (35.0-45.0); PO2 ABG 67.6 mmHg (80.0-100.0)
[2025-04-19 05:17] LABS: Oxygen Content ABG 10.7 %vol (16.0-22.0)
[2025-04-19 05:18] LABS: Alveolar/Arterial O2 Gradient 1.9 mmHg; Carboxyhemoglobin 1.9 % THb (0-2.0)
[2025-04-19 05:19] LABS: Methemoglobin ABG 0.3 %THb (0-1.5); Reduced Hemoglobin 6.9 %THb (0-5.0)
[2025-04-19 05:20] LABS: Modified Allen's Test Pass; Site Drawn RIGHT BRACHIAL
[2025-04-19 05:21] LABS: Arterial Blood Gas Tidal Volume 400 ml; Arterial Blood Gas Ventilator rate 20 /MIN
[2025-04-19 05:35] LABS: Hematocrit 24.2 % (37.0-47.0); Hemoglobin 7.4 g/dL (12.0-15.0); Immature Granulocyte Percent A 0.8 % (0-0.5); Lymphocytes Absolute Auto 0.66 K/mm3 (0.9-3.2); Mean Corpuscular HGB Conc 30.6 g/dl (32-36); Mean Corpuscular Hemoglobin 23.0 pg (26-34); Mean Corpuscular Volume 75.2 fl (80-100); Nucleated Red Blood Cells Absolute Auto 0.050 K/mm3 (0.0-0.012); Nucleated Red Blood Cells Perc 0.3 % (0.0-0.2); Platelet Count Result 282 k/mm3 (150-375); Red Blood Count 3.22 M/mm3 (4.2-5.4); White Blood Count 15.1 K/mm3 (4.5-10.0)
[2025-04-19 05:49] LABS: INR 1.5; Prothrombin Time 17.4 Seconds (11.1-14.7)
[2025-04-19 05:51] LABS: Partial Thromboplastin Time 33.2 Seconds (22.3-36.8)
[2025-04-19 05:54] LABS: Anisocytosis 2+; Hypochromasia 1+; Ovalocytes 1+; Schistocytes Occasional
[2025-04-19 05:56] LABS: Alanine Aminotransferase 286 U/L (6-35); Albumin Level 3.1 g/dL (3.5-5.1); Alkaline Phosphatase 96 U/L (38-126); Anion Gap 5 mmol/L (4-12); Aspartate Amino Transferase 212 U/L (14-36); Bilirubin,Total 4.5 mg/dL (0.2-1.3); Blood Urea Nitrogen 13 mg/dL (7-17); Calcium 8.3 mg/dL (8.4-10.2); Carbon Dioxide 27 mmol/L (22-30); Chloride 103 mmol/L (98-107); Estimated CRCL calculation 66 ml/min; Estimated Glomerular Filt Rate > 60; Glucose 134 mg/dL (65-110); Magnesium 1.7 mg/dL (1.6-2.3); Potassium 3.3 mmol/L (3.4-5.0); Sodium 135 mmol/L (137-145); Total Protein 5.7 g/dL (6.3-8.2)
[2025-04-19] MEDS: CENTRAL LINE FLUSH 10 ML IV PUSH ×3 (06:03→20:46)
[2025-04-19] MEDS: BUDESONIDE RESPULE NEB 0.5 MG/2 ML AMP INHALATION ×2 (07:34→20:02)
[2025-04-19] MEDS: VANCOMYCIN 1,250 MG/NS 250 ML 1,250 MG/250 ML BAG 166.67 MG IVPB (07:45)
--- NOTE | 2025-04-19 08:57 | PM.CNCAR ---
Assessment and Plan Assessment and plan (1) Demand ischemia: Code(s): I24.89 - Other forms of acute ischemic heart disease Status: Acute (2) S/P CABG x 3: Code(s): Z95.1 - Presence of aortocoronary bypass graft Status: Acute Plan This is a 59-year-old lady with severe coronary and peripheral vascular disease admitted to the hospital with some chest pain in the emergency room she was given 1 dose of heparin before it was noted that she was profoundly anemic. In this setting she required urgent intubation and mechanical ventilator support. In this setting troponin levels were drawn and they are slightly elevated which of course is not surprising in in my opinion is NOT indicative of acute coronary syndrome. She has received aggressive supportive care and red cell transfusion. She was on both anti-platelet and anticoagulation therapy as an outpatient in the form of clopidogrel and Xarelto. We do not have the specific indication for anticoagulation at this time. In any event there are no plans to conduct an ischemia evaluation at this time. Her echocardiogram almost certainly his indicative of takotsubo stress cardiomyopathy since the echocardiographic pattern is typical of that and this is atypical setting for this. When she is off I inotropic support we will need to cautiously [place] guideline directed medical therapy for her low ejection fraction. Yazan Voss MD [facility] History of Present Illness History of Present Illness Consult date/time: 04/19/25 08:57 Reason For Visit: NSTEMI, GI Bleeding, severe anemia Narrative: This is a 59-year-old lady unknown to me prior to this consult I am seeing her today at the request of the hospitalist. The stated reason for consultation is acute coronary syndrome. She is currently intubated on the ventilator in the ICU and obviously incapable of providing any direct history. I attempted to see her yesterday but she was leaving the unit for a and x-ray at that time. Apparently she came to the hospital the evening before reporting symptoms of chest pain. She was felt to be having an acute coronary event at that time and she was given a heparin bolus as part of the admission orders. The laboratory data was not back at that time. Shortly thereafter labs came back demonstrating heme her hemoglobin to be 3.4 g. Obviously there was no additional heparin administered and she was admitted to the hospital. She was in significant respiratory extremis and was intubated and brought to the ICU. She was given multiple units of packed red cells I believe 4 units have been transfused at this time. There was apparently no overt GI bleeding in the way of hematemesis with coffee-ground emesis and melanotic stool or hematochezia. In this setting her troponin levels are slightly out of normal range. She had an echocardiogram done yesterday which was interpreted by Dr. Villanueva as showing evidence of severe left ventricular systolic dysfunction in a pattern typical 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. She has a history of coronary artery disease and underwent surgical revascularization at [facility] in November of 2023. She received a bilateral CASPER procedure according to the records was found to have occlusion of her circumflex with high-grade lesions in the LAD and mid right coronary arteries. The records do indicate by echo she had preserved left ventricular systolic function at that time. Several months after surgery she underwent lower extremity surgical revascularization also in [facility] receiving a right axillary bi femoral bypass graft. This was done due to severe occlusive aortoiliac disease and rest ischemic pain. According to the records she is a long-standing cigarette smoker also with significant oxygen-dependent COPD. Review of Systems Review of Systems: ROS unobtainable: Yes unobtainable due to endotracheal tube PMFSH Past Medical History Medical History (Updated 04/18/25 @ 11:38 by Gloria Ochoa MD) PVD (peripheral vascular disease) Aortic atherosclerosis Depression with anxiety Hypertension Hyperlipemia, mixed FH: chronic lung disease requiring oxygen COPD (chronic obstructive pulmonary disease) CAD (coronary artery disease) Surgical History Surgical History (Updated 04/18/25 @ 04:29 by Marilee Bashir APRN) H/O hand surgery H/O [id number] bypass S/P CABG x 3 Family History Family History Mother Heart disease Social History Social History (Updated 04/18/25 @ 06:21 by Marilee Bashir APRN) Social History: caffeine use. She lives with her . She has 2 children . She is disabled Code status: Full code Smoking packs per day: 2 Smoking cigarettes per day: 40.0 Years smoked: 30 Smoking pack-years: 60.00 Smoking status: Former smoker Tobacco type: cigarettes Second hand tobacco smoke exposure: No Alcohol intake: current Drinks per week: 15 Substance use: never Substance use type: does not use Occupation/Education: occupation Additional occupation/education comments: [employer] concerns: No Meds Home Medications and Allergies Home Medications ?Medication ?Instructions ?Recorded ?Confirmed ?Type albuterol sulfate 90 mcg/actuation 2 puff inhalation Q6H PRN 04/18/25 04/18/25 History aerosol inhaler shortness of breath or wheezing atorvastatin 80 mg tablet 80 mg PO QPM 04/18/25 04/18/25 History clopidogrel 75 mg tablet 75 mg PO DAILY 04/18/25 04/18/25 History escitalopram oxalate 10 mg tablet 10 mg PO DAILY 04/18/25 04/18/25 History fluticasone fur. 100 mcg-umeclid 1 inh inhalation DAILY 04/18/25 04/18/25 History 62.5 mcg-vilant 25 mcg inhalat.powder (Trelegy Ellipta) losartan 25 mg tablet 25 mg PO DAILY 04/18/25 04/18/25 History metoprolol tartrate 25 mg tablet 25 mg PO Q12H 04/18/25 04/18/25 History rivaroxaban 20 mg tablet (Xarelto) 20 mg PO QPM 04/18/25 04/18/25 History Allergies Allergy/AdvReac Type Severity Reaction Status Date / Time No Known Allergies Allergy Verified 04/18/25 05:35 Vital Signs Vital Signs - 24 hr 04/18/25 09:00 04/18/25 09:00 04/18/25 09:00 Temperature 36.7 C Pulse Rate 120 H 122 H 98 Respiratory Rate 22 H 22 H 21 H Blood Pressure 93/69 L Pulse Oximetry 95 Oxygen Delivery Fraction of Inspired Oxygen 04/18/25 09:10 04/18/25 09:48 04/18/25 10:00 Temperature 36.6 C Pulse Rate 100 96 95 Respiratory Rate 15 Blood Pressure 72/57 L 93/69 L 94/70 L Pulse Oximetry 95 Oxygen Delivery Fraction of Inspired Oxygen 04/18/25 10:00 04/18/25 10:00 04/18/25 10:00 Temperature Pulse Rate 95 95 95 Respiratory Rate 24 H 24 H Blood Pressure 98/73 L Pulse Oximetry Oxygen Delivery Fraction of Inspired Oxygen 04/18/25 10:00 04/18/25 11:00 04/18/25 12:00 Temperature 36.5 C 36.7 C Pulse Rate 95 94 90 Respiratory Rate 21 H Blood Pressure 91/71 L Pulse Oximetry 99 99 Oxygen Delivery Fraction of Inspired Oxygen 04/18/25 12:00 04/18/25 12:00 04/18/25 12:00 Temperature Pulse Rate 91 91 91 Respiratory Rate 24 H 24 H Blood Pressure 99/66 L Pulse Oximetry Oxygen Delivery Fraction of Inspired Oxygen 04/18/25 12:00 04/18/25 12:00 04/18/25 12:00 Temperature Pulse Rate 90 Respiratory Rate Blood Pressure Pulse Oximetry 99 Oxygen Delivery Mechanical Ventilation Fraction of Inspired Oxygen 50 50 04/18/25 12:18 04/18/25 13:00 04/18/25 13:46 Temperature 36.6 C Pulse Rate 88 91 86 Respiratory Rate Blood Pressure 90/65 L 90/65 L Pulse Oximetry 100 90 Oxygen Delivery Mechanical Ventilation Fraction of Inspired Oxygen 45 04/18/25 14:00 04/18/25 14:00 04/18/25 14:00 Temperature 36.8 C Pulse Rate 82 84 84 Respiratory Rate 16 Blood Pressure 95/67 L 95/68 L Pulse Oximetry 100 Oxygen Delivery Fraction of Inspired Oxygen 04/18/25 14:00 04/18/25 14:00 04/18/25 14:56 Temperature Pulse Rate 84 84 89 Respiratory Rate 20 20 Blood Pressure Pulse Oximetry 100 Oxygen Delivery Mechanical Ventilation Fraction of Inspired Oxygen 40 04/18/25 14:56 04/18/25 15:00 04/18/25 16:00 Temperature 36.7 C Pulse Rate 79 81 79 Respiratory Rate 20 20 Blood Pressure 94/69 L 94/68 L Pulse Oximetry 99 Oxygen Delivery Fraction of Inspired Oxygen 04/18/25 16:00 04/18/25 16:00 04/18/25 16:00 Temperature 36.8 C Pulse Rate 79 79 79 Respiratory Rate 20 20 20 Blood Pressure 94/68 L Pulse Oximetry 100 Oxygen Delivery Fraction of Inspired Oxygen 04/18/25 16:00 04/18/25 16:00 04/18/25 16:00 Temperature Pulse Rate 81 Respiratory Rate Blood Pressure Pulse Oximetry 99 Oxygen Delivery Mechanical Ventilation Fraction of Inspired Oxygen 40 40 04/18/25 16:33 04/18/25 17:00 04/18/25 17:45 Temperature 37.0 C Pulse Rate 81 81 82 Respiratory Rate 20 Blood Pressure 89/65 L 97/64 L Pulse Oximetry 99 99 Oxygen Delivery Mechanical Ventilation Fraction of Inspired Oxygen 40 04/18/25 18:00 04/18/25 18:00 04/18/25 18:00 Temperature 37.1 C Pulse Rate 81 81 81 Respiratory Rate 20 Blood Pressure 96/59 L 96/59 L Pulse Oximetry 98 Oxygen Delivery Fraction of Inspired Oxygen 04/18/25 18:00 04/18/25 18:00 04/18/25 18:59 Temperature Pulse Rate 81 81 82 Respiratory Rate 20 20 Blood Pressure 88/55 L Pulse Oximetry Oxygen Delivery Fraction of Inspired Oxygen 04/18/25 19:00 04/18/25 19:20 04/18/25 19:31 Temperature 37.2 C Pulse Rate 82 87 82 Respiratory Rate 20 Blood Pressure 94/60 L 105/65 102/66 Pulse Oximetry 97 Oxygen Delivery Fraction of Inspired Oxygen 04/18/25 19:50 04/18/25 19:54 04/18/25 20:00 Temperature Pulse Rate 83 84 Respiratory Rate 20 Blood Pressure 96/62 L Pulse Oximetry 98 Oxygen Delivery Mechanical Ventilation Fraction of Inspired Oxygen 40 35 04/18/25 20:00 04/18/25 20:00 04/18/25 20:00 Temperature Pulse Rate 83 83 83 Respiratory Rate 20 20 Blood Pressure Pulse Oximetry Oxygen Delivery Fraction of Inspired Oxygen 04/18/25 20:00 04/18/25 20:30 04/18/25 21:00 Temperature 37.3 C Pulse Rate 83 83 83 Respiratory Rate 20 Blood Pressure 96/62 L 102/65 Pulse Oximetry 98 98 Oxygen Delivery Mechanical Ventilation Fraction of Inspired Oxygen 40 04/18/25 21:00 04/18/25 21:03 04/18/25 21:11 Temperature 37.4 C Pulse Rate 83 83 Respiratory Rate 20 20 Blood Pressure 95/64 L Pulse Oximetry 97 98 Oxygen Delivery Mechanical Ventilation Fraction of Inspired Oxygen 40 04/18/25 21:22 04/18/25 22:00 04/18/25 22:00 Temperature 37.4 C Pulse Rate 88 79 98 Respiratory Rate 20 20 Blood Pressure 97/67 L Pulse Oximetry 95 Oxygen Delivery Fraction of Inspired Oxygen 04/18/25 22:00 04/18/25 22:00 04/18/25 22:00 Temperature Pulse Rate 98 98 98 Respiratory Rate 20 20 Blood Pressure 97/67 L Pulse Oximetry Oxygen Delivery Fraction of Inspired Oxygen 04/18/25 22:45 04/18/25 22:45 04/18/25 22:45 Temperature Pulse Rate 98 98 98 Respiratory Rate Blood Pressure 92/62 L 92/62 L 92/62 L Pulse Oximetry Oxygen Delivery Fraction of Inspired Oxygen 04/18/25 23:00 04/18/25 23:17 04/18/25 23:20 Temperature 37.5 C Pulse Rate 97 97 Respiratory Rate 20 20 Blood Pressure 94/62 L Pulse Oximetry 96 96 Oxygen Delivery Mechanical Ventilation Fraction of Inspired Oxygen 40 40 04/18/25 23:30 04/19/25 00:00 04/19/25 00:00 Temperature 37.6 C H Pulse Rate 96 98 98 Respiratory Rate 20 Blood Pressure 104/67 Pulse Oximetry 96 94 Oxygen Delivery Mechanical Ventilation Fraction of Inspired Oxygen 40 04/19/25 00:01 04/19/25 00:01 04/19/25 00:01 Temperature Pulse Rate 99 98 98 Respiratory Rate 20 20 Blood Pressure 104/67 Pulse Oximetry Oxygen Delivery Fraction of Inspired Oxygen 04/19/25 00:30 04/19/25 01:00 04/19/25 01:36 Temperature 37.7 C H Pulse Rate 97 98 103 H Respiratory Rate 20 Blood Pressure 98/64 L 95/59 L 123/64 Pulse Oximetry 93 Oxygen Delivery Fraction of Inspired Oxygen 04/19/25 02:00 04/19/25 02:00 04/19/25 02:00 Temperature Pulse Rate 98 98 98 Respiratory Rate 20 Blood Pressure 116/58 L 116/58 L Pulse Oximetry 94 Oxygen Delivery Fraction of Inspired Oxygen 04/19/25 02:00 04/19/25 02:00 04/19/25 02:24 Temperature 38.0 C H Pulse Rate 98 97 Respiratory Rate 20 20 Blood Pressure Pulse Oximetry Oxygen Delivery Fraction of Inspired Oxygen 04/19/25 02:43 04/19/25 02:46 04/19/25 03:00 Temperature Pulse Rate 98 98 100 Respiratory Rate 20 20 Blood Pressure 96/56 L Pulse Oximetry 94 94 Oxygen Delivery Mechanical Ventilation Fraction of Inspired Oxygen 40 04/19/25 03:00 04/19/25 03:22 04/19/25 03:23 Temperature Pulse Rate 100 100 Respiratory Rate 20 Blood Pressure 96/56 L Pulse Oximetry 94 Oxygen Delivery Mechanical Ventilation Fraction of Inspired Oxygen 40 40 04/19/25 03:24 04/19/25 04:00 04/19/25 04:00 Temperature 37.8 C H 37.8 C H Pulse Rate 98 98 Respiratory Rate 20 Blood Pressure 94/52 L Pulse Oximetry 94 Oxygen Delivery Fraction of Inspired Oxygen 04/19/25 04:00 04/19/25 04:00 04/19/25 04:00 Temperature Pulse Rate 73 98 98 Respiratory Rate 20 20 Blood Pressure 94/52 L Pulse Oximetry Oxygen Delivery Fraction of Inspired Oxygen 04/19/25 05:00 04/19/25 05:02 04/19/25 05:30 Temperature 37.8 C H Pulse Rate 98 98 97 Respiratory Rate 20 20 Blood Pressure 93/54 L Pulse Oximetry 94 95 Oxygen Delivery Mechanical Ventilation Fraction of Inspired Oxygen 40 04/19/25 05:40 04/19/25 06:00 04/19/25 06:00 Temperature Pulse Rate 98 97 97 Respiratory Rate 20 20 Blood Pressure 95/55 L Pulse Oximetry Oxygen Delivery Fraction of Inspired Oxygen 04/19/25 06:00 04/19/25 06:00 04/19/25 06:00 Temperature 37.7 C H Pulse Rate 98 96 98 Respiratory Rate 20 20 Blood Pressure 95/55 L Pulse Oximetry 95 Oxygen Delivery Fraction of Inspired Oxygen 04/19/25 07:00 04/19/25 07:35 04/19/25 07:35 Temperature 37.6 C H Pulse Rate 96 96 96 Respiratory Rate 20 20 Blood Pressure 96/59 L Pulse Oximetry 96 95 Oxygen Delivery Mechanical Ventilation Fraction of Inspired Oxygen 35 04/19/25 07:42 04/19/25 08:00 04/19/25 08:00 Temperature Pulse Rate 95 95 95 Respiratory Rate 20 20 Blood Pressure Pulse Oximetry 95 Oxygen Delivery Mechanical Ventilation Fraction of Inspired Oxygen 35 04/19/25 08:00 04/19/25 08:00 04/19/25 08:00 Temperature 37.6 C Pulse Rate 97 97 Respiratory Rate 20 Blood Pressure 103/54 L 103/54 L Pulse Oximetry 92 Oxygen Delivery Fraction of Inspired Oxygen 35 04/19/25 08:00 04/19/25 08:00 Temperature Pulse Rate 97 97 Respiratory Rate 20 20 Blood Pressure Pulse Oximetry Oxygen Delivery Fraction of Inspired Oxygen Exam Const: Other: Well-developed well-nourished female appearing her stated age she is awake alert intubated and remarkably comfortable HENMT: Mouth: Yes moist mucous membranes Eyes: Sclera: sclerae normal Neck: Neck: supple Resp: Other: Breath sounds are relatively clear to at anterior auscultation at this time Cardio: Rate: regular rate Rhythm: regular rhythm Other: PMI is not displaced, soft apical holosystolic murmur is audible GI: GI Palp: Yes Soft to palpation Auscultation: normal bowel sounds Urinary Catheter: Urinary Catheter: patent and draining Skin: General skin exam: normal color Neuro: Other: Appears to be alert and responsive on the vent Extrem: Other: Warm and well perfused, distal lower extremity pulses are not palpable Results Labs and Meds 04/19/25 05:26 04/19/25 05:26 Lab results: Cardiac Enzymes 04/18/25 04/19/25 Range/Units 08:27 05:26 AST 135 H 212 H (14-36) U/L Lactate Dehydrogenase 465 H (120-246) U/L Troponin I 1.620 H* D (0.000-0.034) ng/mL Coagulation 04/18/25 04/19/25 Range/Units 08:27 05:26 PT 17.2 H 17.4 H (11.1-14.7) Seconds APTT 27.9 33.2 (22.3-36.8) Seconds CBC 04/18/25 04/18/25 04/18/25 Range/Units 08:28 12:05 19:01 WBC 25.2 H (4.5-10.0) K/mm3 RBC 3.88 L (4.2-5.4) M/mm3 Hgb 8.9 L 8.5 L 7.9 L (12.0-15.0) g/dL Hct 30.1 L 28.4 L 26.1 L (37.0-47.0) % Plt Count 411 H (150-375) k/mm3 Lymph # (Auto) Not Reportable Cassia # (Auto) Not Reportable Eos # (Auto) Not Reportable Baso # (Auto) Not Reportable 04/18/25 04/19/25 Range/Units 23:39 05:26 WBC 15.1 H (4.5-10.0) K/mm3 RBC 3.22 L (4.2-5.4) M/mm3 Hgb 7.7 L 7.4 L (12.0-15.0) g/dL Hct 25.4 L 24.2 L (37.0-47.0) % Plt Count 282 (150-375) k/mm3 Lymph # (Auto) 0.66 L Cassia # (Auto) 0.9 H Eos # (Auto) 0.2 Baso # (Auto) 0.1 Comprehensive Metabolic Panel 04/18/25 04/19/25 Range/Units 08:27 05:26 Sodium 137 135 L (137-145) mmol/L Potassium 4.2 3.3 L (3.4-5.0) mmol/L Chloride 106 103 (98-107) mmol/L Carbon Dioxide 22 27 (22-30) mmol/L BUN 13 D 13 (7-17) mg/dL Creatinine 0.96 0.69 L (0.7-1.0) mg/dL Glucose 196 H 134 H (65-110) mg/dL Calcium 8.5 8.3 L (8.4-10.2) mg/dL Direct Bilirubin 0.0 (0-0.3) mg/dL AST 135 H 212 H (14-36) U/L ALT 182 H 286 H (6-35) U/L Alkaline Phosphatase 93 96 (38-126) U/L Total Protein 6.7 5.7 L (6.3-8.2) g/dL Albumin 3.9 3.1 L (3.5-5.1) g/dL Intake and Output 04/18/25 04/19/25 04/19/25 23:59 07:59 15:59 Intake Total 263.7 218.9 25.8 Output Total 700 425 Balance -436.3 -206.1 25.8 Intake: IV 263.7 218.9 25.8 Fentanyl 2,500Mcg/Se763po(*Crx 60 54.1 5 2,500 mcg In 250 ml @ 25 MCG/HR 2.5 mls/hr IV CONT .Q72H [facility] Rx#:[id number] Midazolam 100Mg/Ns 100Ml(*Crx) 24 21.5 2 100 mg In 100 ml @ 1 MG/HR 1 mls/hr IV CONT .Q72H [facility]UAN C Rx#: [id number] Norepinephrine 8 mg/D5w 250 ml 179.7 93.3 18.8 8 mg In 250 ml @ 5 MCG/MIN 9. 375 mls/hr IV CONT .Q24H [facility] C Rx #:[id number] Cefepime 2 gm In Sodium 50 Chloride 0.9% IV 50 ml @ 100 mls/hr IVPB Q12H [facility] Rx#: [id number] Oral 0 Tube Feeding 0 Output: Catheter Urine 700 425 Urethral Catheter 700 425 Other: Number of Bowel Movements Today 0 Patient Weight 04/19/25 23:59 Weight 70.4 kg
[2025-04-19] MEDS: KCL 40 MEQ/WATER 100 ML 100 ML 25 ML IVPB (09:18)
[2025-04-19] MEDS: ESCITALOPRAM OXALATE 10 MG TABLET PO (09:18)
[2025-04-19] MEDS: PANTOPRAZOLE SODIUM IV 40 MG VIAL IV PUSH ×2 (09:18→20:45)
[2025-04-19] MEDS: MINERAL OIL/WHITE PETROLATUM OINTMENT 1 APPLIC EACH EYE ×2 (09:19→20:45)
--- NOTE | 2025-04-19 10:16 | WPDGIPROGNO ---
Progress Note: A&P Assessment and Plan (1) Anemia: Code(s): D64.9 - Anemia, unspecified Status: Acute Assessment and Plan: - The patient was admitted with profound anemia and severe compromise of her cardiovascular and circulatory function, which was echocardiographically diagnosed as Takotsubo syndrome, with a very low ejection fraction of around 20-25%. She currently requires both ventilatory and vasoactive agents. The etiology of the anemia remains unclear; however, its microcytic hypochromic morphology and low ferritin levels strongly suggest an iron deficiency component. - The persistent elevation of bilirubin warrants a hemolysis workup, which should include fractionated bilirubin, haptoglobin, LDH, and peripheral smear evaluation. - The elevated transaminases are likely attributable to her severe hemodynamic compromise, translating into an ischemic liver injury. Sonographic findings of the liver are suggestive of cirrhosis, which will need definitive investigation once the patient is stabilized. - Finally, upon achieving hemodynamic stability and successful extubation, we plan to proceed with endoscopic studies to investigate the underlying cause of the anemia. No indication for urgent EGD unless she develops overt GI bleeding. Subjective Date/time seen: 04/19/25 10:16 Interval history: The patient continues intubated. Slow drop in hemoglobin in the absence of obvious GI bleeding. NG tube content remains clear. No melena or hematochezia. Continues hemodynamically relatively unstable, on low-dose Levophed. Labs today: Hemoglobin 7.4, AST 212, ALT 286, bilirubin 4.5, albumin 3.1, INR 1.5, creatinine 0.69. Abdominal ultrasound suggested a micronodular aspect of the liver with no focal lesions or intrahepatic biliary dilatation. Exam Narrative: No changes from yesterday. Objective Data Vital Signs Vital Signs: Vital Signs - 24 hr 04/18/25 11:04/18/25 12:00 04/18/25 12:00 Temperature 97.7 F 98.1 F Pulse Rate 94 90 91 Respiratory Rate 21 H Blood Pressure 91/71 L 99/66 L Pulse Oximetry 99 99 Oxygen Delivery Fraction of Inspired Oxygen 04/18/25 12:00 04/18/25 12:00 04/18/25 12:00 Temperature Pulse Rate 91 91 Respiratory Rate 24 H 24 H Blood Pressure Pulse Oximetry 99 Oxygen Delivery Mechanical Ventilation Fraction of Inspired Oxygen 50 04/18/25 12:00 04/18/25 12:00 04/18/25 12:18 Temperature Pulse Rate 90 88 Respiratory Rate Blood Pressure Pulse Oximetry 100 Oxygen Delivery Mechanical Ventilation Fraction of Inspired Oxygen 50 45 04/18/25 13:00 04/18/25 13:46 04/18/25 14:00 Temperature 97.8 F 98.2 F Pulse Rate 91 86 82 Respiratory Rate 16 Blood Pressure 90/65 L 90/65 L 95/67 L Pulse Oximetry 90 100 Oxygen Delivery Fraction of Inspired Oxygen 04/18/25 14:00 04/18/25 14:00 04/18/25 14:00 Temperature Pulse Rate 84 84 84 Respiratory Rate 20 Blood Pressure 95/68 L Pulse Oximetry Oxygen Delivery Fraction of Inspired Oxygen 04/18/25 14:00 04/18/25 14:56 04/18/25 14:56 Temperature Pulse Rate 84 89 79 Respiratory Rate 20 20 Blood Pressure Pulse Oximetry 100 Oxygen Delivery Mechanical Ventilation Fraction of Inspired Oxygen 40 04/18/25 15:00 04/18/25 16:00 04/18/25 16:00 Temperature 98.1 F 98.2 F Pulse Rate 81 79 79 Respiratory Rate 20 20 Blood Pressure 94/69 L 94/68 L 94/68 L Pulse Oximetry 99 100 Oxygen Delivery Fraction of Inspired Oxygen 04/18/25 16:00 04/18/25 16:00 04/18/25 16:00 Temperature Pulse Rate 79 79 Respiratory Rate 20 20 Blood Pressure Pulse Oximetry 99 Oxygen Delivery Mechanical Ventilation Fraction of Inspired Oxygen 40 04/18/25 16:00 04/18/25 16:00 04/18/25 16:33 Temperature Pulse Rate 81 81 Respiratory Rate Blood Pressure 89/65 L Pulse Oximetry Oxygen Delivery Fraction of Inspired Oxygen 40 04/18/25 17:00 04/18/25 17:45 04/18/25 18:00 Temperature 98.6 F 98.7 F Pulse Rate 81 82 81 Respiratory Rate 20 20 Blood Pressure 97/64 L 96/59 L Pulse Oximetry 99 99 98 Oxygen Delivery Mechanical Ventilation Fraction of Inspired Oxygen 40 04/18/25 18:00 04/18/25 18:00 04/18/25 18:00 Temperature Pulse Rate 81 81 81 Respiratory Rate 20 Blood Pressure 96/59 L Pulse Oximetry Oxygen Delivery Fraction of Inspired Oxygen 04/18/25 18:00 04/18/25 18:59 04/18/25 19:00 Temperature 98.9 F Pulse Rate 81 82 82 Respiratory Rate 20 20 Blood Pressure 88/55 L 94/60 L Pulse Oximetry 97 Oxygen Delivery Fraction of Inspired Oxygen 04/18/25 19:20 04/18/25 19:31 04/18/25 19:50 Temperature Pulse Rate 87 82 Respiratory Rate Blood Pressure 105/65 102/66 Pulse Oximetry Oxygen Delivery Fraction of Inspired Oxygen 40 04/18/25 19:54 04/18/25 20:00 04/18/25 20:00 Temperature Pulse Rate 83 84 83 Respiratory Rate 20 20 Blood Pressure 96/62 L Pulse Oximetry 98 Oxygen Delivery Mechanical Ventilation Fraction of Inspired Oxygen 35 04/18/25 20:00 04/18/25 20:00 04/18/25 20:00 Temperature 99.2 F Pulse Rate 83 83 83 Respiratory Rate 20 20 Blood Pressure 96/62 L Pulse Oximetry 98 Oxygen Delivery Fraction of Inspired Oxygen 04/18/25 20:30 04/18/25 21:00 04/18/25 21:00 Temperature 99.3 F Pulse Rate 83 83 83 Respiratory Rate 20 Blood Pressure 102/65 95/64 L Pulse Oximetry 98 97 Oxygen Delivery Mechanical Ventilation Fraction of Inspired Oxygen 40 04/18/25 21:03 04/18/25 21:11 04/18/25 21:22 Temperature Pulse Rate 83 88 Respiratory Rate 20 20 Blood Pressure Pulse Oximetry 98 Oxygen Delivery Mechanical Ventilation Fraction of Inspired Oxygen 40 04/18/25 22:00 04/18/25 22:00 04/18/25 22:00 Temperature 99.4 F Pulse Rate 79 98 98 Respiratory Rate 20 Blood Pressure 97/67 L 97/67 L Pulse Oximetry 95 Oxygen Delivery Fraction of Inspired Oxygen 04/18/25 22:00 04/18/25 22:00 04/18/25 22:45 Temperature Pulse Rate 98 98 98 Respiratory Rate 20 20 Blood Pressure 92/62 L Pulse Oximetry Oxygen Delivery Fraction of Inspired Oxygen 04/18/25 22:45 04/18/25 22:45 04/18/25 23:00 Temperature 99.5 F Pulse Rate 98 98 97 Respiratory Rate 20 Blood Pressure 92/62 L 92/62 L 94/62 L Pulse Oximetry 96 Oxygen Delivery Fraction of Inspired Oxygen 04/18/25 23:17 04/18/25 23:20 04/18/25 23:30 Temperature Pulse Rate 97 96 Respiratory Rate 20 Blood Pressure Pulse Oximetry 96 96 Oxygen Delivery Mechanical Ventilation Mechanical Ventilation Fraction of Inspired Oxygen 40 40 40 04/19/25 00:00 04/19/25 00:00 04/19/25 00:01 Temperature 99.7 F H Pulse Rate 98 98 99 Respiratory Rate 20 Blood Pressure 104/67 104/67 Pulse Oximetry 94 Oxygen Delivery Fraction of Inspired Oxygen 04/19/25 00:01 04/19/25 00:01 04/19/25 00:30 Temperature Pulse Rate 98 98 97 Respiratory Rate 20 20 Blood Pressure 98/64 L Pulse Oximetry Oxygen Delivery Fraction of Inspired Oxygen 04/19/25 01:00 04/19/25 01:36 04/19/25 02:00 Temperature 99.9 F H Pulse Rate 98 103 H 98 Respiratory Rate 20 Blood Pressure 95/59 L 123/64 Pulse Oximetry 93 Oxygen Delivery Fraction of Inspired Oxygen 04/19/25 02:00 04/19/25 02:00 04/19/25 02:00 Temperature Pulse Rate 98 98 98 Respiratory Rate 20 20 Blood Pressure 116/58 L 116/58 L Pulse Oximetry 94 Oxygen Delivery Fraction of Inspired Oxygen 04/19/25 02:00 04/19/25 02:24 04/19/25 02:43 Temperature 100.4 F H Pulse Rate 97 98 Respiratory Rate 20 Blood Pressure Pulse Oximetry 94 Oxygen Delivery Mechanical Ventilation Fraction of Inspired Oxygen 40 04/19/25 02:46 04/19/25 03:00 04/19/25 03:00 Temperature Pulse Rate 98 100 100 Respiratory Rate 20 20 Blood Pressure 96/56 L 96/56 L Pulse Oximetry 94 Oxygen Delivery Fraction of Inspired Oxygen 04/19/25 03:22 04/19/25 03:23 04/19/25 03:24 Temperature 100.1 F H Pulse Rate 100 Respiratory Rate 20 Blood Pressure Pulse Oximetry 94 Oxygen Delivery Mechanical Ventilation Fraction of Inspired Oxygen 40 40 04/19/25 04:00 04/19/25 04:00 04/19/25 04:00 Temperature 100.0 F H Pulse Rate 98 98 73 Respiratory Rate 20 Blood Pressure 94/52 L 94/52 L Pulse Oximetry 94 Oxygen Delivery Fraction of Inspired Oxygen 04/19/25 04:00 04/19/25 04:00 04/19/25 05:00 Temperature 100.0 F H Pulse Rate 98 98 98 Respiratory Rate 20 20 20 Blood Pressure 93/54 L Pulse Oximetry 94 Oxygen Delivery Fraction of Inspired Oxygen 04/19/25 05:02 04/19/25 05:30 04/19/25 05:40 Temperature Pulse Rate 98 97 98 Respiratory Rate 20 20 Blood Pressure Pulse Oximetry 95 Oxygen Delivery Mechanical Ventilation Fraction of Inspired Oxygen 40 04/19/25 06:00 04/19/25 06:00 04/19/25 06:00 Temperature Pulse Rate 97 97 98 Respiratory Rate 20 20 Blood Pressure 95/55 L Pulse Oximetry Oxygen Delivery Fraction of Inspired Oxygen 04/19/25 06:00 04/19/25 06:00 04/19/25 07:00 Temperature 99.9 F H 99.7 F H Pulse Rate 96 98 96 Respiratory Rate 20 20 Blood Pressure 95/55 L 96/59 L Pulse Oximetry 95 96 Oxygen Delivery Fraction of Inspired Oxygen 04/19/25 07:35 04/19/25 07:35 04/19/25 07:42 Temperature Pulse Rate 96 96 95 Respiratory Rate 20 20 Blood Pressure Pulse Oximetry 95 Oxygen Delivery Mechanical Ventilation Fraction of Inspired Oxygen 35 04/19/25 08:00 04/19/25 08:00 04/19/25 08:00 Temperature Pulse Rate 95 95 Respiratory Rate 20 Blood Pressure Pulse Oximetry 95 Oxygen Delivery Mechanical Ventilation Fraction of Inspired Oxygen 35 35 04/19/25 08:00 04/19/25 08:00 04/19/25 08:00 Temperature 99.6 F Pulse Rate 97 97 97 Respiratory Rate 20 20 Blood Pressure 103/54 L 103/54 L Pulse Oximetry 92 Oxygen Delivery Fraction of Inspired Oxygen 04/19/25 08:00 04/19/25 09:00 Temperature 99.4 F Pulse Rate 97 98 Respiratory Rate 20 20 Blood Pressure 106/58 L Pulse Oximetry 93 Oxygen Delivery Fraction of Inspired Oxygen Intake/Output Intake/Output: Intake & Output 04/16/25 04/17/25 04/18/25 04/19/25 23:59 23:59 23:59 23:59 Intake Total 700.8 3154.4 244.7 Output Total 700 425 Balance 700.8 2454.4 -180.3 Meds/Results Medications: Active Medications Generic Name Dose Route Start Last Admin Trade Name Freq PRN Reason Stop Dose Admin Acetaminophen 650 mg 04/18/25 04:12 Acetaminophen 325 Mg Tablet PO Q4H PRN Mild Pain (1-3) or Fever Albuterol/Ipratropium 3 ml 04/18/25 08:00 04/19/25 07:34 Ipratropium 0.5 Mg/Albuterol Sulfate 2.5 Mg (Base) Ampul.Neb 3 Ml INHALATION 3 ml Q6HRT JUAN C Administration Atorvastatin Calcium 80 mg 04/18/25 21:00 04/18/25 20:10 Atorvastatin 40 Mg Tablet PO 80 mg HS JUAN C Administration Budesonide 0.5 mg 04/18/25 12:50 04/19/25 07:34 Budesonide Respule Neb 0.5 Mg/2 Ml Amp INHALATION 0.5 mg Q12HRT JUAN C Administration Escitalopram Oxalate 10 mg 04/18/25 12:00 04/19/25 09:18 Escitalopram Oxalate 10 Mg Tablet PO 10 mg DAILY JUAN C Administration Norepinephrine Bitartrate 8 mg in 250 mls @ 9.375 mls/hr 04/18/25 07:15 04/19/25 08:00 Levophed 8 Mg/D5w 250 Ml IV CONT 5 mcg/min .Q24H JUAN C 9.38 mls/hr Protocol Titration 5 MCG/MIN Fentanyl Citrate 2,500 mcg in 250 mls @ 2.5 mls/hr 04/18/25 07:55 04/19/25 08:00 Fentanyl 2,500 Mcg/Ns 250 Ml IV CONT 25 mcg/hr .Q72H JUAN C 2.5 mls/hr Protocol Titration 25 MCG/HR Midazolam HCl 100 mg in 100 mls @ 1 mls/hr 04/18/25 07:55 04/19/25 08:00 Versed 100 Mg/Ns 100 Ml IV CONT 1 mg/hr .Q72H JUAN C 1 mls/hr Protocol Titration 1 MG/HR Cefepime HCl 2 gm/ Sodium 50 mls @ 100 mls/hr 04/19/25 00:00 04/19/25 00:10 Chloride IVPB Infused Q12H JUAN C Infusion Vancomycin HCl 1,250 mg in 250 mls @ 166.667 mls/hr 04/19/25 08:00 04/19/25 07:45 Vancomycin 1,250 Mg/Ns 250 Ml IVPB 166.67 mls/hr Q18H JUAN C Administration Potassium Chloride 100 mls @ 25 mls/hr 04/19/25 08:45 04/19/25 09:18 Kcl 40 Meq/Water 100 Ml IVPB 04/19/25 12:44 25 mls/hr ONCE ONE Administration Multi-Ingred Cream/Lotion/Oil/Oint 1 applic 04/18/25 09:00 04/19/25 09:19 Mineral Oil/White Petrolatum Ointment EACH EYE 1 applic Q12HR JUAN C Administration Ondansetron HCl 4 mg 04/18/25 04:12 Ondansetron Inj 4 Mg/2 Ml Vial IV PUSH Q4H PRN Nausea Pantoprazole Sodium 40 mg 04/18/25 09:00 04/19/25 09:18 Pantoprazole Sodium Iv 40 Mg Vial IV PUSH 40 mg Q12HR JUAN C Administration Sodium Chloride 10 ml 04/18/25 14:00 04/19/25 06:03 Central Line Flush IV PUSH 10 ml Q8HR JUAN C Administration Sodium Chloride 20 ml 04/18/25 08:31 Central Line Flush IV PUSH PRN PRN after blood draws Radiology Results: ITS Impressions Abdomen X-Ray 04/18/25 07:47 IMPRESSION: 1: OG tube tip in the stomach. Abdomen/Pelvis CTA 04/18/25 09:20 IMPRESSION: 1. No aneurysm or dissection identified. 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 There is a right-sided graft detailed above with probable seroma. Clinical correlation is required. Follow-up suggested to assess. Head CT 04/18/25 13:34 IMPRESSION: 1. No acute intracranial findings. Abdomen Ultrasound 04/19/25 09:39 IMPRESSION: 1. Nonspecific gallbladder wall thickening and pericholecystic fluid. If concern for acute cholecystitis, can consider HIDA scan. 2. Hepatomegaly, with steatosis and probable cirrhosis. Labs Labs: Laboratory Results - last 24 hr 04/18/25 04/18/25 04/18/25 08:27 08:29 11:18 WBC RBC Hgb Hct MCV MCH MCHC RDW Plt Count MPV Immature Gran % (Auto) Neut % (Auto) Lymph % (Auto) [place] % (Auto) Eos % (Auto) Baso % (Auto) Lymph # (Auto) [place] # (Auto) Eos # (Auto) Baso # (Auto) Abs Immat Gran (auto) Absolute Neuts (auto) Absolute Nucleated RBC Band Neutrophils % Nucleated RBC % Platelet Estimate Hypochromasia Anisocytosis Ovalocytes Schistocytes Haptoglobin 153 PT INR APTT Puncture Site ABG pH ABG pCO2 ABG pO2 ABG PO2/FiO2 Ratio ABG HCO3 ABG O2 Saturation ABG O2 Content ABG Base Excess A-a Gradient Oxyhemoglobin Carboxyhemoglobin Methemoglobin Reduced Hemoglobin Total Hemoglobin O2 Delivery Device O2 Liters/Min Minute Volume Vent Rate Vent Mode FiO2 Tidal Volume PEEP Peak Inspir Pressure Pressure Support Sodium Potassium Chloride Carbon Dioxide Anion Gap BUN Creatinine Estim Creat Clear Calc Estimated GFR Glucose POC Capillary Glucose Lactic Acid 2.4 H Calcium Phosphorus Magnesium Iron 91 TIBC 419 % Saturation 22 Transferrin 311 Ferritin 7.67 L Total Bilirubin AST ALT Alkaline Phosphatase Lactate Dehydrogenase 465 H Total Protein Albumin Vitamin B12 827.0 Folate 13.8 Urine Color Urine Appearance Urine pH Ur Specific Bypro Urine Protein Urine Glucose (UA) Urine Ketones Ur Blood (Man) Urine Nitrate Urine Bilirubin Urine Urobilinogen Leukocyte Esterase Rfl 04/18/25 04/18/25 04/18/25 11:19 12:05 12:10 WBC RBC Hgb 8.5 L Hct 28.4 L MCV MCH MCHC RDW Plt Count MPV Immature Gran % (Auto) Neut % (Auto) Lymph % (Auto) [place] % (Auto) Eos % (Auto) Baso % (Auto) Lymph # (Auto) [place] # (Auto) Eos # (Auto) Baso # (Auto) Abs Immat Gran (auto) Absolute Neuts (auto) Absolute Nucleated RBC Band Neutrophils % Nucleated RBC % Platelet Estimate Hypochromasia Anisocytosis Ovalocytes Schistocytes Haptoglobin PT INR APTT Puncture Site Left radial ABG pH 7.400 ABG pCO2 34.7 L ABG pO2 104.1 H ABG PO2/FiO2 Ratio 2.08 ABG HCO3 21.0 L ABG O2 Saturation 97.8 ABG O2 Content 12.8 L ABG Base Excess -3.3 A-a Gradient 213.4 Oxyhemoglobin 96.7 Carboxyhemoglobin Methemoglobin Reduced Hemoglobin Total Hemoglobin 9.3 L O2 Delivery Device Ventilator O2 Liters/Min Not Reportable Minute Volume Not Reportable Vent Rate 24 Vent Mode Assist control FiO2 50 Tidal Volume 400 PEEP 5 Peak Inspir Pressure Not Reportable Pressure Support Not Reportable Sodium Potassium Chloride Carbon Dioxide Anion Gap BUN Creatinine Estim Creat Clear Calc Estimated GFR Glucose POC Capillary Glucose 174 H Lactic Acid Calcium Phosphorus Magnesium Iron TIBC % Saturation Transferrin Ferritin Total Bilirubin AST ALT Alkaline Phosphatase Lactate Dehydrogenase Total Protein Albumin Vitamin B12 Folate Urine Color Yellow Urine Appearance Clear Urine pH 5.0 Ur Specific Bypro 1.012 Urine Protein Negative Urine Glucose (UA) Negative Urine Ketones Negative Ur Blood (Man) Negative Urine Nitrate Negative Urine Bilirubin Negative Urine Urobilinogen 0.2 Leukocyte Esterase Rfl Negative 04/18/25 04/18/25 04/18/25 16:01 17:43 19:01 WBC RBC Hgb 7.9 L Hct 26.1 L MCV MCH MCHC RDW Plt Count MPV Immature Gran % (Auto) Neut % (Auto) Lymph % (Auto) [place] % (Auto) Eos % (Auto) Baso % (Auto) Lymph # (Auto) [place] # (Auto) Eos # (Auto) Baso # (Auto) Abs Immat Gran (auto) Absolute Neuts (auto) Absolute Nucleated RBC Band Neutrophils % Nucleated RBC % Platelet Estimate Hypochromasia Anisocytosis Ovalocytes Schistocytes Haptoglobin PT INR APTT Puncture Site ABG pH ABG pCO2 ABG pO2 ABG PO2/FiO2 Ratio ABG HCO3 ABG O2 Saturation ABG O2 Content ABG Base Excess A-a Gradient Oxyhemoglobin Carboxyhemoglobin Methemoglobin Reduced Hemoglobin Total Hemoglobin O2 Delivery Device O2 Liters/Min Minute Volume Vent Rate Vent Mode FiO2 Tidal Volume PEEP Peak Inspir Pressure Pressure Support Sodium Potassium Chloride Carbon Dioxide Anion Gap BUN Creatinine Estim Creat Clear Calc Estimated GFR Glucose POC Capillary Glucose 146 H Lactic Acid 1.2 Calcium Phosphorus Magnesium Iron TIBC % Saturation Transferrin Ferritin Total Bilirubin AST ALT Alkaline Phosphatase Lactate Dehydrogenase Total Protein Albumin Vitamin B12 Folate Urine Color Urine Appearance Urine pH Ur Specific Bypro Urine Protein Urine Glucose (UA) Urine Ketones Ur Blood (Man) Urine Nitrate Urine Bilirubin Urine Urobilinogen Leukocyte Esterase Rfl 04/18/25 04/19/25 04/19/25 23:39 04:54 05:26 WBC 15.1 H RBC 3.22 L Hgb 7.7 L 7.4 L Hct 25.4 L 24.2 L MCV 75.2 L MCH 23.0 L MCHC 30.6 L RDW 22.9 H Plt Count 282 MPV 10.4 Immature Gran % (Auto) 0.8 H Neut % (Auto) 87.4 H Lymph % (Auto) 4.4 L [place] % (Auto) 5.7 Eos % (Auto) 1.0 Baso % (Auto) 0.7 Lymph # (Auto) 0.66 L [place] # (Auto) 0.9 H Eos # (Auto) 0.2 Baso # (Auto) 0.1 Abs Immat Gran (auto) 0.12 H Absolute Neuts (auto) 13.2 H Absolute Nucleated RBC 0.050 H Band Neutrophils % Not Reportable Nucleated RBC % 0.3 H Platelet Estimate Adequate Hypochromasia 1+ Anisocytosis 2+ Ovalocytes 1+ Schistocytes Occasional Haptoglobin PT 17.4 H INR 1.5 APTT 33.2 Puncture Site Right brachial ABG pH 7.397 ABG pCO2 43.2 ABG pO2 67.6 L ABG PO2/FiO2 Ratio Not Reportable ABG HCO3 26.0 ABG O2 Saturation 93.4 L ABG O2 Content 10.7 L ABG Base Excess 1.0 A-a Gradient 1.9 Oxyhemoglobin 90.9 Carboxyhemoglobin 1.9 Methemoglobin 0.3 Reduced Hemoglobin 6.9 H Total Hemoglobin 8.3 L O2 Delivery Device Ventilator O2 Liters/Min Not Reportable Minute Volume Not Reportable Vent Rate 20 Vent Mode Cmv FiO2 Tidal Volume 400 PEEP 5 Peak Inspir Pressure Not Reportable Pressure Support Not Reportable Sodium 135 L Potassium 3.3 L Chloride 103 Carbon Dioxide 27 Anion Gap 5 BUN 13 Creatinine 0.69 L Estim Creat Clear Calc 66 Estimated GFR > 60 Glucose 134 H POC Capillary Glucose Lactic Acid 0.9 Calcium 8.3 L Phosphorus 3.1 Magnesium 1.7 Iron TIBC % Saturation Transferrin Ferritin Total Bilirubin 4.5 H AST 212 H ALT 286 H Alkaline Phosphatase 96 Lactate Dehydrogenase Total Protein 5.7 L Albumin 3.1 L Vitamin B12 Folate Urine Color Urine Appearance Urine pH Ur Specific Bypro Urine Protein Urine Glucose (UA) Urine Ketones Ur Blood (Man) Urine Nitrate Urine Bilirubin Urine Urobilinogen Leukocyte Esterase Rfl
[2025-04-19] MEDS: CEFEPIME 2 GM in SODIUM CHLORIDE 0.9% IV 50 ML 100 ML IVPB ×2 (12:04→23:47)
[2025-04-19 12:22] LABS: Hepatitis B Surface Antigen Negative (Negative)
[2025-04-19 12:27] LABS: HAV RESULT Negative (Negative); Hepatitis B Core IgM Result Negative (Negative)
--- NOTE | 2025-04-19 13:00 | P.PNINT_ITS ---
Progress Note: A&P Assessment and Plan (1) Acute respiratory failure: Code(s): J96.00 - Acute respiratory failure, unspecified whether with hypoxia or hypercapnia Status: Acute Assessment and Plan: 04/18: Patient was transferred from intermediate Unit with agonal breathing, unresponsiveness. 04/18: Intubated in the ICU, respiratory failure could be related to TRALI as patient has pulmonary vascular congestion, NSTEMI, CHF, aspiration -remains on CMV mode of ventilation, peep of 5, 35 % FiO2 -ABGs and chest x-ray reviewed, ventilator adjusted -continue bronchodilators -sedated with fentanyl and Versed infusion, maintain RASS of 0 to -2 -daily sedation vacation and SBT (2) Shock: Code(s): R57.9 - Shock, unspecified Status: Acute Assessment and Plan: Shock could be related to sepsis, cardiogenic given patient with NSTEMI, TRALI -leukocytosis, lactic acidosis with initial lactic of 3.6, post intubation with adequate oxygen her lactate is down to 2.4 -patient received adequate IV fluids and 3 units of packed RBCs -chest x-ray showed pulmonary vascular congestion -off on IV fluid -remains on Levophed, maintain MAP > 65 mmHg or SBP > 100 mmHg -continue on vancomycin and cefepime (04/18) -04/18: Blood cultures obtained -04/18: Urine cultures obtained -lactic acid has normalized -leukocytosis improving, T-max of 100.4. (3) Non-ST elevation GA (NSTEMI): Code(s): I21.4 - Non-ST elevation (NSTEMI) myocardial infarction Status: Acute Assessment and Plan: Patient presented with chest pressure/pain, EKG showed inferior lateral ST depression the slight elevation in AVR, sinus tachycardia, normal QTC - Given concerns for ACS, interventional Cardiology was called by the ED physician, recommendations were to start heparin infusion and metoprolol. Heparin bolus was given, but her hemoglobin came back at 3.4 in the ER so heparin was discontinued. -unable to give heparin infusion or aspirin due to severe anemia, no beta- blockers due to septic shock and hypotension -appreciate cardiology recommended, no plans to conduct ischemic evaluation at this time -stress-induced/takotsubo cardiomyopathy on echocardiogram likely due to severe anemia. When she is off pressors will require GDMT 04/18/2025: Echocardiogram Summary 1. Definity contrast administered improved wall motion interpretation. 2. Left ventricular chamber dimension is severely enlarged. 3. Left ventricular systolic function is severely globally reduced, estimated at 20-25. 4. The very basal segments have normal contractility suggestive of Takotsubo cardiomyopathy. 5. The left ventricular diastolic function is grade I diastolic dysfunction. 6. E/e' 9 is minimally elevated. 7. Right ventricular chamber dimension is severely enlarged. 8. Right ventricular systolic function is severely reduced and with abnormal TAPSE 1.3 cm. 9. Left atrial chamber dimension is moderately enlarged. 10. Right atrial chamber dimension is moderately enlarged. 11. There is mild aortic valve sclerosis. 12. There is moderate to severe mitral valve regurgitation. 13. There is severe tricuspid valve regurgitation. 14. Mild pulmonary hypertension, estimated pulmonary arterial systolic pressure is 49 mmHg. 15. There is mild pulmonic regurgitation. (4) Anemia requiring transfusions: Code(s): D64.9 - Anemia, unspecified Status: Acute Assessment and Plan: 04/18: Severe anemia, hemoglobin 3.4 on admission, received 3 units of packed RBC, -hemoglobin this morning is 8.9 -will continue to trend q.6 hours for now -appreciate GI evaluation and recommendation, likely upper and lower endoscopy once patient is stable and extubated -given NSTEMI, will maintain hemoglobin > 8.0 -Protonix IV q.12 hours -iron panel is normal -vitamin B12 and folic acid are normal -LDH slightly elevated, haptoglobin normal, Roshni test has been ordered to rule out hemolytic anemia -OG drainage is clear (5) COPD (chronic obstructive pulmonary disease): Code(s): J44.9 - Chronic obstructive pulmonary disease, unspecified Status: Acute Assessment and Plan: History of COPD, on 2 L nasal cannula at home -continue bronchodilators -patient is on Trelegy at home, will start budesonide nebs was she is in the hospital (6) PVD (peripheral vascular disease): Code(s): I73.9 - Peripheral vascular disease, unspecified Status: Acute Assessment and Plan: History of peripheral vascular disease with previous Aorto-ilio- femoral bypass -patient on clopidogrel, and Xarelto at home, currently on hold due to severe anemia (7) Hypertension: Code(s): I10 - Essential (primary) hypertension Status: Acute Assessment and Plan: Will hold all antihypertensives as patient is hypotensive/shock on pressors (8) Hyperlipemia, mixed: Code(s): E78.2 - Mixed hyperlipidemia Status: Acute Assessment and Plan: On atorvastatin at home, will continue continue Plan DVT prophylaxis: SCDs Stress ulcer prophylaxis: Protonix IV q.12 hours Nutrition: Will start tube feeds, OG drainage is clear Code Status: Full code Critical Care Time Spent: 33 minutes 04/18: Discussed with son and daughter in rounds updated them with patient's condition and plan of care. They are aware that patient had severe anemia requiring blood transfusion, NSTEMI, Cardiology PE following the patient, unable to give any blood thinners. Patient in was intubated due to pulmonary vascular congestion which could be related to transfusion reaction. I answered all the questions Due to a high probability of clinically significant, life threatening deterioration, the patient required my highest level of preparedness to intervene emergently and I personally spent this critical care time directly and personally managing the patient. This critical care time included obtaining a history; examining the patient; pulse oximetry; ordering and review of studies; arranging urgent treatment with development of a management plan; evaluation of patient's response to treatment; frequent reassessment; and discussions with other providers. It was exclusive of separately billable procedures and treating other patients and teaching time. Please see Assessment and Plan section and the rest of the note for further information on patient assessment and treatment This dictation may have been done utilizing a voice recognition system. Attempts have been made to correct errors. However, there may be uncorrected grammatical, spelling, and recognitions errors present. Subjective Date/time seen: 04/19/25 13:00 Interval history: Reason for consult: Acute respiratory failure, shock, severe anemia, NSTEMI, possible GI bleed 04/19/2025: Patient seen and examined the ICU, remains intubated high on peep of 5 and 35% FiO2. Sedated with fentanyl and Versed infusion, opens her eyes, nods to questions and follows simple commands. Hemoglobin is 7.4 this morning and trending down. Urine output has been adequate, T-max of 100.4?, leukocytosis improving. Review of Systems Review of Systems: ROS unobtainable: Yes unobtainable due to endotracheal tube, unobtainable due to medical condition and unobtainable due to mental status Exam Narrative: General: Intubated and sedated, in no acute distress HEENT:? Pupils equal and reactive, sclera is clear, ETT in place Neck:? Supple, right IJ central line in place Respiratory:? Coarse breath sounds bilaterally, adequate air entry, no wheezing Cardiac:? S1-S2 normal, regular rate and rhythm Abdomen:? Soft, nontender, nondistended, hypoactive bowel sounds Extremities:? Bilateral trace edema in her lower extremities Neuro:? Patient intubated, sedated, opens her eyes, follows simple commands and nods to questions Skin:? Warm and dry Psych:? Unable to assess Objective Data Vital Signs Vital Signs: Vital Signs - 24 hr 04/18/25 13:46 04/18/25 14:00 04/18/25 14:00 Temperature 98.2 F Pulse Rate 86 82 84 Respiratory Rate 16 Blood Pressure 90/65 L 95/67 L Pulse Oximetry 100 Oxygen Delivery Fraction of Inspired Oxygen 04/18/25 14:00 04/18/25 14:00 04/18/25 14:00 Temperature Pulse Rate 84 84 84 Respiratory Rate 20 20 Blood Pressure 95/68 L Pulse Oximetry Oxygen Delivery Fraction of Inspired Oxygen 04/18/25 14:56 04/18/25 14:56 04/18/25 15:00 Temperature 98.1 F Pulse Rate 89 79 81 Respiratory Rate 20 20 Blood Pressure 94/69 L Pulse Oximetry 100 99 Oxygen Delivery Mechanical Ventilation Fraction of Inspired Oxygen 40 04/18/25 16:00 04/18/25 16:00 04/18/25 16:00 Temperature 98.2 F Pulse Rate 79 79 79 Respiratory Rate 20 20 Blood Pressure 94/68 L 94/68 L Pulse Oximetry 100 Oxygen Delivery Fraction of Inspired Oxygen 04/18/25 16:00 04/18/25 16:00 04/18/25 16:00 Temperature Pulse Rate 79 Respiratory Rate 20 Blood Pressure Pulse Oximetry 99 Oxygen Delivery Mechanical Ventilation Fraction of Inspired Oxygen 40 40 04/18/25 16:00 04/18/25 16:33 04/18/25 17:00 Temperature 98.6 F Pulse Rate 81 81 81 Respiratory Rate 20 Blood Pressure 89/65 L 97/64 L Pulse Oximetry 99 Oxygen Delivery Fraction of Inspired Oxygen 04/18/25 17:45 04/18/25 18:00 04/18/25 18:00 Temperature 98.7 F Pulse Rate 82 81 81 Respiratory Rate 20 Blood Pressure 96/59 L Pulse Oximetry 99 98 Oxygen Delivery Mechanical Ventilation Fraction of Inspired Oxygen 40 04/18/25 18:00 04/18/25 18:00 04/18/25 18:00 Temperature Pulse Rate 81 81 81 Respiratory Rate 20 20 Blood Pressure 96/59 L Pulse Oximetry Oxygen Delivery Fraction of Inspired Oxygen 04/18/25 18:59 04/18/25 19:00 04/18/25 19:20 Temperature 98.9 F Pulse Rate 82 82 87 Respiratory Rate 20 Blood Pressure 88/55 L 94/60 L 105/65 Pulse Oximetry 97 Oxygen Delivery Fraction of Inspired Oxygen 04/18/25 19:31 04/18/25 19:50 04/18/25 19:54 Temperature Pulse Rate 82 83 Respiratory Rate 20 Blood Pressure 102/66 Pulse Oximetry 98 Oxygen Delivery Mechanical Ventilation Fraction of Inspired Oxygen 40 35 04/18/25 20:00 04/18/25 20:00 04/18/25 20:00 Temperature Pulse Rate 84 83 83 Respiratory Rate 20 20 Blood Pressure 96/62 L Pulse Oximetry Oxygen Delivery Fraction of Inspired Oxygen 04/18/25 20:00 04/18/25 20:00 04/18/25 20:30 Temperature 99.2 F Pulse Rate 83 83 83 Respiratory Rate 20 Blood Pressure 96/62 L 102/65 Pulse Oximetry 98 Oxygen Delivery Fraction of Inspired Oxygen 04/18/25 21:00 04/18/25 21:00 04/18/25 21:03 Temperature 99.3 F Pulse Rate 83 83 83 Respiratory Rate 20 20 Blood Pressure 95/64 L Pulse Oximetry 98 97 Oxygen Delivery Mechanical Ventilation Fraction of Inspired Oxygen 40 04/18/25 21:11 04/18/25 21:22 04/18/25 22:00 Temperature Pulse Rate 88 79 Respiratory Rate 20 Blood Pressure Pulse Oximetry 98 Oxygen Delivery Mechanical Ventilation Fraction of Inspired Oxygen 40 04/18/25 22:00 04/18/25 22:00 04/18/25 22:00 Temperature 99.4 F Pulse Rate 98 98 98 Respiratory Rate 20 20 Blood Pressure 97/67 L 97/67 L Pulse Oximetry 95 Oxygen Delivery Fraction of Inspired Oxygen 04/18/25 22:00 04/18/25 22:45 04/18/25 22:45 Temperature Pulse Rate 98 98 98 Respiratory Rate 20 Blood Pressure 92/62 L 92/62 L Pulse Oximetry Oxygen Delivery Fraction of Inspired Oxygen 04/18/25 22:45 04/18/25 23:00 04/18/25 23:17 Temperature 99.5 F Pulse Rate 98 97 Respiratory Rate 20 Blood Pressure 92/62 L 94/62 L Pulse Oximetry 96 Oxygen Delivery Fraction of Inspired Oxygen 40 04/18/25 23:20 04/18/25 23:30 04/19/25 00:00 Temperature Pulse Rate 97 96 98 Respiratory Rate 20 Blood Pressure Pulse Oximetry 96 96 Oxygen Delivery Mechanical Ventilation Mechanical Ventilation Fraction of Inspired Oxygen 40 40 04/19/25 00:00 04/19/25 00:01 04/19/25 00:01 Temperature 99.7 F H Pulse Rate 98 99 98 Respiratory Rate 20 20 Blood Pressure 104/67 104/67 Pulse Oximetry 94 Oxygen Delivery Fraction of Inspired Oxygen 04/19/25 00:01 04/19/25 00:30 04/19/25 01:00 Temperature 99.9 F H Pulse Rate 98 97 98 Respiratory Rate 20 20 Blood Pressure 98/64 L 95/59 L Pulse Oximetry 93 Oxygen Delivery Fraction of Inspired Oxygen 04/19/25 01:36 04/19/25 02:00 04/19/25 02:00 Temperature Pulse Rate 103 H 98 98 Respiratory Rate 20 Blood Pressure 123/64 116/58 L Pulse Oximetry 94 Oxygen Delivery Fraction of Inspired Oxygen 04/19/25 02:00 04/19/25 02:00 04/19/25 02:00 Temperature Pulse Rate 98 98 97 Respiratory Rate 20 20 Blood Pressure 116/58 L Pulse Oximetry Oxygen Delivery Fraction of Inspired Oxygen 04/19/25 02:24 04/19/25 02:43 04/19/25 02:46 Temperature 100.4 F H Pulse Rate 98 98 Respiratory Rate 20 Blood Pressure Pulse Oximetry 94 Oxygen Delivery Mechanical Ventilation Fraction of Inspired Oxygen 40 04/19/25 03:00 04/19/25 03:00 04/19/25 03:22 Temperature Pulse Rate 100 100 Respiratory Rate 20 Blood Pressure 96/56 L 96/56 L Pulse Oximetry 94 Oxygen Delivery Fraction of Inspired Oxygen 40 04/19/25 03:23 04/19/25 03:24 04/19/25 04:00 Temperature 100.1 F H Pulse Rate 100 98 Respiratory Rate 20 Blood Pressure Pulse Oximetry 94 Oxygen Delivery Mechanical Ventilation Fraction of Inspired Oxygen 40 04/19/25 04:00 04/19/25 04:00 04/19/25 04:00 Temperature 100.0 F H Pulse Rate 98 73 98 Respiratory Rate 20 20 Blood Pressure 94/52 L 94/52 L Pulse Oximetry 94 Oxygen Delivery Fraction of Inspired Oxygen 04/19/25 04:00 04/19/25 05:00 04/19/25 05:02 Temperature 100.0 F H Pulse Rate 98 98 98 Respiratory Rate 20 20 Blood Pressure 93/54 L Pulse Oximetry 94 95 Oxygen Delivery Mechanical Ventilation Fraction of Inspired Oxygen 40 04/19/25 05:30 04/19/25 05:40 04/19/25 06:00 Temperature Pulse Rate 97 98 97 Respiratory Rate 20 20 Blood Pressure 95/55 L Pulse Oximetry Oxygen Delivery Fraction of Inspired Oxygen 04/19/25 06:00 04/19/25 06:00 04/19/25 06:00 Temperature Pulse Rate 97 98 96 Respiratory Rate 20 20 Blood Pressure Pulse Oximetry Oxygen Delivery Fraction of Inspired Oxygen 04/19/25 06:00 04/19/25 07:00 04/19/25 07:35 Temperature 99.9 F H 99.7 F H Pulse Rate 98 96 96 Respiratory Rate 20 20 Blood Pressure 95/55 L 96/59 L Pulse Oximetry 95 96 95 Oxygen Delivery Mechanical Ventilation Fraction of Inspired Oxygen 35 04/19/25 07:35 04/19/25 07:42 04/19/25 08:00 Temperature Pulse Rate 96 95 95 Respiratory Rate 20 20 20 Blood Pressure Pulse Oximetry 95 Oxygen Delivery Mechanical Ventilation Fraction of Inspired Oxygen 35 04/19/25 08:00 04/19/25 08:00 04/19/25 08:00 Temperature 99.6 F Pulse Rate 95 97 Respiratory Rate 20 Blood Pressure 103/54 L Pulse Oximetry 92 Oxygen Delivery Fraction of Inspired Oxygen 35 04/19/25 08:00 04/19/25 08:00 04/19/25 08:00 Temperature Pulse Rate 97 97 97 Respiratory Rate 20 20 Blood Pressure 103/54 L Pulse Oximetry Oxygen Delivery Fraction of Inspired Oxygen 04/19/25 09:00 04/19/25 10:00 04/19/25 10:00 Temperature 99.4 F 99.3 F Pulse Rate 98 98 98 Respiratory Rate 20 20 Blood Pressure 106/58 L 101/57 L Pulse Oximetry 93 93 Oxygen Delivery Fraction of Inspired Oxygen 04/19/25 10:00 04/19/25 10:00 04/19/25 10:00 Temperature Pulse Rate 98 98 98 Respiratory Rate 20 20 Blood Pressure 101/58 L Pulse Oximetry Oxygen Delivery Fraction of Inspired Oxygen 04/19/25 10:25 04/19/25 11:00 04/19/25 12:00 Temperature 99.4 F Pulse Rate 97 93 93 Respiratory Rate 20 20 Blood Pressure 108/59 L Pulse Oximetry 93 95 95 Oxygen Delivery Mechanical Ventilation Mechanical Ventilation Fraction of Inspired Oxygen 35 35 04/19/25 12:00 04/19/25 12:00 04/19/25 12:00 Temperature 99.5 F Pulse Rate 93 96 Respiratory Rate 20 Blood Pressure 122/60 Pulse Oximetry 93 Oxygen Delivery Fraction of Inspired Oxygen 35 04/19/25 12:00 04/19/25 12:00 04/19/25 12:00 Temperature Pulse Rate 96 96 96 Respiratory Rate 20 20 Blood Pressure 122/60 Pulse Oximetry Oxygen Delivery Fraction of Inspired Oxygen 04/19/25 12:15 04/19/25 12:30 Temperature Pulse Rate 98 96 Respiratory Rate Blood Pressure 124/62 120/59 L Pulse Oximetry Oxygen Delivery Fraction of Inspired Oxygen Intake/Output Intake/Output: Intake & Output 04/16/25 04/17/25 04/18/25 04/19/25 23:59 23:59 23:59 23:59 Intake Total 700.8 3154.4 299.6 Output Total 700 425 Balance 700.8 2454.4 -125.4 Meds/Results Medications: Active Medications Generic Name Dose Route Start Last Admin Trade Name Freq PRN Reason Stop Dose Admin Acetaminophen 650 mg 04/18/25 04:12 Acetaminophen 325 Mg Tablet PO Q4H PRN Mild Pain (1-3) or Fever Albuterol/Ipratropium 3 ml 04/18/25 08:00 04/19/25 07:34 Ipratropium 0.5 Mg/Albuterol Sulfate 2.5 Mg (Base) Ampul.Neb 3 Ml INHALATION 3 ml Q6HRT JUAN C Administration Atorvastatin Calcium 80 mg 04/18/25 21:00 04/18/25 20:10 Atorvastatin 40 Mg Tablet PO 80 mg HS JUAN C Administration Budesonide 0.5 mg 04/18/25 12:50 04/19/25 07:34 Budesonide Respule Neb 0.5 Mg/2 Ml Amp INHALATION 0.5 mg Q12HRT JUAN C Administration Escitalopram Oxalate 10 mg 04/18/25 12:00 04/19/25 09:18 Escitalopram Oxalate 10 Mg Tablet PO 10 mg DAILY JUAN C Administration Norepinephrine Bitartrate 8 mg in 250 mls @ 5.625 mls/hr 04/18/25 07:15 04/19/25 12:30 Levophed 8 Mg/D5w 250 Ml IV CONT 3 mcg/min .Q24H JUAN C 5.63 mls/hr Protocol Titration 3 MCG/MIN Fentanyl Citrate 2,500 mcg in 250 mls @ 2.5 mls/hr 04/18/25 07:55 04/19/25 12:00 Fentanyl 2,500 Mcg/Ns 250 Ml IV CONT 25 mcg/hr .Q72H JUAN C 2.5 mls/hr Protocol Titration 25 MCG/HR Midazolam HCl 100 mg in 100 mls @ 1 mls/hr 04/18/25 07:55 04/19/25 12:00 Versed 100 Mg/Ns 100 Ml IV CONT 1 mg/hr .Q72H JUAN C 1 mls/hr Protocol Titration 1 MG/HR Cefepime HCl 2 gm/ Sodium 50 mls @ 100 mls/hr 04/19/25 00:00 04/19/25 12:04 Chloride IVPB 100 mls/hr Q12H JUAN C Administration Vancomycin HCl 1,250 mg in 250 mls @ 166.667 mls/hr 04/19/25 08:00 04/19/25 07:45 Vancomycin 1,250 Mg/Ns 250 Ml IVPB 166.67 mls/hr Q18H JUAN C Administration Multi-Ingred Cream/Lotion/Oil/Oint 1 applic 04/18/25 09:00 04/19/25 09:19 Mineral Oil/White Petrolatum Ointment EACH EYE 1 applic Q12HR JUAN C Administration Ondansetron HCl 4 mg 04/18/25 04:12 Ondansetron Inj 4 Mg/2 Ml Vial IV PUSH Q4H PRN Nausea Pantoprazole Sodium 40 mg 04/18/25 09:00 04/19/25 09:18 Pantoprazole Sodium Iv 40 Mg Vial IV PUSH 40 mg Q12HR JUAN C Administration Sodium Chloride 10 ml 04/18/25 14:00 04/19/25 06:03 Central Line Flush IV PUSH 10 ml Q8HR JUAN C Administration Sodium Chloride 20 ml 04/18/25 08:31 Central Line Flush IV PUSH PRN PRN after blood draws Radiology Results: ITS Impressions Abdomen X-Ray 04/18/25 07:47 IMPRESSION: 1: OG tube tip in the stomach. Abdomen/Pelvis CTA 04/18/25 09:20 IMPRESSION: 1. No aneurysm or dissection identified. 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 There is a right-sided graft detailed above with probable seroma. Clinical correlation is required. Follow-up suggested to assess. Head CT 04/18/25 13:34 IMPRESSION: 1. No acute intracranial findings. Abdomen Ultrasound 04/19/25 09:39 IMPRESSION: 1. Nonspecific gallbladder wall thickening and pericholecystic fluid. If concern for acute cholecystitis, can consider HIDA scan. 2. Hepatomegaly, with steatosis and probable cirrhosis. Chest X-Ray 04/19/25 10:40 IMPRESSION: 1. Improving interstitial pulmonary edema. 2. Persistent left basilar atelectasis and/or pleural effusion. Labs Labs: Laboratory Results - last 24 hr 04/18/25 04/18/25 04/18/25 08:27 08:29 16:01 WBC RBC Hgb Hct MCV MCH MCHC RDW Plt Count MPV Immature Gran % (Auto) Neut % (Auto) Lymph % (Auto) Sutter % (Auto) Eos % (Auto) Baso % (Auto) Lymph # (Auto) Sutter # (Auto) Eos # (Auto) Baso # (Auto) Abs Immat Gran (auto) Absolute Neuts (auto) Absolute Nucleated RBC Band Neutrophils % Nucleated RBC % Platelet Estimate Hypochromasia Anisocytosis Ovalocytes Schistocytes Haptoglobin 153 PT INR APTT Puncture Site ABG pH ABG pCO2 ABG pO2 ABG PO2/FiO2 Ratio ABG HCO3 ABG O2 Saturation ABG O2 Content ABG Base Excess A-a Gradient Oxyhemoglobin Carboxyhemoglobin Methemoglobin Reduced Hemoglobin Total Hemoglobin O2 Delivery Device O2 Liters/Min Minute Volume Vent Rate Vent Mode Tidal Volume PEEP Peak Inspir Pressure Pressure Support Sodium Potassium Chloride Carbon Dioxide Anion Gap BUN Creatinine Estim Creat Clear Calc Estimated GFR Glucose POC Capillary Glucose Lactic Acid 1.2 Calcium Phosphorus Magnesium Transferrin 311 Total Bilirubin AST ALT Alkaline Phosphatase Lactate Dehydrogenase Total Protein Albumin Vitamin B12 827.0 Folate 13.8 Hepatitis A IgM Ab Hep Bs Antigen Hep B Core IgM Ab Hepatitis C Ab Screen JULIO, Poly Interpret JULIO, Complement Interp 04/18/25 04/18/25 04/18/25 17:43 19:01 23:39 WBC RBC Hgb 7.9 L 7.7 L Hct 26.1 L 25.4 L MCV MCH MCHC RDW Plt Count MPV Immature Gran % (Auto) Neut % (Auto) Lymph % (Auto) Sutter % (Auto) Eos % (Auto) Baso % (Auto) Lymph # (Auto) Sutter # (Auto) Eos # (Auto) Baso # (Auto) Abs Immat Gran (auto) Absolute Neuts (auto) Absolute Nucleated RBC Band Neutrophils % Nucleated RBC % Platelet Estimate Hypochromasia Anisocytosis Ovalocytes Schistocytes Haptoglobin PT INR APTT Puncture Site ABG pH ABG pCO2 ABG pO2 ABG PO2/FiO2 Ratio ABG HCO3 ABG O2 Saturation ABG O2 Content ABG Base Excess A-a Gradient Oxyhemoglobin Carboxyhemoglobin Methemoglobin Reduced Hemoglobin Total Hemoglobin O2 Delivery Device O2 Liters/Min Minute Volume Vent Rate Vent Mode Tidal Volume PEEP Peak Inspir Pressure Pressure Support Sodium Potassium Chloride Carbon Dioxide Anion Gap BUN Creatinine Estim Creat Clear Calc Estimated GFR Glucose POC Capillary Glucose 146 H Lactic Acid Calcium Phosphorus Magnesium Transferrin Total Bilirubin AST ALT Alkaline Phosphatase Lactate Dehydrogenase Total Protein Albumin Vitamin B12 Folate Hepatitis A IgM Ab Hep Bs Antigen Hep B Core IgM Ab Hepatitis C Ab Screen JULIO, Poly Interpret JULIO, Complement Interp 04/19/25 04/19/25 04/19/25 04:54 05:26 09:26 WBC 15.1 H RBC 3.22 L Hgb 7.4 L Hct 24.2 L MCV 75.2 L MCH 23.0 L MCHC 30.6 L RDW 22.9 H Plt Count 282 MPV 10.4 Immature Gran % (Auto) 0.8 H Neut % (Auto) 87.4 H Lymph % (Auto) 4.4 L Sutter % (Auto) 5.7 Eos % (Auto) 1.0 Baso % (Auto) 0.7 Lymph # (Auto) 0.66 L Sutter # (Auto) 0.9 H Eos # (Auto) 0.2 Baso # (Auto) 0.1 Abs Immat Gran (auto) 0.12 H Absolute Neuts (auto) 13.2 H Absolute Nucleated RBC 0.050 H Band Neutrophils % Not Reportable Nucleated RBC % 0.3 H Platelet Estimate Adequate Hypochromasia 1+ Anisocytosis 2+ Ovalocytes 1+ Schistocytes Occasional Haptoglobin PT 17.4 H INR 1.5 APTT 33.2 Puncture Site Right brachial ABG pH 7.397 ABG pCO2 43.2 ABG pO2 67.6 L ABG PO2/FiO2 Ratio Not Reportable ABG HCO3 26.0 ABG O2 Saturation 93.4 L ABG O2 Content 10.7 L ABG Base Excess 1.0 A-a Gradient 1.9 Oxyhemoglobin 90.9 Carboxyhemoglobin 1.9 Methemoglobin 0.3 Reduced Hemoglobin 6.9 H Total Hemoglobin 8.3 L O2 Delivery Device Ventilator O2 Liters/Min Not Reportable Minute Volume Not Reportable Vent Rate 20 Vent Mode Cmv Tidal Volume 400 PEEP 5 Peak Inspir Pressure Not Reportable Pressure Support Not Reportable Sodium 135 L Potassium 3.3 L Chloride 103 Carbon Dioxide 27 Anion Gap 5 BUN 13 Creatinine 0.69 L Estim Creat Clear Calc 66 Estimated GFR > 60 Glucose 134 H POC Capillary Glucose Lactic Acid 0.9 Calcium 8.3 L Phosphorus 3.1 Magnesium 1.7 Transferrin Total Bilirubin 4.5 H AST 212 H ALT 286 H Alkaline Phosphatase 96 Lactate Dehydrogenase 342 H Total Protein 5.7 L Albumin 3.1 L Vitamin B12 Folate Hepatitis A IgM Ab Negative Hep Bs Antigen Negative Hep B Core IgM Ab Negative Hepatitis C Ab Screen Negative JULIO, Poly Interpret Negative JULIO, Complement Interp Not Performed Quality VTE Prophylaxis VTE prophylaxis: mechanical ordered
[2025-04-19] MEDS: ACETAMINOPHEN 325 MG TABLET 650 MG PO (14:26)
--- NOTE | 2025-04-19 17:45 | P.PNIM_ITS ---
Progress Note: A&P Assessment and Plan (1) Acute respiratory failure: Code(s): J96.00 - Acute respiratory failure, unspecified whether with hypoxia or hypercapnia Status: Acute Assessment and Plan: 04/18: Patient was transferred from intermediate Unit with agonal breathing, unresponsiveness. 04/18: Intubated in the ICU, respiratory failure could be related to TRALI as patient has pulmonary vascular congestion, NSTEMI, CHF, aspiration -remains on CMV mode of ventilation, peep of 5, 35 % FiO2 -ABGs and chest x-ray reviewed, ventilator adjusted -continue bronchodilators -sedated with fentanyl and Versed infusion, maintain RASS of 0 to -2 -daily sedation vacation and SBT (2) Shock: Code(s): R57.9 - Shock, unspecified Status: Acute Assessment and Plan: Shock could be related to sepsis, cardiogenic given patient with NSTEMI, TRALI -leukocytosis, lactic acidosis with initial lactic of 3.6, post intubation with adequate oxygen her lactate is down to 2.4 -patient received adequate IV fluids and 3 units of packed RBCs -chest x-ray showed pulmonary vascular congestion -off on IV fluid -remains on Levophed, maintain MAP > 65 mmHg or SBP > 100 mmHg -continue on vancomycin and cefepime (04/18) -04/18: Blood cultures obtained -04/18: Urine cultures obtained -lactic acid has normalized -leukocytosis improving, T-max of 100.4. (3) Non-ST elevation [place] (NSTEMI): Code(s): I21.4 - Non-ST elevation (NSTEMI) myocardial infarction Status: Acute Assessment and Plan: Patient presented with chest pressure/pain, EKG showed inferior lateral ST depression the slight elevation in AVR, sinus tachycardia, normal QTC - Given concerns for ACS, interventional Cardiology was called by the ED physician, recommendations were to start heparin infusion and metoprolol. Heparin bolus was given, but her hemoglobin came back at 3.4 in the ER so heparin was discontinued. -unable to give heparin infusion or aspirin due to severe anemia, no beta- blockers due to septic shock and hypotension -appreciate cardiology recommended, no plans to conduct ischemic evaluation at this time -stress-induced/takotsubo cardiomyopathy on echocardiogram likely due to severe anemia. When she is off pressors will require GDMT 04/18/2025: Echocardiogram Summary 1. Definity contrast administered improved wall motion interpretation. 2. Left ventricular chamber dimension is severely enlarged. 3. Left ventricular systolic function is severely globally reduced, estimated at 20-25. 4. The very basal segments have normal contractility suggestive of Takotsubo cardiomyopathy. 5. The left ventricular diastolic function is grade I diastolic dysfunction. 6. E/e' 9 is minimally elevated. 7. Right ventricular chamber dimension is severely enlarged. 8. Right ventricular systolic function is severely reduced and with abnormal TAPSE 1.3 cm. 9. Left atrial chamber dimension is moderately enlarged. 10. Right atrial chamber dimension is moderately enlarged. 11. There is mild aortic valve sclerosis. 12. There is moderate to severe mitral valve regurgitation. 13. There is severe tricuspid valve regurgitation. 14. Mild pulmonary hypertension, estimated pulmonary arterial systolic pressure is 49 mmHg. 15. There is mild pulmonic regurgitation. (4) Anemia requiring transfusions: Code(s): D64.9 - Anemia, unspecified Status: Acute Assessment and Plan: 04/18: Severe anemia, hemoglobin 3.4 on admission, received 3 units of packed RBC, -hemoglobin this morning is 8.9 -will continue to trend q.6 hours for now -appreciate GI evaluation and recommendation, likely upper and lower endoscopy once patient is stable and extubated -given NSTEMI, will maintain hemoglobin > 8.0 -Protonix IV q.12 hours -iron panel is normal -vitamin B12 and folic acid are normal -LDH slightly elevated, haptoglobin normal, Roshni test has been ordered to rule out hemolytic anemia -OG drainage is clear (5) COPD (chronic obstructive pulmonary disease): Code(s): J44.9 - Chronic obstructive pulmonary disease, unspecified Status: Acute Assessment and Plan: History of COPD, on 2 L nasal cannula at home -continue bronchodilators -patient is on Trelegy at home, will start budesonide nebs was she is in the hospital (6) PVD (peripheral vascular disease): Code(s): I73.9 - Peripheral vascular disease, unspecified Status: Acute Assessment and Plan: History of peripheral vascular disease with previous Aorto-ilio- femoral bypass -patient on clopidogrel, and Xarelto at home, currently on hold due to severe anemia (7) Hypertension: Code(s): I10 - Essential (primary) hypertension Status: Acute Assessment and Plan: Will hold all antihypertensives as patient is hypotensive/shock on pressors (8) Hyperlipemia, mixed: Code(s): E78.2 - Mixed hyperlipidemia Status: Acute Assessment and Plan: On atorvastatin at home, will continue continue Plan DVT prophylaxis: SCDs Stress ulcer prophylaxis: Protonix IV q.12 hours Nutrition: Will start tube feeds, OG drainage is clear Code Status: Full code Subjective Date/time seen: 04/19/25 17:45 Interval history: Acute respiratory failure, shock, severe anemia, NSTEMI, possible GI bleed 04/19/2025: Patient seen and examined the ICU, remains intubated high on peep of 5 and 35% FiO2. Sedated with fentanyl and Versed infusion, opens her eyes, nods to questions and follows simple commands. Hemoglobin is 7.4 this morning and trending down. Urine output has been adequate, T-max of 100.4?, leukocytosis improving. Review of Systems Review of Systems: ROS unobtainable: Yes unobtainable due to endotracheal tube, unobtainable due to medical condition and unobtainable due to mental status Exam Narrative: General: Intubated and sedated, in no acute distress HEENT:? Pupils equal and reactive, sclera is clear, ETT in place Neck:? Supple, right IJ central line in place Respiratory:? Coarse breath sounds bilaterally, adequate air entry, no wheezing Cardiac:? S1-S2 normal, regular rate and rhythm Abdomen:? Soft, nontender, nondistended, hypoactive bowel sounds Extremities:? Bilateral trace edema in her lower extremities Neuro:? Patient intubated, sedated, opens her eyes, follows simple commands and nods to questions Skin:? Warm and dry Psych:? Unable to assess Objective Data Vital Signs Vital Signs: Vital Signs - 24 hr 04/18/25 18:00 04/18/25 18:00 04/18/25 18:00 Temperature 98.7 F Pulse Rate 81 81 81 Respiratory Rate 20 Blood Pressure 96/59 L 96/59 L Pulse Oximetry 98 Oxygen Delivery Fraction of Inspired Oxygen 04/18/25 18:00 04/18/25 18:00 04/18/25 18:59 Temperature Pulse Rate 81 81 82 Respiratory Rate 20 20 Blood Pressure 88/55 L Pulse Oximetry Oxygen Delivery Fraction of Inspired Oxygen 04/18/25 19:00 04/18/25 19:20 04/18/25 19:31 Temperature 98.9 F Pulse Rate 82 87 82 Respiratory Rate 20 Blood Pressure 94/60 L 105/65 102/66 Pulse Oximetry 97 Oxygen Delivery Fraction of Inspired Oxygen 04/18/25 19:50 04/18/25 19:54 04/18/25 20:00 Temperature Pulse Rate 83 84 Respiratory Rate 20 Blood Pressure 96/62 L Pulse Oximetry 98 Oxygen Delivery Mechanical Ventilation Fraction of Inspired Oxygen 40 35 04/18/25 20:00 04/18/25 20:00 04/18/25 20:00 Temperature Pulse Rate 83 83 83 Respiratory Rate 20 20 Blood Pressure Pulse Oximetry Oxygen Delivery Fraction of Inspired Oxygen 04/18/25 20:00 04/18/25 20:30 04/18/25 21:00 Temperature 99.2 F Pulse Rate 83 83 83 Respiratory Rate 20 Blood Pressure 96/62 L 102/65 Pulse Oximetry 98 98 Oxygen Delivery Mechanical Ventilation Fraction of Inspired Oxygen 40 04/18/25 21:00 04/18/25 21:03 04/18/25 21:11 Temperature 99.3 F Pulse Rate 83 83 Respiratory Rate 20 20 Blood Pressure 95/64 L Pulse Oximetry 97 98 Oxygen Delivery Mechanical Ventilation Fraction of Inspired Oxygen 40 04/18/25 21:22 04/18/25 22:00 04/18/25 22:00 Temperature 99.4 F Pulse Rate 88 79 98 Respiratory Rate 20 20 Blood Pressure 97/67 L Pulse Oximetry 95 Oxygen Delivery Fraction of Inspired Oxygen 04/18/25 22:00 04/18/25 22:00 04/18/25 22:00 Temperature Pulse Rate 98 98 98 Respiratory Rate 20 20 Blood Pressure 97/67 L Pulse Oximetry Oxygen Delivery Fraction of Inspired Oxygen 04/18/25 22:45 04/18/25 22:45 04/18/25 22:45 Temperature Pulse Rate 98 98 98 Respiratory Rate Blood Pressure 92/62 L 92/62 L 92/62 L Pulse Oximetry Oxygen Delivery Fraction of Inspired Oxygen 04/18/25 23:00 04/18/25 23:17 04/18/25 23:20 Temperature 99.5 F Pulse Rate 97 97 Respiratory Rate 20 20 Blood Pressure 94/62 L Pulse Oximetry 96 96 Oxygen Delivery Mechanical Ventilation Fraction of Inspired Oxygen 40 40 04/18/25 23:30 04/19/25 00:00 04/19/25 00:00 Temperature 99.7 F H Pulse Rate 96 98 98 Respiratory Rate 20 Blood Pressure 104/67 Pulse Oximetry 96 94 Oxygen Delivery Mechanical Ventilation Fraction of Inspired Oxygen 40 04/19/25 00:01 04/19/25 00:01 04/19/25 00:01 Temperature Pulse Rate 99 98 98 Respiratory Rate 20 20 Blood Pressure 104/67 Pulse Oximetry Oxygen Delivery Fraction of Inspired Oxygen 04/19/25 00:30 04/19/25 01:00 04/19/25 01:36 Temperature 99.9 F H Pulse Rate 97 98 103 H Respiratory Rate 20 Blood Pressure 98/64 L 95/59 L 123/64 Pulse Oximetry 93 Oxygen Delivery Fraction of Inspired Oxygen 04/19/25 02:00 04/19/25 02:00 04/19/25 02:00 Temperature Pulse Rate 98 98 98 Respiratory Rate 20 Blood Pressure 116/58 L 116/58 L Pulse Oximetry 94 Oxygen Delivery Fraction of Inspired Oxygen 04/19/25 02:00 04/19/25 02:00 04/19/25 02:24 Temperature 100.4 F H Pulse Rate 98 97 Respiratory Rate 20 20 Blood Pressure Pulse Oximetry Oxygen Delivery Fraction of Inspired Oxygen 04/19/25 02:43 04/19/25 02:46 04/19/25 03:00 Temperature Pulse Rate 98 98 100 Respiratory Rate 20 20 Blood Pressure 96/56 L Pulse Oximetry 94 94 Oxygen Delivery Mechanical Ventilation Fraction of Inspired Oxygen 40 04/19/25 03:00 04/19/25 03:22 04/19/25 03:23 Temperature Pulse Rate 100 100 Respiratory Rate 20 Blood Pressure 96/56 L Pulse Oximetry 94 Oxygen Delivery Mechanical Ventilation Fraction of Inspired Oxygen 40 40 04/19/25 03:24 04/19/25 04:00 04/19/25 04:00 Temperature 100.1 F H 100.0 F H Pulse Rate 98 98 Respiratory Rate 20 Blood Pressure 94/52 L Pulse Oximetry 94 Oxygen Delivery Fraction of Inspired Oxygen 04/19/25 04:00 04/19/25 04:00 04/19/25 04:00 Temperature Pulse Rate 73 98 98 Respiratory Rate 20 20 Blood Pressure 94/52 L Pulse Oximetry Oxygen Delivery Fraction of Inspired Oxygen 04/19/25 05:00 04/19/25 05:02 04/19/25 05:30 Temperature 100.0 F H Pulse Rate 98 98 97 Respiratory Rate 20 20 Blood Pressure 93/54 L Pulse Oximetry 94 95 Oxygen Delivery Mechanical Ventilation Fraction of Inspired Oxygen 40 04/19/25 05:40 04/19/25 06:00 04/19/25 06:00 Temperature Pulse Rate 98 97 97 Respiratory Rate 20 20 Blood Pressure 95/55 L Pulse Oximetry Oxygen Delivery Fraction of Inspired Oxygen 04/19/25 06:00 04/19/25 06:00 04/19/25 06:00 Temperature 99.9 F H Pulse Rate 98 96 98 Respiratory Rate 20 20 Blood Pressure 95/55 L Pulse Oximetry 95 Oxygen Delivery Fraction of Inspired Oxygen 04/19/25 07:00 04/19/25 07:35 04/19/25 07:35 Temperature 99.7 F H Pulse Rate 96 96 96 Respiratory Rate 20 20 Blood Pressure 96/59 L Pulse Oximetry 96 95 Oxygen Delivery Mechanical Ventilation Fraction of Inspired Oxygen 35 04/19/25 07:42 04/19/25 08:00 04/19/25 08:00 Temperature Pulse Rate 95 95 95 Respiratory Rate 20 20 Blood Pressure Pulse Oximetry 95 Oxygen Delivery Mechanical Ventilation Fraction of Inspired Oxygen 35 04/19/25 08:00 04/19/25 08:00 04/19/25 08:00 Temperature 99.6 F Pulse Rate 97 97 Respiratory Rate 20 Blood Pressure 103/54 L 103/54 L Pulse Oximetry 92 Oxygen Delivery Fraction of Inspired Oxygen 35 04/19/25 08:00 04/19/25 08:00 04/19/25 09:00 Temperature 99.4 F Pulse Rate 97 97 98 Respiratory Rate 20 20 20 Blood Pressure 106/58 L Pulse Oximetry 93 Oxygen Delivery Fraction of Inspired Oxygen 04/19/25 10:00 04/19/25 10:00 04/19/25 10:00 Temperature 99.3 F Pulse Rate 98 98 98 Respiratory Rate 20 Blood Pressure 101/57 L 101/58 L Pulse Oximetry 93 Oxygen Delivery Fraction of Inspired Oxygen 04/19/25 10:00 04/19/25 10:00 04/19/25 10:25 Temperature Pulse Rate 98 98 97 Respiratory Rate 20 20 Blood Pressure Pulse Oximetry 93 Oxygen Delivery Mechanical Ventilation Fraction of Inspired Oxygen 35 04/19/25 11:00 04/19/25 12:00 04/19/25 12:00 Temperature 99.4 F Pulse Rate 93 93 93 Respiratory Rate 20 20 Blood Pressure 108/59 L Pulse Oximetry 95 95 Oxygen Delivery Mechanical Ventilation Fraction of Inspired Oxygen 35 04/19/25 12:00 04/19/25 12:00 04/19/25 12:00 Temperature 99.5 F Pulse Rate 96 96 Respiratory Rate 20 Blood Pressure 122/60 122/60 Pulse Oximetry 93 Oxygen Delivery Fraction of Inspired Oxygen 35 04/19/25 12:00 04/19/25 12:00 04/19/25 12:15 Temperature Pulse Rate 96 96 98 Respiratory Rate 20 20 Blood Pressure 124/62 Pulse Oximetry Oxygen Delivery Fraction of Inspired Oxygen 04/19/25 12:30 04/19/25 12:45 04/19/25 13:00 Temperature 99.8 F H Pulse Rate 96 95 93 Respiratory Rate 20 Blood Pressure 120/59 L 109/52 L 114/59 L Pulse Oximetry 93 Oxygen Delivery Fraction of Inspired Oxygen 04/19/25 13:15 04/19/25 13:30 04/19/25 13:48 Temperature Pulse Rate 94 95 98 Respiratory Rate Blood Pressure 112/61 113/56 L Pulse Oximetry 92 Oxygen Delivery Mechanical Ventilation Fraction of Inspired Oxygen 35 04/19/25 13:48 04/19/25 13:55 04/19/25 14:00 Temperature Pulse Rate 98 98 99 Respiratory Rate 20 20 Blood Pressure Pulse Oximetry Oxygen Delivery Fraction of Inspired Oxygen 04/19/25 14:00 04/19/25 14:00 04/19/25 14:00 Temperature 100.1 F H Pulse Rate 99 99 99 Respiratory Rate 20 20 Blood Pressure 117/55 L 117/55 L Pulse Oximetry 92 Oxygen Delivery Fraction of Inspired Oxygen 04/19/25 14:00 04/19/25 14:15 04/19/25 14:26 Temperature 100.1 F H Pulse Rate 99 100 Respiratory Rate 20 Blood Pressure 108/59 L Pulse Oximetry Oxygen Delivery Fraction of Inspired Oxygen 04/19/25 14:30 04/19/25 15:00 04/19/25 15:26 Temperature 100.2 F H 100.3 F H Pulse Rate 102 H 100 Respiratory Rate 20 Blood Pressure 114/57 L 104/54 L Pulse Oximetry 92 Oxygen Delivery Fraction of Inspired Oxygen 04/19/25 16:00 04/19/25 16:00 04/19/25 16:00 Temperature Pulse Rate 96 96 Respiratory Rate 2 L Blood Pressure Pulse Oximetry 92 Oxygen Delivery Mechanical Ventilation Fraction of Inspired Oxygen 35 35 04/19/25 16:00 04/19/25 16:00 04/19/25 16:00 Temperature 100.2 F H Pulse Rate 96 96 96 Respiratory Rate 20 20 Blood Pressure 94/55 L 94/55 L Pulse Oximetry 92 Oxygen Delivery Fraction of Inspired Oxygen 04/19/25 16:00 04/19/25 17:00 04/19/25 17:00 Temperature 100.1 F H Pulse Rate 96 96 96 Respiratory Rate 20 20 Blood Pressure 113/56 L 113/56 L Pulse Oximetry 93 Oxygen Delivery Fraction of Inspired Oxygen 04/19/25 17:28 04/19/25 17:30 Temperature Pulse Rate 96 97 Respiratory Rate Blood Pressure 102/53 L Pulse Oximetry 93 Oxygen Delivery Mechanical Ventilation Fraction of Inspired Oxygen 35 Intake/Output Intake/Output: Intake & Output 04/16/25 04/17/25 04/18/25 04/19/25 23:59 23:59 23:59 23:59 Intake Total 700.8 3154.4 852.3 Output Total 700 825 Balance 700.8 2454.4 27.3 Meds/Results Medications: Active Medications Generic Name Dose Route Start Last Admin Trade Name Freq PRN Reason Stop Dose Admin Acetaminophen 650 mg 04/18/25 04:12 04/19/25 14:26 Acetaminophen 325 Mg Tablet PO 650 mg Q4H PRN Administration Mild Pain (1-3) or Fever Albuterol/Ipratropium 3 ml 04/18/25 08:00 04/19/25 13:47 Ipratropium 0.5 Mg/Albuterol Sulfate 2.5 Mg (Base) Ampul.Neb 3 Ml INHALATION 3 ml Q6HRT JUAN C Administration Atorvastatin Calcium 80 mg 04/18/25 21:00 04/18/25 20:10 Atorvastatin 40 Mg Tablet PO 80 mg HS JUAN C Administration Budesonide 0.5 mg 04/18/25 12:50 04/19/25 07:34 Budesonide Respule Neb 0.5 Mg/2 Ml Amp INHALATION 0.5 mg Q12HRT JUAN C Administration Escitalopram Oxalate 10 mg 04/18/25 12:00 04/19/25 09:18 Escitalopram Oxalate 10 Mg Tablet PO 10 mg DAILY JUAN C Administration Norepinephrine Bitartrate 8 mg in 250 mls @ 0 mls/hr 04/18/25 07:15 04/19/25 17:30 Levophed 8 Mg/D5w 250 Ml IV CONT 0 mcg/min .Q0M JUAN C 0 mls/hr Protocol Titration Fentanyl Citrate 2,500 mcg in 250 mls @ 2.5 mls/hr 04/18/25 07:55 04/19/25 16:00 Fentanyl 2,500 Mcg/Ns 250 Ml IV CONT 25 mcg/hr .Q72H JUAN C 2.5 mls/hr Protocol Titration 25 MCG/HR Midazolam HCl 100 mg in 100 mls @ 1 mls/hr 04/18/25 07:55 04/19/25 16:00 Versed 100 Mg/Ns 100 Ml IV CONT 1 mg/hr .Q72H JUAN C 1 mls/hr Protocol Titration 1 MG/HR Cefepime HCl 2 gm/ Sodium 50 mls @ 100 mls/hr 04/19/25 00:00 04/19/25 12:34 Chloride IVPB Infused Q12H JUAN C Infusion Vancomycin HCl 1,250 mg in 250 mls @ 166.667 mls/hr 04/19/25 08:00 04/19/25 09:15 Vancomycin 1,250 Mg/Ns 250 Ml IVPB Infused Q18H JUAN C Infusion Multi-Ingred Cream/Lotion/Oil/Oint 1 applic 04/18/25 09:00 04/19/25 09:19 Mineral Oil/White Petrolatum Ointment EACH EYE 1 applic Q12HR JUAN C Administration Ondansetron HCl 4 mg 04/18/25 04:12 Ondansetron Inj 4 Mg/2 Ml Vial IV PUSH Q4H PRN Nausea Pantoprazole Sodium 40 mg 04/18/25 09:00 04/19/25 09:18 Pantoprazole Sodium Iv 40 Mg Vial IV PUSH 40 mg Q12HR JUAN C Administration Sodium Chloride 10 ml 04/18/25 14:00 04/19/25 15:22 Central Line Flush IV PUSH 10 ml Q8HR JUAN C Administration Sodium Chloride 20 ml 04/18/25 08:31 Central Line Flush IV PUSH PRN PRN after blood draws Radiology Results: ITS Impressions Abdomen X-Ray 04/18/25 07:47 IMPRESSION: 1: OG tube tip in the stomach. Abdomen/Pelvis CTA 04/18/25 09:20 IMPRESSION: 1. No aneurysm or dissection identified. 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 There is a right-sided graft detailed above with probable seroma. Clinical correlation is required. Follow-up suggested to assess. Head CT 04/18/25 13:34 IMPRESSION: 1. No acute intracranial findings. Abdomen Ultrasound 04/19/25 09:39 IMPRESSION: 1. Nonspecific gallbladder wall thickening and pericholecystic fluid. If concern for acute cholecystitis, can consider HIDA scan. 2. Hepatomegaly, with steatosis and probable cirrhosis. Chest X-Ray 04/19/25 10:40 IMPRESSION: 1. Improving interstitial pulmonary edema. 2. Persistent left basilar atelectasis and/or pleural effusion. Labs Labs: Laboratory Results - last 24 hr 04/18/25 04/18/25 04/18/25 08:29 17:43 19:01 WBC RBC Hgb 7.9 L Hct 26.1 L MCV MCH MCHC RDW Plt Count MPV Immature Gran % (Auto) Neut % (Auto) Lymph % (Auto) [place] % (Auto) Eos % (Auto) Baso % (Auto) Lymph # (Auto) [place] # (Auto) Eos # (Auto) Baso # (Auto) Abs Immat Gran (auto) Absolute Neuts (auto) Absolute Nucleated RBC Band Neutrophils % Nucleated RBC % Platelet Estimate Hypochromasia Anisocytosis Ovalocytes Schistocytes Haptoglobin 153 PT INR APTT Puncture Site ABG pH ABG pCO2 ABG pO2 ABG PO2/FiO2 Ratio ABG HCO3 ABG O2 Saturation ABG O2 Content ABG Base Excess A-a Gradient Oxyhemoglobin Carboxyhemoglobin Methemoglobin Reduced Hemoglobin Total Hemoglobin O2 Delivery Device O2 Liters/Min Minute Volume Vent Rate Vent Mode Tidal Volume PEEP Peak Inspir Pressure Pressure Support Sodium Potassium Chloride Carbon Dioxide Anion Gap BUN Creatinine Estim Creat Clear Calc Estimated GFR Glucose POC Capillary Glucose 146 H Lactic Acid Calcium Phosphorus Magnesium Total Bilirubin AST ALT Alkaline Phosphatase Lactate Dehydrogenase Total Protein Albumin Hepatitis A IgM Ab Hep Bs Antigen Hep B Core IgM Ab Hepatitis C Ab Screen JULIO, Poly Interpret JULIO, Complement Interp 04/18/25 04/19/25 04/19/25 23:39 04:54 05:26 WBC 15.1 H RBC 3.22 L Hgb 7.7 L 7.4 L Hct 25.4 L 24.2 L MCV 75.2 L MCH 23.0 L MCHC 30.6 L RDW 22.9 H Plt Count 282 MPV 10.4 Immature Gran % (Auto) 0.8 H Neut % (Auto) 87.4 H Lymph % (Auto) 4.4 L [place] % (Auto) 5.7 Eos % (Auto) 1.0 Baso % (Auto) 0.7 Lymph # (Auto) 0.66 L [place] # (Auto) 0.9 H Eos # (Auto) 0.2 Baso # (Auto) 0.1 Abs Immat Gran (auto) 0.12 H Absolute Neuts (auto) 13.2 H Absolute Nucleated RBC 0.050 H Band Neutrophils % Not Reportable Nucleated RBC % 0.3 H Platelet Estimate Adequate Hypochromasia 1+ Anisocytosis 2+ Ovalocytes 1+ Schistocytes Occasional Haptoglobin PT 17.4 H INR 1.5 APTT 33.2 Puncture Site Right brachial ABG pH 7.397 ABG pCO2 43.2 ABG pO2 67.6 L ABG PO2/FiO2 Ratio Not Reportable ABG HCO3 26.0 ABG O2 Saturation 93.4 L ABG O2 Content 10.7 L ABG Base Excess 1.0 A-a Gradient 1.9 Oxyhemoglobin 90.9 Carboxyhemoglobin 1.9 Methemoglobin 0.3 Reduced Hemoglobin 6.9 H Total Hemoglobin 8.3 L O2 Delivery Device Ventilator O2 Liters/Min Not Reportable Minute Volume Not Reportable Vent Rate 20 Vent Mode Cmv Tidal Volume 400 PEEP 5 Peak Inspir Pressure Not Reportable Pressure Support Not Reportable Sodium 135 L Potassium 3.3 L Chloride 103 Carbon Dioxide 27 Anion Gap 5 BUN 13 Creatinine 0.69 L Estim Creat Clear Calc 66 Estimated GFR > 60 Glucose 134 H POC Capillary Glucose Lactic Acid 0.9 Calcium 8.3 L Phosphorus 3.1 Magnesium 1.7 Total Bilirubin 4.5 H AST 212 H ALT 286 H Alkaline Phosphatase 96 Lactate Dehydrogenase 342 H Total Protein 5.7 L Albumin 3.1 L Hepatitis A IgM Ab Hep Bs Antigen Hep B Core IgM Ab Hepatitis C Ab Screen JULIO, Poly Interpret Negative JULIO, Complement Interp Not Performed 04/19/25 09:26 WBC RBC Hgb Hct MCV MCH MCHC RDW Plt Count MPV Immature Gran % (Auto) Neut % (Auto) Lymph % (Auto) [place] % (Auto) Eos % (Auto) Baso % (Auto) Lymph # (Auto) [place] # (Auto) Eos # (Auto) Baso # (Auto) Abs Immat Gran (auto) Absolute Neuts (auto) Absolute Nucleated RBC Band Neutrophils % Nucleated RBC % Platelet Estimate Hypochromasia Anisocytosis Ovalocytes Schistocytes Haptoglobin PT INR APTT Puncture Site ABG pH ABG pCO2 ABG pO2 ABG PO2/FiO2 Ratio ABG HCO3 ABG O2 Saturation ABG O2 Content ABG Base Excess A-a Gradient Oxyhemoglobin Carboxyhemoglobin Methemoglobin Reduced Hemoglobin Total Hemoglobin O2 Delivery Device O2 Liters/Min Minute Volume Vent Rate Vent Mode Tidal Volume PEEP Peak Inspir Pressure Pressure Support Sodium Potassium Chloride Carbon Dioxide Anion Gap BUN Creatinine Estim Creat Clear Calc Estimated GFR Glucose POC Capillary Glucose Lactic Acid Calcium Phosphorus Magnesium Total Bilirubin AST ALT Alkaline Phosphatase Lactate Dehydrogenase Total Protein Albumin Hepatitis A IgM Ab Negative Hep Bs Antigen Negative Hep B Core IgM Ab Negative Hepatitis C Ab Screen Negative JULIO, Poly Interpret JULIO, Complement Interp Hospitalist MIPS Advance Care Plan I have confirmed that the patient's Advanced Care Plan is present, code status is documented, or surrogate decision maker is listed in patient medical record.: Yes Medication Reconciliation I have utilized all available resources to obtain, update and review the patients current medications (includes all prescriptions, OTC, herbals, cannabis, and nutritional supplements).: Yes
[2025-04-19] MEDS: ATORVASTATIN 40 MG TABLET 80 MG PO (20:45)
[2025-04-20] VITALS (59 sets, daily range): BP systolic 82–142; BP diastolic 50–73; PULSE 80–121; RESP 14–25; TEMP 37.1–38.4; O2SAT 87–97
[2025-04-20] MEDS: ACETAMINOPHEN 325 MG TABLET 650 MG PO (01:08)
[2025-04-20] MEDS: IPRATROPIUM 0.5 MG/ALBUTEROL SULFATE 2.5 MG (BASE) AMPUL.NEB 3 ML INHALATION ×4 (01:53→20:16)
[2025-04-20] MEDS: VANCOMYCIN 1,500 MG/NS 500 ML 1,500 MG/500 ML BAG 250 MG IVPB (03:28)
[2025-04-20 05:01] LABS: Alveolar/Arterial O2 Gradient 178.7 mmHg; Carboxyhemoglobin 1.6 % THb (0-2.0); Fractional Inspired Oxygen 40 %; HCO3 ABG 22.2 mEq/l (22.0-26.0); Methemoglobin ABG 0.2 %THb (0-1.5); Oxygen Content ABG 10.1 %vol (16.0-22.0); Oxygen Saturation ABG 94.1 % (95.0-100.0); PCO2 ABG 34.0 mmHg (35.0-45.0); PO2 ABG 67.4 mmHg (80.0-100.0); PO2 FiO2 Ratio Arterial Blood 1.69 %; Reduced Hemoglobin 7.1 %THb (0-5.0)
[2025-04-20 05:04] LABS: Arterial Blood Gas Tidal Volume 400 ml; Arterial Blood Gas Ventilator rate 20 /MIN; Modified Allen's Test Pass; Site Drawn LEFT RADIAL
[2025-04-20] MEDS: CENTRAL LINE FLUSH 10 ML IV PUSH ×3 (05:37→21:10)
[2025-04-20 05:48] LABS: Hematocrit 23.4 % (37.0-47.0); Immature Granulocyte Percent A 0.7 % (0-0.5); Lymphocytes Absolute Auto 0.94 K/mm3 (0.9-3.2); Mean Corpuscular HGB Conc 29.1 g/dl (32-36); Mean Corpuscular Hemoglobin 22.5 pg (26-34); Mean Corpuscular Volume 77.5 fl (80-100); Nucleated Red Blood Cells Absolute Auto 0.020 K/mm3 (0.0-0.012); Nucleated Red Blood Cells Perc 0.1 % (0.0-0.2); Platelet Count Result 272 k/mm3 (150-375); Red Blood Count 3.02 M/mm3 (4.2-5.4); White Blood Count 16.1 K/mm3 (4.5-10.0)
[2025-04-20 05:59] LABS: Alanine Aminotransferase 202 U/L (6-35); Albumin Level 2.8 g/dL (3.5-5.1); Alkaline Phosphatase 102 U/L (38-126); Anion Gap 0 mmol/L (4-12); Aspartate Amino Transferase 90 U/L (14-36); Bilirubin,Total 4.9 mg/dL (0.2-1.3); Blood Urea Nitrogen 10 mg/dL (7-17); Calcium 8.0 mg/dL (8.4-10.2); Carbon Dioxide 28 mmol/L (22-30); Chloride 108 mmol/L (98-107); Estimated CRCL calculation 75 ml/min; Estimated Glomerular Filt Rate > 60; Glucose 130 mg/dL (65-110); Magnesium 2.0 mg/dL (1.6-2.3); Potassium 3.4 mmol/L (3.4-5.0); Sodium 136 mmol/L (137-145); Total Protein 5.7 g/dL (6.3-8.2)
[2025-04-20 06:00] LABS: INR 1.4; Prothrombin Time 16.9 Seconds (11.1-14.7)
[2025-04-20 06:01] LABS: Partial Thromboplastin Time 35.2 Seconds (22.3-36.8)
[2025-04-20 06:23] LABS: Hemoglobin 6.8 g/dL (12.0-15.0)
[2025-04-20 06:24] LABS: Anisocytosis 1+; Hypochromasia 2+
[2025-04-20 06:25] LABS: Burr Cells 1+
[2025-04-20 06:26] LABS: Schistocytes Rare
[2025-04-20 06:29] LABS: Poikilocytosis 1+
[2025-04-20] MEDS: BUDESONIDE RESPULE NEB 0.5 MG/2 ML AMP INHALATION ×2 (07:39→20:16)
[2025-04-20] MEDS: CALCIUM GLUC 2,000 MG/NS 100ML 2,000 MG/100 ML BAG 100 MG IVPB (07:58)
[2025-04-20] MEDS: POTASSIUM BICARBONATE 25 MEQ TABEF 50 MEQ FEED TUBE (07:58)
[2025-04-20] MEDS: PANTOPRAZOLE SODIUM IV 40 MG VIAL IV PUSH ×2 (08:01→21:10)
[2025-04-20] MEDS: MINERAL OIL/WHITE PETROLATUM OINTMENT 1 APPLIC EACH EYE (08:01)
[2025-04-20] MEDS: ESCITALOPRAM OXALATE 10 MG TABLET PO (08:01)
[2025-04-20 08:31] LABS: Alveolar/Arterial O2 Gradient 177.5 mmHg; Fractional Inspired Oxygen 40 %; HCO3 ABG 25.6 mEq/l (22.0-26.0); Oxygen Content ABG 9.9 %vol (16.0-22.0); Oxygen Saturation ABG 91.6 % (95.0-100.0); PCO2 ABG 41.0 mmHg (35.0-45.0); PO2 ABG 60.6 mmHg (80.0-100.0); PO2 FiO2 Ratio Arterial Blood 1.51 %
[2025-04-20 08:32] LABS: Modified Allen's Test Pass; Site Drawn RIGHT RADIAL
[2025-04-20 08:33] LABS: Arterial Blood Gas Pressure Support 5 cmH2O
--- NOTE | 2025-04-20 08:41 | WPDINTPN ---
Progress Note: A&P Assessment and Plan (1) Acute respiratory failure: Code(s): J96.00 - Acute respiratory failure, unspecified whether with hypoxia or hypercapnia Status: Acute Assessment and Plan: 04/18: Patient was transferred from intermediate Unit with agonal breathing, unresponsiveness. 04/18: Intubated in the ICU, respiratory failure could be related to TRALI as patient has pulmonary vascular congestion, NSTEMI, CHF, aspiration -remains on CMV mode of ventilation, peep of 5, 45 % FiO2 04/20 5/5 PSV SBT done for more than 30 minutes. RSBI, ABGI and Vitals acceptable. Pt awake and following commands. Will extubate and monitor. NPO for now. Bipap PRN Continue bronchodilators Lasix after PRBC transfusion today (2) Shock: Code(s): R57.9 - Shock, unspecified Status: Acute Assessment and Plan: patient received adequate IV fluids and 3 units of packed RBCs Chest x-ray showed pulmonary vascular congestion and was given Lasix Now off of fluids and vasopressors have been weaned off Continue on vancomycin and cefepime (04/18) -04/18: Blood cultures obtained and negative with -04/18: Urine cultures obtained and negative till now (3) Non-ST elevation CT (NSTEMI): Code(s): I21.4 - Non-ST elevation (NSTEMI) myocardial infarction Status: Acute Assessment and Plan: Patient presented with chest pressure/pain, EKG showed inferior lateral ST depression the slight elevation in AVR, sinus tachycardia, normal QTC - Given concerns for ACS, interventional Cardiology was called by the ED physician, recommendations were to start heparin infusion and metoprolol. Heparin bolus was given, but her hemoglobin came back at 3.4 in the ER so heparin was discontinued. -unable to give heparin infusion or aspirin due to severe anemia, no beta-blockers due to septic shock and hypotension -appreciate cardiology recommended, no plans to conduct ischemic evaluation at this time -stress-induced/takotsubo cardiomyopathy on echocardiogram likely due to severe anemia. When she is off pressors will require GDMT 04/18/2025: Echocardiogram Summary 1. Definity contrast administered improved wall motion interpretation. 2. Left ventricular chamber dimension is severely enlarged. 3. Left ventricular systolic function is severely globally reduced,estimated at 20-25. 4. The very basal segments have normal contractility suggestive of Takotsubocardiomyopathy. 5. The left ventricular diastolic function is grade I diastolic dysfunction. 6. E/e' 9 is minimally elevated. 7. Right ventricular chamber dimension is severely enlarged. 8. Right ventricular systolic function is severely reduced and with abnormalTAPSE 1.3 cm. 9. Left atrial chamber dimension is moderately enlarged. 10. Right atrial chamber dimension is moderately enlarged. 11. There is mild aortic valve sclerosis. 12. There is moderate to severe mitral valve regurgitation. 13. There is severe tricuspid valve regurgitation. 14. Mild pulmonary hypertension, estimated pulmonary arterial systolicpressure is 49 mmHg. 15. There is mild pulmonic regurgitation. (4) Anemia requiring transfusions: Code(s): D64.9 - Anemia, unspecified Status: Acute Assessment and Plan: 04/18: Severe anemia, hemoglobin 3.4 on admission, received 3 units of packed RBC, 04/20 hemoglobin 6.8. Will transfuse 1 more unit of PRBC followed by Lasix. Continue to trend q.6 hours for now -appreciate GI evaluation and recommendation, likely upper and lower endoscopy once patient is stable and extubated -Protonix IV q.12 hours -iron panel is normal -vitamin B12 and folic acid are normal -LDH slightly elevated, haptoglobin normal, Roshni test has been ordered to rule out hemolytic anemia -OG drainage is clear (5) COPD (chronic obstructive pulmonary disease): Code(s): J44.9 - Chronic obstructive pulmonary disease, unspecified Status: Acute Assessment and Plan: History of COPD, on 2 L nasal cannula at home -continue bronchodilators -patient is on Trelegy at home, will start budesonide nebs was she is in the hospital (6) PVD (peripheral vascular disease): Code(s): I73.9 - Peripheral vascular disease, unspecified Status: Acute Assessment and Plan: History of peripheral vascular disease with previous Aorto-ilio- femoral bypass -patient on clopidogrel, and Xarelto at home, currently on hold due to severe anemia and possible GI blood loss (7) Hypertension: Code(s): I10 - Essential (primary) hypertension Status: Acute Assessment and Plan: Will hold all antihypertensives as patient is hypotensive/shock on pressors (8) Hyperlipemia, mixed: Code(s): E78.2 - Mixed hyperlipidemia Status: Acute Assessment and Plan: On atorvastatin at home, will continue continue Plan DVT prophylaxis: SCDs Stress ulcer prophylaxis: Protonix IV q.12 hours Nutrition: She was on tube feeds they were held for the weaning trial Code Status: Full code Critical Care Time Spent: 30 minutes Due to a high probability of clinically significant, life threatening deterioration, the patient required my highest level of preparedness to intervene emergently and I personally spent this critical care time directly and personally managing the patient. This critical care time included obtaining a history; examining the patient; pulse oximetry; ordering and review of studies; arranging urgent treatment with development of a management plan; evaluation of patient's response to treatment; frequent reassessment; and discussions with other providers. It was exclusive of separately billable procedures and treating other patients and teaching time. Please see Assessment and Plan section and the rest of the note for further information on patient assessment and treatment This dictation may have been done utilizing a voice recognition system. Attempts have been made to correct errors. However, there may be uncorrected grammatical, spelling, and recognitions errors present. Subjective Date/time seen: 04/20/25 Overnight events reviewed. febrile Continues to be on mechanical ventilation 5 of PEEP and 40% FiO2 Awake despite low sedation follows command Other Vitals acceptable Interval history: Reason for consult: Acute respiratory failure, shock, severe anemia, NSTEMI, possible GI bleed Review of Systems Review of Systems: ROS unobtainable: Yes unobtainable due to endotracheal tube, unobtainable due to medical condition and unobtainable due to mental status Exam Narrative: General: Intubated and sedated, in no acute distress HEENT:? Pupils equal and reactive, sclera is clear, ETT in place Neck:? Supple, right IJ central line in place Respiratory:? Coarse breath sounds bilaterally, adequate air entry, no wheezing Cardiac:? S1-S2 normal, regular rate and rhythm Abdomen:? Soft, nontender, nondistended, hypoactive bowel sounds Extremities:? Bilateral trace edema in her lower extremities Neuro:? Patient intubated, sedated, opens her eyes, follows simple commands and nods to questions Skin:? Warm and dry Psych:? Unable to assess Objective Data Vital Signs Vital Signs: Vital Signs - 24 hr 04/19/25 09:00 04/19/25 10:00 04/19/25 10:00 Temperature 37.4 C 37.4 C Pulse Rate 98 98 98 Respiratory Rate 20 20 Blood Pressure 106/58 L 101/57 L Pulse Oximetry 93 93 Oxygen Delivery Fraction of Inspired Oxygen 04/19/25 10:00 04/19/25 10:00 04/19/25 10:00 Temperature Pulse Rate 98 98 98 Respiratory Rate 20 20 Blood Pressure 101/58 L Pulse Oximetry Oxygen Delivery Fraction of Inspired Oxygen 04/19/25 10:25 04/19/25 11:00 04/19/25 12:00 Temperature 37.4 C Pulse Rate 97 93 93 Respiratory Rate 20 20 Blood Pressure 108/59 L Pulse Oximetry 93 95 95 Oxygen Delivery Mechanical Ventilation Mechanical Ventilation Fraction of Inspired Oxygen 35 35 04/19/25 12:00 04/19/25 12:00 04/19/25 12:00 Temperature 37.5 C Pulse Rate 93 96 Respiratory Rate 20 Blood Pressure 122/60 Pulse Oximetry 93 Oxygen Delivery Fraction of Inspired Oxygen 35 04/19/25 12:00 04/19/25 12:00 04/19/25 12:00 Temperature Pulse Rate 96 96 96 Respiratory Rate 20 20 Blood Pressure 122/60 Pulse Oximetry Oxygen Delivery Fraction of Inspired Oxygen 04/19/25 12:15 04/19/25 12:30 04/19/25 12:45 Temperature Pulse Rate 98 96 95 Respiratory Rate Blood Pressure 124/62 120/59 L 109/52 L Pulse Oximetry Oxygen Delivery Fraction of Inspired Oxygen 04/19/25 13:00 04/19/25 13:15 04/19/25 13:30 Temperature 37.7 C H Pulse Rate 93 94 95 Respiratory Rate 20 Blood Pressure 114/59 L 112/61 113/56 L Pulse Oximetry 93 Oxygen Delivery Fraction of Inspired Oxygen 04/19/25 13:48 04/19/25 13:48 04/19/25 13:55 Temperature Pulse Rate 98 98 98 Respiratory Rate 20 20 Blood Pressure Pulse Oximetry 92 Oxygen Delivery Mechanical Ventilation Fraction of Inspired Oxygen 35 04/19/25 14:00 04/19/25 14:00 04/19/25 14:00 Temperature 37.8 C H Pulse Rate 99 99 99 Respiratory Rate 20 Blood Pressure 117/55 L 117/55 L Pulse Oximetry 92 Oxygen Delivery Fraction of Inspired Oxygen 04/19/25 14:00 04/19/25 14:00 04/19/25 14:15 Temperature Pulse Rate 99 99 100 Respiratory Rate 20 20 Blood Pressure 108/59 L Pulse Oximetry Oxygen Delivery Fraction of Inspired Oxygen 04/19/25 14:26 04/19/25 14:30 04/19/25 15:00 Temperature 37.8 C H 37.9 C H Pulse Rate 102 H 100 Respiratory Rate 20 Blood Pressure 114/57 L 104/54 L Pulse Oximetry 92 Oxygen Delivery Fraction of Inspired Oxygen 04/19/25 15:26 04/19/25 16:00 04/19/25 16:00 Temperature 37.9 C H Pulse Rate 96 96 Respiratory Rate 2 L Blood Pressure Pulse Oximetry 92 Oxygen Delivery Mechanical Ventilation Fraction of Inspired Oxygen 35 04/19/25 16:00 04/19/25 16:00 04/19/25 16:00 Temperature 37.9 C H Pulse Rate 96 96 Respiratory Rate 20 Blood Pressure 94/55 L 94/55 L Pulse Oximetry 92 Oxygen Delivery Fraction of Inspired Oxygen 35 04/19/25 16:00 04/19/25 16:00 04/19/25 17:00 Temperature Pulse Rate 96 96 96 Respiratory Rate 20 20 Blood Pressure 113/56 L Pulse Oximetry Oxygen Delivery Fraction of Inspired Oxygen 04/19/25 17:00 04/19/25 17:28 04/19/25 17:30 Temperature 37.8 C H Pulse Rate 96 96 97 Respiratory Rate 20 Blood Pressure 113/56 L 102/53 L Pulse Oximetry 93 93 Oxygen Delivery Mechanical Ventilation Fraction of Inspired Oxygen 35 04/19/25 18:00 04/19/25 18:00 04/19/25 18:00 Temperature Pulse Rate 91 91 91 Respiratory Rate 20 20 Blood Pressure 108/51 L Pulse Oximetry Oxygen Delivery Fraction of Inspired Oxygen 04/19/25 18:00 04/19/25 18:00 04/19/25 19:00 Temperature 37.8 C H 37.9 C H Pulse Rate 91 91 93 Respiratory Rate 20 20 Blood Pressure 108/51 L 103/52 L Pulse Oximetry 92 92 Oxygen Delivery Fraction of Inspired Oxygen 04/19/25 20:00 04/19/25 20:00 04/19/25 20:00 Temperature 37.9 C H Pulse Rate 101 H 95 Respiratory Rate 20 Blood Pressure 112/58 L Pulse Oximetry 91 Oxygen Delivery Fraction of Inspired Oxygen 35 04/19/25 20:00 04/19/25 20:00 04/19/25 20:00 Temperature Pulse Rate 101 H 101 H Respiratory Rate 20 20 Blood Pressure Pulse Oximetry Oxygen Delivery Mechanical Ventilation Fraction of Inspired Oxygen 35 04/19/25 20:00 04/19/25 20:02 04/19/25 20:06 Temperature Pulse Rate 101 H 96 96 Respiratory Rate 20 Blood Pressure 112/58 L Pulse Oximetry 92 Oxygen Delivery Mechanical Ventilation Fraction of Inspired Oxygen 35 04/19/25 20:19 04/19/25 21:00 04/19/25 22:00 Temperature 38.1 C H Pulse Rate 96 100 98 Respiratory Rate 20 20 20 Blood Pressure 116/56 L Pulse Oximetry 91 Oxygen Delivery Fraction of Inspired Oxygen 04/19/25 22:00 04/19/25 22:00 04/19/25 22:00 Temperature Pulse Rate 98 98 98 Respiratory Rate 20 Blood Pressure 104/53 L Pulse Oximetry Oxygen Delivery Fraction of Inspired Oxygen 04/19/25 22:00 04/19/25 23:00 04/19/25 23:14 Temperature 38.1 C H 38.0 C H Pulse Rate 98 98 99 Respiratory Rate 20 20 Blood Pressure 104/53 L 99/55 L Pulse Oximetry 91 93 93 Oxygen Delivery Mechanical Ventilation Fraction of Inspired Oxygen 35 04/20/25 00:00 04/20/25 00:00 04/20/25 00:00 Temperature 38.3 C H Pulse Rate 105 H Respiratory Rate 23 H Blood Pressure 126/61 Pulse Oximetry 97 Oxygen Delivery Mechanical Ventilation Fraction of Inspired Oxygen 35 35 04/20/25 00:00 04/20/25 00:00 04/20/25 00:00 Temperature Pulse Rate 105 H 105 H 109 H Respiratory Rate 23 H 23 H Blood Pressure Pulse Oximetry Oxygen Delivery Fraction of Inspired Oxygen 04/20/25 00:00 04/20/25 01:00 04/20/25 01:05 Temperature 38.4 C H Pulse Rate 105 H 104 H Respiratory Rate 22 H Blood Pressure 126/61 91/59 L Pulse Oximetry 87 L Oxygen Delivery Fraction of Inspired Oxygen 40 04/20/25 01:08 04/20/25 01:53 04/20/25 01:56 Temperature 38.4 C H Pulse Rate 97 97 Respiratory Rate 20 Blood Pressure Pulse Oximetry 95 Oxygen Delivery Mechanical Ventilation Fraction of Inspired Oxygen 40 04/20/25 02:00 04/20/25 02:00 04/20/25 02:00 Temperature 38.2 C H Pulse Rate 98 98 98 Respiratory Rate 20 20 20 Blood Pressure 92/56 L Pulse Oximetry 90 Oxygen Delivery Fraction of Inspired Oxygen 04/20/25 02:00 04/20/25 02:00 04/20/25 02:08 Temperature 38.2 C H Pulse Rate 98 98 Respiratory Rate Blood Pressure 92/56 L Pulse Oximetry Oxygen Delivery Fraction of Inspired Oxygen 04/20/25 02:16 04/20/25 03:00 04/20/25 03:31 Temperature 38.0 C H Pulse Rate 99 103 H 101 H Respiratory Rate 20 20 Blood Pressure 82/56 L 84/51 L Pulse Oximetry 90 Oxygen Delivery Fraction of Inspired Oxygen 04/20/25 03:40 04/20/25 03:52 04/20/25 04:00 Temperature 38.0 C H Pulse Rate 99 92 92 Respiratory Rate 20 Blood Pressure 95/59 L 94/63 L 84/51 L Pulse Oximetry 92 Oxygen Delivery Fraction of Inspired Oxygen 04/20/25 04:00 04/20/25 04:00 04/20/25 04:00 Temperature Pulse Rate 92 92 92 Respiratory Rate 20 20 Blood Pressure 84/51 L Pulse Oximetry Oxygen Delivery Fraction of Inspired Oxygen 04/20/25 04:00 04/20/25 04:00 04/20/25 04:00 Temperature Pulse Rate 89 Respiratory Rate Blood Pressure Pulse Oximetry Oxygen Delivery Mechanical Ventilation Fraction of Inspired Oxygen 40 40 04/20/25 04:15 04/20/25 04:31 04/20/25 04:45 Temperature Pulse Rate 89 84 95 Respiratory Rate Blood Pressure 88/50 L 88/53 L 95/55 L Pulse Oximetry Oxygen Delivery Fraction of Inspired Oxygen 04/20/25 05:00 04/20/25 05:06 04/20/25 05:42 Temperature 37.8 C H Pulse Rate 87 87 90 Respiratory Rate 20 Blood Pressure 106/59 L 110/58 L Pulse Oximetry 96 96 Oxygen Delivery Mechanical Ventilation Fraction of Inspired Oxygen 40 04/20/25 06:00 04/20/25 06:00 04/20/25 06:00 Temperature 37.8 C H Pulse Rate 84 84 84 Respiratory Rate 20 20 Blood Pressure 91/54 L 91/54 L Pulse Oximetry 95 Oxygen Delivery Fraction of Inspired Oxygen 04/20/25 06:00 04/20/25 06:00 04/20/25 06:16 Temperature Pulse Rate 84 84 82 Respiratory Rate 20 Blood Pressure 87/52 L Pulse Oximetry Oxygen Delivery Fraction of Inspired Oxygen 04/20/25 06:30 04/20/25 07:00 04/20/25 07:34 Temperature 37.7 C H Pulse Rate 81 80 86 Respiratory Rate 20 Blood Pressure 94/58 L 95/54 L 101/64 Pulse Oximetry 97 Oxygen Delivery Fraction of Inspired Oxygen 04/20/25 07:34 04/20/25 07:35 04/20/25 07:40 Temperature Pulse Rate 88 88 90 Respiratory Rate 20 20 Blood Pressure Pulse Oximetry 92 Oxygen Delivery Mechanical Ventilation Fraction of Inspired Oxygen 40 04/20/25 07:40 04/20/25 07:59 04/20/25 08:00 Temperature Pulse Rate 90 100 99 Respiratory Rate 18 18 Blood Pressure 111/58 L Pulse Oximetry Oxygen Delivery Fraction of Inspired Oxygen 04/20/25 08:00 04/20/25 08:20 Temperature 37.8 C H Pulse Rate 100 104 H Respiratory Rate 18 Blood Pressure 113/67 115/58 L Pulse Oximetry 93 Oxygen Delivery Fraction of Inspired Oxygen Intake/Output Intake/Output: Intake & Output 04/17/25 04/18/25 04/19/25 04/20/25 23:59 23:59 23:59 23:59 Intake Total 700.8 3154.4 873.3 1183.3 Output Total 700 825 325 Balance 700.8 2454.4 48.3 858.3 Meds/Results Medications: Active Medications Generic Name Dose Route Start Last Admin Trade Name Freq PRN Reason Stop Dose Admin Acetaminophen 650 mg 04/18/25 04:12 04/20/25 01:08 Acetaminophen 325 Mg Tablet PO 650 mg Q4H PRN Administration Mild Pain (1-3) or Fever Albuterol/Ipratropium 3 ml 04/18/25 08:00 04/20/25 07:39 Ipratropium 0.5 Mg/Albuterol Sulfate 2.5 Mg (Base) Ampul.Neb 3 Ml INHALATION 3 ml Q6HRT JUAN C Administration Atorvastatin Calcium 80 mg 04/18/25 21:00 04/19/25 20:45 Atorvastatin 40 Mg Tablet PO 80 mg HS JAUN C Administration Budesonide 0.5 mg 04/18/25 12:50 04/20/25 07:39 Budesonide Respule Neb 0.5 Mg/2 Ml Amp INHALATION 0.5 mg Q12HRT JUAN C Administration Escitalopram Oxalate 10 mg 04/18/25 12:00 04/20/25 08:01 Escitalopram Oxalate 10 Mg Tablet PO 10 mg DAILY JUAN C Administration Furosemide 40 mg 04/20/25 07:39 Furosemide Inj 40 Mg/4 Ml Vial IV PUSH ONCE PRN After PRBC Transfusion Norepinephrine Bitartrate 8 mg in 250 mls @ 7.5 mls/hr 04/18/25 07:15 04/20/25 08:20 Levophed 8 Mg/D5w 250 Ml IV CONT 4 mcg/min .Q24H JUAN C 7.5 mls/hr Protocol Titration 4 MCG/MIN Fentanyl Citrate 2,500 mcg in 250 mls @ 0 mls/hr 04/18/25 07:55 04/20/25 07:35 Fentanyl 2,500 Mcg/Ns 250 Ml IV CONT 0 mcg/hr .Q0M JUAN C 0 mls/hr Protocol Titration Midazolam HCl 100 mg in 100 mls @ 0 mls/hr 04/18/25 07:55 04/20/25 07:34 Versed 100 Mg/Ns 100 Ml IV CONT 0 mg/hr .Q0M JUAN C 0 mls/hr Protocol Titration Cefepime HCl 2 gm/ Sodium 50 mls @ 100 mls/hr 04/19/25 00:00 04/20/25 00:17 Chloride IVPB Infused Q12H JUAN C Infusion Vancomycin HCl 1,500 mg in 500 mls @ 250 mls/hr 04/20/25 03:00 04/20/25 05:28 Vancomycin 1,500 Mg/Ns 500 Ml IVPB 04/20/25 12:00 Infused Q12H JUAN C Infusion Sodium Chloride 250 mls @ 30 mls/hr 04/20/25 07:26 Normal Saline Iv IV CONT 04/20/25 15:45 .Q8H20M STA Multi-Ingred Cream/Lotion/Oil/Oint 1 applic 04/18/25 09:00 04/20/25 08:01 Mineral Oil/White Petrolatum Ointment EACH EYE 1 applic Q12HR JUAN C Administration Ondansetron HCl 4 mg 04/18/25 04:12 Ondansetron Inj 4 Mg/2 Ml Vial IV PUSH Q4H PRN Nausea Pantoprazole Sodium 40 mg 04/18/25 09:00 04/20/25 08:01 Pantoprazole Sodium Iv 40 Mg Vial IV PUSH 40 mg Q12HR JUAN C Administration Sodium Chloride 10 ml 04/18/25 14:00 04/20/25 05:37 Central Line Flush IV PUSH 10 ml Q8HR JUAN C Administration Sodium Chloride 20 ml 04/18/25 08:31 Central Line Flush IV PUSH PRN PRN after blood draws Radiology Results: ITS Impressions Abdomen X-Ray 04/18/25 07:47 IMPRESSION: 1: OG tube tip in the stomach. Abdomen/Pelvis CTA 04/18/25 09:20 IMPRESSION: 1. No aneurysm or dissection identified. 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 There is a right-sided graft detailed above with probable seroma. Clinical correlation is required. Follow-up suggested to assess. Head CT 04/18/25 13:34 IMPRESSION: 1. No acute intracranial findings. Abdomen Ultrasound 04/19/25 09:39 IMPRESSION: 1. Nonspecific gallbladder wall thickening and pericholecystic fluid. If concern for acute cholecystitis, can consider HIDA scan. 2. Hepatomegaly, with steatosis and probable cirrhosis. Labs Labs: Laboratory Results - last 24 hr 04/19/25 04/19/25 04/20/25 05:26 09:26 01:04 WBC RBC Hgb Hct MCV MCH MCHC RDW Plt Count MPV Immature Gran % (Auto) Neut % (Auto) Lymph % (Auto) [place] % (Auto) Eos % (Auto) Baso % (Auto) Lymph # (Auto) [place] # (Auto) Eos # (Auto) Baso # (Auto) Abs Immat Gran (auto) Absolute Neuts (auto) Absolute Nucleated RBC Band Neutrophils % Nucleated RBC % Platelet Estimate Hypochromasia Poikilocytosis Anisocytosis [place] Cells Schistocytes Haptoglobin 144 PT INR APTT Puncture Site ABG pH ABG pCO2 ABG pO2 ABG PO2/FiO2 Ratio ABG HCO3 ABG O2 Saturation ABG O2 Content ABG Base Excess A-a Gradient Oxyhemoglobin Carboxyhemoglobin Methemoglobin Reduced Hemoglobin Total Hemoglobin O2 Delivery Device O2 Liters/Min Minute Volume Vent Rate Vent Mode FiO2 Tidal Volume PEEP Peak Inspir Pressure Pressure Support Sodium Potassium Chloride Carbon Dioxide Anion Gap BUN Creatinine Estim Creat Clear Calc Estimated GFR Glucose Lactic Acid Calcium Phosphorus Magnesium Total Bilirubin AST ALT Alkaline Phosphatase Lactate Dehydrogenase 342 H Total Protein Albumin Vancomycin Trough 6.4 L Hepatitis A IgM Ab Negative Hep Bs Antigen Negative Hep B Core IgM Ab Negative Hepatitis C Ab Screen Negative JULIO, Poly Interpret Negative JULIO, Complement Interp Not Performed 04/20/25 04/20/25 04/20/25 04:49 05:41 08:29 WBC 16.1 H RBC 3.02 L Hgb 6.8 L* Hct 23.4 L MCV 77.5 L MCH 22.5 L MCHC 29.1 L RDW 24.8 H Plt Count 272 MPV 10.4 Immature Gran % (Auto) 0.7 H Neut % (Auto) 84.7 H Lymph % (Auto) 5.8 L [place] % (Auto) 6.6 Eos % (Auto) 1.6 Baso % (Auto) 0.6 Lymph # (Auto) 0.94 [place] # (Auto) 1.1 H Eos # (Auto) 0.3 Baso # (Auto) 0.1 Abs Immat Gran (auto) 0.12 H Absolute Neuts (auto) 13.6 H Absolute Nucleated RBC 0.020 H Band Neutrophils % Not Reportable Nucleated RBC % 0.1 Platelet Estimate Adequate Hypochromasia 2+ Poikilocytosis 1+ Anisocytosis 1+ [place] Cells 1+ Schistocytes Rare Haptoglobin PT 16.9 H INR 1.4 APTT 35.2 Puncture Site Left radial Right radial ABG pH 7.432 7.413 ABG pCO2 34.0 L 41.0 ABG pO2 67.4 L 60.6 L ABG PO2/FiO2 Ratio 1.69 1.51 ABG HCO3 22.2 25.6 ABG O2 Saturation 94.1 L 91.6 L ABG O2 Content 10.1 L 9.9 L ABG Base Excess -1.8 0.9 A-a Gradient 178.7 177.5 Oxyhemoglobin 91.1 89.3 L Carboxyhemoglobin 1.6 Methemoglobin 0.2 Reduced Hemoglobin 7.1 H Total Hemoglobin 7.8 L* 7.8 L* O2 Delivery Device Ventilator Ventilator O2 Liters/Min Not Reportable Not Reportable Minute Volume Not Reportable Not Reportable Vent Rate 20 Not Reportable Vent Mode Cmv Spontaneous FiO2 40 40 Tidal Volume 400 Not Reportable PEEP 5 5 Peak Inspir Pressure Not Reportable Not Reportable Pressure Support Not Reportable 5 Sodium 136 L Potassium 3.4 Chloride 108 H Carbon Dioxide 28 Anion Gap 0 L BUN 10 Creatinine 0.60 L Estim Creat Clear Calc 75 Estimated GFR > 60 Glucose 130 H Lactic Acid 0.6 L Calcium 8.0 L Phosphorus 2.9 Magnesium 2.0 Total Bilirubin 4.9 H AST 90 H ALT 202 H Alkaline Phosphatase 102 Lactate Dehydrogenase Total Protein 5.7 L Albumin 2.8 L Vancomycin Trough Hepatitis A IgM Ab Hep Bs Antigen Hep B Core IgM Ab Hepatitis C Ab Screen JULIO, Poly Interpret JULIO, Complement Interp Quality VTE Prophylaxis VTE prophylaxis: mechanical ordered
--- NOTE | 2025-04-20 09:43 | P.PNCA_ITS ---
Progress Note: A&P Assessment and Plan (1) CAD (coronary artery disease): Code(s): I25.10 - Atherosclerotic heart disease of [place] coronary artery without angina pectoris Status: Acute (2) S/P CABG x 3: Code(s): Z95.1 - Presence of aortocoronary bypass graft Status: Acute Plan Continue to provide aggressive supportive care as we are doing. When she is more hemodynamically stable we will gradually introduce medical therapy for left ventricular systolic dysfunction. Appearance of her echo is very consistent with [place]ub[place] cardiomyopathy. She is still on pressure support and for this reason we will not initiate GDMT today Yazan Voss MD LOCATED WITHIN [facility] Subjective Date/time seen: Date of service: 04/20/25 09:43 Interval history: Follow-up visit in this 59-year-old lady with: Coronary and severe peripheral vascular disease status post recent coronary bypass grafting and recent revascularization of the lower extremities with a right axillo bifem graft. She enters the hospital here with an episode of chest pain after which she was found to be profoundly anemic. Patient has been transfused expecting additional unit of red cells today. She was fortunately extubated this morning. Lethargic but basically feels okay no further chest pain Exam Const: General: comfortable and no acute distress Other: Well-developed white female lethargic but comfortable just extubated a short time ago HENMT: Mouth: Yes moist mucous membranes Eyes: Sclera: sclerae normal Neck: Neck: supple Resp: Effort & Inspection: normal respiratory effort Auscultation: clear to auscultation bilaterally Cardio: Rate: regular rate Rhythm: regular rhythm GI: GI Palp: Yes Soft to palpation Auscultation: normal bowel sounds Skin: General skin exam: normal color Neuro: Other: Alert and response Extrem: Other: Well perfused Objective Data Vital Signs Vital Signs: Vital Signs - 24 hr 04/19/25 10:00 04/19/25 10:00 04/19/25 10:00 Temperature 37.4 C Pulse Rate 98 98 98 Respiratory Rate 20 Blood Pressure 101/57 L 101/58 L Pulse Oximetry 93 Oxygen Delivery Oxygen Flow Rate Fraction of Inspired Oxygen 04/19/25 10:00 04/19/25 10:00 04/19/25 10:25 Temperature Pulse Rate 98 98 97 Respiratory Rate 20 20 Blood Pressure Pulse Oximetry 93 Oxygen Delivery Mechanical Ventilation Oxygen Flow Rate Fraction of Inspired Oxygen 35 11/29/25 11:00 04/19/25 12:00 04/19/25 12:00 Temperature 37.4 C Pulse Rate 93 93 93 Respiratory Rate 20 20 Blood Pressure 108/59 L Pulse Oximetry 95 95 Oxygen Delivery Mechanical Ventilation Oxygen Flow Rate Fraction of Inspired Oxygen 35 04/19/25 12:00 04/19/25 12:00 04/19/25 12:00 Temperature 37.5 C Pulse Rate 96 96 Respiratory Rate 20 Blood Pressure 122/60 122/60 Pulse Oximetry 93 Oxygen Delivery Oxygen Flow Rate Fraction of Inspired Oxygen 35 04/19/25 12:00 04/19/25 12:00 04/19/25 12:15 Temperature Pulse Rate 96 96 98 Respiratory Rate 20 20 Blood Pressure 124/62 Pulse Oximetry Oxygen Delivery Oxygen Flow Rate Fraction of Inspired Oxygen 04/19/25 12:30 04/19/25 12:45 04/19/25 13:00 Temperature 37.7 C H Pulse Rate 96 95 93 Respiratory Rate 20 Blood Pressure 120/59 L 109/52 L 114/59 L Pulse Oximetry 93 Oxygen Delivery Oxygen Flow Rate Fraction of Inspired Oxygen 04/19/25 13:15 04/19/25 13:30 04/19/25 13:48 Temperature Pulse Rate 94 95 98 Respiratory Rate Blood Pressure 112/61 113/56 L Pulse Oximetry 92 Oxygen Delivery Mechanical Ventilation Oxygen Flow Rate Fraction of Inspired Oxygen 35 04/19/25 13:48 04/19/25 13:55 04/19/25 14:00 Temperature Pulse Rate 98 98 99 Respiratory Rate 20 20 Blood Pressure Pulse Oximetry Oxygen Delivery Oxygen Flow Rate Fraction of Inspired Oxygen 04/19/25 14:00 04/19/25 14:00 04/19/25 14:00 Temperature 37.8 C H Pulse Rate 99 99 99 Respiratory Rate 20 20 Blood Pressure 117/55 L 117/55 L Pulse Oximetry 92 Oxygen Delivery Oxygen Flow Rate Fraction of Inspired Oxygen 04/19/25 14:00 04/19/25 14:15 04/19/25 14:26 Temperature 37.8 C H Pulse Rate 99 100 Respiratory Rate 20 Blood Pressure 108/59 L Pulse Oximetry Oxygen Delivery Oxygen Flow Rate Fraction of Inspired Oxygen 04/19/25 14:30 04/19/25 15:00 04/19/25 15:26 Temperature 37.9 C H 37.9 C H Pulse Rate 102 H 100 Respiratory Rate 20 Blood Pressure 114/57 L 104/54 L Pulse Oximetry 92 Oxygen Delivery Oxygen Flow Rate Fraction of Inspired Oxygen 04/19/25 16:00 04/19/25 16:00 04/19/25 16:00 Temperature Pulse Rate 96 96 Respiratory Rate 2 L Blood Pressure Pulse Oximetry 92 Oxygen Delivery Mechanical Ventilation Oxygen Flow Rate Fraction of Inspired Oxygen 35 35 04/19/25 16:00 04/19/25 16:00 04/19/25 16:00 Temperature 37.9 C H Pulse Rate 96 96 96 Respiratory Rate 20 20 Blood Pressure 94/55 L 94/55 L Pulse Oximetry 92 Oxygen Delivery Oxygen Flow Rate Fraction of Inspired Oxygen 04/19/25 16:00 04/19/25 17:00 04/19/25 17:00 Temperature 37.8 C H Pulse Rate 96 96 96 Respiratory Rate 20 20 Blood Pressure 113/56 L 113/56 L Pulse Oximetry 93 Oxygen Delivery Oxygen Flow Rate Fraction of Inspired Oxygen 04/19/25 17:28 04/19/25 17:30 04/19/25 18:00 Temperature Pulse Rate 96 97 91 Respiratory Rate Blood Pressure 102/53 L 108/51 L Pulse Oximetry 93 Oxygen Delivery Mechanical Ventilation Oxygen Flow Rate Fraction of Inspired Oxygen 35 04/19/25 18:00 04/19/25 18:00 04/19/25 18:00 Temperature Pulse Rate 91 91 91 Respiratory Rate 20 20 Blood Pressure Pulse Oximetry Oxygen Delivery Oxygen Flow Rate Fraction of Inspired Oxygen 04/19/25 18:00 04/19/25 19:00 04/19/25 20:00 Temperature 37.8 C H 37.9 C H Pulse Rate 91 93 Respiratory Rate 20 20 Blood Pressure 108/51 L 103/52 L Pulse Oximetry 92 92 Oxygen Delivery Oxygen Flow Rate Fraction of Inspired Oxygen 35 04/19/25 20:00 04/19/25 20:00 04/19/25 20:00 Temperature 37.9 C H Pulse Rate 101 H 95 101 H Respiratory Rate 20 20 Blood Pressure 112/58 L Pulse Oximetry 91 Oxygen Delivery Oxygen Flow Rate Fraction of Inspired Oxygen 04/19/25 20:00 04/19/25 20:00 04/19/25 20:00 Temperature Pulse Rate 101 H 101 H Respiratory Rate 20 Blood Pressure 112/58 L Pulse Oximetry Oxygen Delivery Mechanical Ventilation Oxygen Flow Rate Fraction of Inspired Oxygen 35 04/19/25 20:02 04/19/25 20:06 04/19/25 20:19 Temperature Pulse Rate 96 96 96 Respiratory Rate 20 20 Blood Pressure Pulse Oximetry 92 Oxygen Delivery Mechanical Ventilation Oxygen Flow Rate Fraction of Inspired Oxygen 35 04/19/25 21:00 04/19/25 22:00 04/19/25 22:00 Temperature 38.1 C H Pulse Rate 100 98 98 Respiratory Rate 20 20 20 Blood Pressure 116/56 L Pulse Oximetry 91 Oxygen Delivery Oxygen Flow Rate Fraction of Inspired Oxygen 04/19/25 22:00 04/19/25 22:00 04/19/25 22:00 Temperature 38.1 C H Pulse Rate 98 98 98 Respiratory Rate 20 Blood Pressure 104/53 L 104/53 L Pulse Oximetry 91 Oxygen Delivery Oxygen Flow Rate Fraction of Inspired Oxygen 04/19/25 23:00 04/19/25 23:14 04/20/25 00:00 Temperature 38.0 C H 38.3 C H Pulse Rate 98 99 105 H Respiratory Rate 20 23 H Blood Pressure 99/55 L 126/61 Pulse Oximetry 93 93 97 Oxygen Delivery Mechanical Ventilation Oxygen Flow Rate Fraction of Inspired Oxygen 35 04/20/25 00:00 04/20/25 00:00 04/20/25 00:00 Temperature Pulse Rate 105 H Respiratory Rate 23 H Blood Pressure Pulse Oximetry Oxygen Delivery Mechanical Ventilation Oxygen Flow Rate Fraction of Inspired Oxygen 35 35 04/20/25 00:00 04/20/25 00:00 04/20/25 00:00 Temperature Pulse Rate 105 H 109 H 105 H Respiratory Rate 23 H Blood Pressure 126/61 Pulse Oximetry Oxygen Delivery Oxygen Flow Rate Fraction of Inspired Oxygen 04/20/25 01:00 04/20/25 01:05 04/20/25 01:08 Temperature 38.4 C H 38.4 C H Pulse Rate 104 H Respiratory Rate 22 H Blood Pressure 91/59 L Pulse Oximetry 87 L Oxygen Delivery Oxygen Flow Rate Fraction of Inspired Oxygen 40 04/20/25 01:53 04/20/25 01:56 04/20/25 02:00 Temperature 38.2 C H Pulse Rate 97 97 98 Respiratory Rate 20 20 Blood Pressure 92/56 L Pulse Oximetry 95 90 Oxygen Delivery Mechanical Ventilation Oxygen Flow Rate Fraction of Inspired Oxygen 40 04/20/25 02:00 04/20/25 02:00 04/20/25 02:00 Temperature Pulse Rate 98 98 98 Respiratory Rate 20 20 Blood Pressure Pulse Oximetry Oxygen Delivery Oxygen Flow Rate Fraction of Inspired Oxygen 04/20/25 02:00 04/20/25 02:08 04/20/25 02:16 Temperature 38.2 C H Pulse Rate 98 99 Respiratory Rate 20 Blood Pressure 92/56 L Pulse Oximetry Oxygen Delivery Oxygen Flow Rate Fraction of Inspired Oxygen 04/20/25 03:00 04/20/25 03:31 04/20/25 03:40 Temperature 38.0 C H Pulse Rate 103 H 101 H 99 Respiratory Rate 20 Blood Pressure 82/56 L 84/51 L 95/59 L Pulse Oximetry 90 Oxygen Delivery Oxygen Flow Rate Fraction of Inspired Oxygen 04/20/25 03:52 04/20/25 04:00 04/20/25 04:00 Temperature 38.0 C H Pulse Rate 92 92 92 Respiratory Rate 20 Blood Pressure 94/63 L 84/51 L 84/51 L Pulse Oximetry 92 Oxygen Delivery Oxygen Flow Rate Fraction of Inspired Oxygen 04/20/25 04:00 04/20/25 04:00 04/20/25 04:00 Temperature Pulse Rate 92 92 Respiratory Rate 20 20 Blood Pressure Pulse Oximetry Oxygen Delivery Mechanical Ventilation Oxygen Flow Rate Fraction of Inspired Oxygen 40 04/20/25 04:00 04/20/25 04:00 04/20/25 04:15 Temperature Pulse Rate 89 89 Respiratory Rate Blood Pressure 88/50 L Pulse Oximetry Oxygen Delivery Oxygen Flow Rate Fraction of Inspired Oxygen 40 04/20/25 04:31 04/20/25 04:45 04/20/25 05:00 Temperature 37.8 C H Pulse Rate 84 95 87 Respiratory Rate 20 Blood Pressure 88/53 L 95/55 L 106/59 L Pulse Oximetry 96 Oxygen Delivery Oxygen Flow Rate Fraction of Inspired Oxygen 04/20/25 05:06 04/20/25 05:42 04/20/25 06:00 Temperature 37.8 C H Pulse Rate 87 90 84 Respiratory Rate 20 Blood Pressure 110/58 L 91/54 L Pulse Oximetry 96 95 Oxygen Delivery Mechanical Ventilation Oxygen Flow Rate Fraction of Inspired Oxygen 40 04/20/25 06:00 04/20/25 06:00 04/20/25 06:00 Temperature Pulse Rate 84 84 84 Respiratory Rate 20 20 Blood Pressure 91/54 L Pulse Oximetry Oxygen Delivery Oxygen Flow Rate Fraction of Inspired Oxygen 04/20/25 06:00 04/20/25 06:16 04/20/25 06:30 Temperature Pulse Rate 84 82 81 Respiratory Rate Blood Pressure 87/52 L 94/58 L Pulse Oximetry Oxygen Delivery Oxygen Flow Rate Fraction of Inspired Oxygen 04/20/25 07:00 04/20/25 07:34 04/20/25 07:34 Temperature 37.7 C H Pulse Rate 80 86 88 Respiratory Rate 20 20 Blood Pressure 95/54 L 101/64 Pulse Oximetry 97 Oxygen Delivery Oxygen Flow Rate Fraction of Inspired Oxygen 04/20/25 07:35 04/20/25 07:40 04/20/25 07:40 Temperature Pulse Rate 88 90 90 Respiratory Rate 20 18 Blood Pressure Pulse Oximetry 92 Oxygen Delivery Mechanical Ventilation Oxygen Flow Rate Fraction of Inspired Oxygen 40 04/20/25 07:59 04/20/25 08:00 04/20/25 08:00 Temperature 37.8 C H Pulse Rate 100 99 100 Respiratory Rate 18 18 Blood Pressure 111/58 L 113/67 Pulse Oximetry 93 Oxygen Delivery Oxygen Flow Rate Fraction of Inspired Oxygen 04/20/25 08:00 04/20/25 08:20 04/20/25 08:40 Temperature Pulse Rate 104 H Respiratory Rate Blood Pressure 115/58 L Pulse Oximetry 92 Oxygen Delivery Nasal Cannula Oxygen Flow Rate 4 Fraction of Inspired Oxygen 40 04/20/25 09:00 Temperature 37.8 C H Pulse Rate 121 H Respiratory Rate 24 H Blood Pressure 100/65 Pulse Oximetry 90 Oxygen Delivery Oxygen Flow Rate Fraction of Inspired Oxygen Intake/Output Intake/Output: Intake & Output 04/17/25 04/18/25 04/19/25 04/20/25 23:59 23:59 23:59 23:59 Intake Total 700.8 3154.4 873.3 1183.3 Output Total 700 825 325 Balance 700.8 2454.4 48.3 858.3 Meds/Results Medications: Active Medications Generic Name Dose Route Start Last Admin Trade Name Freq PRN Reason Stop Dose Admin Acetaminophen 650 mg 04/18/25 04:12 04/20/25 01:08 Acetaminophen 325 Mg Tablet PO 650 mg Q4H PRN Administration Mild Pain (1-3) or Fever Albuterol/Ipratropium 3 ml 04/18/25 08:00 04/20/25 07:39 Ipratropium 0.5 Mg/Albuterol Sulfate 2.5 Mg (Base) Ampul.Neb 3 Ml INHALATION 3 ml Q6HRT JUAN C Administration Atorvastatin Calcium 80 mg 04/18/25 21:00 04/19/25 20:45 Atorvastatin 40 Mg Tablet PO 80 mg HS JUAN C Administration Budesonide 0.5 mg 04/18/25 12:50 04/20/25 07:39 Budesonide Respule Neb 0.5 Mg/2 Ml Amp INHALATION 0.5 mg Q12HRT JUAN C Administration Escitalopram Oxalate 10 mg 04/18/25 12:00 04/20/25 08:01 Escitalopram Oxalate 10 Mg Tablet PO 10 mg DAILY JUAN C Administration Furosemide 40 mg 04/20/25 07:39 Furosemide Inj 40 Mg/4 Ml Vial IV PUSH ONCE PRN After PRBC Transfusion Norepinephrine Bitartrate 8 mg in 250 mls @ 7.5 mls/hr 04/18/25 07:15 04/20/25 08:20 Levophed 8 Mg/D5w 250 Ml IV CONT 4 mcg/min .Q24H JUAN C 7.5 mls/hr Protocol Titration 4 MCG/MIN Fentanyl Citrate 2,500 mcg in 250 mls @ 0 mls/hr 04/18/25 07:55 04/20/25 0 7:35 Fentanyl 2,500 Mcg/Ns 250 Ml IV CONT 0 mcg/hr .Q0M JUAN C 0 mls/hr Protocol Titration Midazolam HCl 100 mg in 100 mls @ 0 mls/hr 04/18/25 07:55 04/20/25 07:34 Versed 100 Mg/Ns 100 Ml IV CONT 0 mg/hr .Q0M JUAN C 0 mls/hr Protocol Titration Cefepime HCl 2 gm/ Sodium 50 mls @ 100 mls/hr 04/19/25 00:00 04/20/25 00:17 Chloride IVPB Infused Q12H JUAN C Infusion Vancomycin HCl 1,500 mg in 500 mls @ 250 mls/hr 04/20/25 03:00 04/20/25 05:28 Vancomycin 1,500 Mg/Ns 500 Ml IVPB 04/20/25 12:00 Infused Q12H JUAN C Infusion Sodium Chloride 250 mls @ 30 mls/hr 04/20/25 07:26 Normal Saline Iv IV CONT 04/20/25 15:45 .Q8H20M STA Multi-Ingred Cream/Lotion/Oil/Oint 1 applic 04/18/25 09:00 04/20/25 08:01 Mineral Oil/White Petrolatum Ointment EACH EYE 1 applic Q12HR JUAN C Administration Ondansetron HCl 4 mg 04/18/25 04:12 Ondansetron Inj 4 Mg/2 Ml Vial IV PUSH Q4H PRN Nausea Pantoprazole Sodium 40 mg 04/18/25 09:00 04/20/25 08:01 Pantoprazole Sodium Iv 40 Mg Vial IV PUSH 40 mg Q12HR JUAN C Administration Sodium Chloride 10 ml 04/18/25 14:00 04/20/25 05:37 Central Line Flush IV PUSH 10 ml Q8HR JUAN C Administration Sodium Chloride 20 ml 04/18/25 08:31 Central Line Flush IV PUSH PRN PRN after blood draws Radiology Results: ITS Impressions Abdomen X-Ray 04/18/25 07:47 IMPRESSION: 1: OG tube tip in the stomach. Abdomen/Pelvis CTA 04/18/25 09:20 IMPRESSION: 1. No aneurysm or dissection identified. 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 There is a right-sided graft detailed above with probable seroma. Clinical correlation is required. Follow-up suggested to assess. Head CT 04/18/25 13:34 IMPRESSION: 1. No acute intracranial findings. Abdomen Ultrasound 04/19/25 09:39 IMPRESSION: 1. Nonspecific gallbladder wall thickening and pericholecystic fluid. If concern for acute cholecystitis, can consider HIDA scan. 2. Hepatomegaly, with steatosis and probable cirrhosis. Labs Labs: Laboratory Results - last 24 hr 04/17/25 04/19/25 04/19/25 21:46 05:26 09:26 WBC RBC Hgb Hct MCV MCH MCHC RDW Plt Count MPV Immature Gran % (Auto) Neut % (Auto) Lymph % (Auto) [place] % (Auto) Eos % (Auto) Baso % (Auto) Lymph # (Auto) [place] # (Auto) Eos # (Auto) Baso # (Auto) Abs Immat Gran (auto) Absolute Neuts (auto) Absolute Nucleated RBC Band Neutrophils % Nucleated RBC % Platelet Estimate Hypochromasia Poikilocytosis Anisocytosis [place] Cells Schistocytes Haptoglobin 144 PT INR APTT Puncture Site ABG pH ABG pCO2 ABG pO2 ABG PO2/FiO2 Ratio ABG HCO3 ABG O2 Saturation ABG O2 Content ABG Base Excess A-a Gradient Oxyhemoglobin Carboxyhemoglobin Methemoglobin Reduced Hemoglobin Total Hemoglobin O2 Delivery Device O2 Liters/Min Minute Volume Vent Rate Vent Mode FiO2 Tidal Volume PEEP Peak Inspir Pressure Pressure Support Sodium Potassium Chloride Carbon Dioxide Anion Gap BUN Creatinine Estim Creat Clear Calc Estimated GFR Glucose Lactic Acid Calcium Phosphorus Magnesium Total Bilirubin AST ALT Alkaline Phosphatase Lactate Dehydrogenase 342 H Total Protein Albumin Vancomycin Trough Hepatitis A IgM Ab Negative Hep Bs Antigen Negative Hep B Core IgM Ab Negative Hepatitis C Ab Screen Negative Blood Type O Negative Antibody Screen Negative JULIO, Poly Interpret Negative JULIO, Complement Interp Not Performed Crossmatch See Detail 04/20/25 04/20/25 04/20/25 01:04 04:49 05:41 WBC 16.1 H RBC 3.02 L Hgb 6.8 L* Hct 23.4 L MCV 77.5 L MCH 22.5 L MCHC 29.1 L RDW 24.8 H Plt Count 272 MPV 10.4 Immature Gran % (Auto) 0.7 H Neut % (Auto) 84.7 H Lymph % (Auto) 5.8 L [place] % (Auto) 6.6 Eos % (Auto) 1.6 Baso % (Auto) 0.6 Lymph # (Auto) 0.94 [place] # (Auto) 1.1 H Eos # (Auto) 0.3 Baso # (Auto) 0.1 Abs Immat Gran (auto) 0.12 H Absolute Neuts (auto) 13.6 H Absolute Nucleated RBC 0.020 H Band Neutrophils % Not Reportable Nucleated RBC % 0.1 Platelet Estimate Adequate Hypochromasia 2+ Poikilocytosis 1+ Anisocytosis 1+ [place] Cells 1+ Schistocytes Rare Haptoglobin PT 16.9 H INR 1.4 APTT 35.2 Puncture Site Left radial ABG pH 7.432 ABG pCO2 34.0 L ABG pO2 67.4 L ABG PO2/FiO2 Ratio 1.69 ABG HCO3 22.2 ABG O2 Saturation 94.1 L ABG O2 Content 10.1 L ABG Base Excess -1.8 A-a Gradient 178.7 Oxyhemoglobin 91.1 Carboxyhemoglobin 1.6 Methemoglobin 0.2 Reduced Hemoglobin 7.1 H Total Hemoglobin 7.8 L* O2 Delivery Device Ventilator O2 Liters/Min Not Reportable Minute Volume Not Reportable Vent Rate 20 Vent Mode Cmv FiO2 40 Tidal Volume 400 PEEP 5 Peak Inspir Pressure Not Reportable Pressure Support Not Reportable Sodium 136 L Potassium 3.4 Chloride 108 H Carbon Dioxide 28 Anion Gap 0 L BUN 10 Creatinine 0.60 L Estim Creat Clear Calc 75 Estimated GFR > 60 Glucose 130 H Lactic Acid 0.6 L Calcium 8.0 L Phosphorus 2.9 Magnesium 2.0 Total Bilirubin 4.9 H AST 90 H ALT 202 H Alkaline Phosphatase 102 Lactate Dehydrogenase Total Protein 5.7 L Albumin 2.8 L Vancomycin Trough 6.4 L Hepatitis A IgM Ab Hep Bs Antigen Hep B Core IgM Ab Hepatitis C Ab Screen Blood Type Antibody Screen JULIO, Poly Interpret JULIO, Complement Interp Crossmatch 04/20/25 08:29 WBC RBC Hgb Hct MCV MCH MCHC RDW Plt Count MPV Immature Gran % (Auto) Neut % (Auto) Lymph % (Auto) [place] % (Auto) Eos % (Auto) Baso % (Auto) Lymph # (Auto) [place] # (Auto) Eos # (Auto) Baso # (Auto) Abs Immat Gran (auto) Absolute Neuts (auto) Absolute Nucleated RBC Band Neutrophils % Nucleated RBC % Platelet Estimate Hypochromasia Poikilocytosis Anisocytosis [place] Cells Schistocytes Haptoglobin PT INR APTT Puncture Site Right radial ABG pH 7.413 ABG pCO2 41.0 ABG pO2 60.6 L ABG PO2/FiO2 Ratio 1.51 ABG HCO3 25.6 ABG O2 Saturation 91.6 L ABG O2 Content 9.9 L ABG Base Excess 0.9 A-a Gradient 177.5 Oxyhemoglobin 89.3 L Carboxyhemoglobin Methemoglobin Reduced Hemoglobin Total Hemoglobin 7.8 L* O2 Delivery Device Ventilator O2 Liters/Min Not Reportable Minute Volume Not Reportable Vent Rate Not Reportable Vent Mode Spontaneous FiO2 40 Tidal Volume Not Reportable PEEP 5 Peak Inspir Pressure Not Reportable Pressure Support 5 Sodium Potassium Chloride Carbon Dioxide Anion Gap BUN Creatinine Estim Creat Clear Calc Estimated GFR Glucose Lactic Acid Calcium Phosphorus Magnesium Total Bilirubin AST ALT Alkaline Phosphatase Lactate Dehydrogenase Total Protein Albumin Vancomycin Trough Hepatitis A IgM Ab Hep Bs Antigen Hep B Core IgM Ab Hepatitis C Ab Screen Blood Type Antibody Screen JULIO, Poly Interpret JULIO, Complement Interp Crossmatch
--- NOTE | 2025-04-20 10:10 | P.PNGI_ITS ---
Progress Note: A&P Assessment and Plan (1) Anemia requiring transfusions: Code(s): D64.9 - Anemia, unspecified Status: Acute Assessment and Plan: The patient's microcytic, hypochromic anemia, addressed in yesterday's note, suggests chronic blood loss, although there is no overt evidence of active gastrointestinal bleeding at this time. Laboratory findings, including a normal haptoglobin and mildly elevated LDH, do not support hemolysis as a primary explanation for the severe anemia. The patient is currently post-extubation and still requires hemodynamic support. Given the need for further clinical stabi lization, planning for colonoscopy and endoscopy will be deferred until the patient's condition improves. No acute intervention (EGD) is required for the anemia at this time. Subjective Date/time seen: 04/20/25 10:10 Interval history: The patient was successfully extubated today. No evident GI bleeding, orogastric tube was clear, no melena. Slight drop in hemoglobin from 7.4 yesterday to 6.8 today. Exam Const: General: comfortable and no acute distress Other: Well-developed white female lethargic but comfortable just extubated a short time ago HENMT: Mouth: Yes moist mucous membranes Eyes: Sclera: sclerae normal Neck: Neck: supple Resp: Effort & Inspection: normal respiratory effort Auscultation: clear to auscultation bilaterally Cardio: Rate: regular rate Rhythm: regular rhythm GI: GI Palp: Yes Soft to palpation Auscultation: normal bowel sounds Skin: General skin exam: normal color Neuro: Other: Alert and response Extrem: Other: Well perfused Objective Data Vital Signs Vital Signs: Vital Signs - 24 hr 04/19/25 10:25 04/19/25 11:04/19/25 12:00 Temperature 99.4 F Pulse Rate 97 93 93 Respiratory Rate 20 20 Blood Pressure 108/59 L Pulse Oximetry 93 95 95 Oxygen Delivery Mechanical Ventilation Mechanical Ventilation Oxygen Flow Rate Fraction of Inspired Oxygen 35 35 04/19/25 12:00 04/19/25 12:00 04/19/25 12:00 Temperature 99.5 F Pulse Rate 93 96 Respiratory Rate 20 Blood Pressure 122/60 Pulse Oximetry 93 Oxygen Delivery Oxygen Flow Rate Fraction of Inspired Oxygen 35 04/19/25 12:00 04/19/25 12:00 04/19/25 12:00 Temperature Pulse Rate 96 96 96 Respiratory Rate 20 20 Blood Pressure 122/60 Pulse Oximetry Oxygen Delivery Oxygen Flow Rate Fraction of Inspired Oxygen 04/19/25 12:15 04/19/25 12:30 04/19/25 12:45 Temperature Pulse Rate 98 96 95 Respiratory Rate Blood Pressure 124/62 120/59 L 109/52 L Pulse Oximetry Oxygen Delivery Oxygen Flow Rate Fraction of Inspired Oxygen 04/19/25 13:00 04/19/25 13:15 04/19/25 13:30 Temperature 99.8 F H Pulse Rate 93 94 95 Respiratory Rate 20 Blood Pressure 114/59 L 112/61 113/56 L Pulse Oximetry 93 Oxygen Delivery Oxygen Flow Rate Fraction of Inspired Oxygen 04/19/25 13:48 04/19/25 13:48 04/19/25 13:55 Temperature Pulse Rate 98 98 98 Respiratory Rate 20 20 Blood Pressure Pulse Oximetry 92 Oxygen Delivery Mechanical Ventilation Oxygen Flow Rate Fraction of Inspired Oxygen 35 04/19/25 14:00 04/19/25 14:00 04/19/25 14:00 Temperature 100.1 F H Pulse Rate 99 99 99 Respiratory Rate 20 Blood Pressure 117/55 L 117/55 L Pulse Oximetry 92 Oxygen Delivery Oxygen Flow Rate Fraction of Inspired Oxygen 04/19/25 14:00 04/19/25 14:00 04/19/25 14:15 Temperature Pulse Rate 99 99 100 Respiratory Rate 20 20 Blood Pressure 108/59 L Pulse Oximetry Oxygen Delivery Oxygen Flow Rate Fraction of Inspired Oxygen 04/19/25 14:26 04/19/25 14:30 04/19/25 15:00 Temperature 100.1 F H 100.2 F H Pulse Rate 102 H 100 Respiratory Rate 20 Blood Pressure 114/57 L 104/54 L Pulse Oximetry 92 Oxygen Delivery Oxygen Flow Rate Fraction of Inspired Oxygen 04/19/25 15:26 04/19/25 16:00 04/19/25 16:00 Temperature 100.3 F H Pulse Rate 96 96 Respiratory Rate 2 L Blood Pressure Pulse Oximetry 92 Oxygen Delivery Mechanical Ventilation Oxygen Flow Rate Fraction of Inspired Oxygen 35 04/19/25 16:00 04/19/25 16:00 04/19/25 16:00 Temperature 100.2 F H Pulse Rate 96 96 Respiratory Rate 20 Blood Pressure 94/55 L 94/55 L Pulse Oximetry 92 Oxygen Delivery Oxygen Flow Rate Fraction of Inspired Oxygen 35 04/19/25 16:00 04/19/25 16:00 04/19/25 17:00 Temperature Pulse Rate 96 96 96 Respiratory Rate 20 20 Blood Pressure 113/56 L Pulse Oximetry Oxygen Delivery Oxygen Flow Rate Fraction of Inspired Oxygen 04/19/25 17:00 04/19/25 17:28 04/19/25 17:30 Temperature 100.1 F H Pulse Rate 96 96 97 Respiratory Rate 20 Blood Pressure 113/56 L 102/53 L Pulse Oximetry 93 93 Oxygen Delivery Mechanical Ventilation Oxygen Flow Rate Fraction of Inspired Oxygen 35 04/19/25 18:00 04/19/25 18:00 04/19/25 18:00 Temperature Pulse Rate 91 91 91 Respiratory Rate 20 20 Blood Pressure 108/51 L Pulse Oximetry Oxygen Delivery Oxygen Flow Rate Fraction of Inspired Oxygen 04/19/25 18:00 04/19/25 18:00 04/19/25 19:00 Temperature 100.1 F H 100.3 F H Pulse Rate 91 91 93 Respiratory Rate 20 20 Blood Pressure 108/51 L 103/52 L Pulse Oximetry 92 92 Oxygen Delivery Oxygen Flow Rate Fraction of Inspired Oxygen 04/19/25 20:00 04/19/25 20:00 04/19/25 20:00 Temperature 100.3 F H Pulse Rate 101 H 95 Respiratory Rate 20 Blood Pressure 112/58 L Pulse Oximetry 91 Oxygen Delivery Oxygen Flow Rate Fraction of Inspired Oxygen 35 04/19/25 20:00 04/19/25 20:00 04/19/25 20:00 Temperature Pulse Rate 101 H 101 H Respiratory Rate 20 20 Blood Pressure Pulse Oximetry Oxygen Delivery Mechanical Ventilation Oxygen Flow Rate Fraction of Inspired Oxygen 35 04/19/25 20:00 04/19/25 20:02 04/19/25 20:06 Temperature Pulse Rate 101 H 96 96 Respiratory Rate 20 Blood Pressure 112/58 L Pulse Oximetry 92 Oxygen Delivery Mechanical Ventilation Oxygen Flow Rate Fraction of Inspired Oxygen 35 04/19/25 20:19 04/19/25 21:00 04/19/25 22:00 Temperature 100.5 F H Pulse Rate 96 100 98 Respiratory Rate 20 20 20 Blood Pressure 116/56 L Pulse Oximetry 91 Oxygen Delivery Oxygen Flow Rate Fraction of Inspired Oxygen 04/19/25 22:00 04/19/25 22:00 04/19/25 22:00 Temperature Pulse Rate 98 98 98 Respiratory Rate 20 Blood Pressure 104/53 L Pulse Oximetry Oxygen Delivery Oxygen Flow Rate Fraction of Inspired Oxygen 04/19/25 22:00 04/19/25 23:00 04/19/25 23:14 Temperature 100.6 F H 100.4 F H Pulse Rate 98 98 99 Respiratory Rate 20 20 Blood Pressure 104/53 L 99/55 L Pulse Oximetry 91 93 93 Oxygen Delivery Mechanical Ventilation Oxygen Flow Rate Fraction of Inspired Oxygen 35 04/20/25 00:00 04/20/25 00:00 04/20/25 00:00 Temperature 101.0 F H Pulse Rate 105 H Respiratory Rate 23 H Blood Pressure 126/61 Pulse Oximetry 97 Oxygen Delivery Mechanical Ventilation Oxygen Flow Rate Fraction of Inspired Oxygen 35 35 04/20/25 00:00 04/20/25 00:00 04/20/25 00:00 Temperature Pulse Rate 105 H 105 H 109 H Respiratory Rate 23 H 23 H Blood Pressure Pulse Oximetry Oxygen Delivery Oxygen Flow Rate Fraction of Inspired Oxygen 04/20/25 00:00 04/20/25 01:00 04/20/25 01:05 Temperature 101.1 F H Pulse Rate 105 H 104 H Respiratory Rate 22 H Blood Pressure 126/61 91/59 L Pulse Oximetry 87 L Oxygen Delivery Oxygen Flow Rate Fraction of Inspired Oxygen 40 04/20/25 01:08 04/20/25 01:53 04/20/25 01:56 Temperature 101.1 F H Pulse Rate 97 97 Respiratory Rate 20 Blood Pressure Pulse Oximetry 95 Oxygen Delivery Mechanical Ventilation Oxygen Flow Rate Fraction of Inspired Oxygen 40 04/20/25 02:00 04/20/25 02:00 04/20/25 02:00 Temperature 100.7 F H Pulse Rate 98 98 98 Respiratory Rate 20 20 20 Blood Pressure 92/56 L Pulse Oximetry 90 Oxygen Delivery Oxygen Flow Rate Fraction of Inspired Oxygen 04/20/25 02:00 04/20/25 02:00 04/20/25 02:08 Temperature 100.7 F H Pulse Rate 98 98 Respiratory Rate Blood Pressure 92/56 L Pulse Oximetry Oxygen Delivery Oxygen Flow Rate Fraction of Inspired Oxygen 04/20/25 02:16 04/20/25 03:00 04/20/25 03:31 Temperature 100.4 F H Pulse Rate 99 103 H 101 H Respiratory Rate 20 20 Blood Pressure 82/56 L 84/51 L Pulse Oximetry 90 Oxygen Delivery Oxygen Flow Rate Fraction of Inspired Oxygen 04/20/25 03:40 04/20/25 03:52 04/20/25 04:00 Temperature 100.4 F H Pulse Rate 99 92 92 Respiratory Rate 20 Blood Pressure 95/59 L 94/63 L 84/51 L Pulse Oximetry 92 Oxygen Delivery Oxygen Flow Rate Fraction of Inspired Oxygen 04/20/25 04:00 04/20/25 04:00 04/20/25 04:00 Temperature Pulse Rate 92 92 92 Respiratory Rate 20 20 Blood Pressure 84/51 L Pulse Oximetry Oxygen Delivery Oxygen Flow Rate Fraction of Inspired Oxygen 04/20/25 04:00 04/20/25 04:00 04/20/25 04:00 Temperature Pulse Rate 89 Respiratory Rate Blood Pressure Pulse Oximetry Oxygen Delivery Mechanical Ventilation Oxygen Flow Rate Fraction of Inspired Oxygen 40 40 04/20/25 04:15 04/20/25 04:31 04/20/25 04:45 Temperature Pulse Rate 89 84 95 Respiratory Rate Blood Pressure 88/50 L 88/53 L 95/55 L Pulse Oximetry Oxygen Delivery Oxygen Flow Rate Fraction of Inspired Oxygen 04/20/25 05:00 04/20/25 05:06 04/20/25 05:42 Temperature 100.1 F H Pulse Rate 87 87 90 Respiratory Rate 20 Blood Pressure 106/59 L 110/58 L Pulse Oximetry 96 96 Oxygen Delivery Mechanical Ventilation Oxygen Flow Rate Fraction of Inspired Oxygen 40 04/20/25 06:00 04/20/25 06:00 04/20/25 06:00 Temperature 100.0 F H Pulse Rate 84 84 84 Respiratory Rate 20 20 Blood Pressure 91/54 L 91/54 L Pulse Oximetry 95 Oxygen Delivery Oxygen Flow Rate Fraction of Inspired Oxygen 04/20/25 06:00 04/20/25 06:00 04/20/25 06:16 Temperature Pulse Rate 84 84 82 Respiratory Rate 20 Blood Pressure 87/52 L Pulse Oximetry Oxygen Delivery Oxygen Flow Rate Fraction of Inspired Oxygen 04/20/25 06:30 04/20/25 07:00 04/20/25 07:34 Temperature 99.9 F H Pulse Rate 81 80 86 Respiratory Rate 20 Blood Pressure 94/58 L 95/54 L 101/64 Pulse Oximetry 97 Oxygen Delivery Oxygen Flow Rate Fraction of Inspired Oxygen 04/20/25 07:34 04/20/25 07:35 04/20/25 07:40 Temperature Pulse Rate 88 88 90 Respiratory Rate 20 20 Blood Pressure Pulse Oximetry 92 Oxygen Delivery Mechanical Ventilation Oxygen Flow Rate Fraction of Inspired Oxygen 40 04/20/25 07:40 04/20/25 07:59 04/20/25 08:00 Temperature Pulse Rate 90 100 99 Respiratory Rate 18 18 Blood Pressure 111/58 L Pulse Oximetry Oxygen Delivery Oxygen Flow Rate Fraction of Inspired Oxygen 04/20/25 08:00 04/20/25 08:00 04/20/25 08:00 Temperature 100.0 F H Pulse Rate 100 Respiratory Rate 18 Blood Pressure 113/67 Pulse Oximetry 93 Oxygen Delivery Mechanical Ventilation Oxygen Flow Rate Fraction of Inspired Oxygen 40 40 04/20/25 08:20 04/20/25 08:40 04/20/25 08:40 Temperature Pulse Rate 104 H 111 H Respiratory Rate 18 Blood Pressure 115/58 L Pulse Oximetry 92 92 Oxygen Delivery Nasal Cannula Nasal Cannula Oxygen Flow Rate 4 4 Fraction of Inspired Oxygen 40 04/20/25 09:00 04/20/25 09:59 04/20/25 10:00 Temperature 100.0 F H 100 F H 100.0 F H Pulse Rate 121 H 110 H 111 H Respiratory Rate 24 H 17 18 Blood Pressure 100/65 102/53 L 103/62 Pulse Oximetry 90 94 92 Oxygen Delivery Oxygen Flow Rate Fraction of Inspired Oxygen Intake/Output Intake/Output: Intake & Output 04/17/25 04/18/25 04/19/25 04/20/25 23:59 23:59 23:59 23:59 Intake Total 700.8 3154.4 873.3 1183.3 Output Total 700 825 325 Balance 700.8 2454.4 48.3 858.3 Meds/Results Medications: Active Medications Generic Name Dose Route Start Last Admin Trade Name Shahidq PRN Reason Stop Dose Admin Acetaminophen 650 mg 04/18/25 04:12 04/20/25 01:08 Acetaminophen 325 Mg Tablet PO 650 mg Q4H PRN Administration Mild Pain (1-3) or Fever Albuterol/Ipratropium 3 ml 04/18/25 08:00 04/20/25 07:39 Ipratropium 0.5 Mg/Albuterol Sulfate 2.5 Mg (Base) Ampul.Neb 3 Ml INHALATION 3 ml Q6HRT JUAN C Administration Atorvastatin Calcium 80 mg 04/18/25 21:00 04/19/25 20:45 Atorvastatin 40 Mg Tablet PO 80 mg HS JUAN C Administration Budesonide 0.5 mg 04/18/25 12:50 04/20/25 07:39 Budesonide Respule Neb 0.5 Mg/2 Ml Amp INHALATION 0.5 mg Q12HRT JUAN C Administration Escitalopram Oxalate 10 mg 04/18/25 12:00 04/20/25 08:01 Escitalopram Oxalate 10 Mg Tablet PO 10 mg DAILY JUAN C Administration Furosemide 40 mg 04/20/25 07:39 Furosemide Inj 40 Mg/4 Ml Vial IV PUSH ONCE PRN After PRBC Transfusion Norepinephrine Bitartrate 8 mg in 250 mls @ 7.5 mls/hr 04/18/25 07:15 04/20/25 08:20 Levophed 8 Mg/D5w 250 Ml IV CONT 4 mcg/min .Q24H JUAN C 7.5 mls/hr Protocol Titration 4 MCG/MIN Fentanyl Citrate 2,500 mcg in 250 mls @ 0 mls/hr 04/18/25 07:55 04/20/25 07:3 5 Fentanyl 2,500 Mcg/Ns 250 Ml IV CONT 0 mcg/hr .Q0M JUAN C 0 mls/hr Protocol Titration Midazolam HCl 100 mg in 100 mls @ 0 mls/hr 04/18/25 07:55 04/20/25 07:34 Versed 100 Mg/Ns 100 Ml IV CONT 0 mg/hr .Q0M JUAN C 0 mls/hr Protocol Titration Cefepime HCl 2 gm/ Sodium 50 mls @ 100 mls/hr 04/19/25 00:00 04/20/25 00:17 Chloride IVPB Infused Q12H JUAN C Infusion Vancomycin HCl 1,500 mg in 500 mls @ 250 mls/hr 04/20/25 03:00 04/20/25 05:28 Vancomycin 1,500 Mg/Ns 500 Ml IVPB 04/20/25 12:00 Infused Q12H JUAN C Infusion Sodium Chloride 250 mls @ 30 mls/hr 04/20/25 07:26 Normal Saline Iv IV CONT 04/20/25 15:45 .Q8H20M STA Multi-Ingred Cream/Lotion/Oil/Oint 1 applic 04/18/25 09:00 04/20/25 08:01 Mineral Oil/White Petrolatum Ointment EACH EYE 1 applic Q12HR JUAN C Administration Ondansetron HCl 4 mg 04/18/25 04:12 Ondansetron Inj 4 Mg/2 Ml Vial IV PUSH Q4H PRN Nausea Pantoprazole Sodium 40 mg 04/18/25 09:00 04/20/25 08:01 Pantoprazole Sodium Iv 40 Mg Vial IV PUSH 40 mg Q12HR JUAN C Administration Sodium Chloride 10 ml 04/18/25 14:00 04/20/25 05:37 Central Line Flush IV PUSH 10 ml Q8HR JUAN C Administration Sodium Chloride 20 ml 04/18/25 08:31 Central Line Flush IV PUSH PRN PRN after blood draws Radiology Results: ITS Impressions Abdomen X-Ray 04/18/25 07:47 IMPRESSION: 1: OG tube tip in the stomach. Abdomen/Pelvis CTA 04/18/25 09:20 IMPRESSION: 1. No aneurysm or dissection identified. 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 There is a right-sided graft detailed above with probable seroma. Clinical correlation is required. Follow-up suggested to assess. Head CT 04/18/25 13:34 IMPRESSION: 1. No acute intracranial findings. Abdomen Ultrasound 04/19/25 09:39 IMPRESSION: 1. Nonspecific gallbladder wall thickening and pericholecystic fluid. If concern for acute cholecystitis, can consider HIDA scan. 2. Hepatomegaly, with steatosis and probable cirrhosis. Labs Labs: Laboratory Results - last 24 hr 04/17/25 04/19/25 04/19/25 21:46 05:26 09:26 WBC RBC Hgb Hct MCV MCH MCHC RDW Plt Count MPV Immature Gran % (Auto) Neut % (Auto) Lymph % (Auto) [place] % (Auto) Eos % (Auto) Baso % (Auto) Lymph # (Auto) [place] # (Auto) Eos # (Auto) Baso # (Auto) Abs Immat Gran (auto) Absolute Neuts (auto) Absolute Nucleated RBC Band Neutrophils % Nucleated RBC % Platelet Estimate Hypochromasia Poikilocytosis Anisocytosis [place] Cells Schistocytes Haptoglobin 144 PT INR APTT Puncture Site ABG pH ABG pCO2 ABG pO2 ABG PO2/FiO2 Ratio ABG HCO3 ABG O2 Saturation ABG O2 Content ABG Base Excess A-a Gradient Oxyhemoglobin Carboxyhemoglobin Methemoglobin Reduced Hemoglobin Total Hemoglobin O2 Delivery Device O2 Liters/Min Minute Volume Vent Rate Vent Mode FiO2 Tidal Volume PEEP Peak Inspir Pressure Pressure Support Sodium Potassium Chloride Carbon Dioxide Anion Gap BUN Creatinine Estim Creat Clear Calc Estimated GFR Glucose Lactic Acid Calcium Phosphorus Magnesium Total Bilirubin AST ALT Alkaline Phosphatase Lactate Dehydrogenase 342 H Total Protein Albumin Vancomycin Trough Hepatitis A IgM Ab Negative Hep Bs Antigen Negative Hep B Core IgM Ab Negative Hepatitis C Ab Screen Negative Blood Type O Negative Antibody Screen Negative JULIO, Poly Interpret Negative JULIO, Complement Interp Not Performed Crossmatch See Detail 04/20/25 04/20/25 04/20/25 01:04 04:49 05:41 WBC 16.1 H RBC 3.02 L Hgb 6.8 L* Hct 23.4 L MCV 77.5 L MCH 22.5 L MCHC 29.1 L RDW 24.8 H Plt Count 272 MPV 10.4 Immature Gran % (Auto) 0.7 H Neut % (Auto) 84.7 H Lymph % (Auto) 5.8 L [place] % (Auto) 6.6 Eos % (Auto) 1.6 Baso % (Auto) 0.6 Lymph # (Auto) 0.94 [place] # (Auto) 1.1 H Eos # (Auto) 0.3 Baso # (Auto) 0.1 Abs Immat Gran (auto) 0.12 H Absolute Neuts (auto) 13.6 H Absolute Nucleated RBC 0.020 H Band Neutrophils % Not Reportable Nucleated RBC % 0.1 Platelet Estimate Adequate Hypochromasia 2+ Poikilocytosis 1+ Anisocytosis 1+ [place] Cells 1+ Schistocytes Rare Haptoglobin PT 16.9 H INR 1.4 APTT 35.2 Puncture Site Left radial ABG pH 7.432 ABG pCO2 34.0 L ABG pO2 67.4 L ABG PO2/FiO2 Ratio 1.69 ABG HCO3 22.2 ABG O2 Saturation 94.1 L ABG O2 Content 10.1 L ABG Base Excess -1.8 A-a Gradient 178.7 Oxyhemoglobin 91.1 Carboxyhemoglobin 1.6 Methemoglobin 0.2 Reduced Hemoglobin 7.1 H Total Hemoglobin 7.8 L* O2 Delivery Device Ventilator O2 Liters/Min Not Reportable Minute Volume Not Reportable Vent Rate 20 Vent Mode Cmv FiO2 40 Tidal Volume 400 PEEP 5 Peak Inspir Pressure Not Reportable Pressure Support Not Reportable Sodium 136 L Potassium 3.4 Chloride 108 H Carbon Dioxide 28 Anion Gap 0 L BUN 10 Creatinine 0.60 L Estim Creat Clear Calc 75 Estimated GFR > 60 Glucose 130 H Lactic Acid 0.6 L Calcium 8.0 L Phosphorus 2.9 Magnesium 2.0 Total Bilirubin 4.9 H AST 90 H ALT 202 H Alkaline Phosphatase 102 Lactate Dehydrogenase Total Protein 5.7 L Albumin 2.8 L Vancomycin Trough 6.4 L Hepatitis A IgM Ab Hep Bs Antigen Hep B Core IgM Ab Hepatitis C Ab Screen Blood Type Antibody Screen JULIO, Poly Interpret JULIO, Complement Interp Crossmatch 04/20/25 08:29 WBC RBC Hgb Hct MCV MCH MCHC RDW Plt Count MPV Immature Gran % (Auto) Neut % (Auto) Lymph % (Auto) [place] % (Auto) Eos % (Auto) Baso % (Auto) Lymph # (Auto) [place] # (Auto) Eos # (Auto) Baso # (Auto) Abs Immat Gran (auto) Absolute Neuts (auto) Absolute Nucleated RBC Band Neutrophils % Nucleated RBC % Platelet Estimate Hypochromasia Poikilocytosis Anisocytosis [place] Cells Schistocytes Haptoglobin PT INR APTT Puncture Site Right radial ABG pH 7.413 ABG pCO2 41.0 ABG pO2 60.6 L ABG PO2/FiO2 Ratio 1.51 ABG HCO3 25.6 ABG O2 Saturation 91.6 L ABG O2 Content 9.9 L ABG Base Excess 0.9 A-a Gradient 177.5 Oxyhemoglobin 89.3 L Carboxyhemoglobin Methemoglobin Reduced Hemoglobin Total Hemoglobin 7.8 L* O2 Delivery Device Ventilator O2 Liters/Min Not Reportable Minute Volume Not Reportable Vent Rate Not Reportable Vent Mode Spontaneous FiO2 40 Tidal Volume Not Reportable PEEP 5 Peak Inspir Pressure Not Reportable Pressure Support 5 Sodium Potassium Chloride Carbon Dioxide Anion Gap BUN Creatinine Estim Creat Clear Calc Estimated GFR Glucose Lactic Acid Calcium Phosphorus Magnesium Total Bilirubin AST ALT Alkaline Phosphatase Lactate Dehydrogenase Total Protein Albumin Vancomycin Trough Hepatitis A IgM Ab Hep Bs Antigen Hep B Core IgM Ab Hepatitis C Ab Screen Blood Type Antibody Screen JULIO, Poly Interpret JULIO, Complement Interp Crossmatch
[2025-04-20] MEDS: CEFEPIME 2 GM in SODIUM CHLORIDE 0.9% IV 50 ML 100 ML IVPB ×2 (13:20→23:55)
[2025-04-20] MEDS: FUROSEMIDE INJ 40 MG/4 ML VIAL IV PUSH (13:37)
[2025-04-20 14:50] LABS: Hematocrit 28.7 % (37.0-47.0); Hemoglobin 8.5 g/dL (12.0-15.0)
--- NOTE | 2025-04-20 17:30 | PM.IMPN ---
Progress Note: A&P Assessment and Plan (1) Acute respiratory failure: Code(s): J96.00 - Acute respiratory failure, unspecified whether with hypoxia or hypercapnia Status: Resolved Assessment and Plan: 04/18: Patient was transferred from intermediate Unit with agonal breathing, unresponsiveness. 04/18: Intubated in the ICU, respiratory failure could be related to TRALI as patient has pulmonary vascular congestion, NSTEMI, CHF, aspiration -remains on CMV mode of ventilation, peep of 5, 35 % FiO2 -ABGs and chest x-ray reviewed, ventilator adjusted -continue bronchodilators -sedated with fentanyl and Versed infusion, maintain RASS of 0 to -2 -daily sedation vacation and SBT 04/20: Extubated. Monitoring s/p 1 PRBC given concern for TRALI. (2) Shock: Code(s): R57.9 - Shock, unspecified Status: Acute Assessment and Plan: Shock could be related to sepsis, cardiogenic given patient with NSTEMI, TRALI -leukocytosis, lactic acidosis with initial lactic of 3.6, post intubation with adequate oxygen her lactate is down to 2.4 -patient received adequate IV fluids and 3 units of packed RBCs -chest x-ray showed pulmonary vascular congestion -off on IV fluid -remains on Levophed, maintain MAP > 65 mmHg or SBP > 100 mmHg -continue on vancomycin and cefepime (04/18) -04/18: Blood cultures obtained -04/19: Urine cultures obtained -lactic acid has normalized -leukocytosis improving, T-max of 100.4 -04/20: Cultures NGTD (3) Non-ST elevation MA (NSTEMI): Code(s): I21.4 - Non-ST elevation (NSTEMI) myocardial infarction Status: Acute Assessment and Plan: Patient presented with chest pressure/pain, EKG showed inferior lateral ST depression the slight elevation in AVR, sinus tachycardia, normal QTC - Given concerns for ACS, interventional Cardiology was called by the ED physician, recommendations were to start heparin infusion and metoprolol. Heparin bolus was given, but her hemoglobin came back at 3.4 in the ER so heparin was discontinued. -unable to give heparin infusion or aspirin due to severe anemia, no beta-blockers due to septic shock and hypotension -appreciate cardiology recommended, no plans to conduct ischemic evaluation at this time -stress-induced/takotsubo cardiomyopathy on echocardiogram likely due to severe anemia. When she is off pressors will require GDMT 04/18/2025: Echocardiogram Summary 1. Definity contrast administered improved wall motion interpretation. 2. Left ventricular chamber dimension is severely enlarged. 3. Left ventricular systolic function is severely globally reduced, estimated at 20-25. 4. The very basal segments have normal contractility suggestive of Takotsubo cardiomyopathy. 5. The left ventricular diastolic function is grade I diastolic dysfunction. 6. E/e' 9 is minimally elevated. 7. Right ventricular chamber dimension is severely enlarged. 8. Right ventricular systolic function is severely reduced and with abnormal TAPSE 1.3 cm. 9. Left atrial chamber dimension is moderately enlarged. 10. Right atrial chamber dimension is moderately enlarged. 11. There is mild aortic valve sclerosis. 12. There is moderate to severe mitral valve regurgitation. 13. There is severe tricuspid valve regurgitation. 14. Mild pulmonary hypertension, estimated pulmonary arterial systolic pressure is 49 mmHg. 15. There is mild pulmonic regurgitation. 04/20: Seen by cardiology, supportive care to be continued, GDMT to be started when more stable and as tolerated. Echo c/w takotsubo cardiomyopathy. (4) Anemia requiring transfusions: Code(s): D64.9 - Anemia, unspecified Status: Acute Assessment and Plan: 04/18: Severe anemia, hemoglobin 3.4 on admission, received 3 units of packed RBC, -hemoglobin this morning is 8.9 -will continue to trend q.6 hours for now -appreciate GI evaluation and recommendation, likely upper and lower endoscopy once patient is stable and extubated -given NSTEMI, will maintain hemoglobin > 8.0 -Protonix IV q.12 hours -iron panel is normal -vitamin B12 and folic acid are normal -LDH slightly elevated, haptoglobin normal, Roshni test has been ordered to rule out hemolytic anemia -OG drainage is clear 04/20: GI on board, no overt GI bleeding noted, anemia considered to be due to chronic blood loss, EGD/colonoscopy deferred until stable. (5) COPD (chronic obstructive pulmonary disease): Code(s): J44.9 - Chronic obstructive pulmonary disease, unspecified Status: Acute Assessment and Plan: History of COPD, on 2 L nasal cannula at home -continue bronchodilators -patient is on Trelegy at home, will start budesonide nebs was she is in the hospital (6) PVD (peripheral vascular disease): Code(s): I73.9 - Peripheral vascular disease, unspecified Status: Acute Assessment and Plan: History of peripheral vascular disease with previous Aorto-ilio- femoral bypass -patient on clopidogrel, and Xarelto at home, currently on hold due to severe anemia (7) Hypertension: Code(s): I10 - Essential (primary) hypertension Status: Acute Assessment and Plan: Will hold all antihypertensives as patient is hypotensive/shock on pressors (8) Hyperlipemia, mixed: Code(s): E78.2 - Mixed hyperlipidemia Status: Acute Assessment and Plan: On atorvastatin at home, will continue continue Plan DVT prophylaxis: SCDs Stress ulcer prophylaxis: Protonix IV q.12 hours Nutrition: Tube feeds Code Status: Full code Subjective Date/time seen: 04/20/25 17:30 Interval history: Acute respiratory failure, shock, severe anemia, NSTEMI, possible GI bleed 04/19/2025: Patient seen and examined the ICU, remains intubated high on peep of 5 and 35% FiO2. Sedated with fentanyl and Versed infusion, opens her eyes, nods to questions and follows simple commands. Hemoglobin is 7.4 this morning and trending down. Urine output has been adequate, T-max of 100.4?, leukocytosis improving. 04/20/2025: Extubated, drop in Hb to 6.8 necessitating PRBC, after which lasix was given. Review of Systems Review of Systems: All systems reviewed & are unremarkable except as noted in HPI and below Exam Narrative: General: No acute distress HEENT:? Pupils equal and reactive, sclera is clear Neck:? Supple, right IJ central line in place Respiratory:? Coarse breath sounds bilaterally, adequate air entry, no wheezing Cardiac:? S1-S2 normal, regular rate and rhythm Abdomen:? Soft, nontender, nondistended, hypoactive bowel sounds Extremities:? Bilateral trace edema in her lower extremities Neuro:? Patient intubated, sedated, opens her eyes, follows simple commands and nods to questions Skin:? Warm and dry Objective Data Vital Signs Vital Signs: Vital Signs - 24 hr 04/19/25 18:00 04/19/25 18:00 04/19/25 18:00 Temperature Pulse Rate 91 91 91 Respiratory Rate 20 20 Blood Pressure 108/51 L Pulse Oximetry Oxygen Delivery Oxygen Flow Rate Fraction of Inspired Oxygen 04/19/25 18:00 04/19/25 18:00 04/19/25 19:00 Temperature 100.1 F H 100.3 F H Pulse Rate 91 91 93 Respiratory Rate 20 20 Blood Pressure 108/51 L 103/52 L Pulse Oximetry 92 92 Oxygen Delivery Oxygen Flow Rate Fraction of Inspired Oxygen 04/19/25 20:00 04/19/25 20:00 04/19/25 20:00 Temperature 100.3 F H Pulse Rate 101 H 95 Respiratory Rate 20 Blood Pressure 112/58 L Pulse Oximetry 91 Oxygen Delivery Oxygen Flow Rate Fraction of Inspired Oxygen 35 04/19/25 20:00 04/19/25 20:00 04/19/25 20:00 Temperature Pulse Rate 101 H 101 H Respiratory Rate 20 20 Blood Pressure Pulse Oximetry Oxygen Delivery Mechanical Ventilation Oxygen Flow Rate Fraction of Inspired Oxygen 35 04/19/25 20:00 04/19/25 20:02 04/19/25 20:06 Temperature Pulse Rate 101 H 96 96 Respiratory Rate 20 Blood Pressure 112/58 L Pulse Oximetry 92 Oxygen Delivery Mechanical Ventilation Oxygen Flow Rate Fraction of Inspired Oxygen 35 04/19/25 20:19 04/19/25 21:00 04/19/25 22:00 Temperature 100.5 F H Pulse Rate 96 100 98 Respiratory Rate 20 20 20 Blood Pressure 116/56 L Pulse Oximetry 91 Oxygen Delivery Oxygen Flow Rate Fraction of Inspired Oxygen 04/19/25 22:00 04/19/25 22:00 04/19/25 22:00 Temperature Pulse Rate 98 98 98 Respiratory Rate 20 Blood Pressure 104/53 L Pulse Oximetry Oxygen Delivery Oxygen Flow Rate Fraction of Inspired Oxygen 04/19/25 22:00 04/19/25 23:00 04/19/25 23:14 Temperature 100.6 F H 100.4 F H Pulse Rate 98 98 99 Respiratory Rate 20 20 Blood Pressure 104/53 L 99/55 L Pulse Oximetry 91 93 93 Oxygen Delivery Mechanical Ventilation Oxygen Flow Rate Fraction of Inspired Oxygen 35 04/20/25 00:00 04/20/25 00:00 04/20/25 00:00 Temperature 101.0 F H Pulse Rate 105 H Respiratory Rate 23 H Blood Pressure 126/61 Pulse Oximetry 97 Oxygen Delivery Mechanical Ventilation Oxygen Flow Rate Fraction of Inspired Oxygen 35 35 04/20/25 00:00 04/20/25 00:00 04/20/25 00:00 Temperature Pulse Rate 105 H 105 H 109 H Respiratory Rate 23 H 23 H Blood Pressure Pulse Oximetry Oxygen Delivery Oxygen Flow Rate Fraction of Inspired Oxygen 04/20/25 00:00 04/20/25 01:00 04/20/25 01:05 Temperature 101.1 F H Pulse Rate 105 H 104 H Respiratory Rate 22 H Blood Pressure 126/61 91/59 L Pulse Oximetry 87 L Oxygen Delivery Oxygen Flow Rate Fraction of Inspired Oxygen 40 04/20/25 01:08 04/20/25 01:53 04/20/25 01:56 Temperature 101.1 F H Pulse Rate 97 97 Respiratory Rate 20 Blood Pressure Pulse Oximetry 95 Oxygen Delivery Mechanical Ventilation Oxygen Flow Rate Fraction of Inspired Oxygen 40 04/20/25 02:00 04/20/25 02:00 04/20/25 02:00 Temperature 100.7 F H Pulse Rate 98 98 98 Respiratory Rate 20 20 20 Blood Pressure 92/56 L Pulse Oximetry 90 Oxygen Delivery Oxygen Flow Rate Fraction of Inspired Oxygen 04/20/25 02:00 04/20/25 02:00 04/20/25 02:08 Temperature 100.7 F H Pulse Rate 98 98 Respiratory Rate Blood Pressure 92/56 L Pulse Oximetry Oxygen Delivery Oxygen Flow Rate Fraction of Inspired Oxygen 04/20/25 02:16 04/20/25 03:00 04/20/25 03:31 Temperature 100.4 F H Pulse Rate 99 103 H 101 H Respiratory Rate 20 20 Blood Pressure 82/56 L 84/51 L Pulse Oximetry 90 Oxygen Delivery Oxygen Flow Rate Fraction of Inspired Oxygen 04/20/25 03:40 04/20/25 03:52 04/20/25 04:00 Temperature 100.4 F H Pulse Rate 99 92 92 Respiratory Rate 20 Blood Pressure 95/59 L 94/63 L 84/51 L Pulse Oximetry 92 Oxygen Delivery Oxygen Flow Rate Fraction of Inspired Oxygen 04/20/25 04:00 04/20/25 04:00 04/20/25 04:00 Temperature Pulse Rate 92 92 92 Respiratory Rate 20 20 Blood Pressure 84/51 L Pulse Oximetry Oxygen Delivery Oxygen Flow Rate Fraction of Inspired Oxygen 04/20/25 04:00 04/20/25 04:00 04/20/25 04:00 Temperature Pulse Rate 89 Respiratory Rate Blood Pressure Pulse Oximetry Oxygen Delivery Mechanical Ventilation Oxygen Flow Rate Fraction of Inspired Oxygen 40 40 04/20/25 04:15 04/20/25 04:31 04/20/25 04:45 Temperature Pulse Rate 89 84 95 Respiratory Rate Blood Pressure 88/50 L 88/53 L 95/55 L Pulse Oximetry Oxygen Delivery Oxygen Flow Rate Fraction of Inspired Oxygen 04/20/25 05:00 04/20/25 05:06 04/20/25 05:42 Temperature 100.1 F H Pulse Rate 87 87 90 Respiratory Rate 20 Blood Pressure 106/59 L 110/58 L Pulse Oximetry 96 96 Oxygen Delivery Mechanical Ventilation Oxygen Flow Rate Fraction of Inspired Oxygen 40 04/20/25 06:00 04/20/25 06:00 04/20/25 06:00 Temperature 100.0 F H Pulse Rate 84 84 84 Respiratory Rate 20 20 Blood Pressure 91/54 L 91/54 L Pulse Oximetry 95 Oxygen Delivery Oxygen Flow Rate Fraction of Inspired Oxygen 04/20/25 06:00 04/20/25 06:00 04/20/25 06:16 Temperature Pulse Rate 84 84 82 Respiratory Rate 20 Blood Pressure 87/52 L Pulse Oximetry Oxygen Delivery Oxygen Flow Rate Fraction of Inspired Oxygen 04/20/25 06:30 04/20/25 07:00 04/20/25 07:34 Temperature 99.9 F H Pulse Rate 81 80 86 Respiratory Rate 20 Blood Pressure 94/58 L 95/54 L 101/64 Pulse Oximetry 97 Oxygen Delivery Oxygen Flow Rate Fraction of Inspired Oxygen 04/20/25 07:34 04/20/25 07:35 04/20/25 07:40 Temperature Pulse Rate 88 88 90 Respiratory Rate 20 20 Blood Pressure Pulse Oximetry 92 Oxygen Delivery Mechanical Ventilation Oxygen Flow Rate Fraction of Inspired Oxygen 40 04/20/25 07:40 04/20/25 07:59 04/20/25 08:00 Temperature Pulse Rate 90 100 99 Respiratory Rate 18 18 Blood Pressure 111/58 L Pulse Oximetry Oxygen Delivery Oxygen Flow Rate Fraction of Inspired Oxygen 04/20/25 08:00 04/20/25 08:00 04/20/25 08:00 Temperature 100.0 F H Pulse Rate 100 Respiratory Rate 18 Blood Pressure 113/67 Pulse Oximetry 93 Oxygen Delivery Mechanical Ventilation Oxygen Flow Rate Fraction of Inspired Oxygen 40 40 04/20/25 08:00 04/20/25 08:20 04/20/25 08:30 Temperature Pulse Rate 101 H 104 H 101 H Respiratory Rate Blood Pressure 115/58 L 111/60 Pulse Oximetry Oxygen Delivery Oxygen Flow Rate Fraction of Inspired Oxygen 04/20/25 08:40 04/20/25 08:40 04/20/25 09:00 Temperature 100.0 F H Pulse Rate 111 H 121 H Respiratory Rate 18 24 H Blood Pressure 100/65 Pulse Oximetry 92 92 90 Oxygen Delivery Nasal Cannula Nasal Cannula Oxygen Flow Rate 4 4 Fraction of Inspired Oxygen 40 04/20/25 09:59 04/20/25 10:00 04/20/25 10:00 Temperature 100 F H 100.0 F H Pulse Rate 110 H 111 H 106 H Respiratory Rate 17 18 Blood Pressure 102/53 L 103/62 Pulse Oximetry 94 92 Oxygen Delivery Oxygen Flow Rate Fraction of Inspired Oxygen 04/20/25 10:12 04/20/25 10:13 04/20/25 10:13 Temperature Pulse Rate 111 H 111 H 111 H Respiratory Rate 18 20 Blood Pressure 103/62 Pulse Oximetry Oxygen Delivery Oxygen Flow Rate Fraction of Inspired Oxygen 04/20/25 10:15 04/20/25 11:00 04/20/25 11:00 Temperature 98.8 F 100.0 F H Pulse Rate 109 H 105 H 108 H Respiratory Rate 17 19 Blood Pressure 101/59 L 114/58 L 114/58 L Pulse Oximetry 94 90 Oxygen Delivery Oxygen Flow Rate Fraction of Inspired Oxygen 04/20/25 11:15 04/20/25 12:00 04/20/25 12:00 Temperature 100.0 F H 100.1 F H Pulse Rate 106 H 104 H 105 H Respiratory Rate 17 17 Blood Pressure 104/63 83/70 L 83/70 L Pulse Oximetry 92 96 Oxygen Delivery Oxygen Flow Rate Fraction of Inspired Oxygen 04/20/25 12:00 04/20/25 12:00 04/20/25 12:15 Temperature 100.2 F H Pulse Rate 109 H 111 H 101 H Respiratory Rate 18 16 Blood Pressure 115/68 Pulse Oximetry 92 96 Oxygen Delivery Nasal Cannula Oxygen Flow Rate 4 Fraction of Inspired Oxygen 40 04/20/25 13:00 04/20/25 13:29 04/20/25 13:30 Temperature 100.1 F H Pulse Rate 103 H 102 H 102 H Respiratory Rate 18 17 Blood Pressure 121/69 126/73 Pulse Oximetry 95 Oxygen Delivery Oxygen Flow Rate Fraction of Inspired Oxygen 04/20/25 13:35 04/20/25 14:00 04/20/25 14:00 Temperature 99.8 F H Pulse Rate 104 H 106 H 106 H Respiratory Rate 15 18 Blood Pressure 112/65 Pulse Oximetry 91 Oxygen Delivery Oxygen Flow Rate Fraction of Inspired Oxygen 04/20/25 15:00 04/20/25 16:00 04/20/25 16:00 Temperature 99.9 F H 99.9 F H Pulse Rate 95 98 101 H Respiratory Rate 17 16 Blood Pressure 100/63 103/66 Pulse Oximetry 93 94 Oxygen Delivery Oxygen Flow Rate Fraction of Inspired Oxygen 04/20/25 16:00 04/20/25 16:00 Temperature Pulse Rate 111 H 111 H Respiratory Rate 18 Blood Pressure 103/66 Pulse Oximetry 92 Oxygen Delivery Nasal Cannula Oxygen Flow Rate 4 Fraction of Inspired Oxygen 40 Intake/Output Intake/Output: Intake & Output 04/17/25 04/18/25 04/19/25 04/20/25 23:59 23:59 23:59 23:59 Intake Total 700.8 3154.4 873.3 1199.6 Output Total 700 825 325 Balance 700.8 2454.4 48.3 874.6 Meds/Results Medications: Active Medications Generic Name Dose Route Start Last Admin Trade Name Freq PRN Reason Stop Dose Admin Acetaminophen 650 mg 04/18/25 04:12 04/20/25 01:08 Acetaminophen 325 Mg Tablet PO 650 mg Q4H PRN Administration Mild Pain (1-3) or Fever Albuterol/Ipratropium 3 ml 04/18/25 08:00 04/20/25 13:27 Ipratropium 0.5 Mg/Albuterol Sulfate 2.5 Mg (Base) Ampul.Neb 3 Ml INHALATION 3 ml Q6HRT JUAN C Administration Atorvastatin Calcium 80 mg 04/18/25 21:00 04/19/25 20:45 Atorvastatin 40 Mg Tablet PO 80 mg HS JUAN C Administration Budesonide 0.5 mg 04/18/25 12:50 04/20/25 07:39 Budesonide Respule Neb 0.5 Mg/2 Ml Amp INHALATION 0.5 mg Q12HRT JUAN C Administration Escitalopram Oxalate 10 mg 04/18/25 12:00 04/20/25 08:01 Escitalopram Oxalate 10 Mg Tablet PO 10 mg DAILY JUAN C Administration Furosemide 40 mg 04/20/25 07:39 04/20/25 13:37 Furosemide Inj 40 Mg/4 Ml Vial IV PUSH 40 mg ONCE PRN Administration After PRBC Transfusion Norepinephrine Bitartrate 8 mg in 250 mls @ 0 mls/hr 04/18/25 07:15 04/20/25 16:00 Levophed 8 Mg/D5w 250 Ml IV CONT 0 mcg/min .Q0M JUAN C 0 mls/hr Protocol Titration Cefepime HCl 2 gm/ Sodium 50 mls @ 100 mls/hr 04/19/25 00:00 04/20/25 13:20 Chloride IVPB 100 mls/hr Q12H JUAN C Administration Multi-Ingred Cream/Lotion/Oil/Oint 1 applic 04/18/25 09:00 04/20/25 08:01 Mineral Oil/White Petrolatum Ointment EACH EYE 1 applic Q12HR JUAN C Administration Ondansetron HCl 4 mg 04/18/25 04:12 Ondansetron Inj 4 Mg/2 Ml Vial IV PUSH Q4H PRN Nausea Pantoprazole Sodium 40 mg 04/18/25 09:00 04/20/25 08:01 Pantoprazole Sodium Iv 40 Mg Vial IV PUSH 40 mg Q12HR JUAN C Administration Sodium Chloride 10 ml 04/18/25 14:00 04/20/25 13:33 Central Line Flush IV PUSH 10 ml Q8HR JUAN C Administration Sodium Chloride 20 ml 04/18/25 08:31 Central Line Flush IV PUSH PRN PRN after blood draws Radiology Results: ITS Impressions Abdomen X-Ray 04/18/25 07:47 IMPRESSION: 1: OG tube tip in the stomach. Abdomen/Pelvis CTA 04/18/25 09:20 IMPRESSION: 1. No aneurysm or dissection identified. 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 There is a right-sided graft detailed above with probable seroma. Clinical correlation is required. Follow-up suggested to assess. Head CT 04/18/25 13:34 IMPRESSION: 1. No acute intracranial findings. Abdomen Ultrasound 04/19/25 09:39 IMPRESSION: 1. Nonspecific gallbladder wall thickening and pericholecystic fluid. If concern for acute cholecystitis, can consider HIDA scan. 2. Hepatomegaly, with steatosis and probable cirrhosis. Chest X-Ray 04/20/25 11:02 IMPRESSION: 1. Worsening interstitial pulmonary edema and/or pneumonitis. 2. Suspect left effusion. Labs Labs: Laboratory Results - last 24 hr 04/17/25 04/19/25 04/20/25 21:46 09:26 01:04 WBC RBC Hgb Hct MCV MCH MCHC RDW Plt Count MPV Immature Gran % (Auto) Neut % (Auto) Lymph % (Auto) [place] % (Auto) Eos % (Auto) Baso % (Auto) Lymph # (Auto) [place] # (Auto) Eos # (Auto) Baso # (Auto) Abs Immat Gran (auto) Absolute Neuts (auto) Absolute Nucleated RBC Band Neutrophils % Nucleated RBC % Platelet Estimate Hypochromasia Poikilocytosis Anisocytosis Webster Cells Schistocytes Haptoglobin 144 PT INR APTT Puncture Site ABG pH ABG pCO2 ABG pO2 ABG PO2/FiO2 Ratio ABG HCO3 ABG O2 Saturation ABG O2 Content ABG Base Excess A-a Gradient Oxyhemoglobin Carboxyhemoglobin Methemoglobin Reduced Hemoglobin Total Hemoglobin O2 Delivery Device O2 Liters/Min Minute Volume Vent Rate Vent Mode FiO2 Tidal Volume PEEP Peak Inspir Pressure Pressure Support Sodium Potassium Chloride Carbon Dioxide Anion Gap BUN Creatinine Estim Creat Clear Calc Estimated GFR Glucose POC Capillary Glucose Lactic Acid Calcium Phosphorus Magnesium Total Bilirubin AST ALT Alkaline Phosphatase Total Protein Albumin Vancomycin Trough 6.4 L Blood Type O Negative Antibody Screen Negative Crossmatch See Detail 04/20/25 04/20/25 04/20/25 04:49 05:41 08:29 WBC 16.1 H RBC 3.02 L Hgb 6.8 L* Hct 23.4 L MCV 77.5 L MCH 22.5 L MCHC 29.1 L RDW 24.8 H Plt Count 272 MPV 10.4 Immature Gran % (Auto) 0.7 H Neut % (Auto) 84.7 H Lymph % (Auto) 5.8 L [place] % (Auto) 6.6 Eos % (Auto) 1.6 Baso % (Auto) 0.6 Lymph # (Auto) 0.94 [place] # (Auto) 1.1 H Eos # (Auto) 0.3 Baso # (Auto) 0.1 Abs Immat Gran (auto) 0.12 H Absolute Neuts (auto) 13.6 H Absolute Nucleated RBC 0.020 H Band Neutrophils % Not Reportable Nucleated RBC % 0.1 Platelet Estimate Adequate Hypochromasia 2+ Poikilocytosis 1+ Anisocytosis 1+ [place] Cells 1+ Schistocytes Rare Haptoglobin PT 16.9 H INR 1.4 APTT 35.2 Puncture Site Left radial Right radial ABG pH 7.432 7.413 ABG pCO2 34.0 L 41.0 ABG pO2 67.4 L 60.6 L ABG PO2/FiO2 Ratio 1.69 1.51 ABG HCO3 22.2 25.6 ABG O2 Saturation 94.1 L 91.6 L ABG O2 Content 10.1 L 9.9 L ABG Base Excess -1.8 0.9 A-a Gradient 178.7 177.5 Oxyhemoglobin 91.1 89.3 L Carboxyhemoglobin 1.6 Methemoglobin 0.2 Reduced Hemoglobin 7.1 H Total Hemoglobin 7.8 L* 7.8 L* O2 Delivery Device Ventilator Ventilator O2 Liters/Min Not Reportable Not Reportable Minute Volume Not Reportable Not Reportable Vent Rate 20 Not Reportable Vent Mode Cmv Spontaneous FiO2 40 40 Tidal Volume 400 Not Reportable PEEP 5 5 Peak Inspir Pressure Not Reportable Not Reportable Pressure Support Not Reportable 5 Sodium 136 L Potassium 3.4 Chloride 108 H Carbon Dioxide 28 Anion Gap 0 L BUN 10 Creatinine 0.60 L Estim Creat Clear Calc 75 Estimated GFR > 60 Glucose 130 H POC Capillary Glucose Lactic Acid 0.6 L Calcium 8.0 L Phosphorus 2.9 Magnesium 2.0 Total Bilirubin 4.9 H AST 90 H ALT 202 H Alkaline Phosphatase 102 Total Protein 5.7 L Albumin 2.8 L Vancomycin Trough Blood Type Antibody Screen Crossmatch 04/20/25 04/20/25 11:28 13:37 WBC RBC Hgb 8.5 L Hct 28.7 L MCV MCH MCHC RDW Plt Count MPV Immature Gran % (Auto) Neut % (Auto) Lymph % (Auto) [place] % (Auto) Eos % (Auto) Baso % (Auto) Lymph # (Auto) [place] # (Auto) Eos # (Auto) Baso # (Auto) Abs Immat Gran (auto) Absolute Neuts (auto) Absolute Nucleated RBC Band Neutrophils % Nucleated RBC % Platelet Estimate Hypochromasia Poikilocytosis Anisocytosis [place] Cells Schistocytes Haptoglobin PT INR APTT Puncture Site ABG pH ABG pCO2 ABG pO2 ABG PO2/FiO2 Ratio ABG HCO3 ABG O2 Saturation ABG O2 Content ABG Base Excess A-a Gradient Oxyhemoglobin Carboxyhemoglobin Methemoglobin Reduced Hemoglobin Total Hemoglobin O2 Delivery Device O2 Liters/Min Minute Volume Vent Rate Vent Mode FiO2 Tidal Volume PEEP Peak Inspir Pressure Pressure Support Sodium Potassium Chloride Carbon Dioxide Anion Gap BUN Creatinine Estim Creat Clear Calc Estimated GFR Glucose POC Capillary Glucose 132 H Lactic Acid Calcium Phosphorus Magnesium Total Bilirubin AST ALT Alkaline Phosphatase Total Protein Albumin Vancomycin Trough Blood Type Antibody Screen Crossmatch Hospitalist MIPS Advance Care Plan I have confirmed that the patient's Advanced Care Plan is present, code status is documented, or surrogate decision maker is listed in patient medical record.: Yes Medication Reconciliation I have utilized all available resources to obtain, update and review the patients current medications (includes all prescriptions, OTC, herbals, cannabis, and nutritional supplements).: Yes
[2025-04-21] VITALS (29 sets, daily range): BP systolic 85–137; BP diastolic 53–78; PULSE 72–98; RESP 15–28; TEMP 36.9–37.9; O2SAT 90–100
[2025-04-21] MEDS: IPRATROPIUM 0.5 MG/ALBUTEROL SULFATE 2.5 MG (BASE) AMPUL.NEB 3 ML INHALATION ×2 (01:49→07:47)
[2025-04-21 04:21] LABS: Alveolar/Arterial O2 Gradient 113.4 mmHg; Carboxyhemoglobin 1.4 % THb (0-2.0); Fractional Inspired Oxygen 32 %; HCO3 ABG 31.7 mEq/l (22.0-26.0); Methemoglobin ABG 0.1 %THb (0-1.5); Oxygen Content ABG 11.6 %vol (16.0-22.0); Oxygen Saturation ABG 89.7 % (95.0-100.0); PCO2 ABG 49.7 mmHg (35.0-45.0); PO2 ABG 56.6 mmHg (80.0-100.0); PO2 FiO2 Ratio Arterial Blood 1.77 %; Reduced Hemoglobin 9.9 %THb (0-5.0)
[2025-04-21 04:22] LABS: Site Drawn RIGHT RADIAL
[2025-04-21 04:23] LABS: Liters per Minute 3.0 LPM; Modified Allen's Test Pass
[2025-04-21] MEDS: CENTRAL LINE FLUSH 10 ML IV PUSH ×3 (05:22→20:22)
[2025-04-21 05:44] LABS: Hematocrit 28.9 % (37.0-47.0); Hemoglobin 8.5 g/dL (12.0-15.0); Immature Platelet Fraction Pct 4.9 % (0.9-11.2); Mean Corpuscular HGB Conc 29.4 g/dl (32-36); Mean Corpuscular Hemoglobin 23.6 pg (26-34); Mean Corpuscular Volume 80.3 fl (80-100); Platelet Count Result 208 k/mm3 (150-375); Red Blood Count 3.60 M/mm3 (4.2-5.4); White Blood Count 10.1 K/mm3 (4.5-10.0)
[2025-04-21 06:13] LABS: Alanine Aminotransferase 172 U/L (6-35); Albumin Level 3.1 g/dL (3.5-5.1); Alkaline Phosphatase 137 U/L (38-126); Anion Gap 1 mmol/L (4-12); Aspartate Amino Transferase 66 U/L (14-36); Bilirubin,Total 3.6 mg/dL (0.2-1.3); Blood Urea Nitrogen 10 mg/dL (7-17); Calcium 8.4 mg/dL (8.4-10.2); Carbon Dioxide 36 mmol/L (22-30); Chloride 102 mmol/L (98-107); Estimated CRCL calculation 73 ml/min; Estimated Glomerular Filt Rate > 60; Glucose 98 mg/dL (65-110); Magnesium 2.0 mg/dL (1.6-2.3); Potassium 3.5 mmol/L (3.4-5.0); Sodium 139 mmol/L (137-145); Total Protein 5.9 g/dL (6.3-8.2)
--- NOTE | 2025-04-21 06:57 | P.PNGI_ITS ---
Progress Note: A&P Assessment and Plan (1) Anemia: Code(s): D64.9 - Anemia, unspecified Status: Acute Assessment and Plan: Patient with severe anemia of unclear etiology, presumably chronic GI blood losses, not acute bleeding. Pantoprazole discontinued since patient is no longer intubated and has no evidence of acute GI bleeding. Swallowing problem with sips of water might be secondary to extreme throat/ mouth dryness post intubation, suggested trying ice chips and evaluation by speech pathology. Once patient recovers her swallowing ability, we can schedule her colonoscopy and EGD. Subjective Date/time seen: 04/21/25 06:57 Interval history: The patient had difficulty swallowing sips of water yesterday. She complains of extreme thirst and a very dry throat and mouth. No abdominal pain, no vomiting, no nausea no stool output. Remains hemodynamically stable, off Levophed today. Lab data: Hemoglobin 8.5 (after 1 unit of packed red blood cells), platelet count 208, AST 66, ALT 172, total bilirubin 3.6, albumin 3.1, creatinine 0.62. Sodium 139 Exam Narrative: Alert and oriented x3, not acutely distressed. Abdomen: Soft, nontender, nondistended, no organomegaly. Objective Data Vital Signs Vital Signs: Vital Signs - 24 hr 04/20/25 07:00 04/20/25 07:34 04/20/25 07:34 Temperature 99.9 F H Pulse Rate 80 86 88 Respiratory Rate 20 20 Blood Pressure 95/54 L 101/64 Pulse Oximetry 97 Oxygen Delivery Oxygen Flow Rate Fraction of Inspired Oxygen 04/20/25 07:35 04/20/25 07:40 04/20/25 07:40 Temperature Pulse Rate 88 90 90 Respiratory Rate 20 18 Blood Pressure Pulse Oximetry 92 Oxygen Delivery Mechanical Ventilation Oxygen Flow Rate Fraction of Inspired Oxygen 40 04/20/25 07:59 04/20/25 08:00 04/20/25 08:00 Temperature 100.0 F H Pulse Rate 100 99 100 Respiratory Rate 18 18 Blood Pressure 111/58 L 113/67 Pulse Oximetry 93 Oxygen Delivery Oxygen Flow Rate Fraction of Inspired Oxygen 04/20/25 08:00 04/20/25 08:00 04/20/25 08:00 Temperature Pulse Rate 101 H Respiratory Rate Blood Pressure Pulse Oximetry Oxygen Delivery Mechanical Ventilation Oxygen Flow Rate Fraction of Inspired Oxygen 40 40 04/20/25 08:20 04/20/25 08:30 04/20/25 08:40 Temperature Pulse Rate 104 H 101 H Respiratory Rate Blood Pressure 115/58 L 111/60 Pulse Oximetry 92 Oxygen Delivery Nasal Cannula Oxygen Flow Rate 4 Fraction of Inspired Oxygen 04/20/25 08:40 04/20/25 09:00 04/20/25 09:59 Temperature 100.0 F H 100 F H Pulse Rate 111 H 121 H 110 H Respiratory Rate 18 24 H 17 Blood Pressure 100/65 102/53 L Pulse Oximetry 92 90 94 Oxygen Delivery Nasal Cannula Oxygen Flow Rate 4 Fraction of Inspired Oxygen 40 04/20/25 10:00 04/20/25 10:00 04/20/25 10:12 Temperature 100.0 F H Pulse Rate 111 H 106 H 111 H Respiratory Rate 18 Blood Pressure 103/62 103/62 Pulse Oximetry 92 Oxygen Delivery Oxygen Flow Rate Fraction of Inspired Oxygen 04/20/25 10:13 04/20/25 10:13 04/20/25 10:15 Temperature 98.8 F Pulse Rate 111 H 111 H 109 H Respiratory Rate 18 20 17 Blood Pressure 101/59 L Pulse Oximetry 94 Oxygen Delivery Oxygen Flow Rate Fraction of Inspired Oxygen 04/20/25 11:00 04/20/25 11:00 04/20/25 11:15 Temperature 100.0 F H 100.0 F H Pulse Rate 105 H 108 H 106 H Respiratory Rate 19 17 Blood Pressure 114/58 L 114/58 L 104/63 Pulse Oximetry 90 92 Oxygen Delivery Oxygen Flow Rate Fraction of Inspired Oxygen 04/20/25 12:00 04/20/25 12:00 04/20/25 12:00 Temperature 100.1 F H Pulse Rate 104 H 105 H 109 H Respiratory Rate 17 Blood Pressure 83/70 L 83/70 L Pulse Oximetry 96 Oxygen Delivery Oxygen Flow Rate Fraction of Inspired Oxygen 04/20/25 12:00 04/20/25 12:15 04/20/25 12:30 Temperature 100.2 F H 100 F H Pulse Rate 111 H 101 H 104 H Respiratory Rate 18 16 20 Blood Pressure 115/68 115/64 Pulse Oximetry 92 96 94 Oxygen Delivery Nasal Cannula Oxygen Flow Rate 4 Fraction of Inspired Oxygen 40 04/20/25 12:30 04/20/25 13:00 04/20/25 13:29 Temperature 100 F H 100.1 F H Pulse Rate 104 H 103 H 102 H Respiratory Rate 20 18 17 Blood Pressure 115/64 121/69 Pulse Oximetry 94 95 Oxygen Delivery Oxygen Flow Rate Fraction of Inspired Oxygen 04/20/25 13:30 04/20/25 13:35 04/20/25 14:00 Temperature 99.8 F H Pulse Rate 102 H 104 H 106 H Respiratory Rate 15 18 Blood Pressure 126/73 112/65 Pulse Oximetry 91 Oxygen Delivery Oxygen Flow Rate Fraction of Inspired Oxygen 04/20/25 14:00 04/20/25 15:00 04/20/25 16:00 Temperature 99.9 F H 99.9 F H Pulse Rate 106 H 95 98 Respiratory Rate 17 16 Blood Pressure 100/63 103/66 Pulse Oximetry 93 94 Oxygen Delivery Oxygen Flow Rate Fraction of Inspired Oxygen 04/20/25 16:00 04/20/25 16:00 04/20/25 16:00 Temperature Pulse Rate 101 H 111 H 111 H Respiratory Rate 18 Blood Pressure 103/66 Pulse Oximetry 92 Oxygen Delivery Nasal Cannula Oxygen Flow Rate 4 Fraction of Inspired Oxygen 40 04/20/25 17:00 04/20/25 18:00 04/20/25 19:00 Temperature 99.8 F H 100.0 F H 100.4 F H Pulse Rate 93 94 102 H Respiratory Rate 14 25 H 18 Blood Pressure 103/61 111/67 131/71 Pulse Oximetry 95 94 93 Oxygen Delivery Oxygen Flow Rate Fraction of Inspired Oxygen 04/20/25 20:00 04/20/25 20:00 04/20/25 20:00 Temperature 100.4 F H Pulse Rate 109 H 109 H 104 H Respiratory Rate 20 Blood Pressure 114/66 114/66 Pulse Oximetry 94 Oxygen Delivery Oxygen Flow Rate Fraction of Inspired Oxygen 04/20/25 20:00 04/20/25 20:16 04/20/25 20:18 Temperature Pulse Rate 103 H 102 H Respiratory Rate 20 20 Blood Pressure Pulse Oximetry 94 94 Oxygen Delivery Nasal Cannula Nasal Cannula Oxygen Flow Rate 4 4 Fraction of Inspired Oxygen 36 04/20/25 20:25 04/20/25 21:00 04/20/25 22:00 Temperature 100.5 F H Pulse Rate 107 H 101 H 97 Respiratory Rate 20 20 Blood Pressure 107/64 Pulse Oximetry 89 L Oxygen Delivery Oxygen Flow Rate Fraction of Inspired Oxygen 04/20/25 22:00 04/20/25 22:00 04/20/25 23:00 Temperature 100.5 F H 100.5 F H Pulse Rate 97 97 97 Respiratory Rate 15 20 Blood Pressure 99/63 L 99/63 L 142/72 H Pulse Oximetry 93 93 Oxygen Delivery Oxygen Flow Rate Fraction of Inspired Oxygen 04/21/25 00:00 04/21/25 00:00 04/21/25 00:00 Temperature 100.3 F H Pulse Rate 92 92 Respiratory Rate 18 Blood Pressure 116/73 116/73 Pulse Oximetry 96 95 Oxygen Delivery Nasal Cannula Oxygen Flow Rate 4 Fraction of Inspired Oxygen 04/21/25 00:00 04/21/25 01:00 04/21/25 01:50 Temperature 100.1 F H Pulse Rate 88 87 96 Respiratory Rate 15 20 Blood Pressure 118/66 Pulse Oximetry 95 Oxygen Delivery Oxygen Flow Rate Fraction of Inspired Oxygen 04/21/25 01:54 04/21/25 01:59 04/21/25 02:00 Temperature Pulse Rate 93 89 98 Respiratory Rate 20 20 Blood Pressure Pulse Oximetry 98 Oxygen Delivery Nasal Cannula Oxygen Flow Rate 4 Fraction of Inspired Oxygen 36 04/21/25 02:00 04/21/25 02:00 04/21/25 02:33 Temperature 100.1 F H Pulse Rate 98 98 Respiratory Rate 24 H Blood Pressure 120/78 120/78 Pulse Oximetry 94 90 Oxygen Delivery Nasal Cannula Oxygen Flow Rate 3 Fraction of Inspired Oxygen 04/21/25 03:00 04/21/25 04:00 04/21/25 04:00 Temperature 99.9 F H 99.1 F Pulse Rate 85 83 83 Respiratory Rate 16 16 Blood Pressure 107/59 L 99/65 L 99/65 L Pulse Oximetry 92 94 Oxygen Delivery Oxygen Flow Rate Fraction of Inspired Oxygen 04/21/25 04:00 04/21/25 04:00 04/21/25 05:00 Temperature 99.6 F Pulse Rate 85 90 Respiratory Rate 18 Blood Pressure 130/76 Pulse Oximetry 94 97 Oxygen Delivery Nasal Cannula Oxygen Flow Rate 4 Fraction of Inspired Oxygen 04/21/25 06:00 04/21/25 06:00 04/21/25 06:00 Temperature 99.7 F H Pulse Rate 85 88 86 Respiratory Rate 15 Blood Pressure 113/66 113/66 Pulse Oximetry 97 Oxygen Delivery Oxygen Flow Rate Fraction of Inspired Oxygen Intake/Output Intake/Output: Intake & Output 04/18/25 04/19/25 04/20/25 04/21/25 23:59 23:59 23:59 23:59 Intake Total 3154.4 873.3 1249.6 50 Output Total 700 825 500 275 Balance 2454.4 48.3 749.6 -225 Meds/Results Medications: Active Medications Generic Name Dose Route Start Last Admin Trade Name Freq PRN Reason Stop Dose Admin Acetaminophen 650 mg 04/18/25 04:12 04/20/25 01:08 Acetaminophen 325 Mg Tablet PO 650 mg Q4H PRN Administration Mild Pain (1-3) or Fever Albuterol/Ipratropium 3 ml 04/18/25 08:00 04/21/25 01:49 Ipratropium 0.5 Mg/Albuterol Sulfate 2.5 Mg (Base) Ampul.Neb 3 Ml INHALATION 3 ml Q6HRT JUAN C Administration Atorvastatin Calcium 80 mg 04/18/25 21:00 04/20/25 20:30 Atorvastatin 40 Mg Tablet PO Not Given HS JUAN C Budesonide 0.5 mg 04/18/25 12:50 04/20/25 20:16 Budesonide Respule Neb 0.5 Mg/2 Ml Amp INHALATION 0.5 mg Q12HRT JUAN C Administration Escitalopram Oxalate 10 mg 04/18/25 12:00 04/20/25 08:01 Escitalopram Oxalate 10 Mg Tablet PO 10 mg DAILY JUAN C Administration Furosemide 40 mg 04/20/25 07:39 04/20/25 13:37 Furosemide Inj 40 Mg/4 Ml Vial IV PUSH 40 mg ONCE PRN Administration After PRBC Transfusion Norepinephrine Bitartrate 8 mg in 250 mls @ 0 mls/hr 04/18/25 07:15 04/21/25 06:00 Levophed 8 Mg/D5w 250 Ml IV CONT Infused .Q0M JUAN C Titration Protocol Cefepime HCl 2 gm/ Sodium 50 mls @ 100 mls/hr 04/19/25 00:00 04/21/25 00:24 Chloride IVPB Infused Q12H JUAN C Infusion Ondansetron HCl 4 mg 04/18/25 04:12 Ondansetron Inj 4 Mg/2 Ml Vial IV PUSH Q4H PRN Nausea Sodium Chloride 10 ml 04/18/25 14:00 04/21/25 05:22 Central Line Flush IV PUSH 10 ml Q8HR JUAN C Administration Sodium Chloride 20 ml 04/18/25 08:31 Central Line Flush IV PUSH PRN PRN after blood draws Radiology Results: ITS Impressions Abdomen X-Ray 04/18/25 07:47 IMPRESSION: 1: OG tube tip in the stomach. Abdomen/Pelvis CTA 04/18/25 09:20 IMPRESSION: 1. No aneurysm or dissection identified. 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 There is a right-sided graft detailed above with probable seroma. Clinical correlation is required. Follow-up suggested to assess. Head CT 04/18/25 13:34 IMPRESSION: 1. No acute intracranial findings. Abdomen Ultrasound 04/19/25 09:39 IMPRESSION: 1. Nonspecific gallbladder wall thickening and pericholecystic fluid. If concern for acute cholecystitis, can consider HIDA scan. 2. Hepatomegaly, with steatosis and probable cirrhosis. Labs Labs: Laboratory Results - last 24 hr 04/17/25 04/20/25 04/20/25 21:46 08:29 11:28 WBC RBC Hgb Hct MCV MCH MCHC RDW Plt Count MPV % Immature Plt Fraction Puncture Site Right radial ABG pH 7.413 ABG pCO2 41.0 ABG pO2 60.6 L ABG PO2/FiO2 Ratio 1.51 ABG HCO3 25.6 ABG O2 Saturation 91.6 L ABG O2 Content 9.9 L ABG Base Excess 0.9 A-a Gradient 177.5 Oxyhemoglobin 89.3 L Carboxyhemoglobin Methemoglobin Reduced Hemoglobin Total Hemoglobin 7.8 L* O2 Delivery Device Ventilator O2 Liters/Min Not Reportable Minute Volume Not Reportable Vent Rate Not Reportable Vent Mode Spontaneous FiO2 40 Tidal Volume Not Reportable PEEP 5 Peak Inspir Pressure Not Reportable Pressure Support 5 Sodium Potassium Chloride Carbon Dioxide Anion Gap BUN Creatinine Estim Creat Clear Calc Estimated GFR Glucose POC Capillary Glucose 132 H Calcium Phosphorus Magnesium Total Bilirubin AST ALT Alkaline Phosphatase Total Protein Albumin Blood Type O Negative Antibody Screen Negative Crossmatch See Detail 04/20/25 04/21/25 04/21/25 13:37 04:09 05:28 WBC 10.1 H RBC 3.60 L Hgb 8.5 L 8.5 L Hct 28.7 L 28.9 L MCV 80.3 MCH 23.6 L MCHC 29.4 L RDW 23.6 H Plt Count 208 MPV 11.2 H % Immature Plt Fraction 4.9 Puncture Site Right radial ABG pH 7.423 ABG pCO2 49.7 H ABG pO2 56.6 L ABG PO2/FiO2 Ratio 1.77 ABG HCO3 31.7 H ABG O2 Saturation 89.7 L ABG O2 Content 11.6 L ABG Base Excess 6.4 A-a Gradient 113.4 Oxyhemoglobin 88.6 L Carboxyhemoglobin 1.4 Methemoglobin 0.1 Reduced Hemoglobin 9.9 H Total Hemoglobin 9.3 L O2 Delivery Device Nasal cannula O2 Liters/Min 3.0 Minute Volume Vent Rate Vent Mode FiO2 32 Tidal Volume PEEP Peak Inspir Pressure Pressure Support Sodium 139 Potassium 3.5 Chloride 102 Carbon Dioxide 36 H Anion Gap 1 L BUN 10 Creatinine 0.62 L Estim Creat Clear Calc 73 Estimated GFR > 60 Glucose 98 POC Capillary Glucose Calcium 8.4 Phosphorus 3.3 Magnesium 2.0 Total Bilirubin 3.6 H AST 66 H ALT 172 H Alkaline Phosphatase 137 H Total Protein 5.9 L Albumin 3.1 L Blood Type Antibody Screen Crossmatch
[2025-04-21] MEDS: BUDESONIDE RESPULE NEB 0.5 MG/2 ML AMP INHALATION ×2 (07:47→20:51)
[2025-04-21] MEDS: ESCITALOPRAM OXALATE 10 MG TABLET PO (08:17)
--- NOTE | 2025-04-21 08:42 | P.PNINT_ITS ---
Subjective Date/time seen: 04/21/25 Reviewed. Patient was extubated yesterday after a successful weaning trial. Patient has done well and is only on treated nasal cannula. No respiratory distress. Patient does complain of shortness of breath on exertion which she states is not new. Patient has history of COPD and is on baseline 2-3 L of oxygen at home. She is afebrile. No other obvious signs of bleeding. Vitals are acceptable. Urine output is on the lower side. Review of system was also positive for cough which is mostly dry. All other systems were reviewed and were negative. Interval history: Reason for consult: Acute respiratory failure, shock, severe anemia, NSTEMI, possible GI bleed Exam Narrative: General: Old frail female who is in no acute distress HEENT:? Pupils equal and reactive, sclera is clear, Neck:? Supple, right IJ central line in place Respiratory:? Decreased air entry overall bilaterally, no wheezing or crackle Cardiac:? S1-S2 normal, regular rate and rhythm Abdomen:? Soft, nontender, nondistended, hypoactive bowel sounds Extremities:? Bilateral trace edema in her lower extremities Neuro:? AO x3, moves all 4 extremities, follows commands, Skin:? Warm and dry Psych:? Normal speech and affect Objective Data Vital Signs Vital Signs: Vital Signs - 24 hr 04/20/25 09:00 04/20/25 09:59 04/20/25 10:00 Temperature 37.8 C H 37.7 C H 37.8 C H Pulse Rate 121 H 110 H 111 H Respiratory Rate 24 H 17 18 Blood Pressure 100/65 102/53 L 103/62 Pulse Oximetry 90 94 92 Oxygen Delivery Oxygen Flow Rate Fraction of Inspired Oxygen 04/20/25 10:00 04/20/25 10:12 04/20/25 10:13 Temperature Pulse Rate 106 H 111 H 111 H Respiratory Rate 18 Blood Pressure 103/62 Pulse Oximetry Oxygen Delivery Oxygen Flow Rate Fraction of Inspired Oxygen 04/20/25 10:13 04/20/25 10:15 04/20/25 11:00 Temperature 37.1 C 37.8 C H Pulse Rate 111 H 109 H 105 H Respiratory Rate 20 17 19 Blood Pressure 101/59 L 114/58 L Pulse Oximetry 94 90 Oxygen Delivery Oxygen Flow Rate Fraction of Inspired Oxygen 04/20/25 11:00 04/20/25 11:15 04/20/25 12:00 Temperature 37.8 C H 37.8 C H Pulse Rate 108 H 106 H 104 H Respiratory Rate 17 17 Blood Pressure 114/58 L 104/63 83/70 L Pulse Oximetry 92 96 Oxygen Delivery Oxygen Flow Rate Fraction of Inspired Oxygen 04/20/25 12:00 04/20/25 12:00 04/20/25 12:00 Temperature Pulse Rate 105 H 109 H 111 H Respiratory Rate 18 Blood Pressure 83/70 L Pulse Oximetry 92 Oxygen Delivery Nasal Cannula Oxygen Flow Rate 4 Fraction of Inspired Oxygen 40 04/20/25 12:15 04/20/25 12:30 04/20/25 12:30 Temperature 37.9 C H 37.7 C H 37.7 C H Pulse Rate 101 H 104 H 104 H Respiratory Rate 16 20 20 Blood Pressure 115/68 115/64 115/64 Pulse Oximetry 96 94 94 Oxygen Delivery Oxygen Flow Rate Fraction of Inspired Oxygen 04/20/25 13:00 04/20/25 13:29 04/20/25 13:30 Temperature 37.8 C H Pulse Rate 103 H 102 H 102 H Respiratory Rate 18 17 Blood Pressure 121/69 126/73 Pulse Oximetry 95 Oxygen Delivery Oxygen Flow Rate Fraction of Inspired Oxygen 04/20/25 13:35 04/20/25 14:00 04/20/25 14:00 Temperature 37.7 C H Pulse Rate 104 H 106 H 106 H Respiratory Rate 15 18 Blood Pressure 112/65 Pulse Oximetry 91 Oxygen Delivery Oxygen Flow Rate Fraction of Inspired Oxygen 04/20/25 15:00 04/20/25 16:00 04/20/25 16:00 Temperature 37.7 C H 37.7 C H Pulse Rate 95 98 101 H Respiratory Rate 17 16 Blood Pressure 100/63 103/66 Pulse Oximetry 93 94 Oxygen Delivery Oxygen Flow Rate Fraction of Inspired Oxygen 04/20/25 16:00 04/20/25 16:00 04/20/25 17:00 Temperature 37.7 C H Pulse Rate 111 H 111 H 93 Respiratory Rate 18 14 Blood Pressure 103/66 103/61 Pulse Oximetry 92 95 Oxygen Delivery Nasal Cannula Oxygen Flow Rate 4 Fraction of Inspired Oxygen 40 04/20/25 18:00 04/20/25 19:00 04/20/25 20:00 Temperature 37.8 C H 38.0 C H Pulse Rate 94 102 H 109 H Respiratory Rate 25 H 18 Blood Pressure 111/67 131/71 Pulse Oximetry 94 93 Oxygen Delivery Oxygen Flow Rate Fraction of Inspired Oxygen 04/20/25 20:00 04/20/25 20:00 04/20/25 20:00 Temperature 38.0 C H Pulse Rate 109 H 104 H Respiratory Rate 20 Blood Pressure 114/66 114/66 Pulse Oximetry 94 94 Oxygen Delivery Nasal Cannula Oxygen Flow Rate 4 Fraction of Inspired Oxygen 04/20/25 20:16 04/20/25 20:18 04/20/25 20:25 Temperature Pulse Rate 103 H 102 H 107 H Respiratory Rate 20 20 20 Blood Pressure Pulse Oximetry 94 Oxygen Delivery Nasal Cannula Oxygen Flow Rate 4 Fraction of Inspired Oxygen 36 04/20/25 21:00 04/20/25 22:00 04/20/25 22:00 Temperature 38.1 C H 38.1 C H Pulse Rate 101 H 97 97 Respiratory Rate 20 15 Blood Pressure 107/64 99/63 L Pulse Oximetry 89 L 93 Oxygen Delivery Oxygen Flow Rate Fraction of Inspired Oxygen 04/20/25 22:00 04/20/25 23:00 04/21/25 00:00 Temperature 38.1 C H 37.9 C H Pulse Rate 97 97 92 Respiratory Rate 20 18 Blood Pressure 99/63 L 142/72 H 116/73 Pulse Oximetry 93 96 Oxygen Delivery Oxygen Flow Rate Fraction of Inspired Oxygen 04/21/25 00:00 04/21/25 00:00 04/21/25 00:00 Temperature Pulse Rate 92 88 Respiratory Rate Blood Pressure 116/73 Pulse Oximetry 95 Oxygen Delivery Nasal Cannula Oxygen Flow Rate 4 Fraction of Inspired Oxygen 04/21/25 01:00 04/21/25 01:50 04/21/25 01:54 Temperature 37.8 C H Pulse Rate 87 96 93 Respiratory Rate 15 20 20 Blood Pressure 118/66 Pulse Oximetry 95 98 Oxygen Delivery Nasal Cannula Oxygen Flow Rate 4 Fraction of Inspired Oxygen 36 04/21/25 01:59 04/21/25 02:00 04/21/25 02:00 Temperature 37.8 C H Pulse Rate 89 98 98 Respiratory Rate 20 24 H Blood Pressure 120/78 Pulse Oximetry 94 Oxygen Delivery Oxygen Flow Rate Fraction of Inspired Oxygen 04/21/25 02:00 04/21/25 02:33 04/21/25 03:00 Temperature 37.7 C H Pulse Rate 98 85 Respiratory Rate 16 Blood Pressure 120/78 107/59 L Pulse Oximetry 90 92 Oxygen Delivery Nasal Cannula Oxygen Flow Rate 3 Fraction of Inspired Oxygen 04/21/25 04:00 04/21/25 04:00 04/21/25 04:00 Temperature 37.3 C Pulse Rate 83 83 Respiratory Rate 16 Blood Pressure 99/65 L 99/65 L Pulse Oximetry 94 94 Oxygen Delivery Nasal Cannula Oxygen Flow Rate 4 Fraction of Inspired Oxygen 04/21/25 04:00 04/21/25 05:00 04/21/25 06:00 Temperature 37.6 C Pulse Rate 85 90 85 Respiratory Rate 18 Blood Pressure 130/76 113/66 Pulse Oximetry 97 Oxygen Delivery Oxygen Flow Rate Fraction of Inspired Oxygen 04/21/25 06:00 04/21/25 06:00 04/21/25 07:00 Temperature 37.6 C H 37.2 C Pulse Rate 88 86 87 Respiratory Rate 15 20 Blood Pressure 113/66 120/66 Pulse Oximetry 97 98 Oxygen Delivery Oxygen Flow Rate Fraction of Inspired Oxygen 04/21/25 07:34 04/21/25 07:47 04/21/25 07:47 Temperature Pulse Rate 88 89 87 Respiratory Rate 19 20 20 Blood Pressure Pulse Oximetry 96 98 Oxygen Delivery Nasal Cannula Nasal Cannula Oxygen Flow Rate 4 4 Fraction of Inspired Oxygen 04/21/25 08:00 04/21/25 08:00 04/21/25 08:00 Temperature 37.4 C Pulse Rate 90 87 93 Respiratory Rate 28 H 15 Blood Pressure 85/53 L Pulse Oximetry 91 Oxygen Delivery Oxygen Flow Rate Fraction of Inspired Oxygen 04/21/25 08:20 Temperature Pulse Rate Respiratory Rate Blood Pressure 103/58 L Pulse Oximetry Oxygen Delivery Oxygen Flow Rate Fraction of Inspired Oxygen Intake/Output Intake/Output: Intake & Output 04/18/25 04/19/25 04/20/25 04/21/25 23:59 23:59 23:59 23:59 Intake Total 3154.4 873.3 1249.6 50 Output Total 700 825 500 275 Balance 2454.4 48.3 749.6 -225 Meds/Results Medications: Active Medications Generic Name Dose Route Start Last Admin Trade Name Freq PRN Reason Stop Dose Admin Acetaminophen 650 mg 04/18/25 04:12 04/20/25 01:08 Acetaminophen 325 Mg Tablet PO 650 mg Q4H PRN Administration Mild Pain (1-3) or Fever Albuterol/Ipratropium 3 ml 04/21/25 07:49 Ipratropium 0.5 Mg/Albuterol Sulfate 2.5 Mg (Base) Ampul.Neb 3 Ml INHALATION Q6HRT PRN Wheezing Atorvastatin Calcium 80 mg 04/18/25 21:00 04/20/25 20:30 Atorvastatin 40 Mg Tablet PO Not Given HS JUAN C Budesonide 0.5 mg 04/18/25 12:50 04/21/25 07:47 Budesonide Respule Neb 0.5 Mg/2 Ml Amp INHALATION 0.5 mg Q12HRT JUAN C Administration Escitalopram Oxalate 10 mg 04/18/25 12:00 04/21/25 08:17 Escitalopram Oxalate 10 Mg Tablet PO 10 mg DAILY JUAN C Administration Furosemide 40 mg 04/20/25 07:39 04/20/25 13:37 Furosemide Inj 40 Mg/4 Ml Vial IV PUSH 40 mg ONCE PRN Administration After PRBC Transfusion Cefepime HCl 2 gm/ Sodium 50 mls @ 100 mls/hr 04/19/25 00:00 04/21/25 00:24 Chloride IVPB Infused Q12H JUAN C Infusion Ondansetron HCl 4 mg 04/18/25 04:12 Ondansetron Inj 4 Mg/2 Ml Vial IV PUSH Q4H PRN Nausea Sodium Chloride 10 ml 04/18/25 14:00 04/21/25 05:22 Central Line Flush IV PUSH 10 ml Q8HR JUAN C Administration Sodium Chloride 20 ml 04/18/25 08:31 Central Line Flush IV PUSH PRN PRN after blood draws Radiology Results: ITS Impressions Abdomen X-Ray 04/18/25 07:47 IMPRESSION: 1: OG tube tip in the stomach. Abdomen/Pelvis CTA 04/18/25 09:20 IMPRESSION: 1. No aneurysm or dissection identified. 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 There is a right-sided graft detailed above with probable seroma. Clinical correlation is required. Follow-up suggested to assess. Head CT 04/18/25 13:34 IMPRESSION: 1. No acute intracranial findings. Abdomen Ultrasound 04/19/25 09:39 IMPRESSION: 1. Nonspecific gallbladder wall thickening and pericholecystic fluid. If concern for acute cholecystitis, can consider HIDA scan. 2. Hepatomegaly, with steatosis and probable cirrhosis. Chest X-Ray 04/21/25 08:19 Impression: CHF. Superimposed probable pneumonia. The findings appear slightly progressed compared to the previous study Labs Labs: Laboratory Results - last 24 hr 04/17/25 04/20/25 04/20/25 21:46 11:28 13:37 WBC RBC Hgb 8.5 L Hct 28.7 L MCV MCH MCHC RDW Plt Count MPV % Immature Plt Fraction Puncture Site ABG pH ABG pCO2 ABG pO2 ABG PO2/FiO2 Ratio ABG HCO3 ABG O2 Saturation ABG O2 Content ABG Base Excess A-a Gradient Oxyhemoglobin Carboxyhemoglobin Methemoglobin Reduced Hemoglobin Total Hemoglobin O2 Delivery Device O2 Liters/Min FiO2 Sodium Potassium Chloride Carbon Dioxide Anion Gap BUN Creatinine Estim Creat Clear Calc Estimated GFR Glucose POC Capillary Glucose 132 H Calcium Phosphorus Magnesium Total Bilirubin AST ALT Alkaline Phosphatase Total Protein Albumin Blood Type O Negative Antibody Screen Negative Crossmatch See Detail 04/21/25 04/21/25 04:09 05:28 WBC 10.1 H RBC 3.60 L Hgb 8.5 L Hct 28.9 L MCV 80.3 MCH 23.6 L MCHC 29.4 L RDW 23.6 H Plt Count 208 MPV 11.2 H % Immature Plt Fraction 4.9 Puncture Site Right radial ABG pH 7.423 ABG pCO2 49.7 H ABG pO2 56.6 L ABG PO2/FiO2 Ratio 1.77 ABG HCO3 31.7 H ABG O2 Saturation 89.7 L ABG O2 Content 11.6 L ABG Base Excess 6.4 A-a Gradient 113.4 Oxyhemoglobin 88.6 L Carboxyhemoglobin 1.4 Methemoglobin 0.1 Reduced Hemoglobin 9.9 H Total Hemoglobin 9.3 L O2 Delivery Device Nasal cannula O2 Liters/Min 3.0 FiO2 32 Sodium 139 Potassium 3.5 Chloride 102 Carbon Dioxide 36 H Anion Gap 1 L BUN 10 Creatinine 0.62 L Estim Creat Clear Calc 73 Estimated GFR > 60 Glucose 98 POC Capillary Glucose Calcium 8.4 Phosphorus 3.3 Magnesium 2.0 Total Bilirubin 3.6 H AST 66 H ALT 172 H Alkaline Phosphatase 137 H Total Protein 5.9 L Albumin 3.1 L Blood Type Antibody Screen Crossmatch Assessment and Plan Assessment and Plan (1) Acute respiratory failure: Code(s): J96.00 - Acute respiratory failure, unspecified whether with hypoxia or hypercapnia Status: Resolved Assessment and Plan: 04/18: Patient was transferred from intermediate Unit with agonal breathing, unresponsiveness. 04/18: Intubated in the ICU, respiratory failure could be related to TRALI as patient has pulmonary vascular congestion, NSTEMI, CHF, aspiration -remains on CMV mode of ventilation, peep of 5, 45 % FiO2 04/20 5/5 PSV SBT done for more than 30 minutes. RSBI, ABGI and Vitals acceptable. Pt awake and following commands. Will extubate and monitor. NPO for now. Bipap PRN 04/21 on 3 L nasal cannula. No wheezing or distress. Continue bronchodilators p.r.n. Incentive spirometry, PT OT (2) Shock: Code(s): R57.9 - Shock, unspecified Status: Acute Assessment and Plan: patient received adequate IV fluids and 3 units of packed RBCs Chest x-ray showed pulmonary vascular congestion and was given Lasix Now off of fluids and vasopressors have been weaned off for more than 24 hours Continue cefepime (04/18) -04/18: Blood cultures obtained and negative with -04/18: Urine cultures obtained and negative till now Vancomycin discontinued (3) Non-ST elevation FL (NSTEMI): Code(s): I21.4 - Non-ST elevation (NSTEMI) myocardial infarction Status: Acute Assessment and Plan: Patient presented with chest pressure/pain, EKG showed inferior lateral ST depression the slight elevation in AVR, sinus tachycardia, normal QTC - Given concerns for ACS, interventional Cardiology was called by the ED physician, recommendations were to start heparin infusion and metoprolol. Heparin bolus was given, but her hemoglobin came back at 3.4 in the ER so heparin was discontinued. -unable to give heparin infusion or aspirin due to severe anemia, no beta- blockers due to septic shock and hypotension -appreciate cardiology recommended, no plans to conduct ischemic evaluation at this time -stress-induced/takotsubo cardiomyopathy on echocardiogram likely due to severe anemia. When she is off pressors will require GDMT Defer to cardiology 04/18/2025: Echocardiogram Summary 1. Definity contrast administered improved wall motion interpretation. 2. Left ventricular chamber dimension is severely enlarged. 3. Left ventricular systolic function is severely globally reduced,estimated at 20-25. 4. The very basal segments have normal contractility suggestive of Takotsu bocardiomyopathy. 5. The left ventricular diastolic function is grade I diastolic dysfunction. 6. E/e' 9 is minimally elevated. 7. Right ventricular chamber dimension is severely enlarged. 8. Right ventricular systolic function is severely reduced and with abnormalTAPSE 1.3 cm. 9. Left atrial chamber dimension is moderately enlarged. 10. Right atrial chamber dimension is moderately enlarged. 11. There is mild aortic valve sclerosis. 12. There is moderate to severe mitral valve regurgitation. 13. There is severe tricuspid valve regurgitation. 14. Mild pulmonary hypertension, estimated pulmonary arterial systolicpressure is 49 mmHg. 15. There is mild pulmonic regurgitation. (4) Anemia requiring transfusions: Code(s): D64.9 - Anemia, unspecified Status: Acute Assessment and Plan: 04/18: Severe anemia, hemoglobin 3.4 on admission, received 3 units of packed RBC, 04/20 hemoglobin 6.8. Will transfuse 1 more unit of PRBC followed by Lasix. Continue to trend q.6 hours for now -appreciate GI evaluation and recommendation, GI planning EGD and colonoscopy once patient is stable and extubated -Protonix IV q.12 hours -iron panel is normal -vitamin B12 and folic acid are normal -LDH slightly elevated, haptoglobin normal, Roshni test has been ordered to rule out hemolytic anemia (5) COPD (chronic obstructive pulmonary disease): Code(s): J44.9 - Chronic obstructive pulmonary disease, unspecified Status: Acute Assessment and Plan: History of COPD, on 2 L nasal cannula at home -continue bronchodilators -patient is on Trelegy at home, continue budesonide nebs was she is in the hospital (6) PVD (peripheral vascular disease): Code(s): I73.9 - Peripheral vascular disease, unspecified Status: Acute Assessment and Plan: History of peripheral vascular disease with previous Aorto-ilio- femoral bypass -patient on clopidogrel, and Xarelto at home, currently on hold due to severe anemia and possible GI blood loss (7) Hypertension: Code(s): I10 - Essential (primary) hypertension Status: Acute Assessment and Plan: Will hold all antihypertensives as patient is hypotensive/shock on pressors (8) Hyperlipemia, mixed: Code(s): E78.2 - Mixed hyperlipidemia Status: Acute Assessment and Plan: On atorvastatin at home, will continue continue (9) Dysphagia: Code(s): R13.10 - Dysphagia, unspecified Status: Acute Assessment and Plan: Bedside swallow study done. Patient exhibited some coughing after some type of foods. Speech recommended Huntington barium swallow which has been ordered. Plan DVT prophylaxis: SCDs Stress ulcer prophylaxis: Protonix IV q.12 hours Nutrition: MBS ordered Code Status: Full code Transfer out of ICU today
--- NOTE | 2025-04-21 08:42 | PCSTNOTE ---
Please refer to the Bedside Swallow Evaluation in the EMR. Please note, silent aspiration cannot be ruled out at bedside. The patient is a 59 year old female admitted with acute respiratory failure and hypoxia. Orders received to complete a BSE secondary to noted coughing with thin liquid once extubated. Patient has been taking ice chips and managing without noted coughing. The patient was positioned upright and presented the following consistencies: thin liquid via tsp, thing liquid via cup, puree. Oral stage: Timely oral preparation and transit for all consistencies. Pharyngeal stage: Some effortful or forced swallow noted with all consistencies. When presented tsp amounts thin liquid and tsp amounts puree consistency swallow initiation although forced was completed without a vocal quality change and no outward CSA. however, when presented cup trials of thin liquid small drinks the patient was noted to have a coughing response after the swallow with increased hoarseness. Recommend: [facility] [place]
[2025-04-21] MEDS: KCL 40 MEQ/WATER 100 ML 100 ML 25 ML IVPB (09:26)
--- NOTE | 2025-04-21 12:01 | PM.PNCARD ---
Progress Note: A&P Assessment and Plan (1) Acute systolic heart failure: Code(s): I50.21 - Acute systolic (congestive) heart failure Status: Acute (2) Mitral valve regurgitation: Code(s): I34.0 - Nonrheumatic mitral (valve) insufficiency Status: Acute (3) Severe tricuspid regurgitation: Code(s): I07.1 - Rheumatic tricuspid insufficiency Status: Acute (4) Non-ST elevation DE (NSTEMI): Code(s): I21.4 - Non-ST elevation (NSTEMI) myocardial infarction Status: Acute (5) CAD (coronary artery disease): Code(s): I25.10 - Atherosclerotic heart disease of [place] coronary artery without angina pectoris Status: Acute (6) S/P CABG x 3: Code(s): Z95.1 - Presence of aortocoronary bypass graft Status: Acute (7) Aortic atherosclerosis: Code(s): I70.0 - Atherosclerosis of aorta Status: Acute (8) PVD (peripheral vascular disease): Code(s): I73.9 - Peripheral vascular disease, unspecified Status: Acute (9) Hyperlipemia, mixed: Code(s): E78.2 - Mixed hyperlipidemia Status: Acute (10) Hypertension: Code(s): I10 - Essential (primary) hypertension Status: Acute Plan Assessment: -NSTEMI -CAD status post CABG X 3 -Acute systolic heart failure with LVEF of 20-25%, grade 1 diastolic dysfunction -Acute respiratory failure requiring intubation-now extubated and on oxygen by nasal cannula -Severely depressed RV function -Valvular heart disease-moderate to severe mitral regurgitation and severe tricuspid regurgitation -Moderate pulmonary hypertension with PASP of 49 mm Hg -Hypertension -Hyperlipidemia -Severe anemia with hemoglobin at presentation 3.4 status post PRBC transfusions with hemoglobin of 8.5-GI following -Swallowing difficulty Plan: With regards to NSTEMI- this is most likely type 2 DE due to acute severe anemia. Also TTE shows findings suggestive 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. Continue medical management with statin. Unable to give aspirin due to severe anemia and GI bleed GDMT- will add as BP tolerates. SBP still in the 110s range and hence not initiating today She is adequately diuresed with IV Lasix. She is currently euvolemic. Give Lasix 40 mg p.o. daily Check and replace electrolytes to keep potassium greater than 4 and magnesium greater than 2 Monitor on telemetry Check weights, ins and outs, renal function daily Management of other medical problems per primary team Subjective Date/time seen: 04/21/25 12:01 Interval history: Reason for encounter: Chest pain with elevated troponin Relevant history: 59-year-old female with history of CAD s/p CABG x3 on chronic aspirin, Xarelto, peripheral arterial disease, hypertension, hyperlipidemia, aortic atherosclerosis, COPD on 2.5 L of oxygen at home presented via EMS with chief complaints of chest pressure. Troponin was elevated to 0.026, 0.240, 0.469, 1.620. EKG showed sinus rhythm, inferior lateral ST depressions and slight elevation in AVR. Heparin bolus was given but heparin was not started as labs came back with hemoglobin of 3.4. She tested guaiac positive. She was given 3 units of PRBCs and GI was consulted. After admission to the IMU patient the left agonal breathing and became unresponsive requiring intubation and ICU admission. She has since been extubated and doing well but having some swallowing issues. Cardiology is consulted for further recommendations for NSTEMI. Further workup included chest x-ray which showed moderate pulmonary vascular congestion, echo which showed LVEF of 20-25%, grade 1 diastolic dysfunction, severely depressed RV systolic function, moderate to severe MR, severe TR, moderate pulmonary hypertension with PASP of 49 mm Hg. She was diuresed with IV Lasix and is presently euvolemic. Interval history: Patient has been extubated. No chest pain or shortness of breath. She has difficulty swallowing. She failed swallow study this morning. Review of Systems Review of Systems: A complete review of systems was performed and pertinent positives are reported in the HPI. Exam Narrative: General: Alert oriented x3, no acute distress Neck: Supple, no JVD Chest: Bilaterally clear to auscultation, no rales or rhonchi Cardiac: S1, S2 +, regular rate, regular rhythm, no murmurs or rubs Extremities: No pedal edema, no skin rash Neurologic: Alert and oriented x3, no focal neurological deficits Objective Data Vital Signs Vital Signs: Vital Signs - 24 hr 04/20/25 12:15 04/20/25 12:30 04/20/25 12:30 Temperature 37.9 C H 37.7 C H 37.7 C H Pulse Rate 101 H 104 H 104 H Respiratory Rate 16 20 20 Blood Pressure 115/68 115/64 115/64 Pulse Oximetry 96 94 94 Oxygen Delivery Oxygen Flow Rate Fraction of Inspired Oxygen 04/20/25 13:00 04/20/25 13:29 04/20/25 13:30 Temperature 37.8 C H Pulse Rate 103 H 102 H 102 H Respiratory Rate 18 17 Blood Pressure 121/69 126/73 Pulse Oximetry 95 Oxygen Delivery Oxygen Flow Rate Fraction of Inspired Oxygen 04/20/25 13:35 04/20/25 14:00 04/20/25 14:00 Temperature 37.7 C H Pulse Rate 104 H 106 H 106 H Respiratory Rate 15 18 Blood Pressure 112/65 Pulse Oximetry 91 Oxygen Delivery Oxygen Flow Rate Fraction of Inspired Oxygen 04/20/25 15:00 04/20/25 16:00 04/20/25 16:00 Temperature 37.7 C H 37.7 C H Pulse Rate 95 98 101 H Respiratory Rate 17 16 Blood Pressure 100/63 103/66 Pulse Oximetry 93 94 Oxygen Delivery Oxygen Flow Rate Fraction of Inspired Oxygen 04/20/25 16:00 04/20/25 16:00 04/20/25 17:00 Temperature 37.7 C H Pulse Rate 111 H 111 H 93 Respiratory Rate 18 14 Blood Pressure 103/66 103/61 Pulse Oximetry 92 95 Oxygen Delivery Nasal Cannula Oxygen Flow Rate 4 Fraction of Inspired Oxygen 40 04/20/25 18:00 04/20/25 19:00 04/20/25 20:00 Temperature 37.8 C H 38.0 C H Pulse Rate 94 102 H 109 H Respiratory Rate 25 H 18 Blood Pressure 111/67 131/71 Pulse Oximetry 94 93 Oxygen Delivery Oxygen Flow Rate Fraction of Inspired Oxygen 04/20/25 20:00 04/20/25 20:00 04/20/25 20:00 Temperature 38.0 C H Pulse Rate 109 H 104 H Respiratory Rate 20 Blood Pressure 114/66 114/66 Pulse Oximetry 94 94 Oxygen Delivery Nasal Cannula Oxygen Flow Rate 4 Fraction of Inspired Oxygen 04/20/25 20:16 04/20/25 20:18 04/20/25 20:25 Temperature Pulse Rate 103 H 102 H 107 H Respiratory Rate 20 20 20 Blood Pressure Pulse Oximetry 94 Oxygen Delivery Nasal Cannula Oxygen Flow Rate 4 Fraction of Inspired Oxygen 36 04/20/25 21:00 04/20/25 22:00 04/20/25 22:00 Temperature 38.1 C H 38.1 C H Pulse Rate 101 H 97 97 Respiratory Rate 20 15 Blood Pressure 107/64 99/63 L Pulse Oximetry 89 L 93 Oxygen Delivery Oxygen Flow Rate Fraction of Inspired Oxygen 04/20/25 22:00 04/20/25 23:00 04/21/25 00:00 Temperature 38.1 C H 37.9 C H Pulse Rate 97 97 92 Respiratory Rate 20 18 Blood Pressure 99/63 L 142/72 H 116/73 Pulse Oximetry 93 96 Oxygen Delivery Oxygen Flow Rate Fraction of Inspired Oxygen 04/21/25 00:00 04/21/25 00:00 04/21/25 00:00 Temperature Pulse Rate 92 88 Respiratory Rate Blood Pressure 116/73 Pulse Oximetry 95 Oxygen Delivery Nasal Cannula Oxygen Flow Rate 4 Fraction of Inspired Oxygen 04/21/25 01:00 04/21/25 01:50 04/21/25 01:54 Temperature 37.8 C H Pulse Rate 87 96 93 Respiratory Rate 15 20 20 Blood Pressure 118/66 Pulse Oximetry 95 98 Oxygen Delivery Nasal Cannula Oxygen Flow Rate 4 Fraction of Inspired Oxygen 36 04/21/25 01:59 04/21/25 02:00 04/21/25 02:00 Temperature 37.8 C H Pulse Rate 89 98 98 Respiratory Rate 20 24 H Blood Pressure 120/78 Pulse Oximetry 94 Oxygen Delivery Oxygen Flow Rate Fraction of Inspired Oxygen 04/21/25 02:00 04/21/25 02:33 04/21/25 03:00 Temperature 37.7 C H Pulse Rate 98 85 Respiratory Rate 16 Blood Pressure 120/78 107/59 L Pulse Oximetry 90 92 Oxygen Delivery Nasal Cannula Oxygen Flow Rate 3 Fraction of Inspired Oxygen 04/21/25 04:00 04/21/25 04:00 04/21/25 04:00 Temperature 37.3 C Pulse Rate 83 83 Respiratory Rate 16 Blood Pressure 99/65 L 99/65 L Pulse Oximetry 94 94 Oxygen Delivery Nasal Cannula Oxygen Flow Rate 4 Fraction of Inspired Oxygen 04/21/25 04:00 04/21/25 05:00 04/21/25 06:00 Temperature 37.6 C Pulse Rate 85 90 85 Respiratory Rate 18 Blood Pressure 130/76 113/66 Pulse Oximetry 97 Oxygen Delivery Oxygen Flow Rate Fraction of Inspired Oxygen 04/21/25 06:00 04/21/25 06:00 04/21/25 07:00 Temperature 37.6 C H 37.2 C Pulse Rate 88 86 87 Respiratory Rate 15 20 Blood Pressure 113/66 120/66 Pulse Oximetry 97 98 Oxygen Delivery Oxygen Flow Rate Fraction of Inspired Oxygen 04/21/25 07:34 04/21/25 07:47 04/21/25 07:47 Temperature Pulse Rate 88 89 87 Respiratory Rate 19 20 20 Blood Pressure Pulse Oximetry 96 98 Oxygen Delivery Nasal Cannula Nasal Cannula Oxygen Flow Rate 4 4 Fraction of Inspired Oxygen 04/21/25 08:00 04/21/25 08:00 04/21/25 08:00 Temperature 37.4 C Pulse Rate 90 87 93 Respiratory Rate 28 H 15 Blood Pressure 85/53 L Pulse Oximetry 91 Oxygen Delivery Oxygen Flow Rate Fraction of Inspired Oxygen 04/21/25 08:20 04/21/25 09:00 04/21/25 10:00 Temperature 37.5 C Pulse Rate 82 81 Respiratory Rate 17 Blood Pressure 103/58 L 113/62 Pulse Oximetry 94 Oxygen Delivery Oxygen Flow Rate Fraction of Inspired Oxygen 04/21/25 10:00 04/21/25 11:00 04/21/25 11:57 Temperature 37.4 C 37.4 C Pulse Rate 84 88 79 Respiratory Rate 15 20 24 H Blood Pressure 111/69 137/65 Pulse Oximetry 95 97 98 Oxygen Delivery Nasal Cannula Oxygen Flow Rate 4 Fraction of Inspired Oxygen Intake/Output Intake/Output: Intake & Output 04/18/25 04/19/25 04/20/25 04/21/25 23:59 23:59 23:59 23:59 Intake Total 3154.4 873.3 1249.6 50 Output Total 700 825 500 275 Balance 2454.4 48.3 749.6 -225 Meds/Results Medications: Active Medications Generic Name Dose Route Start Last Admin Trade Name Freq PRN Reason Stop Dose Admin Acetaminophen 650 mg 04/18/25 04:12 04/20/25 01:08 Acetaminophen 325 Mg Tablet PO 650 mg Q4H PRN Administration Mild Pain (1-3) or Fever Albuterol/Ipratropium 3 ml 04/21/25 07:49 Ipratropium 0.5 Mg/Albuterol Sulfate 2.5 Mg (Base) Ampul.Neb 3 Ml INHALATION Q6HRT PRN Wheezing Atorvastatin Calcium 80 mg 04/18/25 21:00 04/20/25 20:30 Atorvastatin 40 Mg Tablet PO Not Given HS JUAN C Budesonide 0.5 mg 04/18/25 12:50 04/21/25 07:47 Budesonide Respule Neb 0.5 Mg/2 Ml Amp INHALATION 0.5 mg Q12HRT JUAN C Administration Escitalopram Oxalate 10 mg 04/18/25 12:00 04/21/25 08:17 Escitalopram Oxalate 10 Mg Tablet PO 10 mg DAILY JUAN C Administration Furosemide 40 mg 04/20/25 07:39 04/20/25 13:37 Furosemide Inj 40 Mg/4 Ml Vial IV PUSH 40 mg ONCE PRN Administration After PRBC Transfusion Cefepime HCl 2 gm/ Sodium 50 mls @ 100 mls/hr 04/19/25 00:00 04/21/25 00:24 Chloride IVPB Infused Q12H JUAN C Infusion Potassium Chloride 100 mls @ 25 mls/hr 04/21/25 09:21 04/21/25 09:26 Kcl 40 Meq/Water 100 Ml IVPB 04/21/25 13:20 25 mls/hr ONCE ONE Administration Ondansetron HCl 4 mg 04/18/25 04:12 Ondansetron Inj 4 Mg/2 Ml Vial IV PUSH Q4H PRN Nausea Sodium Chloride 10 ml 04/18/25 14:00 04/21/25 05:22 Central Line Flush IV PUSH 10 ml Q8HR JUAN C Administration Sodium Chloride 20 ml 04/18/25 08:31 Central Line Flush IV PUSH PRN PRN after blood draws Radiology Results: ITS Impressions Abdomen X-Ray 04/18/25 07:47 IMPRESSION: 1: OG tube tip in the stomach. Abdomen/Pelvis CTA 04/18/25 09:20 IMPRESSION: 1. No aneurysm or dissection identified. 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 There is a right-sided graft detailed above with probable seroma. Clinical correlation is required. Follow-up suggested to assess. Head CT 04/18/25 13:34 IMPRESSION: 1. No acute intracranial findings. Abdomen Ultrasound 04/19/25 09:39 IMPRESSION: 1. Nonspecific gallbladder wall thickening and pericholecystic fluid. If concern for acute cholecystitis, can consider HIDA scan. 2. Hepatomegaly, with steatosis and probable cirrhosis. Chest X-Ray 04/21/25 08:19 Impression: CHF. Superimposed probable pneumonia. The findings appear slightly progressed compared to the previous study Labs Labs: Laboratory Results - last 24 hr 04/17/25 04/18/25 04/20/25 21:46 06:24 13:37 WBC RBC Hgb 8.5 L Hct 28.7 L MCV MCH MCHC RDW Plt Count MPV % Immature Plt Fraction Puncture Site Cancelled ABG pH Cancelled ABG pCO2 Cancelled ABG pO2 Cancelled ABG PO2/FiO2 Ratio Cancelled ABG HCO3 Cancelled ABG O2 Saturation Cancelled ABG O2 Content Cancelled ABG Base Excess Cancelled A-a Gradient Cancelled Oxyhemoglobin Cancelled Carboxyhemoglobin Methemoglobin Reduced Hemoglobin Total Hemoglobin Cancelled O2 Delivery Device Cancelled O2 Liters/Min Cancelled FiO2 Cancelled Sodium Potassium Chloride Carbon Dioxide Anion Gap BUN Creatinine Estim Creat Clear Calc Estimated GFR Glucose Calcium Phosphorus Magnesium Total Bilirubin AST ALT Alkaline Phosphatase Total Protein Albumin Crossmatch See Detail 04/21/25 04/21/25 04:09 05:28 WBC 10.1 H RBC 3.60 L Hgb 8.5 L Hct 28.9 L MCV 80.3 MCH 23.6 L MCHC 29.4 L RDW 23.6 H Plt Count 208 MPV 11.2 H % Immature Plt Fraction 4.9 Puncture Site Right radial ABG pH 7.423 ABG pCO2 49.7 H ABG pO2 56.6 L ABG PO2/FiO2 Ratio 1.77 ABG HCO3 31.7 H ABG O2 Saturation 89.7 L ABG O2 Content 11.6 L ABG Base Excess 6.4 A-a Gradient 113.4 Oxyhemoglobin 88.6 L Carboxyhemoglobin 1.4 Methemoglobin 0.1 Reduced Hemoglobin 9.9 H Total Hemoglobin 9.3 L O2 Delivery Device Nasal cannula O2 Liters/Min 3.0 FiO2 32 Sodium 139 Potassium 3.5 Chloride 102 Carbon Dioxide 36 H Anion Gap 1 L BUN 10 Creatinine 0.62 L Estim Creat Clear Calc 73 Estimated GFR > 60 Glucose 98 Calcium 8.4 Phosphorus 3.3 Magnesium 2.0 Total Bilirubin 3.6 H AST 66 H ALT 172 H Alkaline Phosphatase 137 H Total Protein 5.9 L Albumin 3.1 L Crossmatch
[2025-04-21] MEDS: CEFEPIME 2 GM in SODIUM CHLORIDE 0.9% IV 50 ML 100 ML IVPB (12:07)
--- NOTE | 2025-04-21 13:04 | PCFNICU ---
ICU Rounding Note: Pt current nutrition is Clear liquids Nutrition recommendation: Diet recommendations per speech after MBS Last recorded weight is 66.9 kg. Bowel Motility: no bowel movements charted Labs Reviewed: Hgb 8.5, Hct 28.9, Alb 3.1, Cre 0.62 Meds Noted: Lasix, protonix Skin: No skin issues Additional Notes: Extubated, speech recommending MBS today because of coughing. Awaiting MBS results. Following daily in ICU rounds. Will monitor weight, labs, skin, diet orders, meds every Monday and Monday. .
--- NOTE | 2025-04-21 15:09 | PCSTNOTE ---
Please refer to the Modified Barium Swallow Evaluation in the EMR. The patient is a 59 year old female referred for a MBS study secondary to noted coughing with thin liquids during a BSE completed 04/21/25. The patient was presented the following consistencies: 5cc/tsp thin liquid, thin liquid via cup, mildly thick liquid via cup and tsp, pudding mixed with barium paste, cracker consistency not attempted due to no dentition. Patient did not feel she could masticate. Oral Stage: Oral preparation and transit were within normal limits for all consistencies. Pharyngeal stage: When presented 5cc thin liquid via tsp no viewed aspiration or penetration. When presented cup trials thin liquid katherine silent aspiration was viewed during the swallow due to reduced laryngeal closure additional penetration was viewed with attempts to utilize a chin tuck posture with small controlled drinks thin liquid. The patient was noted to have moderate to severe residual in the valleculae for cup trials thin liquid, cup trials mildly thick liquid, and pudding consistencies secondary to reduced tongue base retraction and reduced epiglottic inversion. The patient was instructed to perform a repeat effortful swallow which was beneficial in clearing some small amounts of the residual remaining within the valleculae. Recommend 1. Puree Diet / Level 4 2. Mildly thick Liquid / Level 2 3. Upright with meals 4. Frequent Observation 5. Small bites and drinks 6. No Straw 7. Speech services for instruction with compensatory techniques as well as (Huma Maneuver, Chin tuck against resistance, effortful swallow. laryngeal adduction, and tongue base retraction)
--- NOTE | 2025-04-21 15:11 | PM.IMPN2 ---
Subjective Date/time seen: 04/21/25 15:11 Interval history: Acute respiratory failure, shock, severe anemia, NSTEMI, possible GI bleed 04/19/2025: Patient seen and examined the ICU, remains intubated high on peep of 5 and 35% FiO2. Sedated with fentanyl and Versed infusion, opens her eyes, nods to questions and follows simple commands. Hemoglobin is 7.4 this morning and trending down. Urine output has been adequate, T-max of 100.4?, leukocytosis improving. 04/20/2025: Extubated, drop in Hb to 6.8 necessitating PRBC, after which lasix was given. 04/21: remains stable, for transfer to IMU. Failed bedside swallow, modfied barium swallow ordered. Review of Systems Review of Systems: All systems reviewed & are unremarkable except as noted in HPI and below Exam Narrative: General: No acute distress HEENT:? Pupils equal and reactive, sclera is clear Neck:? Supple, right IJ central line in place Respiratory:? Coarse breath sounds bilaterally, adequate air entry, no wheezing Cardiac:? S1-S2 normal, regular rate and rhythm Abdomen:? Soft, nontender, nondistended, hypoactive bowel sounds Extremities:? Bilateral trace edema in her lower extremities Neuro:? AAOx3 Skin:? Warm and dry Objective Data Vital Signs Vital Signs: Vital Signs - 24 hr 04/20/25 16:00 04/20/25 16:00 04/20/25 16:00 Temperature 99.9 F H Pulse Rate 98 101 H 111 H Respiratory Rate 16 18 Blood Pressure 103/66 Pulse Oximetry 94 92 Oxygen Delivery Nasal Cannula Oxygen Flow Rate 4 Fraction of Inspired Oxygen 40 04/20/25 16:00 04/20/25 17:00 04/20/25 18:00 Temperature 99.8 F H 100.0 F H Pulse Rate 111 H 93 94 Respiratory Rate 14 25 H Blood Pressure 103/66 103/61 111/67 Pulse Oximetry 95 94 Oxygen Delivery Oxygen Flow Rate Fraction of Inspired Oxygen 04/20/25 19:00 04/20/25 20:00 04/20/25 20:00 Temperature 100.4 F H Pulse Rate 102 H 109 H 109 H Respiratory Rate 18 Blood Pressure 131/71 114/66 Pulse Oximetry 93 Oxygen Delivery Oxygen Flow Rate Fraction of Inspired Oxygen 04/20/25 20:00 04/20/25 20:00 04/20/25 20:16 Temperature 100.4 F H Pulse Rate 104 H 103 H Respiratory Rate 20 20 Blood Pressure 114/66 Pulse Oximetry 94 94 Oxygen Delivery Nasal Cannula Oxygen Flow Rate 4 Fraction of Inspired Oxygen 04/20/25 20:18 04/20/25 20:25 04/20/25 21:00 Temperature 100.5 F H Pulse Rate 102 H 107 H 101 H Respiratory Rate 20 20 20 Blood Pressure 107/64 Pulse Oximetry 94 89 L Oxygen Delivery Nasal Cannula Oxygen Flow Rate 4 Fraction of Inspired Oxygen 36 04/20/25 22:00 04/20/25 22:00 04/20/25 22:00 Temperature 100.5 F H Pulse Rate 97 97 97 Respiratory Rate 15 Blood Pressure 99/63 L 99/63 L Pulse Oximetry 93 Oxygen Delivery Oxygen Flow Rate Fraction of Inspired Oxygen 04/20/25 23:00 04/21/25 00:00 04/21/25 00:00 Temperature 100.5 F H 100.3 F H Pulse Rate 97 92 92 Respiratory Rate 20 18 Blood Pressure 142/72 H 116/73 116/73 Pulse Oximetry 93 96 Oxygen Delivery Oxygen Flow Rate Fraction of Inspired Oxygen 04/21/25 00:00 04/21/25 00:00 04/21/25 01:00 Temperature 100.1 F H Pulse Rate 88 87 Respiratory Rate 15 Blood Pressure 118/66 Pulse Oximetry 95 95 Oxygen Delivery Nasal Cannula Oxygen Flow Rate 4 Fraction of Inspired Oxygen 04/21/25 01:50 04/21/25 01:54 04/21/25 01:59 Temperature Pulse Rate 96 93 89 Respiratory Rate 20 20 20 Blood Pressure Pulse Oximetry 98 Oxygen Delivery Nasal Cannula Oxygen Flow Rate 4 Fraction of Inspired Oxygen 36 04/21/25 02:00 04/21/25 02:00 04/21/25 02:00 Temperature 100.1 F H Pulse Rate 98 98 98 Respiratory Rate 24 H Blood Pressure 120/78 120/78 Pulse Oximetry 94 Oxygen Delivery Oxygen Flow Rate Fraction of Inspired Oxygen 04/21/25 02:33 04/21/25 03:00 04/21/25 04:00 Temperature 99.9 F H Pulse Rate 85 83 Respiratory Rate 16 Blood Pressure 107/59 L 99/65 L Pulse Oximetry 90 92 Oxygen Delivery Nasal Cannula Oxygen Flow Rate 3 Fraction of Inspired Oxygen 04/21/25 04:00 04/21/25 04:00 04/21/25 04:00 Temperature 99.1 F Pulse Rate 83 85 Respiratory Rate 16 Blood Pressure 99/65 L Pulse Oximetry 94 94 Oxygen Delivery Nasal Cannula Oxygen Flow Rate 4 Fraction of Inspired Oxygen 04/21/25 05:00 04/21/25 06:00 04/21/25 06:00 Temperature 99.6 F Pulse Rate 90 85 88 Respiratory Rate 18 Blood Pressure 130/76 113/66 Pulse Oximetry 97 Oxygen Delivery Oxygen Flow Rate Fraction of Inspired Oxygen 04/21/25 06:00 04/21/25 07:00 04/21/25 07:34 Temperature 99.7 F H 99.0 F Pulse Rate 86 87 88 Respiratory Rate 15 20 19 Blood Pressure 113/66 120/66 Pulse Oximetry 97 98 96 Oxygen Delivery Nasal Cannula Oxygen Flow Rate 4 Fraction of Inspired Oxygen 04/21/25 07:47 04/21/25 07:47 04/21/25 08:00 Temperature Pulse Rate 89 87 90 Respiratory Rate 20 20 28 H Blood Pressure Pulse Oximetry 98 Oxygen Delivery Nasal Cannula Oxygen Flow Rate 4 Fraction of Inspired Oxygen 04/21/25 08:00 04/21/25 08:00 04/21/25 08:20 Temperature 99.3 F Pulse Rate 87 93 Respiratory Rate 15 Blood Pressure 85/53 L 103/58 L Pulse Oximetry 91 Oxygen Delivery Oxygen Flow Rate Fraction of Inspired Oxygen 04/21/25 09:00 04/21/25 10:00 04/21/25 10:00 Temperature 99.5 F 99.4 F Pulse Rate 82 81 84 Respiratory Rate 17 15 Blood Pressure 113/62 111/69 Pulse Oximetry 94 95 Oxygen Delivery Oxygen Flow Rate Fraction of Inspired Oxygen 04/21/25 11:00 04/21/25 11:57 04/21/25 12:00 Temperature 99.4 F 99.2 F Pulse Rate 88 79 83 Respiratory Rate 20 24 H 15 Blood Pressure 137/65 110/78 Pulse Oximetry 97 98 98 Oxygen Delivery Nasal Cannula Oxygen Flow Rate 4 Fraction of Inspired Oxygen 04/21/25 12:00 04/21/25 14:00 Temperature Pulse Rate 83 90 Respiratory Rate Blood Pressure Pulse Oximetry Oxygen Delivery Oxygen Flow Rate Fraction of Inspired Oxygen Intake/Output Intake/Output: Intake & Output 04/18/25 04/19/25 04/20/25 04/21/25 23:59 23:59 23:59 23:59 Intake Total 3154.4 873.3 1249.6 200 Output Total 700 825 500 275 Balance 2454.4 48.3 749.6 -75 Meds/Results Medications: Active Medications Generic Name Dose Route Start Last Admin Trade Name Freq PRN Reason Stop Dose Admin Acetaminophen 650 mg 04/18/25 04:12 04/20/25 01:08 Acetaminophen 325 Mg Tablet PO 650 mg Q4H PRN Administration Mild Pain (1-3) or Fever Albuterol 2 puff 04/21/25 12:11 Albuterol Sulfate (*Sp) Aerosol 1 Puff INHALATION Q6H PRN Shortness Of Breath Or Wheezing Albuterol/Ipratropium 3 ml 04/21/25 07:49 Ipratropium 0.5 Mg/Albuterol Sulfate 2.5 Mg (Base) Ampul.Neb 3 Ml INHALATION Q6HRT PRN Wheezing Atorvastatin Calcium 80 mg 04/18/25 21:00 04/20/25 20:30 Atorvastatin 40 Mg Tablet PO Not Given HS JUAN C Budesonide 0.5 mg 04/18/25 12:50 04/21/25 07:47 Budesonide Respule Neb 0.5 Mg/2 Ml Amp INHALATION 0.5 mg Q12HRT JUAN C Administration Escitalopram Oxalate 10 mg 04/18/25 12:00 04/21/25 08:17 Escitalopram Oxalate 10 Mg Tablet PO 10 mg DAILY JUAN C Administration Furosemide 40 mg 04/20/25 07:39 04/20/25 13:37 Furosemide Inj 40 Mg/4 Ml Vial IV PUSH 40 mg ONCE PRN Administration After PRBC Transfusion Cefepime HCl 2 gm/ Sodium 50 mls @ 100 mls/hr 04/19/25 00:00 04/21/25 12:40 Chloride IVPB Infused Q12H JUAN C Infusion Losartan Potassium 25 mg 04/22/25 09:00 Losartan Potassium 25 Mg Tablet PO DAILY JUAN C Ondansetron HCl 4 mg 04/18/25 04:12 Ondansetron Inj 4 Mg/2 Ml Vial IV PUSH Q4H PRN Nausea Sodium Chloride 10 ml 04/18/25 14:00 04/21/25 12:08 Central Line Flush IV PUSH 10 ml Q8HR JUAN C Administration Sodium Chloride 20 ml 04/18/25 08:31 Central Line Flush IV PUSH PRN PRN after blood draws Radiology Results: ITS Impressions Abdomen X-Ray 04/18/25 07:47 IMPRESSION: 1: OG tube tip in the stomach. Abdomen/Pelvis CTA 04/18/25 09:20 IMPRESSION: 1. No aneurysm or dissection identified. 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 There is a right-sided graft detailed above with probable seroma. Clinical correlation is required. Follow-up suggested to assess. Head CT 04/18/25 13:34 IMPRESSION: 1. No acute intracranial findings. Abdomen Ultrasound 04/19/25 09:39 IMPRESSION: 1. Nonspecific gallbladder wall thickening and pericholecystic fluid. If concern for acute cholecystitis, can consider HIDA scan. 2. Hepatomegaly, with steatosis and probable cirrhosis. Chest X-Ray 04/21/25 08:19 Impression: CHF. Superimposed probable pneumonia. The findings appear slightly progressed compared to the previous study Modified Barium Swallow 04/21/25 14:34 IMPRESSION: Pharyngeal dysphagia with laryngeal penetration and aspiration with thin liquids from a cup. Please correlate with speech pathologist findings and specific feeding recommendations. Labs Labs: Laboratory Results - last 24 hr 04/17/25 04/18/25 04/18/25 21:46 06:24 08:29 WBC RBC Hgb Hct MCV MCH MCHC RDW Plt Count MPV % Immature Plt Fraction Puncture Site Cancelled ABG pH Cancelled ABG pCO2 Cancelled ABG pO2 Cancelled ABG PO2/FiO2 Ratio Cancelled ABG HCO3 Cancelled ABG O2 Saturation Cancelled ABG O2 Content Cancelled ABG Base Excess Cancelled A-a Gradient Cancelled Oxyhemoglobin Cancelled Carboxyhemoglobin Methemoglobin Reduced Hemoglobin Total Hemoglobin Cancelled O2 Delivery Device Cancelled O2 Liters/Min Cancelled FiO2 Cancelled Sodium Potassium Chloride Carbon Dioxide Anion Gap BUN Creatinine Estim Creat Clear Calc Estimated GFR Glucose Calcium Phosphorus Magnesium Donna Transferrin Receptr 88.2 H Total Bilirubin AST ALT Alkaline Phosphatase Total Protein Albumin Crossmatch See Detail 04/21/25 04/21/25 04:09 05:28 WBC 10.1 H RBC 3.60 L Hgb 8.5 L Hct 28.9 L MCV 80.3 MCH 23.6 L MCHC 29.4 L RDW 23.6 H Plt Count 208 MPV 11.2 H % Immature Plt Fraction 4.9 Puncture Site Right radial ABG pH 7.423 ABG pCO2 49.7 H ABG pO2 56.6 L ABG PO2/FiO2 Ratio 1.77 ABG HCO3 31.7 H ABG O2 Saturation 89.7 L ABG O2 Content 11.6 L ABG Base Excess 6.4 A-a Gradient 113.4 Oxyhemoglobin 88.6 L Carboxyhemoglobin 1.4 Methemoglobin 0.1 Reduced Hemoglobin 9.9 H Total Hemoglobin 9.3 L O2 Delivery Device Nasal cannula O2 Liters/Min 3.0 FiO2 32 Sodium 139 Potassium 3.5 Chloride 102 Carbon Dioxide 36 H Anion Gap 1 L BUN 10 Creatinine 0.62 L Estim Creat Clear Calc 73 Estimated GFR > 60 Glucose 98 Calcium 8.4 Phosphorus 3.3 Magnesium 2.0 Donna Transferrin Receptr Total Bilirubin 3.6 H AST 66 H ALT 172 H Alkaline Phosphatase 137 H Total Protein 5.9 L Albumin 3.1 L Crossmatch Assessment and Plan Assessment and Plan (1) Acute respiratory failure: Code(s): J96.00 - Acute respiratory failure, unspecified whether with hypoxia or hypercapnia Status: Resolved Assessment and Plan: 04/18: Patient was transferred from intermediate Unit with agonal breathing, unresponsiveness. 04/18: Intubated in the ICU, respiratory failure could be related to TRALI as patient has pulmonary vascular congestion, NSTEMI, CHF, aspiration -remains on CMV mode of ventilation, peep of 5, 45 % FiO2 04/20: 5/5 PSV SBT done for more than 30 minutes. RSBI, ABGI and Vitals acceptable. Pt awake and following commands. Will extubate and monitor. NPO for now. Bipap PRN 04/21: on 3 L nasal cannula. No wheezing or distress. Continue bronchodilators p.r.n. Incentive spirometry, PT OT Transfer to IMU. (2) Shock: Code(s): R57.9 - Shock, unspecified Status: Resolved Assessment and Plan: patient received adequate IV fluids and 3 units of packed RBCs Chest x-ray showed pulmonary vascular congestion and was given Lasix Now off of fluids and vasopressors have been weaned off for more than 24 hours Continue cefepime (04/18) -04/18: Blood cultures obtained and negative with -04/18: Urine cultures obtained and negative till now Vancomycin discontinued (3) Non-ST elevation CT (NSTEMI): Code(s): I21.4 - Non-ST elevation (NSTEMI) myocardial infarction Status: Acute Assessment and Plan: Patient presented with chest pressure/pain, EKG showed inferior lateral ST depression the slight elevation in AVR, sinus tachycardia, normal QTC - Given concerns for ACS, interventional Cardiology was called by the ED physician, recommendations were to start heparin infusion and metoprolol. Heparin bolus was given, but her hemoglobin came back at 3.4 in the ER so heparin was discontinued. -unable to give heparin infusion or aspirin due to severe anemia, no beta-blockers due to septic shock and hypotension -appreciate cardiology recommended, no plans to conduct ischemic evaluation at this time -stress-induced/takotsubo cardiomyopathy on echocardiogram likely due to severe anemia. When she is off pressors will require GDMT Cardiology seen, recommends GDMT as tolerated. Continue aspirin, statin, oral lasix 40mg po qd. 04/18/2025: Echocardiogram Summary 1. Definity contrast administered improved wall motion interpretation. 2. Left ventricular chamber dimension is severely enlarged. 3. Left ventricular systolic function is severely globally reduced,estimated at 20-25. 4. The very basal segments have normal contractility suggestive of Takotsubocardiomyopathy. 5. The left ventricular diastolic function is grade I diastolic dysfunction. 6. E/e' 9 is minimally elevated. 7. Right ventricular chamber dimension is severely enlarged. 8. Right ventricular systolic function is severely reduced and with abnormalTAPSE 1.3 cm. 9. Left atrial chamber dimension is moderately enlarged. 10. Right atrial chamber dimension is moderately enlarged. 11. There is mild aortic valve sclerosis. 12. There is moderate to severe mitral valve regurgitation. 13. There is severe tricuspid valve regurgitation. 14. Mild pulmonary hypertension, estimated pulmonary arterial systolic pressure is 49 mmHg. 15. There is mild pulmonic regurgitation. (4) Anemia requiring transfusions: Code(s): D64.9 - Anemia, unspecified Status: Acute Assessment and Plan: 04/18: Severe anemia, hemoglobin 3.4 on admission, received 3 units of packed RBC, 04/20 hemoglobin 6.8. Will transfuse 1 more unit of PRBC followed by Lasix. Continue to trend q.6 hours for now -appreciate GI evaluation and recommendation, GI planning EGD and colonoscopy once patient is stable and extubated -Protonix IV q.12 hours -iron panel is normal -vitamin B12 and folic acid are normal -LDH slightly elevated, haptoglobin normal, Roshni test has been ordered to rule out hemolytic anemia 04/21: Hb holding stable, 8.5. (5) COPD (chronic obstructive pulmonary disease): Code(s): J44.9 - Chronic obstructive pulmonary disease, unspecified Status: Acute Assessment and Plan: History of COPD, on 2 L nasal cannula at home -continue bronchodilators -patient is on Trelegy at home, continue budesonide nebs was she is in the hospital (6) PVD (peripheral vascular disease): Code(s): I73.9 - Peripheral vascular disease, unspecified Status: Acute Assessment and Plan: History of peripheral vascular disease with previous Aorto-ilio- femoral bypass -patient on clopidogrel, and Xarelto at home, currently on hold due to severe anemia and possible GI blood loss (7) Hypertension: Code(s): I10 - Essential (primary) hypertension Status: Acute Assessment and Plan: Will resume antihypertensives as tolerated (8) Hyperlipemia, mixed: Code(s): E78.2 - Mixed hyperlipidemia Status: Acute Assessment and Plan: On atorvastatin at home, will continue continue (9) Dysphagia: Code(s): R13.10 - Dysphagia, unspecified Status: Acute Assessment and Plan: Bedside swallow study done. Patient exhibited some coughing after some type of foods. Speech recommended [place] barium swallow which has been ordered. Plan DVT prophylaxis: SCDs Stress ulcer prophylaxis: Protonix IV q.12 hours Nutrition: MBS ordered Code Status: Full code Transfer out of ICU today Consultations Consultations: I have discussed the care of this pt with the consulting providers. Hospitalist [facility] Advance Care Plan I have confirmed that the patient's Advanced Care Plan is present, code status is documented, or surrogate decision maker is listed in patient medical record.: Yes Medication Reconciliation I have utilized all available resources to obtain, update and review the patients current medications (includes all prescriptions, OTC, herbals, cannabis, and nutritional supplements).: Yes
[2025-04-21] MEDS: ATORVASTATIN 40 MG TABLET 80 MG PO (20:21)
[2025-04-22] VITALS (21 sets, daily range): BP systolic 117–140; BP diastolic 50–85; PULSE 60–106; RESP 15–33; TEMP 36.9–37.6; O2SAT 90–100
[2025-04-22] MEDS: CEFEPIME 2 GM in SODIUM CHLORIDE 0.9% IV 50 ML 100 ML IVPB ×2 (00:07→12:03)
[2025-04-22 04:26] LABS: Hematocrit 30.2 % (37.0-47.0); Hemoglobin 8.7 g/dL (12.0-15.0); Immature Platelet Fraction Pct 4.6 % (0.9-11.2); Mean Corpuscular HGB Conc 28.8 g/dl (32-36); Mean Corpuscular Hemoglobin 23.3 pg (26-34); Mean Corpuscular Volume 80.7 fl (80-100); Platelet Count Result 213 k/mm3 (150-375); Red Blood Count 3.74 M/mm3 (4.2-5.4); White Blood Count 8.7 K/mm3 (4.5-10.0)
[2025-04-22 04:44] LABS: Alanine Aminotransferase 138 U/L (6-35); Albumin Level 3.0 g/dL (3.5-5.1); Alkaline Phosphatase 141 U/L (38-126); Anion Gap 1 mmol/L (4-12); Aspartate Amino Transferase 50 U/L (14-36); Bilirubin,Total 2.7 mg/dL (0.2-1.3); Blood Urea Nitrogen 12 mg/dL (7-17); Calcium 8.7 mg/dL (8.4-10.2); Carbon Dioxide 34 mmol/L (22-30); Chloride 103 mmol/L (98-107); Estimated CRCL calculation 82 ml/min; Estimated Glomerular Filt Rate > 60; Glucose 91 mg/dL (65-110); Magnesium 2.2 mg/dL (1.6-2.3); Potassium 3.8 mmol/L (3.4-5.0); Sodium 138 mmol/L (137-145); Total Protein 6.0 g/dL (6.3-8.2)
[2025-04-22] MEDS: CENTRAL LINE FLUSH 10 ML IV PUSH ×3 (06:04→20:03)
[2025-04-22] MEDS: BUDESONIDE RESPULE NEB 0.5 MG/2 ML AMP INHALATION ×2 (08:15→19:27)
[2025-04-22] MEDS: ESCITALOPRAM OXALATE 10 MG TABLET PO (09:07)
[2025-04-22] MEDS: LOSARTAN POTASSIUM 25 MG TABLET PO (09:07)
--- NOTE | 2025-04-22 09:29 | P.PNCA_ITS ---
Progress Note: A&P Assessment and Plan (1) Acute systolic heart failure: Code(s): I50.21 - Acute systolic (congestive) heart failure Status: Acute (2) Mitral valve regurgitation: Code(s): I34.0 - Nonrheumatic mitral (valve) insufficiency Status: Acute (3) Severe tricuspid regurgitation: Code(s): I07.1 - Rheumatic tricuspid insufficiency Status: Acute (4) Non-ST elevation [place] (NSTEMI): Code(s): I21.4 - Non-ST elevation (NSTEMI) myocardial infarction Status: Acute (5) CAD (coronary artery disease): Code(s): I25.10 - Atherosclerotic heart disease of [place] coronary artery without angina pectoris Status: Acute (6) S/P CABG x 3: Code(s): Z95.1 - Presence of aortocoronary bypass graft Status: Acute (7) Aortic atherosclerosis: Code(s): I70.0 - Atherosclerosis of aorta Status: Acute (8) PVD (peripheral vascular disease): Code(s): I73.9 - Peripheral vascular disease, unspecified Status: Acute (9) Hyperlipemia, mixed: Code(s): E78.2 - Mixed hyperlipidemia Status: Acute (10) Hypertension: Code(s): I10 - Essential (primary) hypertension Status: Acute Plan Assessment: -NSTEMI -CAD status post CABG X 3 -Acute systolic heart failure with LVEF of 20-25%, grade 1 diastolic dysfunction -Acute respiratory failure requiring intubation-now extubated and on oxygen by nasal cannula -Severely depressed RV function -Valvular heart disease-moderate to severe mitral regurgitation and severe tricuspid regurgitation -Moderate pulmonary hypertension with PASP of 49 mm Hg -Hypertension -Hyperlipidemia -Severe anemia with hemoglobin at presentation 3.4 status post PRBC transfusions with hemoglobin of 8.5-GI following -Swallowing difficulty Plan: With regards to NSTEMI- this is most likely type 2 TN due to acute severe anemia. Also TTE shows findings suggestive 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. Continue medical management with statin. Unable to give aspirin due to severe anemia and GI bleed. Per GI, EGD and colonoscopy will be done when she recovers her swallowing ability Continue atorvastatin GDMT-start small dose of metoprolol 12.5 mg p.o. b.i.d. today. Continue losartan. Will add other guideline directed medical therapy as blood pressure tolerates She will need EP TTE in 3 months to evaluate LVEF. If LVEF does not improve more than 35% in 3 months with GDMT, she will need EP consult for ICD evaluation She is euvolemic. No further diuresis Check and replace electrolytes to keep potassium greater than 4 and magnesium greater than 2 Management of other medical problems per primary team Subjective Date/time seen: 04/22/25 09:29 Interval history: Reason for encounter: Chest pain with elevated troponin Relevant history: 59-year-old female with history of CAD s/p CABG x3 on chronic aspirin, Xarelto, peripheral arterial disease, hypertension, hyperlipidemia, aortic atherosclerosis, COPD on 2.5 L of oxygen at home presented via EMS with chief complaints of chest pressure. Troponin was elevated to 0.026, 0.240, 0. 469, 1.620. EKG showed sinus rhythm, inferior lateral ST depressions and slight elevation in AVR. Heparin bolus was given but heparin was not started as labs came back with hemoglobin of 3.4. She tested guaiac positive. She was given 3 units of PRBCs and GI was consulted. After admission to the IMU patient the left agonal breathing and became unresponsive requiring intubation and ICU admission. She has since been extubated and doing well but having some swallowing issues. Cardiology is consulted for further recommendations for NSTEMI. Further workup included chest x-ray which showed moderate pulmonary vascular congestion, echo which showed LVEF of 20-25%, grade 1 diastolic dysfunction, severely depressed RV systolic function, moderate to severe MR, severe TR, moderate pulmonary hyp ertension with PASP of 49 mm Hg. She was diuresed with IV Lasix and is presently euvolemic. Interval history: No chest pain or shortness of breath. She failed swallow study yesterday. Barium swallow showed pharyngeal dysphagia with laryngeal penetration and aspiration with thin liquids from a cup. She became liquids diet. Review of Systems Review of Systems: A complete review of systems was performed and pertinent positives are reported in the HPI. Exam Narrative: General: Alert oriented x3, no acute distress Neck: Supple, no JVD Chest: Bilaterally clear to auscultation, no rales or rhonchi Cardiac: S1, S2 +, regular rate, regular rhythm, no murmurs or rubs Extremities: No pedal edema, no skin rash Neurologic: Alert and oriented x3, no focal neurological deficits Objective Data Vital Signs Vital Signs: Vital Signs - 24 hr 04/21/25 10:00 04/21/25 10:00 04/21/25 11:00 Temperature 37.4 C 37.4 C Pulse Rate 81 84 88 Respiratory Rate 15 20 Blood Pressure 111/69 137/65 Pulse Oximetry 95 97 Oxygen Delivery Oxygen Flow Rate Fraction of Inspired Oxygen 04/21/25 11:57 04/21/25 12:00 04/21/25 12:00 Temperature 37.3 C Pulse Rate 79 83 83 Respiratory Rate 24 H 15 Blood Pressure 110/78 Pulse Oximetry 98 98 Oxygen Delivery Nasal Cannula Oxygen Flow Rate 4 Fraction of Inspired Oxygen 04/21/25 14:00 04/21/25 15:14 04/21/25 16:00 Temperature 37.3 C Pulse Rate 90 88 88 Respiratory Rate 17 15 Blood Pressure 108/62 Pulse Oximetry 96 97 Oxygen Delivery Nasal Cannula Oxygen Flow Rate 4 Fraction of Inspired Oxygen 04/21/25 16:00 04/21/25 18:00 04/21/25 20:00 Temperature Pulse Rate 88 80 72 Respiratory Rate 16 Blood Pressure Pulse Oximetry 95 Oxygen Delivery Nasal Cannula Oxygen Flow Rate 4 Fraction of Inspired Oxygen 36 04/21/25 20:00 04/21/25 20:00 04/21/25 20:51 Temperature 36.9 C Pulse Rate 72 72 81 Respiratory Rate 16 16 Blood Pressure 118/68 Pulse Oximetry 96 100 Oxygen Delivery Nasal Cannula Oxygen Flow Rate 3 Fraction of Inspired Oxygen 04/21/25 20:51 04/21/25 20:58 04/21/25 22:00 Temperature Pulse Rate 81 82 74 Respiratory Rate 16 16 Blood Pressure Pulse Oximetry Oxygen Delivery Oxygen Flow Rate Fraction of Inspired Oxygen 04/22/25 00:00 04/22/25 00:00 04/22/25 00:00 Temperature 36.9 C Pulse Rate 84 84 84 Respiratory Rate 16 16 Blood Pressure 125/76 Pulse Oximetry 100 98 Oxygen Delivery Nasal Cannula Oxygen Flow Rate 4 Fraction of Inspired Oxygen 36 04/22/25 01:58 04/22/25 04:00 04/22/25 04:00 Temperature Pulse Rate 88 88 94 Respiratory Rate 16 Blood Pressure Pulse Oximetry 98 Oxygen Delivery Nasal Cannula Oxygen Flow Rate 4 Fraction of Inspired Oxygen 36 04/22/25 04:00 04/22/25 06:00 04/22/25 08:00 Temperature 37.2 C Pulse Rate 80 79 106 H Respiratory Rate 16 20 Blood Pressure 122/76 Pulse Oximetry 94 90 Oxygen Delivery Nasal Cannula Oxygen Flow Rate 3 Fraction of Inspired Oxygen 36 04/22/25 08:00 04/22/25 08:00 04/22/25 08:15 Temperature 37.3 C Pulse Rate 98 106 H 101 H Respiratory Rate 20 21 H Blood Pressure 140/85 Pulse Oximetry 90 Oxygen Delivery Oxygen Flow Rate Fraction of Inspired Oxygen 04/22/25 08:17 04/22/25 08:22 Temperature Pulse Rate 100 98 Respiratory Rate 18 18 Blood Pressure Pulse Oximetry 99 Oxygen Delivery Nasal Cannula Oxygen Flow Rate 2.5 Fraction of Inspired Oxygen Intake/Output Intake/Output: Intake & Output 04/19/25 04/20/25 04/21/25 04/22/25 23:59 23:59 23:59 23:59 Intake Total 873.3 1249.6 200 200 Output Total 825 500 475 450 Balance 48.3 749.6 -275 -250 Meds/Results Medications: Active Medications Generic Name Dose Route Start Last Admin Trade Name Freq PRN Reason Stop Dose Admin Acetaminophen 650 mg 04/18/25 04:12 04/20/25 01:08 Acetaminophen 325 Mg Tablet PO 650 mg Q4H PRN Administration Mild Pain (1-3) or Fever Albuterol 2 puff 04/21/25 12:11 Albuterol Sulfate (*Sp) Aerosol 1 Puff INHALATION Q6H PRN Shortness Of Breath Or Wheezing Albuterol/Ipratropium 3 ml 04/21/25 07:49 Ipratropium 0.5 Mg/Albuterol Sulfate 2.5 Mg (Base) Ampul.Neb 3 Ml INHALATION Q6HRT PRN Wheezing Atorvastatin Calcium 80 mg 04/18/25 21:00 04/21/25 20:21 Atorvastatin 40 Mg Tablet PO 80 mg HS JUAN C Administration Budesonide 0.5 mg 04/18/25 12:50 04/22/25 08:15 Budesonide Respule Neb 0.5 Mg/2 Ml Amp INHALATION 0.5 mg Q12HRT JUAN C Administration Escitalopram Oxalate 10 mg 04/18/25 12:00 04/22/25 09:07 Escitalopram Oxalate 10 Mg Tablet PO 10 mg DAILY JUAN C Administration Furosemide 40 mg 04/20/25 07:39 04/20/25 13:37 Furosemide Inj 40 Mg/4 Ml Vial IV PUSH 40 mg ONCE PRN Administration After PRBC Transfusion Cefepime HCl 2 gm/ Sodium 50 mls @ 100 mls/hr 04/19/25 00:00 04/22/25 00:35 Chloride IVPB Infused Q12H JUAN C Infusion Losartan Potassium 25 mg 04/22/25 09:00 04/22/25 09:07 Losartan Potassium 25 Mg Tablet PO 25 mg DAILY JUAN C Administration Ondansetron HCl 4 mg 04/18/25 04:12 Ondansetron Inj 4 Mg/2 Ml Vial IV PUSH Q4H PRN Nausea Sodium Chloride 10 ml 04/18/25 14:00 04/22/25 06:04 Central Line Flush IV PUSH 10 ml Q8HR JUAN C Administration Sodium Chloride 20 ml 04/18/25 08:31 Central Line Flush IV PUSH PRN PRN after blood draws Radiology Results: ITS Impressions Abdomen X-Ray 04/18/25 07:47 IMPRESSION: 1: OG tube tip in the stomach. Abdomen/Pelvis CTA 04/18/25 09:20 IMPRESSION: 1. No aneurysm or dissection identified. 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 There is a right-sided graft detailed above with probable seroma. Clinical correlation is required. Follow-up suggested to assess. Head CT 04/18/25 13:34 IMPRESSION: 1. No acute intracranial findings. Abdomen Ultrasound 04/19/25 09:39 IMPRESSION: 1. Nonspecific gallbladder wall thickening and pericholecystic fluid. If concern for acute cholecystitis, can consider HIDA scan. 2. Hepatomegaly, with steatosis and probable cirrhosis. Chest X-Ray 04/21/25 08:19 Impression: CHF. Superimposed probable pneumonia. The findings appear slightly progressed compared to the previous study Modified Barium Swallow 04/21/25 14:34 IMPRESSION: Pharyngeal dysphagia with laryngeal penetration and aspiration with thin liquids from a cup. Please correlate with speech pathologist findings and specific feeding recommendations. Labs Labs: Laboratory Results - last 24 hr 04/18/25 04/18/25 04/22/25 06:24 08:29 04:13 WBC 8.7 RBC 3.74 L Hgb 8.7 L Hct 30.2 L MCV 80.7 MCH 23.3 L MCHC 28.8 L RDW 24.5 H Plt Count 213 MPV 10.4 % Immature Plt Fraction 4.6 Puncture Site Cancelled ABG pH Cancelled ABG pCO2 Cancelled ABG pO2 Cancelled ABG PO2/FiO2 Ratio Cancelled ABG HCO3 Cancelled ABG O2 Saturation Cancelled ABG O2 Content Cancelled ABG Base Excess Cancelled A-a Gradient Cancelled Oxyhemoglobin Cancelled Total Hemoglobin Cancelled O2 Delivery Device Cancelled O2 Liters/Min Cancelled FiO2 Cancelled Sodium 138 Potassium 3.8 Chloride 103 Carbon Dioxide 34 H Anion Gap 1 L BUN 12 Creatinine 0.54 L Estim Creat Clear Calc 82 Estimated GFR > 60 Glucose 91 Calcium 8.7 Phosphorus 3.2 Magnesium 2.2 Donna Transferrin Receptr 88.2 H Total Bilirubin 2.7 H AST 50 H ALT 138 H Alkaline Phosphatase 141 H Total Protein 6.0 L Albumin 3.0 L
[2025-04-22] MEDS: METOPROLOL TARTRATE 12.5 MG TABLET PO ×2 (09:51→20:03)
[2025-04-22] MEDS: FUROSEMIDE INJ 40 MG/4 ML VIAL 20 MG IV PUSH (10:50)
--- NOTE | 2025-04-22 10:59 | PCFNICU ---
ICU Rounding Note: Pt current nutrition is Nepro at 45ml/hr. Last recorded weight is 66.5 kg, stable Bowel Motility: No BM noted. Labs Reviewed: Cr 0.34, Alb 3.0 Meds Noted: Lipitor Skin: WNL Additional Notes: MBS 04/21 recommending Pureed, Level 4 with Mild Thick liquids, Level 2. Patient currently on full liquid diet, fairly tolerated. Recommending to add diet supplements for additional 350 kcal and 20 gm protein. Agree with diet orders. Following daily in ICU rounds.
[2025-04-22 12:08] LABS: Albumin, U 49.8 % (.); Alpha-1-Globulin, U 2.7 % (.); Alpha-2-Globulin, U 12.8 % (.); Beta Globulin, U 17.1 % (.); Gamma Globulin, U 17.6 % (.)
--- NOTE | 2025-04-22 14:59 | PM.IMPN2 ---
Assessment and Plan Assessment and Plan (1) Acute respiratory failure: Code(s): J96.00 - Acute respiratory failure, unspecified whether with hypoxia or hypercapnia Status: Resolved Assessment and Plan: 04/18: Patient was transferred from intermediate Unit with agonal breathing, unresponsiveness. 04/18: Intubated in the ICU, respiratory failure could be related to TRALI as patient has pulmonary vascular congestion, NSTEMI, CHF, aspiration -remains on CMV mode of ventilation, peep of 5, 45 % FiO2 04/20 5/5 PSV SBT done for more than 30 minutes. RSBI, ABGI and Vitals acceptable. Pt awake and following commands. Will extubate and monitor. NPO for now. Bipap PRN 04/21: Extubated, on 3 L nasal cannula. No wheezing or distress. Continue bronchodilators p.r.n. Incentive spirometry, PT OT (2) Shock: Code(s): R57.9 - Shock, unspecified Status: Resolved Assessment and Plan: patient received adequate IV fluids and 3 units of packed RBCs Chest x-ray showed pulmonary vascular congestion and was given Lasix Now off of fluids and vasopressors have been weaned off for more than 24 hours Continue cefepime (04/18) for total of 5 days -04/18: Blood cultures obtained and negative with -04/18: Urine cultures obtained and negative till now Vancomycin discontinued (3) Non-ST elevation [place] (NSTEMI): Code(s): I21.4 - Non-ST elevation (NSTEMI) myocardial infarction Status: Acute Assessment and Plan: Patient presented with chest pressure/pain, EKG showed inferior lateral ST depression the slight elevation in AVR, sinus tachycardia, normal QTC - Given concerns for ACS, interventional Cardiology was called by the ED physician, recommendations were to start heparin infusion and metoprolol. Heparin bolus was given, but her hemoglobin came back at 3.4 in the ER so heparin was discontinued. -unable to give heparin infusion or aspirin due to severe anemia, no beta-blockers due to septic shock and hypotension -appreciate cardiology recommended, no plans to conduct ischemic evaluation at this time -stress-induced/takotsubo cardiomyopathy on echocardiogram likely due to severe anemia. When she is off pressors will require GDMT Defer to cardiology 04/18/2025: Echocardiogram Summary 1. Definity contrast administered improved wall motion interpretation. 2. Left ventricular chamber dimension is severely enlarged. 3. Left ventricular systolic function is severely globally reduced,estimated at 20-25. 4. The very basal segments have normal contractility suggestive of Takotsubocardiomyopathy. 5. The left ventricular diastolic function is grade I diastolic dysfunction. 6. E/e' 9 is minimally elevated. 7. Right ventricular chamber dimension is severely enlarged. 8. Right ventricular systolic function is severely reduced and with abnormalTAPSE 1.3 cm. 9. Left atrial chamber dimension is moderately enlarged. 10. Right atrial chamber dimension is moderately enlarged. 11. There is mild aortic valve sclerosis. 12. There is moderate to severe mitral valve regurgitation. 13. There is severe tricuspid valve regurgitation. 14. Mild pulmonary hypertension, estimated pulmonary arterial systolicpressure is 49 mmHg. 15. There is mild pulmonic regurgitation. (4) Anemia requiring transfusions: Code(s): D64.9 - Anemia, unspecified Status: Acute Assessment and Plan: 04/18: Severe anemia, hemoglobin 3.4 on admission, received 3 units of packed RBC, 04/20 hemoglobin 6.8. Will transfuse 1 more unit of PRBC followed by Lasix. Continue to trend q.6 hours for now -appreciate GI evaluation and recommendation, GI planning EGD and colonoscopy once patient is stable and extubated -Protonix IV q.12 hours -iron panel is normal -vitamin B12 and folic acid are normal -LDH slightly elevated, haptoglobin normal, Roshni test has been ordered to rule out hemolytic anemia (5) COPD (chronic obstructive pulmonary disease): Code(s): J44.9 - Chronic obstructive pulmonary disease, unspecified Status: Acute Assessment and Plan: History of COPD, on 2 L nasal cannula at home -continue bronchodilators -patient is on Trelegy at home, continue budesonide nebs was she is in the hospital (6) PVD (peripheral vascular disease): Code(s): I73.9 - Peripheral vascular disease, unspecified Status: Acute Assessment and Plan: History of peripheral vascular disease with previous Aorto-ilio- femoral bypass -patient on clopidogrel, and Xarelto at home, currently on hold due to severe anemia and possible GI blood loss (7) Hypertension: Code(s): I10 - Essential (primary) hypertension Status: Acute Assessment and Plan: Patient has been started on losartan and metoprolol by Cardiology (8) Hyperlipemia, mixed: Code(s): E78.2 - Mixed hyperlipidemia Status: Acute Assessment and Plan: On atorvastatin at home, will continue continue (9) Dysphagia: Code(s): R13.10 - Dysphagia, unspecified Status: Acute Assessment and Plan: Bedside swallow study done. Patient exhibited some coughing after some type of foods. Speech recommended Kaylie barium swallow which has been ordered. Plan DVT prophylaxis: SCDs Stress ulcer prophylaxis: Protonix IV q.12 hours Nutrition: Liquid diet, thickened liquids Code Status: Full code PT/OT to evaluate Subjective Date/time seen: 04/22/25 14:59 Interval history: Reason for consult: Acute respiratory failure, shock, severe anemia, NSTEMI, possible GI bleed 04/22/2025: Patient being seen for hospitalist team Patient seen and examined the ICU, is doing well, denies any shortness of breath or chest pain. She is currently on full liquid diet, thickened liquids per speech therapy. Hemodynamically stable, afebrile, adequate urine out Review of Systems Review of Systems: All systems reviewed & are unremarkable except as noted in HPI and below Exam Narrative: General: Old frail female who is in no acute distress HEENT:? Pupils equal and reactive, sclera is clear, Neck:? Supple, right IJ central line in place Respiratory:? Decreased air entry overall bilaterally, no wheezing or crackle Cardiac:? S1-S2 normal, regular rate and rhythm Abdomen:? Soft, nontender, nondistended, hypoactive bowel sounds Extremities:? Bilateral trace edema in her lower extremities Neuro:? AO x3, moves all 4 extremities, follows commands, Skin:? Warm and dry Psych:? Normal speech and affect Objective Data Vital Signs Vital Signs: Vital Signs - 24 hr 04/21/25 15:14 04/21/25 16:00 04/21/25 16:00 Temperature 99.2 F Pulse Rate 88 88 88 Respiratory Rate 17 15 Blood Pressure 108/62 Pulse Oximetry 96 97 Oxygen Delivery Nasal Cannula Oxygen Flow Rate 4 Fraction of Inspired Oxygen 04/21/25 18:00 04/21/25 20:00 04/21/25 20:00 Temperature Pulse Rate 80 72 72 Respiratory Rate 16 Blood Pressure Pulse Oximetry 95 Oxygen Delivery Nasal Cannula Oxygen Flow Rate 4 Fraction of Inspired Oxygen 36 04/21/25 20:00 04/21/25 20:51 04/21/25 20:51 Temperature 98.5 F Pulse Rate 72 81 81 Respiratory Rate 16 16 16 Blood Pressure 118/68 Pulse Oximetry 96 100 Oxygen Delivery Nasal Cannula Oxygen Flow Rate 3 Fraction of Inspired Oxygen 04/21/25 20:58 04/21/25 22:00 04/22/25 00:00 Temperature Pulse Rate 82 74 84 Respiratory Rate 16 16 Blood Pressure Pulse Oximetry 100 Oxygen Delivery Nasal Cannula Oxygen Flow Rate 4 Fraction of Inspired Oxygen 36 04/22/25 00:00 04/22/25 00:00 04/22/25 01:58 Temperature 98.5 F Pulse Rate 84 84 88 Respiratory Rate 16 Blood Pressure 125/76 Pulse Oximetry 98 Oxygen Delivery Oxygen Flow Rate Fraction of Inspired Oxygen 04/22/25 04:00 04/22/25 04:00 04/22/25 04:00 Temperature 99.0 F Pulse Rate 88 94 80 Respiratory Rate 16 16 Blood Pressure 122/76 Pulse Oximetry 98 94 Oxygen Delivery Nasal Cannula Oxygen Flow Rate 4 Fraction of Inspired Oxygen 36 04/22/25 06:00 04/22/25 08:00 04/22/25 08:00 Temperature Pulse Rate 79 106 H 98 Respiratory Rate 20 Blood Pressure Pulse Oximetry 90 Oxygen Delivery Nasal Cannula Oxygen Flow Rate 3 Fraction of Inspired Oxygen 36 04/22/25 08:00 04/22/25 08:15 04/22/25 08:17 Temperature 99.1 F Pulse Rate 106 H 101 H 100 Respiratory Rate 20 21 H 18 Blood Pressure 140/85 Pulse Oximetry 90 99 Oxygen Delivery Nasal Cannula Oxygen Flow Rate 2.5 Fraction of Inspired Oxygen 04/22/25 08:22 04/22/25 09:51 04/22/25 10:00 Temperature Pulse Rate 98 74 74 Respiratory Rate 18 Blood Pressure Pulse Oximetry Oxygen Delivery Oxygen Flow Rate Fraction of Inspired Oxygen 04/22/25 12:00 04/22/25 12:00 04/22/25 12:00 Temperature 98.4 F Pulse Rate 60 74 60 Respiratory Rate 33 H 33 H Blood Pressure 124/50 L Pulse Oximetry 97 97 Oxygen Delivery Nasal Cannula Oxygen Flow Rate 2 Fraction of Inspired Oxygen 36 04/22/25 12:51 04/22/25 14:00 Temperature Pulse Rate 60 Respiratory Rate Blood Pressure Pulse Oximetry Oxygen Delivery Nasal Cannula Oxygen Flow Rate 3 Fraction of Inspired Oxygen Intake/Output Intake/Output: Intake & Output 04/19/25 04/20/25 04/21/25 04/22/25 23:59 23:59 23:59 23:59 Intake Total 873.3 1249.6 200 200 Output Total 825 500 475 450 Balance 48.3 749.6 -275 -502 Meds/Results Medications: Active Medications Generic Name Dose Route Start Last Admin Trade Name Freq PRN Reason Stop Dose Admin Acetaminophen 650 mg 04/18/25 04:12 04/20/25 01:08 Acetaminophen 325 Mg Tablet PO 650 mg Q4H PRN Administration Mild Pain (1-3) or Fever Albuterol 2 puff 04/21/25 12:11 Albuterol Sulfate (*Sp) Aerosol 1 Puff INHALATION Q6H PRN Shortness Of Breath Or Wheezing Albuterol/Ipratropium 3 ml 04/21/25 07:49 Ipratropium 0.5 Mg/Albuterol Sulfate 2.5 Mg (Base) Ampul.Neb 3 Ml INHALATION Q6HRT PRN Wheezing Atorvastatin Calcium 80 mg 04/18/25 21:00 04/21/25 20:21 Atorvastatin 40 Mg Tablet PO 80 mg HS JUAN C Administration Budesonide 0.5 mg 04/18/25 12:50 04/22/25 08:15 Budesonide Respule Neb 0.5 Mg/2 Ml Amp INHALATION 0.5 mg Q12HRT JUAN C Administration Escitalopram Oxalate 10 mg 04/18/25 12:00 04/22/25 09:07 Escitalopram Oxalate 10 Mg Tablet PO 10 mg DAILY JUAN C Administration Furosemide 40 mg 04/20/25 07:39 04/20/25 13:37 Furosemide Inj 40 Mg/4 Ml Vial IV PUSH 40 mg ONCE PRN Administration After PRBC Transfusion Cefepime HCl 2 gm/ Sodium 50 mls @ 100 mls/hr 04/19/25 00:00 04/22/25 12:03 Chloride IVPB 04/23/25 23:59 100 mls/hr Q12H JUAN C Administration Losartan Potassium 25 mg 04/22/25 09:00 04/22/25 09:07 Losartan Potassium 25 Mg Tablet PO 25 mg DAILY JUAN C Administration Metoprolol Tartrate 12.5 mg 04/22/25 09:00 04/22/25 09:51 Metoprolol Tartrate 12.5 Mg Tablet PO 12.5 mg Q12HR JUAN C Administration Ondansetron HCl 4 mg 04/18/25 04:12 Ondansetron Inj 4 Mg/2 Ml Vial IV PUSH Q4H PRN Nausea Sodium Chloride 10 ml 04/18/25 14:00 04/22/25 14:27 Central Line Flush IV PUSH 10 ml Q8HR JUAN C Administration Sodium Chloride 20 ml 04/18/25 08:31 Central Line Flush IV PUSH PRN PRN after blood draws Radiology Results: ITS Impressions Abdomen X-Ray 04/18/25 07:47 IMPRESSION: 1: OG tube tip in the stomach. Abdomen/Pelvis CTA 04/18/25 09:20 IMPRESSION: 1. No aneurysm or dissection identified. 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 There is a right-sided graft detailed above with probable seroma. Clinical correlation is required. Follow-up suggested to assess. Head CT 04/18/25 13:34 IMPRESSION: 1. No acute intracranial findings. Abdomen Ultrasound 04/19/25 09:39 IMPRESSION: 1. Nonspecific gallbladder wall thickening and pericholecystic fluid. If concern for acute cholecystitis, can consider HIDA scan. 2. Hepatomegaly, with steatosis and probable cirrhosis. Chest X-Ray 04/21/25 08:19 Impression: CHF. Superimposed probable pneumonia. The findings appear slightly progressed compared to the previous study Modified Barium Swallow 04/21/25 14:34 IMPRESSION: Pharyngeal dysphagia with laryngeal penetration and aspiration with thin liquids from a cup. Please correlate with speech pathologist findings and specific feeding recommendations. Labs Labs: Laboratory Results - last 24 hr 04/18/25 04/22/25 08:55 04:13 WBC 8.7 RBC 3.74 L Hgb 8.7 L Hct 30.2 L MCV 80.7 MCH 23.3 L MCHC 28.8 L RDW 24.5 H Plt Count 213 MPV 10.4 % Immature Plt Fraction 4.6 Sodium 138 Potassium 3.8 Chloride 103 Carbon Dioxide 34 H Anion Gap 1 L BUN 12 Creatinine 0.54 L Estim Creat Clear Calc 82 Estimated GFR > 60 Glucose 91 Calcium 8.7 Phosphorus 3.2 Magnesium 2.2 Total Bilirubin 2.7 H AST 50 H ALT 138 H Alkaline Phosphatase 141 H Total Protein 6.0 L Albumin 3.0 L Urine Total Protein 97.8 Urine Albumin (PEP) 49.8 U [id number] 2.7 U [id number] 12.8 U Beta Globulin 17.1 U Gamma Globulin 17.6 U Random M-Flaquito (%) Comment: Urine PEP Note Comment Quality VTE Prophylaxis VTE prophylaxis: mechanical ordered
--- NOTE | 2025-04-22 15:27 | WPDGIPROGNO ---
Progress Note: A&P Assessment and Plan (1) Dysphagia: Code(s): R13.10 - Dysphagia, unspecified Status: Acute Assessment and Plan: The patient is recovering from an acute episode of circulatory failure driven by cardiogenic shock secondary to a very low ejection fraction (approximately 20%) associated with Takotsubo's syndrome. Furthermore, the recent modified barium swallow study demonstrated a significant risk for aspiration. Given the aspiration risk and the need for adequate preparation, an essential prerequisite for any endoscopic evaluation (colonoscopy and upper endoscopy), close follow-up and recommendations from Speech Therapy are required. It is unclear if thickeners can be safely and effectively added to standard colonoscopic prep to facilitate preparation during this hospitalization. Proceeding with colonoscopy under anesthesia at this time is highly hazardous due to the severely depressed cardiac function. Will continue to follow the patient closely during this hospitalization and will likely defer the endoscopic procedures until after discharge, provided both swallowing function and cardiac status improve. (2) Anemia requiring transfusions: Code(s): D64.9 - Anemia, unspecified Status: Acute Subjective Date/time seen: 04/22/25 15:27 Interval history: Patient able to tolerate liquid diet but with thickeners. Exam Narrative: Not acutely distressed. Rest of the exam unchanged from yesterda Objective Data Vital Signs Vital Signs: Vital Signs - 24 hr 04/21/25 16:00 04/21/25 16:00 04/21/25 18:00 Temperature 99.2 F Pulse Rate 88 88 80 Respiratory Rate 15 Blood Pressure 108/62 Pulse Oximetry 97 Oxygen Delivery Oxygen Flow Rate Fraction of Inspired Oxygen 04/21/25 20:00 04/21/25 20:00 04/21/25 20:00 Temperature 98.5 F Pulse Rate 72 72 72 Respiratory Rate 16 16 Blood Pressure 118/68 Pulse Oximetry 95 96 Oxygen Delivery Nasal Cannula Oxygen Flow Rate 4 Fraction of Inspired Oxygen 36 04/21/25 20:51 04/21/25 20:51 04/21/25 20:58 Temperature Pulse Rate 81 81 82 Respiratory Rate 16 16 16 Blood Pressure Pulse Oximetry 100 Oxygen Delivery Nasal Cannula Oxygen Flow Rate 3 Fraction of Inspired Oxygen 04/21/25 22:00 04/22/25 00:00 04/22/25 00:00 Temperature Pulse Rate 74 84 84 Respiratory Rate 16 Blood Pressure Pulse Oximetry 100 Oxygen Delivery Nasal Cannula Oxygen Flow Rate 4 Fraction of Inspired Oxygen 36 04/22/25 00:00 04/22/25 01:58 04/22/25 04:00 Temperature 98.5 F Pulse Rate 84 88 88 Respiratory Rate 16 16 Blood Pressure 125/76 Pulse Oximetry 98 98 Oxygen Delivery Nasal Cannula Oxygen Flow Rate 4 Fraction of Inspired Oxygen 36 04/22/25 04:00 04/22/25 04:00 04/22/25 06:00 Temperature 99.0 F Pulse Rate 94 80 79 Respiratory Rate 16 Blood Pressure 122/76 Pulse Oximetry 94 Oxygen Delivery Oxygen Flow Rate Fraction of Inspired Oxygen 04/22/25 08:00 04/22/25 08:00 04/22/25 08:00 Temperature 99.1 F Pulse Rate 106 H 98 106 H Respiratory Rate 20 20 Blood Pressure 140/85 Pulse Oximetry 90 90 Oxygen Delivery Nasal Cannula Oxygen Flow Rate 3 Fraction of Inspired Oxygen 36 04/22/25 08:15 04/22/25 08:17 04/22/25 08:22 Temperature Pulse Rate 101 H 100 98 Respiratory Rate 21 H 18 18 Blood Pressure Pulse Oximetry 99 Oxygen Delivery Nasal Cannula Oxygen Flow Rate 2.5 Fraction of Inspired Oxygen 04/22/25 09:51 04/22/25 10:00 04/22/25 12:00 Temperature Pulse Rate 74 74 60 Respiratory Rate 33 H Blood Pressure Pulse Oximetry 97 Oxygen Delivery Nasal Cannula Oxygen Flow Rate 2 Fraction of Inspired Oxygen 36 04/22/25 12:00 04/22/25 12:00 04/22/25 12:51 Temperature 98.4 F Pulse Rate 74 60 Respiratory Rate 33 H Blood Pressure 124/50 L Pulse Oximetry 97 Oxygen Delivery Nasal Cannula Oxygen Flow Rate 3 Fraction of Inspired Oxygen 04/22/25 14:00 Temperature Pulse Rate 60 Respiratory Rate Blood Pressure Pulse Oximetry Oxygen Delivery Oxygen Flow Rate Fraction of Inspired Oxygen Intake/Output Intake/Output: Intake & Output 04/19/25 04/20/25 04/21/25 04/22/25 23:59 23:59 23:59 23:59 Intake Total 873.3 1249.6 200 200 Output Total 825 500 475 450 Balance 48.3 749.6 -275 -250 Meds/Results Medications: Active Medications Generic Name Dose Route Start Last Admin Trade Name Freq PRN Reason Stop Dose Admin Acetaminophen 650 mg 04/18/25 04:12 04/20/25 01:08 Acetaminophen 325 Mg Tablet PO 650 mg Q4H PRN Administration Mild Pain (1-3) or Fever Albuterol 2 puff 04/21/25 12:11 Albuterol Sulfate (*Sp) Aerosol 1 Puff INHALATION Q6H PRN Shortness Of Breath Or Wheezing Albuterol/Ipratropium 3 ml 04/21/25 07:49 Ipratropium 0.5 Mg/Albuterol Sulfate 2.5 Mg (Base) Ampul.Neb 3 Ml INHALATION Q6HRT PRN Wheezing Atorvastatin Calcium 80 mg 04/18/25 21:00 04/21/25 20:21 Atorvastatin 40 Mg Tablet PO 80 mg HS JUAN C Administration Budesonide 0.5 mg 04/18/25 12:50 04/22/25 08:15 Budesonide Respule Neb 0.5 Mg/2 Ml Amp INHALATION 0.5 mg Q12HRT JUAN C Administration Escitalopram Oxalate 10 mg 04/18/25 12:00 04/22/25 09:07 Escitalopram Oxalate 10 Mg Tablet PO 10 mg DAILY JUAN C Administration Furosemide 40 mg 04/20/25 07:39 04/20/25 13:37 Furosemide Inj 40 Mg/4 Ml Vial IV PUSH 40 mg ONCE PRN Administration After PRBC Transfusion Cefepime HCl 2 gm/ Sodium 50 mls @ 100 mls/hr 04/19/25 00:00 04/22/25 12:03 Chloride IVPB 04/23/25 23:59 100 mls/hr Q12H JUAN C Administration Losartan Potassium 25 mg 04/22/25 09:00 04/22/25 09:07 Losartan Potassium 25 Mg Tablet PO 25 mg DAILY JUAN C Administration Metoprolol Tartrate 12.5 mg 04/22/25 09:00 04/22/25 09:51 Metoprolol Tartrate 12.5 Mg Tablet PO 12.5 mg Q12HR JUAN C Administration Ondansetron HCl 4 mg 04/18/25 04:12 Ondansetron Inj 4 Mg/2 Ml Vial IV PUSH Q4H PRN Nausea Sodium Chloride 10 ml 04/18/25 14:00 04/22/25 14:27 Central Line Flush IV PUSH 10 ml Q8HR JUAN C Administration Sodium Chloride 20 ml 04/18/25 08:31 Central Line Flush IV PUSH PRN PRN after blood draws Radiology Results: ITS Impressions Abdomen X-Ray 04/18/25 07:47 IMPRESSION: 1: OG tube tip in the stomach. Abdomen/Pelvis CTA 04/18/25 09:20 IMPRESSION: 1. No aneurysm or dissection identified. 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 There is a right-sided graft detailed above with probable seroma. Clinical correlation is required. Follow-up suggested to assess. Head CT 04/18/25 13:34 IMPRESSION: 1. No acute intracranial findings. Abdomen Ultrasound 04/19/25 09:39 IMPRESSION: 1. Nonspecific gallbladder wall thickening and pericholecystic fluid. If concern for acute cholecystitis, can consider HIDA scan. 2. Hepatomegaly, with steatosis and probable cirrhosis. Chest X-Ray 04/21/25 08:19 Impression: CHF. Superimposed probable pneumonia. The findings appear slightly progressed compared to the previous study Modified Barium Swallow 04/21/25 14:34 IMPRESSION: Pharyngeal dysphagia with laryngeal penetration and aspiration with thin liquids from a cup. Please correlate with speech pathologist findings and specific feeding recommendations. Labs Labs: Laboratory Results - last 24 hr 04/18/25 04/22/25 08:55 04:13 WBC 8.7 RBC 3.74 L Hgb 8.7 L Hct 30.2 L MCV 80.7 MCH 23.3 L MCHC 28.8 L RDW 24.5 H Plt Count 213 MPV 10.4 % Immature Plt Fraction 4.6 Sodium 138 Potassium 3.8 Chloride 103 Carbon Dioxide 34 H Anion Gap 1 L BUN 12 Creatinine 0.54 L Estim Creat Clear Calc 82 Estimated GFR > 60 Glucose 91 Calcium 8.7 Phosphorus 3.2 Magnesium 2.2 Total Bilirubin 2.7 H AST 50 H ALT 138 H Alkaline Phosphatase 141 H Total Protein 6.0 L Albumin 3.0 L Urine Total Protein 97.8 Urine Albumin (PEP) 49.8 U Zdfdu-5-Hznvjgtc 2.7 U Pkdom-3-Fvsrgtqh 12.8 U Beta Globulin 17.1 U Gamma Globulin 17.6 U Random M-Flaquito (%) Comment: Urine PEP Note Comment
[2025-04-22] MEDS: ATORVASTATIN 40 MG TABLET 80 MG PO (20:03)
[2025-04-23] VITALS (22 sets, daily range): BP systolic 103–135; BP diastolic 59–80; PULSE 65–98; RESP 14–20; TEMP 36.3–37.7; O2SAT 96–99
[2025-04-23] MEDS: CEFEPIME 2 GM in SODIUM CHLORIDE 0.9% IV 50 ML 100 ML IVPB ×2 (03:20→11:52)
[2025-04-23] MEDS: CENTRAL LINE FLUSH 10 ML IV PUSH ×2 (05:09→17:08)
[2025-04-23] MEDS: ACETAMINOPHEN 325 MG TABLET 650 MG PO (05:14)
[2025-04-23 05:17] LABS: Hematocrit 31.6 % (37.0-47.0); Hemoglobin 9.2 g/dL (12.0-15.0); Immature Granulocyte Percent A 0.2 % (0-0.5); Lymphocytes Absolute Auto 1.44 K/mm3 (0.9-3.2); Mean Corpuscular HGB Conc 29.1 g/dl (32-36); Mean Corpuscular Hemoglobin 23.1 pg (26-34); Mean Corpuscular Volume 79.4 fl (80-100); Nucleated Red Blood Cells Absolute Auto 0.000 K/mm3 (0.0-0.012); Nucleated Red Blood Cells Perc 0.0 % (0.0-0.2); Platelet Count Result 232 k/mm3 (150-375); Red Blood Count 3.98 M/mm3 (4.2-5.4); White Blood Count 8.2 K/mm3 (4.5-10.0)
[2025-04-23 05:31] LABS: Hypochromasia 2+
[2025-04-23 05:32] LABS: Ovalocytes 1+; Schistocytes None Seen
--- NOTE | 2025-04-23 05:48 | PC.NURSE ---
This patient, Brenda Ibarra, was received from [ ICU 9] on 04/23/25 at 0549. Patient/family oriented to unit policies and routines
[2025-04-23 05:52] LABS: Alanine Aminotransferase 116 U/L (6-35); Albumin Level 3.0 g/dL (3.5-5.1); Alkaline Phosphatase 139 U/L (38-126); Anion Gap 1 mmol/L (4-12); Aspartate Amino Transferase 50 U/L (14-36); Bilirubin,Total 2.4 mg/dL (0.2-1.3); Blood Urea Nitrogen 12 mg/dL (7-17); Calcium 8.6 mg/dL (8.4-10.2); Carbon Dioxide 37 mmol/L (22-30); Chloride 99 mmol/L (98-107); Estimated CRCL calculation 85 ml/min; Estimated Glomerular Filt Rate > 60; Glucose 94 mg/dL (65-110); Magnesium 2.1 mg/dL (1.6-2.3); Potassium 3.2 mmol/L (3.4-5.0); Sodium 137 mmol/L (137-145); Total Protein 6.0 g/dL (6.3-8.2)
--- NOTE | 2025-04-23 06:06 | PC.NURSE ---
This patient, Brenda Ibarra, was transferred to [facility] on 04/23/25 at 0530. Personal belongings sent with patient. Report given to SVEN Michael. Appropriate documentation sent with patient.
--- NOTE | 2025-04-23 07:51 | P.PNGI_ITS ---
Progress Note: A&P Assessment and Plan (1) Dysphagia: Code(s): R13.10 - Dysphagia, unspecified Status: Acute Assessment and Plan: - The patient developed dysphagia and specific modified barium swallow abnorma lities immediately following extubation. While initial difficulties may reflect post-extubation complications rather than chronic dysphagia, which the patient denies prior to this admission, her swallowing function is currently improving. A simple, bedside Speech-Language Pathology evaluation is warranted to determine her ability to safely tolerate a standard colonoscopy preparation. - In addition, Cardiology reevaluation is required to reassess her cardiac function and provide clearance regarding her suitability for sedation and endoscopic procedures necessary to investigate her severe anemia. Subjective Date/time seen: 04/23/25 07:52 Interval history: The patient is doing well, able to swallow liquids with a small amount of thickener. Exam Narrative: No changes. Objective Data Vital Signs Vital Signs: Vital Signs - 24 hr 04/22/25 08:00 04/22/25 08:00 04/22/25 08:00 Temperature 99.1 F Pulse Rate 106 H 98 106 H Respiratory Rate 20 20 Blood Pressure 140/85 Pulse Oximetry 90 90 Oxygen Delivery Nasal Cannula Oxygen Flow Rate 3 Fraction of Inspired Oxygen 36 04/22/25 08:15 04/22/25 08:17 04/22/25 08:22 Temperature Pulse Rate 101 H 100 98 Respiratory Rate 21 H 18 18 Blood Pressure Pulse Oximetry 99 Oxygen Delivery Nasal Cannula Oxygen Flow Rate 2.5 Fraction of Inspired Oxygen 04/22/25 09:51 04/22/25 10:00 04/22/25 12:00 Temperature Pulse Rate 74 74 60 Respiratory Rate 33 H Blood Pressure Pulse Oximetry 97 Oxygen Delivery Nasal Cannula Oxygen Flow Rate 2 Fraction of Inspired Oxygen 36 04/22/25 12:00 04/22/25 12:00 04/22/25 12:51 Temperature 98.4 F Pulse Rate 74 60 Respiratory Rate 33 H Blood Pressure 124/50 L Pulse Oximetry 97 Oxygen Delivery Nasal Cannula Oxygen Flow Rate 3 Fraction of Inspired Oxygen 04/22/25 14:00 04/22/25 16:00 04/22/25 16:00 Temperature Pulse Rate 60 77 60 Respiratory Rate 16 Blood Pressure Pulse Oximetry 98 Oxygen Delivery Nasal Cannula Oxygen Flow Rate 3 Fraction of Inspired Oxygen 36 04/22/25 16:00 04/22/25 18:00 04/22/25 19:28 Temperature 99.6 F Pulse Rate 77 77 76 Respiratory Rate 16 16 Blood Pressure 117/70 Pulse Oximetry 98 Oxygen Delivery Oxygen Flow Rate Fraction of Inspired Oxygen 04/22/25 19:29 04/22/25 19:39 04/22/25 20:00 Temperature 99.4 F Pulse Rate 75 73 80 Respiratory Rate 20 20 15 Blood Pressure 122/68 Pulse Oximetry 94 95 Oxygen Delivery Nasal Cannula Oxygen Flow Rate 3 Fraction of Inspired Oxygen 32 04/22/25 20:00 04/22/25 20:00 04/22/25 20:03 Temperature Pulse Rate 82 74 82 Respiratory Rate 15 Blood Pressure Pulse Oximetry 95 Oxygen Delivery Nasal Cannula Oxygen Flow Rate 3 Fraction of Inspired Oxygen 04/22/25 22:00 04/22/25 23:48 04/23/25 00:00 Temperature 99.8 F H Pulse Rate 68 67 67 Respiratory Rate 16 16 Blood Pressure 128/67 Pulse Oximetry 96 97 Oxygen Delivery Nasal Cannula Oxygen Flow Rate 3 Fraction of Inspired Oxygen 04/23/25 00:00 04/23/25 02:00 04/23/25 03:38 Temperature Pulse Rate 67 65 65 Respiratory Rate 16 Blood Pressure Pulse Oximetry 97 Oxygen Delivery Nasal Cannula Oxygen Flow Rate 3 Fraction of Inspired Oxygen 04/23/25 04:00 04/23/25 04:00 04/23/25 05:49 Temperature 99.0 F Pulse Rate 74 67 68 Respiratory Rate 14 Blood Pressure 126/64 Pulse Oximetry 98 Oxygen Delivery Oxygen Flow Rate Fraction of Inspired Oxygen Intake/Output Intake/Output: Intake & Output 04/20/25 04/21/25 04/22/25 04/23/25 23:59 23:59 23:59 23:59 Intake Total 1249.6 200 450 200 Output Total 109 979 6968 200 Balance 749.6 -275 -1550 0 Meds/Results Medications: Active Medications Generic Name Dose Route Start Last Admin Trade Name Freq PRN Reason Stop Dose Admin Acetaminophen 650 mg 04/18/25 04:12 04/23/25 05:14 Acetaminophen 325 Mg Tablet PO 650 mg Q4H PRN Administration Mild Pain (1-3) or Fever Albuterol 2 puff 04/21/25 12:11 Albuterol Sulfate (*Sp) Aerosol 1 Puff INHALATION Q6H PRN Shortness Of Breath Or Wheezing Albuterol/Ipratropium 3 ml 04/21/25 07:49 Ipratropium 0.5 Mg/Albuterol Sulfate 2.5 Mg (Base) Ampul.Neb 3 Ml INHALATION Q6HRT PRN Wheezing Atorvastatin Calcium 80 mg 04/18/25 21:00 04/22/25 20:03 Atorvastatin 40 Mg Tablet PO 80 mg HS JUAN C Administration Budesonide 0.5 mg 04/18/25 12:50 04/22/25 19:27 Budesonide Respule Neb 0.5 Mg/2 Ml Amp INHALATION 0.5 mg Q12HRT JUAN C Administration Escitalopram Oxalate 10 mg 04/18/25 12:00 04/22/25 09:07 Escitalopram Oxalate 10 Mg Tablet PO 10 mg DAILY JUAN C Administration Furosemide 40 mg 04/20/25 07:39 04/20/25 13:37 Furosemide Inj 40 Mg/4 Ml Vial IV PUSH 40 mg ONCE PRN Administration After PRBC Transfusion Cefepime HCl 2 gm/ Sodium 50 mls @ 100 mls/hr 04/19/25 00:00 04/23/25 03:50 Chloride IVPB 04/23/25 23:59 Infused Q12H JUAN C Infusion Losartan Potassium 25 mg 04/22/25 09:00 04/22/25 09:07 Losartan Potassium 25 Mg Tablet PO 25 mg DAILY JUAN C Administration Metoprolol Tartrate 12.5 mg 04/22/25 09:00 04/22/25 20:03 Metoprolol Tartrate 12.5 Mg Tablet PO 12.5 mg Q12HR JUAN C Administration Ondansetron HCl 4 mg 04/18/25 04:12 Ondansetron Inj 4 Mg/2 Ml Vial IV PUSH Q4H PRN Nausea Sodium Chloride 10 ml 04/18/25 14:00 04/23/25 05:09 Central Line Flush IV PUSH 10 ml Q8HR JUAN C Administration Sodium Chloride 20 ml 04/18/25 08:31 Central Line Flush IV PUSH PRN PRN after blood draws Radiology Results: ITS Impressions Abdomen X-Ray 04/18/25 07:47 IMPRESSION: 1: OG tube tip in the stomach. Abdomen/Pelvis CTA 04/18/25 09:20 IMPRESSION: 1. No aneurysm or dissection identified. 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 There is a right-sided graft detailed above with probable seroma. Clinical correlation is required. Follow-up suggested to assess. Head CT 04/18/25 13:34 IMPRESSION: 1. No acute intracranial findings. Abdomen Ultrasound 04/19/25 09:39 IMPRESSION: 1. Nonspecific gallbladder wall thickening and pericholecystic fluid. If concern for acute cholecystitis, can consider HIDA scan. 2. Hepatomegaly, with steatosis and probable cirrhosis. Chest X-Ray 04/21/25 08:19 Impression: CHF. Superimposed probable pneumonia. The findings appear slightly progressed compared to the previous study Modified Barium Swallow 04/21/25 14:34 IMPRESSION: Pharyngeal dysphagia with laryngeal penetration and aspiration with thin liquids from a cup. Please correlate with speech pathologist findings and specific feeding recommendations. Labs Labs: Laboratory Results - last 24 hr 04/18/25 04/23/25 08:55 05:12 WBC 8.2 RBC 3.98 L Hgb 9.2 L Hct 31.6 L MCV 79.4 L MCH 23.1 L MCHC 29.1 L RDW 25.2 H Plt Count 232 MPV 10.2 Immature Gran % (Auto) 0.2 Neut % (Auto) 64.3 Lymph % (Auto) 17.7 L [place] % (Auto) 9.6 H Eos % (Auto) 7.2 H Baso % (Auto) 1.0 Lymph # (Auto) 1.44 [place] # (Auto) 0.8 H Eos # (Auto) 0.6 H Baso # (Auto) 0.1 Abs Immat Gran (auto) 0.02 Absolute Neuts (auto) 5.2 Absolute Nucleated RBC 0.000 Band Neutrophils % Not Reportable Nucleated RBC % 0.0 Platelet Estimate Adequate Hypochromasia 2+ Ovalocytes 1+ Schistocytes None seen Sodium 137 Potassium 3.2 L Chloride 99 Carbon Dioxide 37 H Anion Gap 1 L BUN 12 Creatinine 0.52 L Estim Creat Clear Calc 85 Estimated GFR > 60 Glucose 94 Calcium 8.6 Phosphorus 3.9 Magnesium 2.1 Total Bilirubin 2.4 H AST 50 H ALT 116 H Alkaline Phosphatase 139 H Total Protein 6.0 L Albumin 3.0 L Urine Total Protein 97.8 Urine Albumin (PEP) 49.8 U Zcemu-2-Qbbjrbiu 2.7 U Bvvrz-6-Zfagizwf 12.8 U Beta Globulin 17.1 U Gamma Globulin 17.6 U Random M-Flaquito (%) Comment: Urine PEP Note Comment
--- NOTE | 2025-04-23 08:51 | PM.PNCARD ---
Progress Note: A&P Assessment and Plan (1) Acute systolic heart failure: Code(s): I50.21 - Acute systolic (congestive) heart failure Status: Acute (2) Mitral valve regurgitation: Code(s): I34.0 - Nonrheumatic mitral (valve) insufficiency Status: Acute (3) Severe tricuspid regurgitation: Code(s): I07.1 - Rheumatic tricuspid insufficiency Status: Acute (4) Non-ST elevation SC (NSTEMI): Code(s): I21.4 - Non-ST elevation (NSTEMI) myocardial infarction Status: Acute (5) CAD (coronary artery disease): Code(s): I25.10 - Atherosclerotic heart disease of [place] coronary artery without angina pectoris Status: Acute (6) S/P CABG x 3: Code(s): Z95.1 - Presence of aortocoronary bypass graft Status: Acute (7) Aortic atherosclerosis: Code(s): I70.0 - Atherosclerosis of aorta Status: Acute (8) PVD (peripheral vascular disease): Code(s): I73.9 - Peripheral vascular disease, unspecified Status: Acute (9) Hyperlipemia, mixed: Code(s): E78.2 - Mixed hyperlipidemia Status: Acute (10) Hypertension: Code(s): I10 - Essential (primary) hypertension Status: Acute Plan Assessment: -NSTEMI-most likely type 2 SC from supply demand mismatch secondary to acute severe anemia with hemoglobin of 3.4; TTE showed findings 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 -CAD status post CABG X 3-no chest pain -Acute systolic heart failure with LVEF of 20-25%, grade 1 diastolic dysfunction-improved and currently euvolemic -Acute respiratory failure requiring intubation-now extubated and on oxygen by nasal cannula -Severely depressed RV function -Valvular heart disease-moderate to severe mitral regurgitation and severe tricuspid regurgitation -Moderate pulmonary hypertension with PASP of 49 mm Hg -PAD- on asa, Xarelto -Hypertension -Hyperlipidemia -Severe anemia with hemoglobin at presentation 3.4 status post PRBC transfusions with hemoglobin of 8.5-GI following -Swallowing difficulty Plan: -Check troponin to ensure down trend -Continue medical management for CAD. Continue statin. No aspirin due to severe anemia and GI bleed. Aspirin 81 mg daily can be resumed when okay per GI -GI planning EGD and colonoscopy when patient swallowing improves. Barium swallow planned for today. Though she does not have any current chest pain, is euvolemic on exam, stable electrically, hemoglobin is improved, no GLENYS/stroke/diabetes, given recent SC, severely depressed LVEF and severely depressed RV function, severe valvular heart disease she remains at moderate risk for cardiac events from planned GI procedure. Optimize blood pressure and heart rate and volume status before, during, and after any planned procedures. Cardiology will be available and follow along for any questions -GDMT-continue metoprolol, losartan. Will add empagliflozin 10 mg daily. Will add spironolactone as blood pressure tolerates -Sublingual nitroglycerin p.r.n. for chest pain -Repeat TTE in 3 months to evaluate LVEF. If LVEF does not improve more than 35% in 3 months with GDMT, she will need EP consult for ICD evaluation -She is euvolemic. No further diuresis -Check and replace electrolytes to keep potassium greater than 4 and magnesium greater than 2 -Management of other medical problems per primary team Subjective Date/time seen: 04/23/25 08:51 Interval history: Reason for encounter: Chest pain with elevated troponin Relevant history: 59-year-old female with history of CAD s/p CABG x3 on chronic aspirin, Xarelto, peripheral arterial disease, hypertension, hyperlipidemia, aortic atherosclerosis, COPD on 2.5 L of oxygen at home presented via EMS with chief complaints of chest pressure. Troponin was elevated to 0.026, 0.240, 0.469, 1.620. EKG showed sinus rhythm, inferior lateral ST depressions and slight elevation in AVR. Heparin bolus was given but heparin was not started as labs came back with hemoglobin of 3.4. She tested guaiac positive. She was given 3 units of PRBCs and GI was consulted. After admission to the IMU patient the left agonal breathing and became unresponsive requiring intubation and ICU admission. She has since been extubated and doing well but having some swallowing issues. Cardiology is consulted for further recommendations for NSTEMI. Further workup included chest x-ray which showed moderate pulmonary vascular congestion, echo which showed LVEF of 20-25%, grade 1 diastolic dysfunction, severely depressed RV systolic function, moderate to severe MR, severe TR, moderate pulmonary hypertension with PASP of 49 mm Hg. She was diuresed with IV Lasix and is presently euvolemic. Interval history: No chest pain or shortness of breath. GI evaluation for acute severe anemia is still pending due to patient having swallowing issue. Review of Systems Review of Systems: A complete review of systems was performed and pertinent positives are reported in the HPI. Exam Narrative: General: Alert oriented x3, no acute distress Neck: Supple, no JVD Chest: Bilaterally clear to auscultation, no rales or rhonchi Cardiac: S1, S2 +, regular rate, regular rhythm, no murmurs or rubs Extremities: No pedal edema, no skin rash Neurologic: Alert and oriented x3, no focal neurological deficits Objective Data Vital Signs Vital Signs: Vital Signs - 24 hr 04/22/25 09:51 04/22/25 10:00 04/22/25 12:00 Temperature Pulse Rate 74 74 60 Respiratory Rate 33 H Blood Pressure Pulse Oximetry 97 Oxygen Delivery Nasal Cannula Oxygen Flow Rate 2 Fraction of Inspired Oxygen 36 04/22/25 12:00 04/22/25 12:00 04/22/25 12:51 Temperature 36.9 C Pulse Rate 74 60 Respiratory Rate 33 H Blood Pressure 124/50 L Pulse Oximetry 97 Oxygen Delivery Nasal Cannula Oxygen Flow Rate 3 Fraction of Inspired Oxygen 04/22/25 14:00 04/22/25 16:00 04/22/25 16:00 Temperature Pulse Rate 60 77 60 Respiratory Rate 16 Blood Pressure Pulse Oximetry 98 Oxygen Delivery Nasal Cannula Oxygen Flow Rate 3 Fraction of Inspired Oxygen 36 04/22/25 16:00 04/22/25 18:00 04/22/25 19:28 Temperature 37.6 C Pulse Rate 77 77 76 Respiratory Rate 16 16 Blood Pressure 117/70 Pulse Oximetry 98 Oxygen Delivery Oxygen Flow Rate Fraction of Inspired Oxygen 04/22/25 19:29 04/22/25 19:39 04/22/25 20:00 Temperature 37.4 C Pulse Rate 75 73 80 Respiratory Rate 20 20 15 Blood Pressure 122/68 Pulse Oximetry 94 95 Oxygen Delivery Nasal Cannula Oxygen Flow Rate 3 Fraction of Inspired Oxygen 32 04/22/25 20:00 04/22/25 20:00 04/22/25 20:03 Temperature Pulse Rate 82 74 82 Respiratory Rate 15 Blood Pressure Pulse Oximetry 95 Oxygen Delivery Nasal Cannula Oxygen Flow Rate 3 Fraction of Inspired Oxygen 04/22/25 22:00 04/22/25 23:48 04/23/25 00:00 Temperature 37.7 C H Pulse Rate 68 67 67 Respiratory Rate 16 16 Blood Pressure 128/67 Pulse Oximetry 96 97 Oxygen Delivery Nasal Cannula Oxygen Flow Rate 3 Fraction of Inspired Oxygen 04/23/25 00:00 04/23/25 02:00 04/23/25 03:38 Temperature Pulse Rate 67 65 65 Respiratory Rate 16 Blood Pressure Pulse Oximetry 97 Oxygen Delivery Nasal Cannula Oxygen Flow Rate 3 Fraction of Inspired Oxygen 04/23/25 04:00 04/23/25 04:00 04/23/25 05:49 Temperature 37.2 C Pulse Rate 74 67 68 Respiratory Rate 14 Blood Pressure 126/64 Pulse Oximetry 98 Oxygen Delivery Oxygen Flow Rate Fraction of Inspired Oxygen 04/23/25 07:51 Temperature 36.3 C L Pulse Rate 82 Respiratory Rate 20 Blood Pressure 113/59 L Pulse Oximetry 99 Oxygen Delivery Oxygen Flow Rate Fraction of Inspired Oxygen Intake/Output Intake/Output: Intake & Output 04/20/25 04/21/25 04/22/25 04/23/25 23:59 23:59 23:59 23:59 Intake Total 1249.6 200 450 200 Output Total 184 994 7286 200 Balance 749.6 -275 -1550 0 Meds/Results Medications: Active Medications Generic Name Dose Route Start Last Admin Trade Name Freq PRN Reason Stop Dose Admin Acetaminophen 650 mg 04/18/25 04:12 04/23/25 05:14 Acetaminophen 325 Mg Tablet PO 650 mg Q4H PRN Administration Mild Pain (1-3) or Fever Albuterol 2 puff 04/21/25 12:11 Albuterol Sulfate (*Sp) Aerosol 1 Puff INHALATION Q6H PRN Shortness Of Breath Or Wheezing Albuterol/Ipratropium 3 ml 04/21/25 07:49 Ipratropium 0.5 Mg/Albuterol Sulfate 2.5 Mg (Base) Ampul.Neb 3 Ml INHALATION Q6HRT PRN Wheezing Atorvastatin Calcium 80 mg 04/18/25 21:00 04/22/25 20:03 Atorvastatin 40 Mg Tablet PO 80 mg HS JUAN C Administration Budesonide 0.5 mg 04/18/25 12:50 04/22/25 19:27 Budesonide Respule Neb 0.5 Mg/2 Ml Amp INHALATION 0.5 mg Q12HRT JUAN C Administration Escitalopram Oxalate 10 mg 04/18/25 12:00 04/22/25 09:07 Escitalopram Oxalate 10 Mg Tablet PO 10 mg DAILY JUAN C Administration Furosemide 40 mg 04/20/25 07:39 04/20/25 13:37 Furosemide Inj 40 Mg/4 Ml Vial IV PUSH 40 mg ONCE PRN Administration After PRBC Transfusion Cefepime HCl 2 gm/ Sodium 50 mls @ 100 mls/hr 04/19/25 00:00 04/23/25 03:50 Chloride IVPB 04/23/25 23:59 Infused Q12H JUAN C Infusion Losartan Potassium 25 mg 04/22/25 09:00 04/22/25 09:07 Losartan Potassium 25 Mg Tablet PO 25 mg DAILY JUAN C Administration Metoprolol Tartrate 12.5 mg 04/22/25 09:00 04/22/25 20:03 Metoprolol Tartrate 12.5 Mg Tablet PO 12.5 mg Q12HR JUAN C Administration Ondansetron HCl 4 mg 04/18/25 04:12 Ondansetron Inj 4 Mg/2 Ml Vial IV PUSH Q4H PRN Nausea Sodium Chloride 10 ml 04/18/25 14:00 04/23/25 05:09 Central Line Flush IV PUSH 10 ml Q8HR JUAN C Administration Sodium Chloride 20 ml 04/18/25 08:31 Central Line Flush IV PUSH PRN PRN after blood draws Radiology Results: ITS Impressions Abdomen X-Ray 04/18/25 07:47 IMPRESSION: 1: OG tube tip in the stomach. Abdomen/Pelvis CTA 04/18/25 09:20 IMPRESSION: 1. No aneurysm or dissection identified. 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 There is a right-sided graft detailed above with probable seroma. Clinical correlation is required. Follow-up suggested to assess. Head CT 04/18/25 13:34 IMPRESSION: 1. No acute intracranial findings. Abdomen Ultrasound 04/19/25 09:39 IMPRESSION: 1. Nonspecific gallbladder wall thickening and pericholecystic fluid. If concern for acute cholecystitis, can consider HIDA scan. 2. Hepatomegaly, with steatosis and probable cirrhosis. Chest X-Ray 04/21/25 08:19 Impression: CHF. Superimposed probable pneumonia. The findings appear slightly progressed compared to the previous study Modified Barium Swallow 04/21/25 14:34 IMPRESSION: Pharyngeal dysphagia with laryngeal penetration and aspiration with thin liquids from a cup. Please correlate with speech pathologist findings and specific feeding recommendations. Labs Labs: Laboratory Results - last 24 hr 04/18/25 04/23/25 08:55 05:12 WBC 8.2 RBC 3.98 L Hgb 9.2 L Hct 31.6 L MCV 79.4 L MCH 23.1 L MCHC 29.1 L RDW 25.2 H Plt Count 232 MPV 10.2 Immature Gran % (Auto) 0.2 Neut % (Auto) 64.3 Lymph % (Auto) 17.7 L [place] % (Auto) 9.6 H Eos % (Auto) 7.2 H Baso % (Auto) 1.0 Lymph # (Auto) 1.44 [place] # (Auto) 0.8 H Eos # (Auto) 0.6 H Baso # (Auto) 0.1 Abs Immat Gran (auto) 0.02 Absolute Neuts (auto) 5.2 Absolute Nucleated RBC 0.000 Band Neutrophils % Not Reportable Nucleated RBC % 0.0 Platelet Estimate Adequate Hypochromasia 2+ Ovalocytes 1+ Schistocytes None seen Sodium 137 Potassium 3.2 L Chloride 99 Carbon Dioxide 37 H Anion Gap 1 L BUN 12 Creatinine 0.52 L Estim Creat Clear Calc 85 Estimated GFR > 60 Glucose 94 Calcium 8.6 Phosphorus 3.9 Magnesium 2.1 Total Bilirubin 2.4 H AST 50 H ALT 116 H Alkaline Phosphatase 139 H Total Protein 6.0 L Albumin 3.0 L Urine Total Protein 97.8 Urine Albumin (PEP) 49.8 U Awsff-3-Nemsnprp 2.7 U Zwexm-2-Otvxshie 12.8 U Beta Globulin 17.1 U Gamma Globulin 17.6 U Random M-[place] (%) Comment: Urine PEP Note Comment
[2025-04-23] MEDS: BUDESONIDE RESPULE NEB 0.5 MG/2 ML AMP INHALATION ×2 (09:08→20:05)
[2025-04-23] MEDS: LOSARTAN POTASSIUM 25 MG TABLET PO (09:11)
[2025-04-23] MEDS: ESCITALOPRAM OXALATE 10 MG TABLET PO (09:11)
[2025-04-23] MEDS: METOPROLOL TARTRATE 12.5 MG TABLET PO ×2 (09:11→21:04)
[2025-04-23] MEDS: EMPAGLIFLOZIN 10 MG TABLET PO (09:15)
[2025-04-23] MEDS: POTASSIUM CHLORIDE 20 MEQ PACKET (FOR LIQUID) 40 MEQ PO (09:15)
[2025-04-23] MEDS: POTASSIUM CHLORIDE 20 MEQ ER TABLET PO (10:06)
[2025-04-23] MEDS: FUROSEMIDE 20 MG TABLET PO (10:06)
[2025-04-23 10:07] LABS: Troponin I 0.107 ng/mL (0.000-0.034)
--- NOTE | 2025-04-23 11:14 | PC.NURSE ---
patient left floor via wheelchair at 1105. no signs of distress noted.
--- NOTE | 2025-04-23 12:18 | PCSTNOTE ---
Please refer to the Modified Barium Swallow Evaluation in the EMR. The patient is a 59 year old female referred for a repeat MBS study secondary to noted coughing with thin liquids during a BSE completed 04/21/25 and silent aspiration viewed during a MBS on 04/21/25. The patient has been tolerating her current diet and has shown noted improvement in her voice and swallow function. The patient was presented the following consistencies: 5cc/tsp thin liquid, thin liquid via cup, pudding mixed with barium paste, and cracker coated with barium paste. Oral Stage: Oral preparation and transit were within normal limits for all consistencies. Pharyngeal stage: When presented 5cc thin liquid via tsp, thin liquid via a cup, pudding mixed with barium paste, and cracker coated with barium paste no viewed aspiration or penetration. The patient was noted to have moderate residual in the valleculae for pudding and cracker consistencies secondary to reduced tongue base retraction and reduced epiglottic inversion. However, when alternating bites and drinks the patient was able to clear a significant portion residual remaining within the valleculae. Recommend 1. Regular / Level 7 2. Thin Liquid / Level 0 3. Upright with meals 4. Frequent Observation 5. Alternate bites and drinks 6. Continue speech services for tongue base retraction
[2025-04-23 15:27] LABS: Potassium 4.0 mmol/L (3.4-5.0)
--- NOTE | 2025-04-23 15:33 | P.PNIM_ITS ---
Assessment and Plan Assessment and Plan (1) Acute respiratory failure: Code(s): J96.00 - Acute respiratory failure, unspecified whether with hypoxia or hypercapnia Status: Resolved Assessment and Plan: 04/18: Patient was transferred from intermediate Unit with agonal breathing, unresponsiveness. 04/18: Intubated in the ICU, respiratory failure could be related to TRALI as patient has pulmonary vascular congestion, NSTEMI, CHF, aspiration -remains on CMV mode of ventilation, peep of 5, 45 % FiO2 04/20 5/5 PSV SBT done for more than 30 minutes. RSBI, ABGI and Vitals acceptable. Pt awake and following commands. Will extubate and monitor. NPO for now. Bipap PRN 04/21: Extubated, on 3 L nasal cannula. No wheezing or distress. Continue bronchodilators p.r.n. Incentive spirometry, PT OT (2) Shock: Code(s): R57.9 - Shock, unspecified Status: Resolved Assessment and Plan: patient received adequate IV fluids and 3 units of packed RBCs Chest x-ray showed pulmonary vascular congestion and was given Lasix Now off of fluids and vasopressors have been weaned off for more than 24 hours Continue cefepime (04/18) for total of 5 days -04/18: Blood cultures obtained and negative with -04/18: Urine cultures obtained and negative till now Vancomycin discontinued (3) Non-ST elevation FL (NSTEMI): Code(s): I21.4 - Non-ST elevation (NSTEMI) myocardial infarction Status: Acute Assessment and Plan: Patient presented with chest pressure/pain, EKG showed inferior lateral ST depression the slight elevation in AVR, sinus tachycardia, normal QTC - Given concerns for ACS, interventional Cardiology was called by the ED physician, recommendations were to start heparin infusion and metoprolol. Heparin bolus was given, but her hemoglobin came back at 3.4 in the ER so heparin was discontinued. -unable to give heparin infusion or aspirin due to severe anemia, no beta- blockers due to septic shock and hypotension -appreciate cardiology recommended, no plans to conduct ischemic evaluation at this time -stress-induced/takotsubo cardiomyopathy on echocardiogram likely due to severe anemia. When she is off pressors will require GDMT Defer to cardiology 04/18/2025: Echocardiogram Summary 1. Definity contrast administered improved wall motion interpretation. 2. Left ventricular chamber dimension is severely enlarged. 3. Left ventricular systolic function is severely globally reduced,estimated at 20-25. 4. The very basal segments have normal contractility suggestive of Takotsubo cardiomyopathy. 5. The left ventricular diastolic function is grade I diastolic dysfunction. 6. E/e' 9 is minimally elevated. 7. Right ventricular chamber dimension is severely enlarged. 8. Right ventricular systolic function is severely reduced and with abnormal TAPSE 1.3 cm. 9. Left atrial chamber dimension is moderately enlarged. 10. Right atrial chamber dimension is moderately enlarged. 11. There is mild aortic valve sclerosis. 12. There is moderate to severe mitral valve regurgitation. 13. There is severe tricuspid valve regurgitation. 14. Mild pulmonary hypertension, estimated pulmonary arterial systolic pressure is 49 mmHg. 15. There is mild pulmonic regurgitation. 04/23: Cardiology recommends troponin to ensure it is improving, GDMT- continue metoprolol, losartan. Add empagliflozin 10 mg daily. Will add spironolactone as blood pressure tolerates, statin, avoid aspirin due to GI bleed, can resume per GI recommendations. Sublingual nitroglycerin p.r.n. for chest pain. Repeat TTE in 3 months to evaluate LVEF. If LVEF does not improve more than 35% in 3 months with GDMT, she will need EP consult for ICD evaluation She is euvolemic. No further diuresis. (4) Anemia requiring transfusions: Code(s): D64.9 - Anemia, unspecified Status: Acute Assessment and Plan: 04/18: Severe anemia, hemoglobin 3.4 on admission, received 3 units of packed RBC, 04/20 hemoglobin 6.8. Will transfuse 1 more unit of PRBC followed by Lasix. Continue to trend q.6 hours for now -appreciate GI evaluation and recommendation, GI planning EGD and colonoscopy once patient is stable and extubated -Protonix IV q.12 hours -iron panel is normal -vitamin B12 and folic acid are normal -LDH slightly elevated, haptoglobin normal, Roshni test has been ordered to rule out hemolytic anemia 04/23: Hb stable, uptrending to 9.2. Will need to see with GI if aspirin is safe to resume. (5) COPD (chronic obstructive pulmonary disease): Code(s): J44.9 - Chronic obstructive pulmonary disease, unspecified Status: Acute Assessment and Plan: History of COPD, on 2 L nasal cannula at home -continue bronchodilators -patient is on Trelegy at home, continue budesonide nebs while here (6) PVD (peripheral vascular disease): Code(s): I73.9 - Peripheral vascular disease, unspecified Status: Acute Assessment and Plan: History of peripheral vascular disease with previous Aorto-ilio- femoral bypass -patient on clopidogrel, and Xarelto at home, currently on hold due to severe anemia and possible GI blood loss (7) Hypertension: Code(s): I10 - Essential (primary) hypertension Status: Acute Assessment and Plan: Patient has been started on losartan and metoprolol by Cardiology (8) Hyperlipemia, mixed: Code(s): E78.2 - Mixed hyperlipidemia Status: Acute Assessment and Plan: On atorvastatin at home, will continue continue (9) Dysphagia: Code(s): R13.10 - Dysphagia, unspecified Status: Acute Assessment and Plan: Bedside swallow study done. Patient exhibited some coughing after some type of foods. Speech recommended [place] barium swallow which has been ordered- she has passed. Plan DVT prophylaxis: SCDs Stress ulcer prophylaxis: Protonix IV q.12 hours Nutrition: Liquid diet, thickened liquids Code Status: Full code PT/OT to evaluate Consultations Consultations: I have discussed the care of this pt with the consulting providers. Subjective Date/time seen: 04/23/25 15:33 Interval history: This is a 59-year-old female patient who has a history of coronary artery disease status post 3 vessel CAB H ovary year ago at another hospital. The patient activated EMS tonight as she was having chest pressure that started after she was exerting herself around the house. She also has a history of COPD and is chronically on oxygen at 2.5 L. she felt better when she rested but with any activity she would have chest pressure again. She was also having some nausea with this as well. She was ill appearing, tachycardic, and tachypneic in the emergency room. Her EKG did show some inferior lateral ST depressions and slight elevation in AVR. The ER physician did talk to Interventional Cardiology who recommend that the patient be heparinized and heparin drip was started. Metoprolol was also recommended for the heart rate. However her hemoglobin came back critically low at 3.4. She is chronically on Xarelto an aspirin and was found to be guaiac-positive in the emergency room. Patient was ordered 3 units of packed red blood cells. She also has history of severe aortoiliac occlusive disease. She is under the care of Dr. Sparks at [facility]. Therefore the ER physician notify Dr. Sparks at [facility]. It was noted that her CT scan reveals chronic changes. Cardiology and GI have both been consulted. Patient's EKGs did improve with the blood transfusion. Repeat H&H was 8.0 in 27.0. CTA abdomen pelvis preliminary report was read as mild interseptal thickening is question pulmonary edema. There is underlying emphysema. Her heparin drip was then stopped. The patient was given IV Protonix. Her potassium was noted to be 2.5 which was replaced with 40 mEq potassium chloride IV. Review of Systems Review of Systems: All systems reviewed & are unremarkable except as noted in HPI and below Exam Narrative: General: No acute distress HEENT:? Pupils equal and reactive, sclera is clear, Neck:? Supple, right IJ central line in place Respiratory:? Decreased air entry overall bilaterally, no wheezing or crackle Cardiac:? S1-S2 normal, regular rate and rhythm Abdomen:? Soft, nontender, nondistended, hypoactive bowel sounds Extremities:? Bilateral trace edema in her lower extremities Neuro:? AO x3, moves all 4 extremities, follows commands, Skin:? Warm and dry Psych:? Normal speech and affect Objective Data Vital Signs Vital Signs: Vital Signs - 24 hr 04/22/25 16:00 04/22/25 16:00 04/22/25 16:00 Temperature 99.6 F Pulse Rate 77 60 77 Respiratory Rate 16 16 Blood Pressure 117/70 Pulse Oximetry 98 98 Oxygen Delivery Nasal Cannula Oxygen Flow Rate 3 Fraction of Inspired Oxygen 36 04/22/25 18:00 04/22/25 19:28 04/22/25 19:29 Temperature Pulse Rate 77 76 75 Respiratory Rate 16 20 Blood Pressure Pulse Oximetry 94 Oxygen Delivery Nasal Cannula Oxygen Flow Rate 3 Fraction of Inspired Oxygen 32 04/22/25 19:39 04/22/25 20:00 04/22/25 20:00 Temperature 99.4 F Pulse Rate 73 80 82 Respiratory Rate 20 15 15 Blood Pressure 122/68 Pulse Oximetry 95 95 Oxygen Delivery Nasal Cannula Oxygen Flow Rate 3 Fraction of Inspired Oxygen 04/22/25 20:00 04/22/25 20:03 04/22/25 22:00 Temperature Pulse Rate 74 82 68 Respiratory Rate Blood Pressure Pulse Oximetry Oxygen Delivery Oxygen Flow Rate Fraction of Inspired Oxygen 04/22/25 23:48 04/23/25 00:00 04/23/25 00:00 Temperature 99.8 F H Pulse Rate 67 67 67 Respiratory Rate 16 16 Blood Pressure 128/67 Pulse Oximetry 96 97 Oxygen Delivery Nasal Cannula Oxygen Flow Rate 3 Fraction of Inspired Oxygen 04/23/25 02:00 04/23/25 03:38 04/23/25 04:00 Temperature 99.0 F Pulse Rate 65 65 74 Respiratory Rate 16 14 Blood Pressure 126/64 Pulse Oximetry 97 98 Oxygen Delivery Nasal Cannula Oxygen Flow Rate 3 Fraction of Inspired Oxygen 04/23/25 04:00 04/23/25 05:49 04/23/25 07:51 Temperature 97.4 F L Pulse Rate 67 68 82 Respiratory Rate 20 Blood Pressure 113/59 L Pulse Oximetry 99 Oxygen Delivery Oxygen Flow Rate Fraction of Inspired Oxygen 04/23/25 08:00 04/23/25 08:00 04/23/25 09:08 Temperature Pulse Rate 85 85 98 Respiratory Rate 18 Blood Pressure Pulse Oximetry 96 Oxygen Delivery Nasal Cannula Oxygen Flow Rate 3 Fraction of Inspired Oxygen 04/23/25 09:11 04/23/25 09:14 04/23/25 09:15 Temperature Pulse Rate 88 87 Respiratory Rate 18 Blood Pressure Pulse Oximetry 96 Oxygen Delivery Nasal Cannula Oxygen Flow Rate 3 Fraction of Inspired Oxygen 04/23/25 10:00 04/23/25 12:00 04/23/25 12:00 Temperature 97.8 F Pulse Rate 73 88 77 Respiratory Rate 18 Blood Pressure 135/73 Pulse Oximetry 99 Oxygen Delivery Oxygen Flow Rate Fraction of Inspired Oxygen Intake/Output Intake/Output: Intake & Output 04/20/25 04/21/25 04/22/25 04/23/25 23:59 23:59 23:59 23:59 Intake Total 1249.6 200 450 200 Output Total 611 028 2936 200 Balance 749.6 -275 -1550 0 Meds/Results Medications: Active Medications Generic Name Dose Route Start Last Admin Trade Name Freq PRN Reason Stop Dose Admin Acetaminophen 650 mg 04/18/25 04:12 04/23/25 05:14 Acetaminophen 325 Mg Tablet PO 650 mg Q4H PRN Administration Mild Pain (1-3) or Fever Albuterol 2 puff 04/21/25 12:11 Albuterol Sulfate (*Sp) Aerosol 1 Puff INHALATION Q6H PRN Shortness Of Breath Or Wheezing Albuterol/Ipratropium 3 ml 04/21/25 07:49 Ipratropium 0.5 Mg/Albuterol Sulfate 2.5 Mg (Base) Ampul.Neb 3 Ml INHALATION Q6HRT PRN Wheezing Atorvastatin Calcium 80 mg 04/18/25 21:00 04/22/25 20:03 Atorvastatin 40 Mg Tablet PO 80 mg HS JUAN C Administration Budesonide 0.5 mg 04/18/25 12:50 04/23/25 09:08 Budesonide Respule Neb 0.5 Mg/2 Ml Amp INHALATION 0.5 mg Q12HRT JUAN C Administration Empagliflozin 10 mg 04/23/25 09:00 04/23/25 09:15 Empagliflozin 10 Mg Tablet PO 10 mg DAILY JUAN C Administration Escitalopram Oxalate 10 mg 04/18/25 12:00 04/23/25 09:11 Escitalopram Oxalate 10 Mg Tablet PO 10 mg DAILY JUAN C Administration Furosemide 40 mg 04/20/25 07:39 04/20/25 13:37 Furosemide Inj 40 Mg/4 Ml Vial IV PUSH 40 mg ONCE PRN Administration After PRBC Transfusion Furosemide 20 mg 04/23/25 09:25 04/23/25 10:06 Furosemide 20 Mg Tablet PO 20 mg DAILY JUAN C Administration Cefepime HCl 2 gm/ Sodium 50 mls @ 100 mls/hr 04/19/25 00:00 04/23/25 11:52 Chloride IVPB 04/23/25 23:59 100 mls/hr Q12H JUAN C Administration Losartan Potassium 25 mg 04/22/25 09:00 04/23/25 09:11 Losartan Potassium 25 Mg Tablet PO 25 mg DAILY JUAN C Administration Metoprolol Tartrate 12.5 mg 04/22/25 09:00 04/23/25 09:11 Metoprolol Tartrate 12.5 Mg Tablet PO 12.5 mg Q12HR JUAN C Administration Ondansetron HCl 4 mg 04/18/25 04:12 Ondansetron Inj 4 Mg/2 Ml Vial IV PUSH Q4H PRN Nausea Potassium Chloride 20 meq 04/23/25 09:20 04/23/25 10:06 Potassium Chloride 20 Meq Er Tablet PO 20 meq DAILY JUAN C Administration Sodium Chloride 10 ml 04/18/25 14:00 12/03/25 05:09 Central Line Flush IV PUSH 10 ml Q8HR JUAN C Administration Sodium Chloride 20 ml 04/18/25 08:31 Central Line Flush IV PUSH PRN PRN after blood draws Radiology Results: ITS Impressions Abdomen X-Ray 04/18/25 07:47 IMPRESSION: 1: OG tube tip in the stomach. Abdomen/Pelvis CTA 04/18/25 09:20 IMPRESSION: 1. No aneurysm or dissection identified. 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 There is a right-sided graft detailed above with probable seroma. Clinical correlation is required. Follow-up suggested to assess. Head CT 04/18/25 13:34 IMPRESSION: 1. No acute intracranial findings. Abdomen Ultrasound 04/19/25 09:39 IMPRESSION: 1. Nonspecific gallbladder wall thickening and pericholecystic fluid. If concern for acute cholecystitis, can consider HIDA scan. 2. Hepatomegaly, with steatosis and probable cirrhosis. Chest X-Ray 04/21/25 08:19 Impression: CHF. Superimposed probable pneumonia. The findings appear slightly progressed compared to the previous study Modified Barium Swallow 04/23/25 11:32 IMPRESSION: Mild pharyngeal dysphagia without laryngeal penetration or aspiration. Please correlate with speech pathologist findings and specific feeding recommendations. Labs Labs: Laboratory Results - last 24 hr 04/23/25 04/23/25 05:12 15:04 WBC 8.2 RBC 3.98 L Hgb 9.2 L Hct 31.6 L MCV 79.4 L MCH 23.1 L MCHC 29.1 L RDW 25.2 H Plt Count 232 MPV 10.2 Immature Gran % (Auto) 0.2 Neut % (Auto) 64.3 Lymph % (Auto) 17.7 L Runnels % (Auto) 9.6 H Eos % (Auto) 7.2 H Baso % (Auto) 1.0 Lymph # (Auto) 1.44 Runnels # (Auto) 0.8 H Eos # (Auto) 0.6 H Baso # (Auto) 0.1 Abs Immat Gran (auto) 0.02 Absolute Neuts (auto) 5.2 Absolute Nucleated RBC 0.000 Band Neutrophils % Not Reportable Nucleated RBC % 0.0 Platelet Estimate Adequate Hypochromasia 2+ Ovalocytes 1+ Schistocytes None seen Sodium 137 Potassium 3.2 L 4.0 Chloride 99 Carbon Dioxide 37 H Anion Gap 1 L BUN 12 Creatinine 0.52 L Estim Creat Clear Calc 85 Estimated GFR > 60 Glucose 94 Calcium 8.6 Phosphorus 3.9 Magnesium 2.1 Total Bilirubin 2.4 H AST 50 H ALT 116 H Alkaline Phosphatase 139 H Troponin I 0.107 H* Total Protein 6.0 L Albumin 3.0 L Hospitalist MIPS Advance Care Plan I have confirmed that the patient's Advanced Care Plan is present, code status is documented, or surrogate decision maker is listed in patient medical record.: Yes Medication Reconciliation I have utilized all available resources to obtain, update and review the patients current medications (includes all prescriptions, OTC, herbals, cannabis, and nutritional supplements).: Yes
--- NOTE | 2025-04-23 18:25 | WPDONCCN ---
Assessment and Plan Assessment and plan (1) Anemia: Code(s): D64.9 - Anemia, unspecified Status: Acute Assessment and Plan: Patient has a history of coronary artery disease status post coronary artery bypass grafting along with history of COPD on oxygen of 2.5 L. She was admitted with the chest discomfort and tachycardia. Labs showed hemoglobin of 3.5. Hemoccult stool was positive in the ER. Labs showed elevated soluble transferrin receptor. Iron studies were normal but patient also received 3 units of packed red blood cell. Ferritin was low. GI consultation was noted and plan for endoscopy noted as outpatient. Patient was on Plavix and aspirin after the coronary artery bypass grafting which could be the cause for her GI bleed. He was diagnosed with non STEMI could be secondary to severe anemia. Aspirin has been discontinued due to severe anemia. I recommended to start taking oral iron 65 mg with vitamin-C 500 mg daily. We will follow-up in our office in 2-3 weeks. I will also give a round of iron infusion prior to the discharge. HPI Data of Consult Date/Time: 04/23/25 18:25 Requesting Physician: Mark Romo MD Primary Care Provider: Anna Shannon, PROFESSOR OF ART Consult Narrative Narrative: Brenda Ibarra is a 59 year old female with history of coronary artery disease status post coronary artery bypass graft about a year ago came into the hospital with chest discomfort. She also has history of COPD. She was complaining of shortness of breath along with some nausea and found to be tachycardic. Patient was started on IV heparin drip. Patient has been on Xarelto and aspirin after the coronary artery bypass grafting. She was found to have Hemoccult-positive stool in the ER and received 3 units of packed red blood cell for hemoglobin of 3.4. She was subsequently intubated and just got extubated 2 days ago. Labs now showed hemoglobin of 9.2. Other labs showed normal iron level of 91 with iron saturation of 22% but soluble transferrin receptor was elevated at 88.2 with ferritin of 7.6. B12 was normal at 827. She denies any melena hematochezia. She is now feeling better with improvement in breathing. Review of Systems Review of Systems: Twelve point review of system was reviewed PMFSH Past Medical History Medical History (Updated 04/21/25 @ 15:25 by Kevin tavera Oca, MD) PVD (peripheral vascular disease) Aortic atherosclerosis Depression with anxiety Hypertension Hyperlipemia, mixed FH: chronic lung disease requiring oxygen COPD (chronic obstructive pulmonary disease) CAD (coronary artery disease) Surgical History Surgical History (Updated 04/18/25 @ 04:29 by Marilee Bashir APRN) H/O hand surgery H/O sdlqi-qscar-shzqxue bypass S/P CABG x 3 Family History Family History Mother Heart disease Social History Social History (Updated 04/18/25 @ 06:21 by Marilee Bashir APRN) Social History: caffeine use. She lives with her . She has 2 children . She is disabled Code status: Full code Smoking packs per day: 2 Smoking cigarettes per day: 40.0 Years smoked: 30 Smoking pack-years: 60.00 Smoking status: Former smoker Tobacco type: cigarettes Second hand tobacco smoke exposure: No Alcohol intake: current Drinks per week: 15 Substance use: never Substance use type: does not use Occupation/Education: occupation Additional occupation/education comments: [employer] concerns: No Meds Home Medications and Allergies Home Medications ?Medication ?Instructions ?Recorded ?Confirmed ?Type albuterol sulfate 90 mcg/actuation 2 puff inhalation Q6H PRN 04/18/25 04/18/25 History aerosol inhaler shortness of breath or wheezing atorvastatin 80 mg tablet 80 mg PO QPM 04/18/25 04/18/25 History clopidogrel 75 mg tablet 75 mg PO DAILY 04/18/25 04/18/25 History escitalopram oxalate 10 mg tablet 10 mg PO DAILY 04/18/25 04/18/25 History fluticasone fur. 100 mcg-umeclid 1 inh inhalation DAILY 04/18/25 04/18/25 History 62.5 mcg-vilant 25 mcg inhalat.powder (Trelegy Ellipta) losartan 25 mg tablet 25 mg PO DAILY 04/18/25 04/18/25 History metoprolol tartrate 25 mg tablet 25 mg PO Q12H 04/18/25 04/18/25 History rivaroxaban 20 mg tablet (Xarelto) 20 mg PO QPM 04/18/25 04/18/25 History Allergies Allergy/AdvReac Type Severity Reaction Status Date / Time No Known Allergies Allergy Verified 04/18/25 05:35 Vital Signs Vital Signs - 24 hr 04/22/25 19:28 04/22/25 19:29 04/22/25 19:39 Temperature Pulse Rate 76 75 73 Respiratory Rate 16 20 20 Blood Pressure Pulse Oximetry 94 Oxygen Delivery Nasal Cannula Oxygen Flow Rate 3 Fraction of Inspired Oxygen 32 04/22/25 20:00 04/22/25 20:00 04/22/25 20:00 Temperature 37.4 C Pulse Rate 80 82 74 Respiratory Rate 15 15 Blood Pressure 122/68 Pulse Oximetry 95 95 Oxygen Delivery Nasal Cannula Oxygen Flow Rate 3 Fraction of Inspired Oxygen 04/22/25 20:03 04/22/25 22:00 04/22/25 23:48 Temperature Pulse Rate 82 68 67 Respiratory Rate 16 Blood Pressure Pulse Oximetry 96 Oxygen Delivery Nasal Cannula Oxygen Flow Rate 3 Fraction of Inspired Oxygen 04/23/25 00:00 04/23/25 00:00 04/23/25 02:00 Temperature 37.7 C H Pulse Rate 67 67 65 Respiratory Rate 16 Blood Pressure 128/67 Pulse Oximetry 97 Oxygen Delivery Oxygen Flow Rate Fraction of Inspired Oxygen 04/23/25 03:38 04/23/25 04:00 04/23/25 04:00 Temperature 37.2 C Pulse Rate 65 74 67 Respiratory Rate 16 14 Blood Pressure 126/64 Pulse Oximetry 97 98 Oxygen Delivery Nasal Cannula Oxygen Flow Rate 3 Fraction of Inspired Oxygen 04/23/25 05:49 04/23/25 07:51 04/23/25 08:00 Temperature 36.3 C L Pulse Rate 68 82 85 Respiratory Rate 20 Blood Pressure 113/59 L Pulse Oximetry 99 96 Oxygen Delivery Nasal Cannula Oxygen Flow Rate 3 Fraction of Inspired Oxygen 04/23/25 08:00 04/23/25 09:08 04/23/25 09:11 Temperature Pulse Rate 85 98 88 Respiratory Rate 18 Blood Pressure Pulse Oximetry Oxygen Delivery Oxygen Flow Rate Fraction of Inspired Oxygen 04/23/25 09:14 04/23/25 09:15 04/23/25 10:00 Temperature Pulse Rate 87 73 Respiratory Rate 18 Blood Pressure Pulse Oximetry 96 Oxygen Delivery Nasal Cannula Oxygen Flow Rate 3 Fraction of Inspired Oxygen 04/23/25 12:00 04/23/25 12:00 04/23/25 14:00 Temperature 36.6 C Pulse Rate 88 77 73 Respiratory Rate 18 Blood Pressure 135/73 Pulse Oximetry 99 Oxygen Delivery Oxygen Flow Rate Fraction of Inspired Oxygen 04/23/25 16:00 04/23/25 16:00 04/23/25 16:00 Temperature 36.3 C L Pulse Rate 81 74 74 Respiratory Rate 16 Blood Pressure 111/70 Pulse Oximetry 97 98 Oxygen Delivery Nasal Cannula Oxygen Flow Rate 3 Fraction of Inspired Oxygen Exam Narrative: Lungs are clear to auscultation bilaterally Cardiovascular regular rate rhythm no murmur Abdomen soft nontender nondistended Extremities no edema Results Labs 04/23/25 05:12 04/23/25 15:04 Labs: Short CBC 04/23/25 Range/Units 05:12 WBC 8.2 (4.5-10.0) K/mm3 Hgb 9.2 L (12.0-15.0) g/dL Hct 31.6 L (37.0-47.0) % Plt Count 232 (150-375) k/mm3 BMP 04/23/25 04/23/25 05:12 15:04 Sodium 137 Potassium 3.2 L 4.0 Chloride 99 Carbon Dioxide 37 H BUN 12 Creatinine 0.52 L Glucose 94 Calcium 8.6 Cardiac Enzymes 04/23/25 Range/Units 05:12 Troponin I 0.107 H* (0.000-0.034) ng/mL Liver Function 04/23/25 Range/Units 05:12 Total Bilirubin 2.4 H (0.2-1.3) mg/dL AST 50 H (14-36) U/L ALT 116 H (6-35) U/L Alkaline Phosphatase 139 H (38-126) U/L Albumin 3.0 L (3.5-5.1) g/dL
[2025-04-23] MEDS: ATORVASTATIN 40 MG TABLET 80 MG PO (21:04)
[2025-04-23] MEDS: IRON SUCROSE COMPLEX 400 MG, IRON SUCROSE COMPLEX 100 MG in SODIUM CHLORIDE 0.9% IV 250 ML 78.57 MG IVPB (21:04)
[2025-04-24] VITALS (21 sets, daily range): BP systolic 114–152; BP diastolic 54–77; PULSE 70–84; RESP 16–24; TEMP 36.5–36.7; O2SAT 92–100
[2025-04-24] MEDS: CENTRAL LINE FLUSH 10 ML IV PUSH ×3 (00:29→15:22)
[2025-04-24 05:33] LABS: Hematocrit 29.1 % (37.0-47.0); Hemoglobin 8.6 g/dL (12.0-15.0); Immature Platelet Fraction Pct 4.5 % (0.9-11.2); Mean Corpuscular HGB Conc 29.6 g/dl (32-36); Mean Corpuscular Hemoglobin 23.8 pg (26-34); Mean Corpuscular Volume 80.4 fl (80-100); Platelet Count Result 201 k/mm3 (150-375); Red Blood Count 3.62 M/mm3 (4.2-5.4); White Blood Count 7.1 K/mm3 (4.5-10.0)
[2025-04-24 05:36] LABS: Alanine Aminotransferase 104 U/L (6-35); Albumin Level 3.0 g/dL (3.5-5.1); Alkaline Phosphatase 141 U/L (38-126); Anion Gap 1 mmol/L (4-12); Aspartate Amino Transferase 56 U/L (14-36); Bilirubin,Total 1.7 mg/dL (0.2-1.3); Blood Urea Nitrogen 13 mg/dL (7-17); Calcium 8.4 mg/dL (8.4-10.2); Carbon Dioxide 34 mmol/L (22-30); Chloride 102 mmol/L (98-107); Estimated CRCL calculation 80 ml/min; Estimated Glomerular Filt Rate > 60; Glucose 93 mg/dL (65-110); Magnesium 2.2 mg/dL (1.6-2.3); Potassium 3.4 mmol/L (3.4-5.0); Sodium 137 mmol/L (137-145); Total Protein 5.8 g/dL (6.3-8.2)
[2025-04-24] MEDS: BUDESONIDE RESPULE NEB 0.5 MG/2 ML AMP INHALATION ×2 (07:59→20:31)
[2025-04-24] MEDS: METOPROLOL TARTRATE 12.5 MG TABLET PO ×2 (09:13→20:54)
[2025-04-24] MEDS: ESCITALOPRAM OXALATE 10 MG TABLET PO (09:14)
[2025-04-24] MEDS: POTASSIUM CHLORIDE 20 MEQ ER TABLET PO (09:14)
[2025-04-24] MEDS: EMPAGLIFLOZIN 10 MG TABLET PO (09:14)
[2025-04-24] MEDS: LOSARTAN POTASSIUM 25 MG TABLET PO (09:14)
[2025-04-24] MEDS: ASPIRIN 81 MG CHEWABLE TABLET PO (09:14)
--- NOTE | 2025-04-24 09:46 | P.PNCA_ITS ---
Progress Note: A&P Assessment and Plan (1) Acute systolic heart failure: Code(s): I50.21 - Acute systolic (congestive) heart failure Status: Acute (2) Mitral valve regurgitation: Code(s): I34.0 - Nonrheumatic mitral (valve) insufficiency Status: Acute (3) Severe tricuspid regurgitation: Code(s): I07.1 - Rheumatic tricuspid insufficiency Status: Acute (4) Non-ST elevation PR (NSTEMI): Code(s): I21.4 - Non-ST elevation (NSTEMI) myocardial infarction Status: Acute (5) CAD (coronary artery disease): Code(s): I25.10 - Atherosclerotic heart disease of [place] coronary artery without angina pectoris Status: Acute (6) S/P CABG x 3: Code(s): Z95.1 - Presence of aortocoronary bypass graft Status: Acute (7) Aortic atherosclerosis: Code(s): I70.0 - Atherosclerosis of aorta Status: Acute (8) PVD (peripheral vascular disease): Code(s): I73.9 - Peripheral vascular disease, unspecified Status: Acute (9) Hyperlipemia, mixed: Code(s): E78.2 - Mixed hyperlipidemia Status: Acute (10) Hypertension: Code(s): I10 - Essential (primary) hypertension Status: Acute Plan Assessment: -NSTEMI-most likely type 2 PR from supply demand mismatch secondary to acute severe anemia with hemoglobin of 3.4; TTE showed findings 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 -CAD status post CABG X 3 -Acute systolic heart failure with LVEF of 20-25%, grade 1 diastolic dysfunction-improved and currently euvolemic -Acute respiratory failure requiring intubation-now extubated and on oxygen by nasal cannula -Severely depressed RV function -Valvular heart disease-moderate to severe mitral regurgitation and severe tricuspid regurgitation -Moderate pulmonary hypertension with PASP of 49 mm Hg -PAD- on asa, Xarelto -Hypertension -Hyperlipidemia -Severe anemia with hemoglobin at presentation 3.4 status post PRBC transfusions with hemoglobin of 8.5-GI following -Swallowing difficulty Plan: -She had one episode of chest pain that lasted for about a minute. She says it is from her anxiety -Continue medical management for CAD. Continue statin. No aspirin due to severe anemia and GI bleed. Aspirin 81 mg daily to be restarted when okay per GI -GI planning EGD and colonoscopy when patient swallowing improves. Barium swallow planned for today. Though she does not have any current chest pain, is euvolemic on exam, stable electrically, hemoglobin is improved, no GLENYS/stroke/diabetes, given recent PR, severely depressed LVEF and severely depressed RV function, severe valvular heart disease she remains at moderate risk for cardiac events from planned GI procedure. Optimize blood pressure and heart rate and volume status before, during, and after any planned procedures. Cardiology will be available and follow along for any questions -GDMT-continue metoprolol, losartan, empagliflozin. Will add spironolactone as blood pressure tolerates -Sublingual nitroglycerin p.r.n. for chest pain -Repeat TTE in 3 months to evaluate LVEF. If LVEF does not improve more than 35% in 3 months with GDMT, she will need EP consult for ICD evaluation -She is euvolemic. No further diuresis -Check and replace electrolytes to keep potassium greater than 4 and magnesium greater than 2 -Management of other medical problems per primary team -Follow up with cardiology in 1 month post discharge. Thank you for allowing us to participate in the care of this patient. Cardiology will sign off. Please call us with any questions. Subjective Date/time seen: 04/24/25 09:46 Interval history: Reason for encounter: Chest pain with elevated troponin Relevant history: 59-year-old female with history of CAD s/p CABG x3 on chronic aspirin, Xarelto, peripheral arterial disease, hypertension, hyperlipidemia, aortic atherosclerosis, COPD on 2.5 L of oxygen at home presented via EMS with chief complaints of chest pressure. Troponin was elevated to 0.026, 0.240, 0.469, 1.620. EKG showed sinus rhythm, inferior lateral ST depressions and slight elevation in AVR. Heparin bolus was given but heparin was not started as labs came back with hemoglobin of 3.4. She tested guaiac positive. She was given 3 units of PRBCs and GI was consulted. After admission to the IMU patient the left agonal breathing and became unresponsive requiring intubation and ICU admission. She has since been extubated and doing well but having some swallowing issues. Cardiology is consulted for further recommendations for NSTEMI. Further workup included chest x-ray which showed moderate pulmonary vascular congestion, echo which showed LVEF of 20-25%, grade 1 diastolic dysfunction, severely depressed RV systolic function, moderate to severe MR, severe TR, moderate pulmonary hypertension with PASP of 49 mm Hg. She was diuresed with IV Lasix and is presently euvolemic. Interval history: She reports chest pain with anxiety that lasted for about a minutes. She is awaiting GI evaluation for GIB. Review of Systems Review of Systems: A complete review of systems was performed and pertinent positives are reported in the HPI. Exam Narrative: General: Alert oriented x3, no acute distress Neck: Supple, no JVD Chest: Bilaterally clear to auscultation, no rales or rhonchi Cardiac: S1, S2 +, regular rate, regular rhythm, no murmurs or rubs Extremities: No pedal edema, no skin rash Neurologic: Alert and oriented x3, no focal neurological deficits Objective Data Vital Signs Vital Signs: Vital Signs - 24 hr 04/23/25 10:00 04/23/25 12:00 04/23/25 12:00 Temperature 36.6 C Pulse Rate 73 88 77 Respiratory Rate 18 Blood Pressure 135/73 Pulse Oximetry 99 Oxygen Delivery Oxygen Flow Rate 04/23/25 14:00 04/23/25 16:00 04/23/25 16:00 Temperature 36.3 C L Pulse Rate 73 81 74 Respiratory Rate 16 Blood Pressure 111/70 Pulse Oximetry 97 98 Oxygen Delivery Nasal Cannula Oxygen Flow Rate 3 04/23/25 16:00 04/23/25 18:00 04/23/25 20:00 Temperature Pulse Rate 74 73 77 Respiratory Rate Blood Pressure Pulse Oximetry 96 Oxygen Delivery Nasal Cannula Oxygen Flow Rate 3 04/23/25 20:00 04/23/25 20:05 04/23/25 20:05 Temperature Pulse Rate 85 89 89 Respiratory Rate 18 18 Blood Pressure Pulse Oximetry 99 Oxygen Delivery Nasal Cannula Oxygen Flow Rate 3 04/23/25 20:34 04/23/25 21:04 04/23/25 22:00 Temperature 36.6 C Pulse Rate 84 80 80 Respiratory Rate 16 Blood Pressure 103/80 Pulse Oximetry 98 Oxygen Delivery Oxygen Flow Rate 04/23/25 23:59 04/24/25 00:00 04/24/25 00:45 Temperature 36.6 C Pulse Rate 78 79 76 Respiratory Rate 16 Blood Pressure 151/77 H Pulse Oximetry 96 97 Oxygen Delivery Nasal Cannula Oxygen Flow Rate 3 04/24/25 01:50 04/24/25 03:39 04/24/25 04:00 Temperature 36.6 C Pulse Rate 83 77 75 Respiratory Rate 18 Blood Pressure 129/70 Pulse Oximetry 92 97 Oxygen Delivery Nasal Cannula Oxygen Flow Rate 3 04/24/25 04:00 04/24/25 05:39 04/24/25 08:00 Temperature Pulse Rate 72 70 84 Respiratory Rate Blood Pressure Pulse Oximetry 96 Oxygen Delivery Nasal Cannula Oxygen Flow Rate 3 04/24/25 08:00 04/24/25 08:00 04/24/25 08:06 Temperature 36.7 C Pulse Rate 84 81 81 Respiratory Rate 18 16 18 Blood Pressure 152/71 H Pulse Oximetry 97 Oxygen Delivery Oxygen Flow Rate 04/24/25 09:09 04/24/25 09:13 Temperature Pulse Rate 81 Respiratory Rate Blood Pressure Pulse Oximetry Oxygen Delivery Nasal Cannula Oxygen Flow Rate 3 Intake/Output Intake/Output: Intake & Output 04/21/25 04/22/25 04/23/25 04/24/25 23:59 23:59 23:59 23:59 Intake Total 200 450 850 550 Output Total 475 2000 550 800 Balance -275 -1550 300 -250 Meds/Results Medications: Active Medications Generic Name Dose Route Start Last Admin Trade Name Freq PRN Reason Stop Dose Admin Acetaminophen 650 mg 04/18/25 04:12 04/23/25 05:14 Acetaminophen 325 Mg Tablet PO 650 mg Q4H PRN Administration Mild Pain (1-3) or Fever Albuterol 2 puff 04/21/25 12:11 Albuterol Sulfate (*Sp) Aerosol 1 Puff INHALATION Q6H PRN Shortness Of Breath Or Wheezing Albuterol/Ipratropium 3 ml 04/21/25 07:49 Ipratropium 0.5 Mg/Albuterol Sulfate 2.5 Mg (Base) Ampul.Neb 3 Ml INHALATION Q6HRT PRN Wheezing Aspirin 81 mg 04/24/25 08:00 04/24/25 09:14 Aspirin 81 Mg Chewable Tablet PO 81 mg DAILY@0800 JUAN C Administration Atorvastatin Calcium 80 mg 04/18/25 21:00 04/23/25 21:04 Atorvastatin 40 Mg Tablet PO 80 mg HS JUAN C Administration Budesonide 0.5 mg 04/18/25 12:50 04/24/25 07:59 Budesonide Respule Neb 0.5 Mg/2 Ml Amp INHALATION 0.5 mg Q12HRT JUAN C Administration Empagliflozin 10 mg 04/23/25 09:00 04/24/25 09:14 Empagliflozin 10 Mg Tablet PO 10 mg DAILY JUAN C Administration Escitalopram Oxalate 10 mg 04/18/25 12:00 04/24/25 09:14 Escitalopram Oxalate 10 Mg Tablet PO 10 mg DAILY JUAN C Administration Furosemide 40 mg 04/20/25 07:39 04/20/25 13:37 Furosemide Inj 40 Mg/4 Ml Vial IV PUSH 40 mg ONCE PRN Administration After PRBC Transfusion Losartan Potassium 25 mg 04/22/25 09:00 04/24/25 09:14 Losartan Potassium 25 Mg Tablet PO 25 mg DAILY JUAN C Administration Metoprolol Tartrate 12.5 mg 04/22/25 09:00 04/24/25 09:13 Metoprolol Tartrate 12.5 Mg Tablet PO 12.5 mg Q12HR JUAN C Administration Ondansetron HCl 4 mg 04/18/25 04:12 Ondansetron Inj 4 Mg/2 Ml Vial IV PUSH Q4H PRN Nausea Potassium Chloride 20 meq 04/23/25 09:20 04/24/25 09:14 Potassium Chloride 20 Meq Er Tablet PO 20 meq DAILY JUAN C Administration Sodium Chloride 10 ml 04/18/25 14:00 04/24/25 05:49 Central Line Flush IV PUSH 10 ml Q8HR JUAN C Administration Sodium Chloride 20 ml 04/18/25 08:31 Central Line Flush IV PUSH PRN PRN after blood draws Radiology Results: ITS Impressions Abdomen X-Ray 04/18/25 07:47 IMPRESSION: 1: OG tube tip in the stomach. Abdomen/Pelvis CTA 04/18/25 09:20 IMPRESSION: 1. No aneurysm or dissection identified. 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 There is a right-sided graft detailed above with probable seroma. Clinical correlation is required. Follow-up suggested to assess. Head CT 04/18/25 13:34 IMPRESSION: 1. No acute intracranial findings. Abdomen Ultrasound 04/19/25 09:39 IMPRESSION: 1. Nonspecific gallbladder wall thickening and pericholecystic fluid. If concern for acute cholecystitis, can consider HIDA scan. 2. Hepatomegaly, with steatosis and probable cirrhosis. Chest X-Ray 04/21/25 08:19 Impression: CHF. Superimposed probable pneumonia. The findings appear slightly progressed compared to the previous study Modified Barium Swallow 12/03/25 11:32 IMPRESSION: Mild pharyngeal dysphagia without laryngeal penetration or aspiration. Please correlate with speech pathologist findings and specific feeding recommendations. Labs Labs: Laboratory Results - last 24 hr 04/23/25 04/23/25 04/24/25 05:12 15:04 05:16 WBC 7.1 RBC 3.62 L Hgb 8.6 L Hct 29.1 L MCV 80.4 MCH 23.8 L MCHC 29.6 L RDW 25.2 H Plt Count 201 MPV 10.6 H % Immature Plt Fraction 4.5 Sodium 137 Potassium 4.0 3.4 Chloride 102 Carbon Dioxide 34 H Anion Gap 1 L BUN 13 Creatinine 0.56 L Estim Creat Clear Calc 80 Estimated GFR > 60 Glucose 93 Calcium 8.4 Phosphorus 4.2 Magnesium 2.2 Total Bilirubin 1.7 H AST 56 H ALT 104 H Alkaline Phosphatase 141 H Troponin I 0.107 H* Total Protein 5.8 L Albumin 3.0 L
--- NOTE | 2025-04-24 18:03 | P.PNIM_ITS ---
Assessment and Plan Assessment and Plan (1) Acute respiratory failure: Code(s): J96.00 - Acute respiratory failure, unspecified whether with hypoxia or hypercapnia Status: Resolved Assessment and Plan: 04/18: Patient was transferred from intermediate Unit with agonal breathing, unresponsiveness. 04/18: Intubated in the ICU, respiratory failure could be related to TRALI as patient has pulmonary vascular congestion, NSTEMI, CHF, aspiration -remains on CMV mode of ventilation, peep of 5, 45 % FiO2 04/20 5/5 PSV SBT done for more than 30 minutes. RSBI, ABGI and Vitals acceptable. Pt awake and following commands. Will extubate and monitor. NPO for now. Bipap PRN 04/21: Extubated, on 3 L nasal cannula. No wheezing or distress. Continue bronchodilators p.r.n. Incentive spirometry, PT OT (2) Shock: Code(s): R57.9 - Shock, unspecified Status: Resolved Assessment and Plan: patient received adequate IV fluids and 3 units of packed RBCs Chest x-ray showed pulmonary vascular congestion and was given Lasix Now off of fluids and vasopressors have been weaned off for more than 24 hours Continue cefepime (04/18) for total of 5 days -04/18: Blood cultures obtained and negative with -04/18: Urine cultures obtained and negative till now Vancomycin discontinued (3) Non-ST elevation MD (NSTEMI): Code(s): I21.4 - Non-ST elevation (NSTEMI) myocardial infarction Status: Acute Assessment and Plan: Patient presented with chest pressure/pain, EKG showed inferior lateral ST depression the slight elevation in AVR, sinus tachycardia, normal QTC - Given concerns for ACS, interventional Cardiology was called by the ED physician, recommendations were to start heparin infusion and metoprolol. Heparin bolus was given, but her hemoglobin came back at 3.4 in the ER so heparin was discontinued. -unable to give heparin infusion or aspirin due to severe anemia, no beta- blockers due to septic shock and hypotension -appreciate cardiology recommended, no plans to conduct ischemic evaluation at this time -stress-induced/takotsubo cardiomyopathy on echocardiogram likely due to severe anemia. When she is off pressors will require GDMT Defer to cardiology 04/18/2025: Echocardiogram Summary 1. Definity contrast administered improved wall motion interpretation. 2. Left ventricular chamber dimension is severely enlarged. 3. Left ventricular systolic function is severely globally reduced,estimated at 20-25. 4. The very basal segments have normal contractility suggestive of Takotsubo cardiomyopathy. 5. The left ventricular diastolic function is grade I diastolic dysfunction. 6. E/e' 9 is minimally elevated. 7. Right ventricular chamber dimension is severely enlarged. 8. Right ventricular systolic function is severely reduced and with abnormal TAPSE 1.3 cm. 9. Left atrial chamber dimension is moderately enlarged. 10. Right atrial chamber dimension is moderately enlarged. 11. There is mild aortic valve sclerosis. 12. There is moderate to severe mitral valve regurgitation. 13. There is severe tricuspid valve regurgitation. 14. Mild pulmonary hypertension, estimated pulmonary arterial systolic pressure is 49 mmHg. 15. There is mild pulmonic regurgitation. 04/23: Cardiology recommends troponin to ensure it is improving, GDMT- continue metoprolol, losartan. Add empagliflozin 10 mg daily. Will add spironolactone as blood pressure tolerates, statin, avoid aspirin due to GI bleed, can resume per GI recommendations. Sublingual nitroglycerin p.r.n. for chest pain. Repeat TTE in 3 months to evaluate LVEF. If LVEF does not improve more than 35% in 3 months with GDMT, she will need EP consult for ICD evaluation She is euvolemic. No further diuresis. 04/24: Followed by cardiology medical management to be continued, including statin. Aspirin restarted, his GI has cleared patient to restart aspirin but not other anticoagulants at this time. GI will perform EGD and colonoscopy when both swallowing and cardiac function improved. The plan for outpatient after discharge. Spironolactone has been added if tolerated. Cleared by cardiology for discharge follow-up in 1 month post discharge, patient would like to follow up with Cardiology at [place]. (4) Anemia requiring transfusions: Code(s): D64.9 - Anemia, unspecified Status: Acute Assessment and Plan: 04/18: Severe anemia, hemoglobin 3.4 on admission, received 3 units of packed RBC, 04/20 hemoglobin 6.8. Will transfuse 1 more unit of PRBC followed by Lasix. Continue to trend q.6 hours for now -appreciate GI evaluation and recommendation, GI planning EGD and colonoscopy once patient is stable and extubated -Protonix IV q.12 hours -iron panel is normal -vitamin B12 and folic acid are normal -LDH slightly elevated, haptoglobin normal, Roshni test has been ordered to rule out hemolytic anemia 04/23: Hb stable, uptrending to 9.2. Will need to see with GI if aspirin is safe to resume. GI has cleared for resumption of aspirin at this time. 04/24: Patient was seen by Hematology, who recommended oral iron and vitamin-C daily. She received iron infusion IV as well. And is recommended to follow-up in Hematology office in 2-3 weeks. (5) COPD (chronic obstructive pulmonary disease): Code(s): J44.9 - Chronic obstructive pulmonary disease, unspecified Status: Acute Assessment and Plan: History of COPD, on 2 L nasal cannula at home -continue bronchodilators -patient is on Trelegy at home, continue budesonide nebs while here -patient would like to follow up Pulmonary at [place] on discharge (6) PVD (peripheral vascular disease): Code(s): I73.9 - Peripheral vascular disease, unspecified Status: Acute Assessment and Plan: History of peripheral vascular disease with previous Aorto-ilio- femoral bypass -patient on clopidogrel, and Xarelto at home, currently on hold due to severe anemia and possible GI blood loss (7) Hypertension: Code(s): I10 - Essential (primary) hypertension Status: Acute Assessment and Plan: Patient has been started on losartan and metoprolol by Cardiology. Spironolactone has been added as tolerated. (8) Hyperlipemia, mixed: Code(s): E78.2 - Mixed hyperlipidemia Status: Acute Assessment and Plan: On atorvastatin at home, will continue continue (9) Dysphagia: Code(s): R13.10 - Dysphagia, unspecified Status: Acute Assessment and Plan: Bedside swallow study done. Patient exhibited some coughing after some type of foods. Speech recommended Jasper barium swallow which has been ordered- she has passed. Plan Passed modified barium swallow. Transfer to floor, discharge tomorrow if remains stable with adequate followups with GI, Cardiology, Pulmonary, Hematology. See consultation notes for further information. DVT prophylaxis: SCDs Stress ulcer prophylaxis: Protonix IV q.12 hours Nutrition: Liquid diet, thickened liquids Code Status: Full code Consultations Consultations: I have discussed the care of this pt with the consulting providers. Subjective Date/time seen: 04/24/25 18:03 Interval history: This is a 59-year-old female patient who has a history of coronary artery disease status post 3 vessel CAB H ovary year ago at another hospital. The patient activated EMS tonight as she was having chest pressure that started after she was exerting herself around the house. She also has a history of COPD and is chronically on oxygen at 2.5 L. she felt better when she rested but with any activity she would have chest pressure again. She was also having some nausea with this as well. She was ill appearing, tachycardic, and tachypneic in the emergency room. Her EKG did show some inferior lateral ST depressions and slight elevation in AVR. The ER physician did talk to Interventional Cardiology who recommend that the patient be heparinized and heparin drip was started. Metoprolol was also recommended for the heart rate. However her hemoglobin came back critically low at 3.4. She is chronically on Xarelto an aspirin and was found to be guaiac-positive in the emergency room. Patient was ordered 3 units of packed red blood cells. She also has history of severe aortoiliac occlusive disease. She is under the care of Dr. Sparks at [facility]. Therefore the ER physician notify Dr. Sparks at [facility]. It was noted that her CT scan reveals chronic changes. Cardiology and GI have both been consulted. Patient's EKGs did improve with the blood transfusion. Repeat H&H was 8.0 in 27.0. CTA abdomen pelvis preliminary report was read as mild interseptal thickening is question pulmonary edema. There is underlying emphysema. Her heparin drip was then stopped. The patient was given IV Prot jerome. Her potassium was noted to be 2.5 which was replaced with 40 mEq potassium chloride IV. Review of Systems Review of Systems: A complete review of systems was performed and pertinent positives are reported in the HPI. Exam Narrative: General: No acute distress HEENT:? Pupils equal and reactive, sclera is clear, Neck:? Supple, right IJ central line in place Respiratory:? Clear to auscultation bilaterally, no wheezing or crackle Cardiac:? S1-S2 normal, regular rate and rhythm Abdomen:? Soft, nontender, nondistended, hypoactive bowel sounds Extremities:? Bilateral trace edema in her lower extremities Neuro:? AO x3, moves all 4 extremities, follows commands, Skin:? Warm and dry Psych:? Normal speech and affect Objective Data Vital Signs Vital Signs: Vital Signs - 24 hr 04/23/25 20:00 04/23/25 20:00 04/23/25 20:05 Temperature Pulse Rate 77 85 89 Respiratory Rate 18 Blood Pressure Pulse Oximetry 96 99 Oxygen Delivery Nasal Cannula Nasal Cannula Oxygen Flow Rate 3 3 04/23/25 20:05 04/23/25 20:34 04/23/25 21:04 Temperature 97.8 F Pulse Rate 89 84 80 Respiratory Rate 18 16 Blood Pressure 103/80 Pulse Oximetry 98 Oxygen Delivery Oxygen Flow Rate 04/23/25 22:00 04/23/25 23:59 04/24/25 00:00 Temperature Pulse Rate 80 78 79 Respiratory Rate Blood Pressure Pulse Oximetry 96 Oxygen Delivery Nasal Cannula Oxygen Flow Rate 3 04/24/25 00:45 04/24/25 01:50 04/24/25 03:39 Temperature 97.9 F 97.8 F Pulse Rate 76 83 77 Respiratory Rate 16 18 Blood Pressure 151/77 H 129/70 Pulse Oximetry 97 92 Oxygen Delivery Oxygen Flow Rate 04/24/25 04:00 04/24/25 04:00 04/24/25 05:39 Temperature Pulse Rate 75 72 70 Respiratory Rate Blood Pressure Pulse Oximetry 97 Oxygen Delivery Nasal Cannula Oxygen Flow Rate 3 04/24/25 08:00 04/24/25 08:00 04/24/25 08:00 Temperature 98.0 F Pulse Rate 84 84 81 Respiratory Rate 18 16 Blood Pressure 152/71 H Pulse Oximetry 96 97 Oxygen Delivery Nasal Cannula Oxygen Flow Rate 3 04/24/25 08:00 04/24/25 08:00 04/24/25 08:06 Temperature Pulse Rate 79 81 Respiratory Rate 18 Blood Pressure Pulse Oximetry 98 Oxygen Delivery Nasal Cannula Oxygen Flow Rate 3 04/24/25 09:09 04/24/25 09:13 04/24/25 10:00 Temperature Pulse Rate 81 82 Respiratory Rate Blood Pressure Pulse Oximetry Oxygen Delivery Nasal Cannula Oxygen Flow Rate 3 04/24/25 11:54 04/24/25 12:00 04/24/25 12:00 Temperature 97.7 F Pulse Rate 80 75 Respiratory Rate 20 Blood Pressure 132/61 Pulse Oximetry 98 100 Oxygen Delivery Nasal Cannula Oxygen Flow Rate 2 04/24/25 14:00 04/24/25 15:19 04/24/25 16:00 Temperature 97.7 F Pulse Rate 79 79 Respiratory Rate 24 H Blood Pressure 114/61 Pulse Oximetry 96 98 Oxygen Delivery Nasal Cannula Oxygen Flow Rate 2 04/24/25 16:00 04/24/25 17:54 Temperature Pulse Rate 75 84 Respiratory Rate Blood Pressure Pulse Oximetry Oxygen Delivery Oxygen Flow Rate Intake/Output Intake/Output: Intake & Output 04/21/25 04/22/25 04/23/25 04/24/25 23:59 23:59 23:59 23:59 Intake Total 200 450 850 910 Output Total 475 2000 550 800 Balance -275 -1550 300 110 Meds/Results Medications: Active Medications Generic Name Dose Route Start Last Admin Trade Name Freq PRN Reason Stop Dose Admin Acetaminophen 650 mg 04/18/25 04:12 04/23/25 05:14 Acetaminophen 325 Mg Tablet PO 650 mg Q4H PRN Administration Mild Pain (1-3) or Fever Albuterol 2 puff 04/21/25 12:11 Albuterol Sulfate (*Sp) Aerosol 1 Puff INHALATION Q6H PRN Shortness Of Breath Or Wheezing Albuterol/Ipratropium 3 ml 04/21/25 07:49 Ipratropium 0.5 Mg/Albuterol Sulfate 2.5 Mg (Base) Ampul.Neb 3 Ml INHALATION Q6HRT PRN Wheezing Aspirin 81 mg 04/24/25 08:00 04/24/25 09:14 Aspirin 81 Mg Chewable Tablet PO 81 mg DAILY@0800 JUAN C Administration Atorvastatin Calcium 80 mg 04/18/25 21:00 04/23/25 21:04 Atorvastatin 40 Mg Tablet PO 80 mg HS JUAN C Administration Budesonide 0.5 mg 04/18/25 12:50 04/24/25 07:59 Budesonide Respule Neb 0.5 Mg/2 Ml Amp INHALATION 0.5 mg Q12HRT JUAN C Administration Empagliflozin 10 mg 04/23/25 09:00 04/24/25 09:14 Empagliflozin 10 Mg Tablet PO 10 mg DAILY JUAN C Administration Escitalopram Oxalate 10 mg 04/18/25 12:00 04/24/25 09:14 Escitalopram Oxalate 10 Mg Tablet PO 10 mg DAILY JUAN C Administration Furosemide 40 mg 04/20/25 07:39 04/20/25 13:37 Furosemide Inj 40 Mg/4 Ml Vial IV PUSH 40 mg ONCE PRN Administration After PRBC Transfusion Losartan Potassium 25 mg 04/22/25 09:00 04/24/25 09:14 Losartan Potassium 25 Mg Tablet PO 25 mg DAILY JUAN C Administration Metoprolol Tartrate 12.5 mg 04/22/25 09:00 04/24/25 09:13 Metoprolol Tartrate 12.5 Mg Tablet PO 12.5 mg Q12HR JUAN C Administration Ondansetron HCl 4 mg 04/18/25 04:12 Ondansetron Inj 4 Mg/2 Ml Vial IV PUSH Q4H PRN Nausea Potassium Chloride 20 meq 04/23/25 09:20 04/24/25 09:14 Potassium Chloride 20 Meq Er Tablet PO 20 meq DAILY JUAN C Administration Sodium Chloride 10 ml 04/18/25 14:00 04/24/25 15:22 Central Line Flush IV PUSH 10 ml Q8HR JUAN C Administration Sodium Chloride 20 ml 04/18/25 08:31 Central Line Flush IV PUSH PRN PRN after blood draws Radiology Results: ITS Impressions Abdomen X-Ray 04/18/25 07:47 IMPRESSION: 1: OG tube tip in the stomach. Abdomen/Pelvis CTA 04/18/25 09:20 IMPRESSION: 1. No aneurysm or dissection identified. 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 There is a right-sided graft detailed above with probable seroma. Clinical correlation is required. Follow-up suggested to assess. Head CT 04/18/25 13:34 IMPRESSION: 1. No acute intracranial findings. Abdomen Ultrasound 04/19/25 09:39 IMPRESSION: 1. Nonspecific gallbladder wall thickening and pericholecystic fluid. If concern for acute cholecystitis, can consider HIDA scan. 2. Hepatomegaly, with steatosis and probable cirrhosis. Chest X-Ray 04/21/25 08:19 Impression: CHF. Superimposed probable pneumonia. The findings appear slightly progressed compared to the previous study Modified Barium Swallow 04/23/25 11:32 IMPRESSION: Mild pharyngeal dysphagia without laryngeal penetration or aspiration. Please correlate with speech pathologist findings and specific feeding recommendations. Labs Labs: Laboratory Results - last 24 hr 04/24/25 05:16 WBC 7.1 RBC 3.62 L Hgb 8.6 L Hct 29.1 L MCV 80.4 MCH 23.8 L MCHC 29.6 L RDW 25.2 H Plt Count 201 MPV 10.6 H % Immature Plt Fraction 4.5 Sodium 137 Potassium 3.4 Chloride 102 Carbon Dioxide 34 H Anion Gap 1 L BUN 13 Creatinine 0.56 L Estim Creat Clear Calc 80 Estimated GFR > 60 Glucose 93 Calcium 8.4 Phosphorus 4.2 Magnesium 2.2 Total Bilirubin 1.7 H AST 56 H ALT 104 H Alkaline Phosphatase 141 H Total Protein 5.8 L Albumin 3.0 L Hospitalist MIPS Advance Care Plan I have confirmed that the patient's Advanced Care Plan is present, code status is documented, or surrogate decision maker is listed in patient medical record.: Yes Medication Reconciliation I have utilized all available resources to obtain, update and review the patients current medications (includes all prescriptions, OTC, herbals, cannabis, and nutritional supplements).: Yes
[2025-04-24] MEDS: ATORVASTATIN 40 MG TABLET 80 MG PO (20:54)
[2025-04-25] VITALS (14 sets, daily range): BP systolic 124–151; BP diastolic 45–88; PULSE 71–94; RESP 16–24; TEMP 36.5–36.9; O2SAT 94–100
[2025-04-25] MEDS: BUDESONIDE RESPULE NEB 0.5 MG/2 ML AMP INHALATION (07:49)
[2025-04-25] MEDS: ASPIRIN 81 MG CHEWABLE TABLET PO (09:34)
[2025-04-25] MEDS: ESCITALOPRAM OXALATE 10 MG TABLET PO (09:34)
[2025-04-25] MEDS: METOPROLOL TARTRATE 12.5 MG TABLET PO (09:34)
[2025-04-25] MEDS: POTASSIUM CHLORIDE 20 MEQ ER TABLET PO (09:34)
[2025-04-25] MEDS: EMPAGLIFLOZIN 10 MG TABLET PO (09:35)
[2025-04-25] MEDS: LOSARTAN POTASSIUM 25 MG TABLET PO (09:35)
--- NOTE | 2025-04-25 10:45 | PCNFU ---
Nutrition Follow-Up Complete: Suboptimal Energy Intake as related to mechanical ventilation as evidenced by NPO. Goal:Meets estimated nutritional needs Pt meeting goal, continue with same goal Pt current nutrition is Heart healthy, Ensure TID. Nutrition recommendation: continue with current plan of care Last recorded weight is 65.8 kg. Bowel Motility: +BM / - per nursing Labs Reviewed: Hgb:8.6, HCT:29.1, Alb:3.0, Cr:0.56 Meds Noted: lasix, protonix Skin: WNL Additional Notes: Pt advanced to a regular consistency diet, intake 100%, tolerating well. Ensure TID in place. Agree with orders, continue with current plan of care Will monitor weight, labs, skin, diet orders, follow up in 7 days
--- NOTE | 2025-04-25 11:54 | P.DS_ITS ---
DS: Admitting Diagnosis Discharge Date 04/25/25 Admitting Diagnosis NSTEMI DS: Discharge Diagnosis Discharge Diagnosis (1) Acute respiratory failure: Code(s): J96.00 - Acute respiratory failure, unspecified whether with hypoxia or hypercapnia Status: Resolved Assessment and Plan: 04/18: Patient was transferred from intermediate Unit with agonal breathing, unresponsiveness. 04/18: Intubated in the ICU, respiratory failure could be related to TRALI as patient has pulmonary vascular congestion, NSTEMI, CHF, aspiration -remains on CMV mode of ventilation, peep of 5, 45 % FiO2 04/20 5/ PSV SBT done for more than 30 minutes. RSBI, ABGI and Vitals acceptable. Pt awake and following commands. Will extubate and monitor. NPO for now. Bipap PRN 04/21: Extubated, on 3 L nasal cannula. No wheezing or distress. Continue bronchodilators p.r.n. Incentive spirometry, PT OT (2) Shock: Code(s): R57.9 - Shock, unspecified Status: Resolved Assessment and Plan: patient received adequate IV fluids and 3 units of packed RBCs Chest x-ray showed pulmonary vascular congestion and was given Lasix Now off of fluids and vasopressors have been weaned off for more than 24 hours Continue cefepime (04/18) for total of 5 days -04/18: Blood cultures obtained and negative with -04/18: Urine cultures obtained and negative till now Vancomycin discontinued (3) Non-ST elevation MD (NSTEMI): Code(s): I21.4 - Non-ST elevation (NSTEMI) myocardial infarction Status: Acute Assessment and Plan: Patient presented with chest pressure/pain, EKG showed inferior lateral ST depression the slight elevation in AVR, sinus tachycardia, normal QTC - Given concerns for ACS, interventional Cardiology was called by the ED physician, recommendations were to start heparin infusion and metoprolol. Heparin bolus was given, but her hemoglobin came back at 3.4 in the ER so heparin was discontinued. -unable to give heparin infusion or aspirin due to severe anemia, no beta- blockers due to septic shock and hypotension -appreciate cardiology recommended, no plans to conduct ischemic evaluation at this time -stress-induced/takotsubo cardiomyopathy on echocardiogram likely due to severe anemia. When she is off pressors will require GDMT Defer to cardiology 04/18/2025: Echocardiogram Summary 1. Definity contrast administered improved wall motion interpretation. 2. Left ventricular chamber dimension is severely enlarged. 3. Left ventricular systolic function is severely globally reduced,estimated at 20-25. 4. The very basal segments have normal contractility suggestive of Takotsubo cardiomyopathy. 5. The left ventricular diastolic function is grade I diastolic dysfunction. 6. E/e' 9 is minimally elevated. 7. Right ventricular chamber dimension is severely enlarged. 8. Right ventricular systolic function is severely reduced and with abnormal TAPSE 1.3 cm. 9. Left atrial chamber dimension is moderately enlarged. 10. Right atrial chamber dimension is moderately enlarged. 11. There is mild aortic valve sclerosis. 12. There is moderate to severe mitral valve regurgitation. 13. There is severe tricuspid valve regurgitation. 14. Mild pulmonary hypertension, estimated pulmonary arterial systolic pressure is 49 mmHg. 15. There is mild pulmonic regurgitation. 04/23: Cardiology recommends troponin to ensure it is improving, GDMT- continue metoprolol, losartan. Add empagliflozin 10 mg daily. Will add spironolactone as blood pressure tolerates, statin, avoid aspirin due to GI bleed, can resume per GI recommendations. Sublingual nitroglycerin p.r.n. for chest pain. Repeat TTE in 3 months to evaluate LVEF. If LVEF does not improve more than 35% in 3 months with GDMT, she will need EP consult for ICD evaluation She is euvolemic. No further diuresis. 04/24: Followed by cardiology medical management to be continued, including statin. Aspirin restarted, his GI has cleared patient to restart aspirin but not other anticoagulants at this time. GI will perform EGD and colonoscopy when both swallowing and cardiac function improved. The plan for outpatient after discharge. Spironolactone has been added if tolerated. Cleared by cardiology for discharge follow-up in 1 month post discharge, patient would like to follow up with Cardiology at [place]. (4) Takotsubo cardiomyopathy: Code(s): I51.81 - Takotsubo syndrome Status: Acute Assessment and Plan: see above (5) Anemia requiring transfusions: Code(s): D64.9 - Anemia, unspecified Status: Acute Assessment and Plan: 04/18: Severe anemia, hemoglobin 3.4 on admission, received 3 units of packed RBC, 04/20 hemoglobin 6.8. Will transfuse 1 more unit of PRBC followed by Lasix. Continue to trend q.6 hours for now -appreciate GI evaluation and recommendation, GI planning EGD and colonoscopy once patient is stable and extubated -Protonix IV q.12 hours -iron panel is normal -vitamin B12 and folic acid are normal -LDH slightly elevated, haptoglobin normal, Roshni test has been ordered to rule out hemolytic anemia 04/23: Hb stable, uptrending to 9.2. Will need to see with GI if aspirin is safe to resume. GI has cleared for resumption of aspirin at this time. 04/24: Patient was seen by Hematology, who recommended oral iron and vitamin-C daily. She received iron infusion IV as well. And is recommended to follow-up in Hematology office in 2-3 weeks. (6) COPD (chronic obstructive pulmonary disease): Code(s): J44.9 - Chronic obstructive pulmonary disease, unspecified Status: Acute Assessment and Plan: History of COPD, on 2 L nasal cannula at home -continue bronchodilators -patient is on Trelegy at home, continue budesonide nebs while here -patient would like to follow up Pulmonary at [facility] on discharge (7) PVD (peripheral vascular disease): Code(s): I73.9 - Peripheral vascular disease, unspecified Status: Acute Assessment and Plan: History of peripheral vascular disease with previous Aorto-ilio- femoral bypass -patient on clopidogrel, and Xarelto at home, currently on hold due to severe anemia and possible GI blood loss -defer resumption to GI/Cardiology on outpatient follow up (8) Hypertension: Code(s): I10 - Essential (primary) hypertension Status: Acute Assessment and Plan: Patient has been started on losartan and metoprolol by Cardiology. Spironolactone has been added as tolerated. (9) Hyperlipemia, mixed: Code(s): E78.2 - Mixed hyperlipidemia Status: Acute Assessment and Plan: On atorvastatin at home, will continue (10) Dysphagia: Code(s): R13.10 - Dysphagia, unspecified Status: Acute Assessment and Plan: Bedside swallow study done. Patient exhibited some coughing after some type of foods after extubation. Speech recommended [place] barium swallow which has been ordered- she has passed. DS: Summary Hospital Course Hospital Course: This is a 59-year-old female patient who has a history of coronary artery disease status post 3 vessel CAB H ovary year ago at another hospital. The patient activated EMS tonight as she was having chest pressure that started after she was exerting herself around the house. She also has a history of COPD and is chronically on oxygen at 2.5 L. she felt better when she rested but with any activity she would have chest pressure again. She was also having some nausea with this as well. She was ill appearing, tachycardic, and tachypneic in the emergency room. Her EKG did show some inferior lateral ST depressions and slight elevation in AVR. The ER physician did talk to Interventional Cardiology who recommend that the patient be heparinized and heparin drip was started. Metoprolol was also recommended for the heart rate. However her hemoglobin came back critically low at 3.4. She is chronically on Xarelto an aspirin and was found to be guaiac-positive in the emergency room. Patient was ordered 3 units of packed red blood cells. She also has history of severe aortoiliac occlusive disease. She is under the care of Dr. Sparks at [facility]. Therefore the ER physician notify Dr. Sparks at [facility]. It was noted that her CT scan reveals chronic changes. Cardiology and GI have both been consulted. Patient's EKGs did improve with the blood transfusion. Repeat H&H was 8.0 in 27.0. CTA abdomen pelvis preliminary report was read as mild interseptal thickening is question pulmonary edema. There is underlying emphysema. Her heparin drip was then stopped. The patient was given IV Protonix. Her potassium was noted to be 2.5 which was replaced with 40 mEq potassium chloride IV. Patient was transferred to the floor, rapid response was called as patient had acute onset respiratory failure characterized by agonal breathing. ICU was consulted and patient was accepted as she was intubated. Central line was placed, right IJ. primary suspicion of cause respiratory failure was strongly as pulmonary vascular congestion was noted on x-ray in setting of NSTEMI, CHF, suspected aspiration. Patient was in a state of shock due to either sepsis or cardiogenic shock as patient's initial presentation was due to NSTEMI that was not able to be managed with heparin given GI bleed. Vancomycin and cefepime were started and cultures were obtained. Cardiology was brought on board, as was GI. Anticoagulation was held due to above, GI recommended EGD/colonoscopy when patient is more hemodynamically stable, as well as hemolysis workup, which has returned unremarkable. Cardiology to reviewed, and considered cause of cardiomyopathy to be due to takotsubo rather than ischemic. As such recommendation is for guideline-directed medical therapy when stable without need for ischemic workup. Patient remained intubated for total 3 days with successful extubation on April 20. She had a drop in hemoglobin once more requiring 1 PRBC. Dose of Lasix was administered with this transfusion: Patient tolerated well. GI are evaluated and decided EGD/colonoscopy will be deferred 2-3 weeks after discharge until patient is hemodynamically, cardiologically stable and swallowing well which patient initially had problems with but did pass swallow by discharge. After extubation, patient remains stable on home baseline 2-3 L of oxygen. As patient continued to improve, she was transferred to the IMU, cardiology followed up and has started adding guideline directed medical therapy as tolerated. Also recommending to repeat echo in 3 months to evaluate EF consider AICD at that time if no improvement in EF to more than 35%. Hematology weight in as well, administered 1 dose of IV iron recommend oral iron with vitamin-C with follow-up in their clinic in 2-3 weeks. GI was passed if aspirin could be resumed, they informed that it can be. Other anticoagulants will remain on hold until patient follows up with Cardiology/GI. Hemoglobin remained stable during post extubation period. Patient was deemed safe for discharge at this time. She will follow-up with the following: -Cardiology in 1 month with TTE to be done in 3 months. Confirmed with Cardiology the patient will not need a LifeVest as her heart failure is likely due to takotsubo and is likely to improve. -pulmonary for COPD follow-up 4 weeks -GI for EGD/colonoscopy 2-4 weeks -hematology for anemia follow-up 2-3 weeks -PCP follow-up for post hospitalization transition of care 1 week Status at Discharge Cognitive/behavioral status at discharge: Stable Time Spent with Patient Time attestation: Total time spent providing and/or coordinating discharge services: Exam Narrative: General: No acute distress on O2 2 L nasal cannula HEENT:? Pupils equal and reactive, sclera is clear, Neck:? Supple, right IJ central line removed Respiratory:? Clear to auscultation bilaterally, no wheezing or crackle Cardiac:? S1-S2 normal, regular rate and rhythm Abdomen:? Soft, nontender, nondistended, hypoactive bowel sounds Extremities:? Bilateral trace edema in her lower extremities Neuro:? AO x3, moves all 4 extremities, follows commands, Skin:? Warm and dry Psych:? Normal speech and affect Discharge Plan Discharge Attending physician on discharge: Kevin Leiva Oca Consulting providers: Daysi Martin; Gloria Ochoa; Jeronimo Lee Discharging Clinician: Kevin Leiva Oca Patient Disposition: Home Activity: as tolerated Diet: heart healthy Discharge Instructions: Follow up with the following -Cardiology in 1 month with TTE to be done in 3 months. Confirmed with Cardiology the patient will not need a LifeVest as her heart failure is likely due to takotsubo and is likely to improve. -Pulmonary for COPD follow-up 4 weeks -GI for EGD/colonoscopy 4 weeks -hematology for anemia follow-up 2-3 weeks -PCP follow-up for post hospitalization transition of care 1 week Blood thinners (aside from baby aspirin) remain on hold at this time. Please follow up with cardiology for resumption if needed. Spironolactone 12.5mg (1/2 25mg pill) has been added to medications. Monitor blood pressure while on this, cardiology will adjust this and other heart medications as needed. Patient Instructions: Antibiotic Form, Rivaroxaban (By mouth), Heart Attack (GEN), Gastrointestinal Bleeding (GEN), Heart Healthy Diet (GEN), Anemia (GEN) Patient Language: Tamazight Stand Alone Forms: General Discharge Information Follow-up/Referrals: [facility] [Provider Group] - 4 Weeks Jeronimo Lee MD [Physician, Hematology] - 2 Weeks Daysi Martin MD [Physician, Cardiology] - 4 Weeks Mirtha,JEANNINE Chavez [Primary Care Provider, Unknown] - 1 Week Discharge Medications: New budesonide [Pulmicort] 0.5 mg/2 mL Suspension For Nebulization 0.5 mg inhalation Q12HRT 30 Days Qty: 120 0RF ipratropium-albuterol 0.5 mg-3 mg(2.5 mg base)/3 mL Solution For Nebulization 3 ml inhalation Q6HRT PRN (Reason: Wheezing) 30 Days Qty: 90 0RF Jardiance 10 mg Tablet 10 mg PO DAILY 30 Days Qty: 30 0RF aspirin [Children's Aspirin] 81 mg Tablet,Chewable 81 mg PO DAILY@0800 30 Days Qty: 30 0RF ascorbate calcium (vitamin C) 500 mg tablet 500 mg PO DAILY Qty: 30 0RF ferrous sulfate 325 mg (65 mg iron) tablet 325 mg PO DAILY Qty: 30 0RF nitroglycerin 0.4 mg tablet, sublingual 0.4 mg sublingual Q5M PRN (Reason: chest pain) Qty: 30 0RF Rx Instructions: do not exceed 3 doses per episode spironolactone 25 mg tablet 12.5 mg PO DAILY 30 Days Qty: 15 0RF Continued losartan 25 mg tablet 25 mg PO DAILY 30 Days Qty: 0 0RF Trelegy Ellipta 100-62.5-25 mcg blister with device 1 inh INHALATION DAILY 30 Days Qty: 0 0RF escitalopram oxalate 10 mg tablet 10 mg PO DAILY 30 Days Qty: 0 0RF albuterol sulfate 90 mcg/actuation HFA aerosol inhaler 2 puff INHALATION Q6H PRN (Reason: shortness of breath or wheezing) 30 Days Qty: 0 0RF metoprolol tartrate 25 mg tablet 25 mg PO Q12H 30 Days Qty: 60 0RF atorvastatin 80 mg tablet 80 mg PO QPM 30 Days Qty: 0 0RF Discontinued clopidogrel 75 mg tablet 75 mg PO DAILY Xarelto 20 mg tablet 20 mg PO QPM Other Ambulatory Orders: CA echo limited (Routine) Timeframe: 3 Months Location: Determined by Patient Ordered By: Kevin tavera Oca Date of admission: 04/18/25 07:52 Primary Care Provider: MarkAnna Admitting Provider: Mark Romo Attending physician on admission: Mark Romo Condition: Guarded Prognosis Hospitalist MIPS Heart Failure (Exclusion) Patient has history of Heart Transplant or Left Ventricular Assistive Device?: No IF YES, STOP HERE Heart Failure (Qualifier) Patient has current or prior documentation of LVEF less than or equal to 40%, or mod/servere depressed LVSF?: Yes IF NO, STOP HERE If Yes, Heart Failure (Qualifier) Patient was prescribed or already taking an Angiotensin-Converting Enzyme (LARA) Inhibitor, or Antiotensin Receptor Shaun (ARB): Yes Patient was prescribed or already taking bisoprolol, carvedilol, or sustained release metoprolol succinate: Yes
== END 2025-04-25 14:14 | disposition home or self-care (01) | DRG 208 ==
LOC: ANHED 04-18 04:22 → ANHIMU 04-18 04:29 → ANHICU 04-18 06:40 → ANHIMU 04-24 09:27 → ANHICU 04-28 08:55 → ANHIMU 04-28 08:55
PROVIDERS: Internal Medicine; Internal Medicine Gastroenterology; Nurse Practitioner; Admitting Provider Internal Medicine; Emergency Provider Student in an Organized Health Care Education/Training Program; PCP Nurse Practitioner Family; Visit Provider Student in an Organized Health Care Education/Training Program
DX: J96.00 Acute respiratory failure, unspecified whether with hypoxia or hypercapnia (principal); I50.21 Acute systolic (congestive) heart failure; R57.0 Cardiogenic shock; I21.A1 Myocardial infarction type 2; J95.84 Transfusion-related acute lung injury (TRALI); I51.81 Takotsubo syndrome; D62 Acute posthemorrhagic anemia; J44.9 Chronic obstructive pulmonary disease, unspecified; I25.10 Atherosclerotic heart disease of native coronary artery without angina pectoris; I70.0 Atherosclerosis of aorta; I70.8 Atherosclerosis of other arteries; I70.213 Atherosclerosis of native arteries of extremities with intermittent claudication, bilateral legs; E78.5 Hyperlipidemia, unspecified; I34.0 Nonrheumatic mitral (valve) insufficiency; I27.20 Pulmonary hypertension, unspecified; I11.0 Hypertensive heart disease with heart failure; R13.10 Dysphagia, unspecified; F41.8 Other specified anxiety disorders; I36.1 Nonrheumatic tricuspid (valve) insufficiency; F17.210 Nicotine dependence, cigarettes, uncomplicated; Z95.1 Presence of aortocoronary bypass graft; Z95.820 Peripheral vascular angioplasty status with implants and grafts; Z99.81 Dependence on supplemental oxygen; Z79.01 Long term (current) use of anticoagulants; Z79.82 Long term (current) use of aspirin
CPT/HCPCS: 31500; 36415; 36430; 36600; 70450; 71045; 74174; 74230; 76705; 80053; 80074; 80202; 81003; 82140; 82247; 82248; 82375; 82550; 82607; 82728; 82746; 82805; 82948; 83010; 83050; 83540; 83550; 83605; 83615; 83690; 83735; 84100; 84132; 84156; 84166; 84238; 84443; 84466; 84484; 85014; 85018; 85025; 85027; 85046; 85055; 85610; 85730; 86140; 86850; 86880; 86900; 86901; 86923; 87040; 87086; 87641; 92526; 92610; 92611; 93005; 94002; 94003; 94640; 96361; 96365; 96366; 96375; 97110; 97162; 97166; 97530; 99291; A9270; C1751; C8929; G0378; J0613; J0616; J0692; J1644; J1756; J1938; J2250; J2371; J2470; J3010; J3373; J3480; J7030; J7040; J7050; P9016; Q9957; Q9967